=== PATIENT | female | born 1965 | race Caucasian/White ===

== ENCOUNTER 2020-06-05 16:11 | Emergency (ER) | payer OTHER, SELFPAY ==
--- NOTE | ~2020-06-05 | CT_ITS ---
EXAMINATION: CT abdomen pelvis w con DATE: 06/05/2020 18:51 INDICATION: Upper abdominal pain TECHNIQUE: Computed tomography (CT) of the abdomen and pelvis was performed with 100 cc Omnipaque 350 intravenous contrast. The dose-length product was 831.44 mGy-cm. Automated exposure control and iter ative reconstruction technique were employed. COMPARISON: CT dated 11/01/2019 FINDINGS: Lung bases are unremarkable. Heart size normal. No significant pleural or pericardial effus ion. Fatty infiltration of the liver. The spleen, pancreas, adrenal glands and kidneys are unremarkable. S tatus post cholecystectomy. No significant vascular abnormality. No lymphadenopathy. Nonobstructive b owel gas pattern. No abnormal pelvic masses or fluid collections. There is a chronic L2 burst fractur e. Mild lower lumbar spondylosis. There is right hip arthroplasty. IMPRESSION: 1. No acute abdominal abnormality. Reviewed, dictated and finalized at location A.
[2020-06-05 16:18] VITALS: BP 140/84; PULSE 109; RESP 18; TEMP 36.6; O2SAT 99
--- NOTE | 2020-06-05 17:54 | ED.ABDPAIN ---
HPI - Abdominal Pain General Chief Complaint: Abdominal Pain Stated Complaint: abd pain Time Seen by Provider: 06/05/20 17:41 Source: patient History of Present Illness HPI narrative: 55-year-old female presents to emergency department for upper abdominal pain for the past 2 weeks. Patient states the pain is intermittent. She also reports having some diarrhea soon after eating. She does report currently she feels nauseated. She has not vomited today. She has not taken anything for the pain so far. No chest pain or shortness of breath. No fever or chills. Related Data Home Medications Medication Instructions Recorded Confirmed albuterol sulfate [Ventolin HFA] INHALATION 06/05/20 atorvastatin 06/05/20 blood sugar diagnostic [facility] 06/05/20 Verio test strips] blood-glucose meter [[facility] 06/05/20 Verio Flex meter] cyclobenzaprine mg 06/05/20 hydrochlorothiazide 06/05/20 hydrocodone-acetaminophen 06/05/20 irbesartan mg 06/05/20 irbesartan mg 06/05/20 lancets [[facility] Delica Plus 06/05/20 06/05/20 Lancet] liraglutide [Victoza 2-Gabriele] mg SUBCUT 06/05/20 liraglutide [Victoza 2-Gabriele] mg SUBCUT 06/05/20 liraglutide [Victoza 3-Gabriele] mg SUBCUT 06/05/20 metformin mg 06/05/20 pen needle, diabetic [UltiCare Pen 06/05/20 06/05/20 Needle] sumatriptan succinate mg PO 06/05/20 Allergies Allergy/AdvReac Type Severity Reaction Status Date / Time Penicillins Allergy Severe Anaphylaxis Verified 06/05/20 17:47 levofloxacin [From Levaquin] Allergy Mild Rash Verified 06/05/20 17:47 Sulfa (Sulfonamide Allergy Mild Rash Verified 06/05/20 17:47 Antibiotics) Review of Systems Review of Systems: Narrative: CONSTITUTIONAL: Denies fever, chills, or sweats. EYES: Denies visual changes, redness, or discharge. ENT: Denies rhinorrhea, congestion, sore throat, or otalgia. CARDIOVASCULAR: Denies chest pain, palpitations, or edema. RESPIRATORY: Denies cough or dyspnea. GASTROINTESTINAL: Reports abdominal pain, nausea, and diarrhea. GENITOURINARY: Denies dysuria or hematuria. SKIN: Denies rash or itching. MUSCULOSKELETAL: Denies back pain, joint pain, or myalgia. NEUROLOGIC: Denies headache, numbness, dizziness, or weakness. PSYCHIATRIC: Denies anxiety or depression. [facility] Past Medical History Medical History Anemia Anxiety Arthritis Asthma Back pain Colitis Congenital dysplasia of hip COPD (chronic obstructive pulmonary disease) case management patient Diabetes borderline Diverticulitis Fractures rt arm, rt foot, pelvis, coccyx GERD (gastroesophageal reflux disease) IBS (irritable bowel syndrome) Pneumonia Sinus problem UTI (urinary tract infection) Surgical History Surgical History H/O mastectomy H/O prior ablation treatment uterine H/O rhinoplasty History of dilatation and curettage History of hip replacement Hx of section Hx of cholecystectomy Hx of spinal surgery Family History Family History Father Family history of diabetes mellitus in first degree relative Mother Family history of malignant neoplasm of uterus Grandparent Family history of lymphoma Unknown Colon cancer Other Asthma Family history of coronary artery disease Hypertension Social History Social History Smoking status: Former smoker Alcohol intake: current Gender identity (if verbalized by the patient): Female Exam Narrative: Exam Narrative: GENERAL: Well-appearing, well-nourished, and in no acute distress. HEAD: Normocephalic, atraumatic. EYES: PERRLA and EOMI. ENT: Nares clear, no rhinorrhea or epistaxis. Mucous membranes moist. NECK: Supple. CHEST: Clear to auscultation. No respiratory distress. HEART: Regular rate and rhythm. No murmur heard. N
[2020-06-05 18:22] LABS: Fractional Inspired Oxygen 21 %; PCO2 VBG 40.7 mmHg (42.0-48.0); PO2 VBG 53.1 mmHg (35.0-45.0)
[2020-06-05 18:22] LABS: Add Urine Microscopic? YES; Appearance Urine Clear (Clear); Bilirubin Urine Negative (Negative); Blood Urine 1+ (Negative); Color Urine Straw (Yellow); Glucose Urine UA 3+ mg/dL (Negative); Ketones Urine Negative (Negative); Leukocyte Esterase Ur Negative LEU/UL (Negative); Mucus Urine Rare /lpf; Nitrate Urine Negative (Negative); Protein Urine Negative (Negative); RBC Urine 0-2 /hpf (0-2); Specific Grav Ur 1.027 (1.001-1.035); Squamous Epithelial Cell Urine Occasional /hpf (Few); Urobilinogen Urine Negative mg/dL (<2.0); WBC Urine 0-3 /hpf
[2020-06-05 18:23] LABS: Device ROOM AIR; pH VBG 7.406 (7.300-7.400)
[2020-06-05 18:28] LABS: Basophils Absolute Auto 0.1 K/mm3 (0.0-0.1); Basophils Percent Auto 0.5 % (0.2-1.2); Eosinophils Absolute Auto 0.2 K/mm3 (0-0.3); Eosinophils Percent Auto 1.6 % (0-4.4); Hematocrit 44.5 % (37.0-47.0); Hemoglobin 14.7 g/dL (12.0-15.0); Immature Granulocyte Absolute 0.01 K/mm3 (0.00-0.031); Immature Granulocyte Percent A 0.1 % (0-0.5); Lymphocytes Absolute Auto 3.23 K/mm3 (0.9-3.2); Lymphocytes Percent Auto 32.6 % (18.3-44.2); Mean Corpuscular Volume 87.8 fl (80-100); Mean Platelet Volume 10.5 fl (7.4-10.4); Monocytes Absolute Auto 0.6 K/mm3 (0.1-0.6); Monocytes Percent Auto 5.7 % (2.6-8.5); Neutrophils Absolute Auto 5.9 K/mm3 (1.3-6.7); Neutrophils Percent Auto 59.5 % (45.5-73.1); Platelet Count Result 324 k/mm3 (150-375); Red Blood Count 5.07 M/mm3 (4.2-5.4); Red Cell Distribution Width 13.2 % (11.5-14.5); White Blood Count 9.9 K/mm3 (4.5-10.0)
[2020-06-05] MEDS: KETOROLAC 30 MG/ML VIAL (*BKC) IV PUSH (18:31)
[2020-06-05] MEDS: SODIUM CHLORIDE 0.9% IV 1,000 ML 999 ML IV CONT (18:31)
[2020-06-05] MEDS: ONDANSETRON INJ 4 MG/2 ML VIAL IV PUSH (18:32)
[2020-06-05 18:41] LABS: Alanine Aminotransferase 96 U/L (4-35); Albumin Level 4.3 g/dL (3.5-5.1); Alkaline Phosphatase 109 U/L (38-126); Anion Gap 9 mmol/L (8-16); Aspartate Amino Transferase 65 U/L (14-36); Bilirubin,Total 0.3 mg/dL (0.2-1.3); Blood Urea Nitrogen 12 mg/dL (7-17); Calcium 9.4 mg/dL (8.4-10.2); Carbon Dioxide 29 mmol/L (22-30); Chloride 95 mmol/L (98-107); Estimated CRCL calculation 96 ml/min; Estimated Glomerular Filt Rate > 60; Glucose 316 mg/dL (65-105); Lipase 327 U/L (23-300); Potassium 4.2 mmol/L (3.4-5.0); Sodium 133 mmol/L (137-145)
[2020-06-05 18:43] LABS: Estimated CRCL calculation 96 ml/min; Estimated Glomerular Filt Rate > 60
[2020-06-05 18:46] LABS: Beta-Hydroxybutyrate/Acetoacetate 0.09 mmol/L (0.02-0.27)
[2020-06-05 20:13] VITALS: BP 135/79; PULSE 80; RESP 19; TEMP 36.8; O2SAT 100
== END 2020-06-05 20:14 | disposition home or self-care (01) ==
PROVIDERS: Emergency Provider Emergency Medicine; PCP Physician Assistant
DX: K58.9 Irritable bowel syndrome, unspecified (principal); D64.9 Anemia, unspecified; F41.9 Anxiety disorder, unspecified; M19.90 Unspecified osteoarthritis, unspecified site; J45.909 Unspecified asthma, uncomplicated; J44.9 Chronic obstructive pulmonary disease, unspecified; K21.9 Gastro-esophageal reflux disease without esophagitis
CPT/HCPCS: 36415; 74177; 80053; 81001; 82010; 82803; 83690; 85025; 96361; 96374; 96375; 99284; J1885; J2405; J7030; Q9967

== ENCOUNTER 2020-08-17 13:41 | Emergency (ER) | payer OTHER, SELFPAY ==
[2020-08-17 13:51] VITALS: BP 141/90; PULSE 85; RESP 18; TEMP 36.7; O2SAT 99
--- NOTE | 2020-08-17 14:06 | ED.URI ---
HPI - URI/Sore Throat General Chief Complaint: Upper Respiratory Infection Stated Complaint: Dizziness Time Seen by Provider: 08/17/20 14:06 Source: patient Mode of arrival: ambulatory Limitations: no limitations History of Present Illness HPI Narrative: Marilyn Jacobson is a 55 yo female with c/o sinus headache, dizziness, increased UR symptoms. In a [place] environment; seen by pcp in last month Related Data Home Medications Medication Instructions Recorded Confirmed blood sugar diagnostic [OneTouch 06/05/20 06/05/20 Verio test strips] blood-glucose meter [OneTouch 06/05/20 06/05/20 Verio Flex meter] lancets [OneTouch Delica Plus 06/05/20 06/05/20 Lancet] pen needle, diabetic [UltiCare Pen 06/05/20 06/05/20 Needle] albuterol sulfate [ProAir HFA] 1 inh INHALATION QID 08/17/20 08/17/20 cyclobenzaprine [Flexeril] 20 mg PO DAILY 08/17/20 08/17/20 hydrochlorothiazide 12.5 mg PO DAILY 08/17/20 08/17/20 hydrocodone-acetaminophen [[place]] 1 tablet PO BID 08/17/20 08/17/20 liraglutide [Victoza 2-Gabriele] 0.6 mg SUBCUT DAILY 08/17/20 08/17/20 nateglinide 120 mg PO TID 08/17/20 08/17/20 Allergies Allergy/AdvReac Type Severity Reaction Status Date / Time Penicillins Allergy Severe Anaphylaxis Verified 08/17/20 13:59 levofloxacin [From Levaquin] Allergy Mild Rash Verified 08/17/20 13:59 Sulfa (Sulfonamide Allergy Mild Rash Verified 08/17/20 13:59 Antibiotics) Review of Systems Review of Systems: Narrative: CONSTITUTIONAL: Denies fever, chills, sweats. EYES: Denies visual changes, redness, discharge. ENT: Denies rhinorrhea, c sinus ongestion, sore throat, no otalgia. CARDIOVASCULAR: Denies chest pain, palpitations, edema. RESPIRATORY: Denies dyspnea, wheezing, cough GASTROINTESTINAL: Denies abdominal pain, nausea, vomiting, diarrhea. GENITOURINARY: Denies dysuria, hematuria, abnormal discharge SKIN: Denies rash or itching. NEUROLOGIC: Denies numbness, or focal weakness. PSYCHIATRIC: Denies anxiety or depression. [facility] Past Medical History Medical History (Updated 08/17/20 @ 14:15 by Jenelle Vasquez CNP) Anemia Anxiety Arthritis Asthma Back pain Colitis Congenital dysplasia of hip COPD (chronic obstructive pulmonary disease) case management patient Diabetes borderline Diverticulitis Fractures rt arm, rt foot, pelvis, coccyx GERD (gastroesophageal reflux disease) IBS (irritable bowel syndrome) Pneumonia Sinus problem UTI (urinary tract infection) Surgical History Surgical History H/O mastectomy H/O prior ablation treatment uterine H/O rhinoplasty History of dilatation and curettage History of hip replacement Hx of section Hx of cholecystectomy Hx of spinal surgery Family History Family History Father Family history of diabetes mellitus in first degree relative Mother Family history of malignant neoplasm of uterus Grandparent Family history of lymphoma Unknown Colon cancer Other Asthma Family history of coronary artery disease Hypertension Social History Social History Smoking status: Former smoker Alcohol intake: current Gender identity (if verbalized by the patient): Female Comments At time of signature, I agree with nursing past medical, surgical, social and family history. There is no relevant family history pertinent to the presenting complaint. Exam Narrative: Exam Narrative: GENERAL: This is a well-nourished, well-developed patient, in mild distress. HEAD: normocephalic, atraumatic. EYES: Sclera clear/white. Vision is grossly intact. EARS: External ears normal, auditory canals clear and without drainage, TMs normal without perforation. Hearing grossly intact. NOSE: External nose normal without nasal discharge, nares without redness, no rhinorrhea. THROAT: Mucous membranes m
== END 2020-08-17 14:20 | disposition home or self-care (01) ==
PROVIDERS: Emergency Provider Nurse Practitioner; PCP Physician Assistant
DX: J01.01 Acute recurrent maxillary sinusitis (principal); Z87.891 Personal history of nicotine dependence; M19.90 Unspecified osteoarthritis, unspecified site; J44.9 Chronic obstructive pulmonary disease, unspecified; K21.9 Gastro-esophageal reflux disease without esophagitis; Q65.89 Other specified congenital deformities of hip; Z90.10 Acquired absence of unspecified breast and nipple; Z96.649 Presence of unspecified artificial hip joint; R73.03 Prediabetes
CPT/HCPCS: 99213; G0463

== ENCOUNTER 2020-09-18 13:58 | Outpatient (CLI) | payer OTHER, SELFPAY ==
--- NOTE | ~2020-09-18 | XR_ITS ---
EXAMINATION: XR hand LT min 3V DATE: 09/18/2020 14:16 INDICATION: Left hand pain. TECHNIQUE: 3 views of left hand were obtained. COMPARISON: None. FINDINGS: Bone alignment is normal. No fracture. There is a 4 mm nonaggressive lytic lesion in lunate , likely an enchondroma. There is mild osteoarthritis of second, third, and fourth distal interphalan geal joints. IMPRESSION: 1. Mild polyarticular osteoarthritis. Reviewed, dictated and finalized at location B. 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
--- NOTE | ~2020-09-18 | XR_ITS ---
EXAMINATION: XR hand RT min 3V DATE: 09/18/2020 14:16 INDICATION: Right hand pain. TECHNIQUE: 3 views of right hand were obtained. COMPARISON: Right hand radiographs 08/23/2009 FINDINGS: Bone alignment is normal. No fracture. There is mild osteoarthritis of second metacarpophal angeal joint and third distal interphalangeal joint. IMPRESSION: 1. Mild polyarticular osteoarthritis. Reviewed, dictated and finalized at location B. 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
== END 2020-09-18 13:59 ==
PROVIDERS: PCP Physician Assistant; Visit Provider Pain Medicine Pain Medicine
DX: M19.041 Primary osteoarthritis, right hand (principal); M19.042 Primary osteoarthritis, left hand
CPT/HCPCS: 73130

== ENCOUNTER 2021-03-11 12:01 | Emergency (ER) | payer OTHER, SELFPAY ==
[2021-03-11] VITALS (7 sets, daily range): BP systolic 125–147; BP diastolic 78–101; PULSE 68–94; RESP 16–22; TEMP 36.2; O2SAT 97–100
--- NOTE | ~2021-03-11 | CT_ITS ---
EXAMINATION: CT abdomen pelvis w con DATE: 03/11/2021 13:40 INDICATION: Abdominal pain. Diverticulitis. Nausea. TECHNIQUE: Computed tomography (CT) of the abdomen and pelvis was performed with 100 mL Omnipaque 350 intravenous contrast. Automated exposure control and iterative reconstruction technique were employe d. The dose-length product was 576.75 mGy-cm. COMPARISON: CT abdomen and pelvis 06/05/2020 FINDINGS: The visualized portions of the lung bases demonstrate mild atelectasis. There is mild emphy sema. There is a 5 mm nodule at the minor fissure, likely benign. No pleural effusion. The heart size is normal. There are coronary artery calcifications. No pericardial effusion. There is diffuse hepat ic steatosis. There are changes of cholecystectomy. The spleen, pancreas, adrenal glands, and kidneys are normal. There are no dilated loops of bowel. The appendix is normal. There are no pathologically enlarged lymph nodes. There is no free intraperitoneal fluid. 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 There is a total right hip arthroplasty. There is a chronic compr ession fracture of L2. There is severe lower lumbar spondylosis. IMPRESSION: 1. Diffuse hepatic steatosis. Reviewed, dictated and finalized at location A.
[2021-03-11 13:01] LABS: Add Urine Microscopic? YES; Appearance Urine Clear (Clear); Bilirubin Urine Negative (Negative); Blood Urine 1+ (Negative); Color Urine Yellow (Yellow); Glucose Urine UA Negative (Negative); Ketones Urine Negative (Negative); Leukocyte Esterase Ur Negative LEU/UL (Negative); Mucus Urine Rare /lpf; Nitrate Urine Negative (Negative); Protein Urine 1+ mg/dL (Negative); RBC Urine 0-2 /hpf (0-2); Specific Grav Ur 1.023 (1.001-1.035); Squamous Epithelial Cell Urine Few /hpf (Few); Urobilinogen Urine Negative mg/dL (<2.0); WBC Urine 0-3 /hpf
[2021-03-11] MEDS: PANTOPRAZOLE SODIUM IV 40 MG VIAL IV PUSH (13:05)
[2021-03-11] MEDS: SODIUM CHLORIDE 0.9% IV 1,000 ML 999 ML IV CONT (13:05)
[2021-03-11 13:10] LABS: Basophils Absolute Auto 0.1 K/mm3 (0.0-0.1); Basophils Percent Auto 0.4 % (0.2-1.2); Eosinophils Absolute Auto 0.2 K/mm3 (0-0.3); Eosinophils Percent Auto 1.3 % (0-4.4); Hemoglobin 14.3 g/dL (12.0-15.0); Immature Granulocyte Absolute 0.05 K/mm3 (0.00-0.031); Immature Granulocyte Percent A 0.4 % (0-0.5); Lymphocytes Absolute Auto 3.57 K/mm3 (0.9-3.2); Lymphocytes Percent Auto 31.5 % (18.3-44.2); Mean Corpuscular HGB Conc 33.3 g/dl (32-36); Mean Corpuscular Hemoglobin 28.5 pg (26-34); Mean Corpuscular Volume 85.8 fl (80-100); Mean Platelet Volume 10.3 fl (7.4-10.4); Monocytes Absolute Auto 0.6 K/mm3 (0.1-0.6); Monocytes Percent Auto 5.1 % (2.6-8.5); Neutrophils Percent Auto 61.3 % (45.5-73.1); Platelet Count Result 356 k/mm3 (150-375); Red Blood Count 5.01 M/mm3 (4.2-5.4); Red Cell Distribution Width 12.9 % (11.5-14.5); White Blood Count 11.4 K/mm3 (4.5-10.0)
[2021-03-11 13:19] LABS: Alanine Aminotransferase 41 U/L (4-35); Albumin Level 4.6 g/dL (3.5-5.1); Alkaline Phosphatase 110 U/L (38-126); Anion Gap 11 mmol/L (8-16); Aspartate Amino Transferase 40 U/L (14-36); Bilirubin,Total 0.7 mg/dL (0.2-1.3); Blood Urea Nitrogen 25 mg/dL (7-17); Calcium 9.9 mg/dL (8.4-10.2); Carbon Dioxide 29 mmol/L (22-30); Chloride 97 mmol/L (98-107); Estimated CRCL calculation 81 ml/min; Estimated Glomerular Filt Rate > 60; Glucose 128 mg/dL (65-105); Lipase 120 U/L (23-300); Potassium 3.7 mmol/L (3.4-5.0); Sodium 137 mmol/L (137-145)
[2021-03-11] MEDS: HYOSCYAMINE SULFATE 0.125 MG TABLET PO (13:56)
--- NOTE | 2021-03-11 14:19 | ED.ABDPAIN ---
HPI - Abdominal Pain General Chief Complaint: Abdominal Pain Stated Complaint: abd pain Time Seen by Provider: 03/11/21 12:14 Source: patient and RN notes reviewed Mode of arrival: ambulatory Limitations: no limitations History of Present Illness HPI narrative: Patient is a 56-year-old female who presents to emergency department for evaluation of abdominal pain that is been present now for several weeks noting aching pain in the epigastrium patient has specialist and sees primary care for this historically has denied any vomiting or hematemesis or any rectal bleeding does note some loose stools denies URI symptoms and on arrival is otherwise in no distress Related Data Home Medications Medication Instructions Recorded Confirmed blood sugar diagnostic [OneTouch 06/05/20 06/05/20 Verio test strips] blood-glucose meter [OneTouch 06/05/20 06/05/20 Verio Flex meter] lancets [OneTouch Delica Plus 06/05/20 06/05/20 Lancet] pen needle, diabetic [UltiCare Pen 06/05/20 06/05/20 Needle] albuterol sulfate [ProAir HFA] 1 inh INHALATION QID 08/17/20 08/17/20 hydrochlorothiazide 12.5 mg PO DAILY 08/17/20 08/17/20 hydrocodone-acetaminophen [[place]] 1 tablet PO BID 08/17/20 08/17/20 liraglutide [Victoza 2-Gabriele] 0.6 mg SUBCUT DAILY 08/17/20 08/17/20 nateglinide 120 mg PO TID 08/17/20 08/17/20 Allergies Allergy/AdvReac Type Severity Reaction Status Date / Time Penicillins Allergy Severe Anaphylaxis Verified 08/17/20 13:59 levofloxacin [From Levaquin] Allergy Mild Rash Verified 08/17/20 13:59 Sulfa (Sulfonamide Allergy Mild Rash Verified 08/17/20 13:59 Antibiotics) Review of Systems Review of Systems: All systems reviewed & are unremarkable except as noted in HPI and below PMFSH Past Medical History Medical History (Updated 03/11/21 @ 14:23 by Morris Barker PA-C) Anemia Anxiety Arthritis Asthma Back pain Colitis Congenital dysplasia of hip COPD (chronic obstructive pulmonary disease) case management patient Diabetes borderline Diverticulitis Fractures rt arm, rt foot, pelvis, coccyx GERD (gastroesophageal reflux disease) IBS (irritable bowel syndrome) Pneumonia Sinus problem UTI (urinary tract infection) Surgical History Surgical History H/O mastectomy H/O prior ablation treatment uterine H/O rhinoplasty History of dilatation and curettage History of hip replacement Hx of section Hx of cholecystectomy Hx of spinal surgery Family History Family History Father Family history of diabetes mellitus in first degree relative Mother Family history of malignant neoplasm of uterus Grandparent Family history of lymphoma Unknown Colon cancer Other Asthma Family history of coronary artery disease Hypertension Social History Social History Smoking status: Former smoker Alcohol intake: current Gender identity (if verbalized by the patient): Female Exam Narrative: Exam Narrative: GENERAL: Well-appearing, well-nourished, and in no acute distress. HEAD: Normocephalic, atraumatic. EYES: PERRLA and EOMI. ENT: Nares clear, no rhinorrhea or epistaxis. Mucous membranes moist. CHEST: Clear to auscultation. No respiratory distress. No wheezes rales or rhonchi HEART: Regular rate and rhythm. No murmur heard. Normal peripheral pulses. ABDOMEN: Soft, epigastric tenderness to palpation, nondistended EXTREMITIES: Normal range of motion. No edema. SKIN: Warm, dry, no rash. NEURO: No focal deficits. Alert and oriented x3. Cranial nerves II through XII grossly intact PSYCH: Normal mood and affect. Course Course Emergency Course: Patient in the room no distress aware of case findings treatment plan and diagnosis agreeing to follow-up as instructed or to return if symptoms worsen or concerns Vital Signs Vital signs:
== END 2021-03-11 14:45 | disposition home or self-care (01) ==
PROVIDERS: Emergency Medicine Emergency Medical Services; Emergency Provider Family Medicine; PCP Physician Assistant
DX: R10.9 Unspecified abdominal pain (principal); K76.0 Fatty (change of) liver, not elsewhere classified; D64.9 Anemia, unspecified; F41.9 Anxiety disorder, unspecified; M19.90 Unspecified osteoarthritis, unspecified site; J45.909 Unspecified asthma, uncomplicated; K21.9 Gastro-esophageal reflux disease without esophagitis
CPT/HCPCS: 36415; 74177; 80053; 81001; 81025; 83690; 85025; 96361; 96374; 99284; A9270; C9113; J7030; Q9967

== ENCOUNTER 2021-04-23 13:55 | Outpatient (CLI) | payer OTHER, SELFPAY ==
--- NOTE | ~2021-04-23 | XR_ITS ---
EXAMINATION: XR hip LT min 2V DATE: 04/23/2021 14:45 INDICATION: Left hip pain. TECHNIQUE: 2 views of left hip were obtained. COMPARISON: Left hip radiographs 03/09/2019 FINDINGS: Bone alignment is normal. No fracture. There is moderate left hip osteoarthritis. IMPRESSION: 1. Stable moderate left hip osteoarthritis. Reviewed, dictated and finalized at location A.
== END 2021-04-23 13:56 ==
PROVIDERS: PCP Pain Medicine Pain Medicine; Visit Provider Registered Nurse Pain Management
DX: M16.12 Unilateral primary osteoarthritis, left hip (principal)
CPT/HCPCS: 73502

== ENCOUNTER 2021-06-18 12:59 | Outpatient (CLI) | payer OTHER, MEDICAID, SELFPAY ==
--- NOTE | 2021-06-18 | ECG_ITS ---
Measurements Intervals [place] Rate: 92 P: 49 MA: 137 QRS: 74 QRSD: 87 T: 68 QT: 348 QTc: 430 Interpretive Statements SINUS RHYTHM NORMAL ECG Electronically Signed On 06-18-2021 14:09:25 CDT by John Paul Lgaos D.O.
--- NOTE | ~2021-06-18 | XR_ITS ---
EXAMINATION: XR chest 2V DATE: 06/18/2021 13:36 INDICATION: History of COPD TECHNIQUE: PA and lateral views of the chest are obtained. COMPARISON: 02/18/2018 FINDINGS: The lungs are free of acute opacities. There is scarring in the right lung apex. There is n o pleural effusion or pneumothorax. The cardiomediastinal silhouette is normal. There is mild thoraci c spondylosis. IMPRESSION: 1. No acute cardiopulmonary abnormality. Reviewed, dictated and finalized at location B.
[2021-06-18 14:20] LABS: INR 0.9; Prothrombin Time 11.9 Seconds (11.1-14.7)
[2021-06-18 14:21] LABS: Alanine Aminotransferase 41 U/L (4-35); Albumin Level 4.4 g/dL (3.5-5.1); Alkaline Phosphatase 116 U/L (38-126); Anion Gap 11 mmol/L (8-16); Aspartate Amino Transferase 34 U/L (14-36); Bilirubin,Total 0.2 mg/dL (0.2-1.3); Blood Urea Nitrogen 18 mg/dL (7-17); Carbon Dioxide 26 mmol/L (22-30); Chloride 98 mmol/L (98-107); Estimated Glomerular Filt Rate > 60; Glucose 247 mg/dL (65-110); Sodium 135 mmol/L (137-145)
[2021-06-18 14:26] LABS: Partial Thromboplastin Time 23.1 SECONDS (22.3-36.8)
== END 2021-06-18 13:00 | disposition home or self-care (01) ==
PROVIDERS: PCP Pain Medicine Pain Medicine; Visit Provider Physician Assistant
DX: Z01.818 Encounter for other preprocedural examination (principal); Z51.81 Encounter for therapeutic drug level monitoring; Z79.899 Other long term (current) drug therapy
CPT/HCPCS: 36415; 71046; 80053; 85610; 85730; 93005

== ENCOUNTER 2022-01-02 11:46 | Emergency (ER) | payer OTHER, MEDICAID, SELFPAY ==
--- NOTE | ~2022-01-02 | XR_ITS ---
EXAMINATION: XR chest 2V DATE: 01/02/2022 12:18 INDICATION: Central chest pain radiating to the left breast TECHNIQUE: PA and lateral views of the chest were obtained. COMPARISON: Chest radiograph dated 06/18/2021 CT dated 03/11/2021 FINDINGS: Unchanged right apical pleural-parenchymal scarring. Additional unchanged mild lingular atelectasis/s carring along side a small left paracardial fat pad. No new airspace opacities, pulmonary edema, pleu ral effusion or pneumothorax. The cardiomediastinal silhouette is normal. Visualized bones and soft t issues are unremarkable. IMPRESSION: 1. No acute cardiopulmonary disease. Reviewed, dictated and finalized at location A.
--- NOTE | 2022-01-02 11:46 | ECG_ITS ---
Measurements Intervals [place] Rate: 95 P: 55 CA: 130 QRS: 72 QRSD: 85 T: 69 QT: 335 QTc: 423 Interpretive Statements SINUS RHYTHM NORMAL ECG COMPARED TO ECG 06/18/2021 14:06:20 NO SIGNIFICANT CHANGES Electronically Signed On 01-02-2022 16:27:28 CDT by Hang Pino M.D.
[2022-01-02 11:50] VITALS: BP 150/89; PULSE 97; RESP 18; TEMP 36.1; O2SAT 100
[2022-01-02 12:09] LABS: Basophils Absolute Auto 0.1 K/mm3 (0.0-0.1); Basophils Percent Auto 0.6 % (0.2-1.2); Eosinophils Absolute Auto 0.2 K/mm3 (0-0.3); Eosinophils Percent Auto 1.4 % (0-4.4); Hematocrit 48.8 % (37.0-47.0); Hemoglobin 15.5 g/dL (12.0-15.0); Immature Granulocyte Absolute 0.03 K/mm3 (0.00-0.031); Immature Granulocyte Percent A 0.3 % (0-0.5); Lymphocytes Absolute Auto 3.37 K/mm3 (0.9-3.2); Lymphocytes Percent Auto 30.9 % (18.3-44.2); Mean Corpuscular HGB Conc 31.8 g/dl (32-36); Mean Corpuscular Hemoglobin 27.5 pg (26-34); Mean Corpuscular Volume 86.5 fl (80-100); Mean Platelet Volume 10.1 fl (7.4-10.4); Monocytes Absolute Auto 0.6 K/mm3 (0.1-0.6); Monocytes Percent Auto 5.1 % (2.6-8.5); Neutrophils Absolute Auto 6.7 K/mm3 (1.3-6.7); Neutrophils Percent Auto 61.7 % (45.5-73.1); Platelet Count Result 323 k/mm3 (150-375); Red Blood Count 5.64 M/mm3 (4.2-5.4); Red Cell Distribution Width 15.7 % (11.5-14.5); White Blood Count 10.9 K/mm3 (4.5-10.0)
[2022-01-02 12:18] LABS: INR 0.9; Prothrombin Time 11.5 Seconds (11.1-14.7)
[2022-01-02 12:19] LABS: Partial Thromboplastin Time 23.1 SECONDS (22.3-36.8)
[2022-01-02 12:22] LABS: Alanine Aminotransferase 27 U/L (4-35); Albumin Level 4.3 g/dL (3.5-5.1); Alkaline Phosphatase 139 U/L (38-126); Anion Gap 6 mmol/L (8-16); Aspartate Amino Transferase 25 U/L (14-36); Bilirubin,Total 0.5 mg/dL (0.2-1.3); Blood Urea Nitrogen 11 mg/dL (7-17); Calcium 8.8 mg/dL (8.4-10.2); Carbon Dioxide 28 mmol/L (22-30); Chloride 102 mmol/L (98-107); Estimated CRCL calculation 97 ml/min; Estimated Glomerular Filt Rate > 60; Glucose 203 mg/dL (65-110); Lipase 186 U/L (23-300); Potassium 4.3 mmol/L (3.4-5.0); Sodium 136 mmol/L (137-145)
[2022-01-02 12:33] LABS: Troponin I < 0.012 ng/mL (0.000-0.034)
[2022-01-02 15:01] VITALS: O2SAT 99
[2022-01-02 15:02] VITALS: O2SAT 99
[2022-01-02 15:25] LABS: Troponin I < 0.012 ng/mL (0.000-0.034)
[2022-01-02] MEDS: BELLADONNA ALK/PHENOB ELIX 10 ML, MAG HYDROX/ALUMINUM HYD/SIMETH 30 ML, LIDOCAINE HCL 2... PO (15:45)
[2022-01-02 16:11] VITALS: BP 159/92; PULSE 94; RESP 13; O2SAT 97
--- NOTE | 2022-01-02 16:40 | ED.CHESTPAIN ---
HPI - Chest Pain General Chief Complaint: Chest Pain Stated Complaint: chest pain Time Seen by Provider: 01/02/22 14:56 History of Present Illness HPI narrative: Patient is a 56-year-old female who presents ER with chest pain. Reports its been ongoing over the last couple weeks. Occurs daily. Been lasting all day today. She missed a appointment with her PCP and so she came here for evaluation. Starts under her ribs then moves up into the center of her chest. It is burning in nature in the center of her chest. No nausea or vomiting. She reports she noticed the pain occurs when she is full and also occasionally when she is exerting herself. No history of heart disease. No alleviating factors but she is identified. Related Data Home Medications Medication Instructions Recorded Confirmed blood sugar diagnostic [MobisanteTouch 06/05/20 04/24/21 Verio test strips] blood-glucose meter [[employer]obisanteTouch 06/05/20 04/24/21 Verio Flex meter] lancets [[facility] Delica Plus 06/05/20 04/24/21 Lancet] pen needle, diabetic [UltiCare Pen 06/05/20 04/24/21 Needle] albuterol sulfate [ProAir HFA] 1 inh INHALATION QID 08/17/20 04/24/21 hydrochlorothiazide 12.5 mg PO DAILY 08/17/20 04/24/21 hydrocodone-acetaminophen [[place]] 1 tablet PO BID 08/17/20 04/24/21 liraglutide [Victoza 2-Gabriele] 0.6 mg SUBCUT DAILY 08/17/20 04/24/21 nateglinide 120 mg PO TID 08/17/20 04/24/21 irbesartan 75 mg tablet 75 mg PO DAILY 04/24/21 04/24/21 loperamide 2 mg tablet 2 mg PO Q6H PRN 04/24/21 04/24/21 Allergies Allergy/AdvReac Type Severity Reaction Status Date / Time Penicillins Allergy Severe Anaphylaxis Verified 01/02/22 15:03 levofloxacin [From Levaquin] Allergy Mild Rash Verified 01/02/22 15:03 Sulfa (Sulfonamide Allergy Mild Rash Verified 01/02/22 15:03 Antibiotics) Review of Systems Review of Systems: All systems reviewed & are unremarkable except as noted in HPI and below Constitutional: Constitutional: Denies chills, Denies fever(s) and Denies weakness ENT: Denies nasal congestion and Denies sore throat Cardiovascular: Cardiovascular: Reports chest pain, Denies rapid heart rate and Denies radiating jaw, neck or arm pain Respiratory: Respiratory: Denies cough, Denies dyspnea and Denies wheezing Gastrointestinal: Gastrointestinal: Reports abdominal pain, Denies diarrhea, Denies nausea and Denies vomiting Neurologic: Denies focal weakness and Denies numbness PMFSH Past Medical History Medical History (Updated 01/02/22 @ 16:45 by Humble Arango MD) Anemia Anxiety Arthritis Asthma Back pain Colitis Congenital dysplasia of hip COPD (chronic obstructive pulmonary disease) case management patient Diabetes borderline Diverticulitis Fractures rt arm, rt foot, pelvis, coccyx GERD (gastroesophageal reflux disease) IBS (irritable bowel syndrome) Pneumonia Sinus problem UTI (urinary tract infection) Surgical History Surgical History H/O mastectomy H/O prior ablation treatment uterine H/O rhinoplasty History of dilatation and curettage History of hip replacement Hx of section Hx of cholecystectomy Hx of spinal surgery Family History Family History Father Family history of diabetes mellitus in first degree relative Mother Family history of malignant neoplasm of uterus Grandparent Family history of lymphoma Unknown Colon cancer Other Asthma Family history of coronary artery disease Hypertension Social History Social History Smoking status: Former smoker Alcohol intake: current Gender identity (if verbalized by the patient): Female Exam Narrative: GENERAL: Well-appearing, well-nourished, and in no acute distress. HEAD: Normocephalic, atraumatic. EYES: PERRL and EOMI. CHEST: Clear to auscultation. No respiratory d
[2022-01-02 17:01] VITALS: BP 152/90; PULSE 87; RESP 16; O2SAT 98
== END 2022-01-02 17:03 | disposition home or self-care (01) ==
PROVIDERS: Emergency Provider Emergency Medicine; PCP Physician Assistant
DX: R07.9 Chest pain, unspecified (principal); K21.9 Gastro-esophageal reflux disease without esophagitis; J44.9 Chronic obstructive pulmonary disease, unspecified; R73.03 Prediabetes; K58.9 Irritable bowel syndrome, unspecified; M19.90 Unspecified osteoarthritis, unspecified site; Z87.891 Personal history of nicotine dependence; Z87.440 Personal history of urinary (tract) infections; Z87.01 Personal history of pneumonia (recurrent); Z86.2 Personal history of diseases of the blood and blood-forming organs and certain disorders involving the immune mechanism; Z79.899 Other long term (current) drug therapy
CPT/HCPCS: 36415; 71046; 80053; 83690; 84484; 85025; 85610; 85730; 93005; 99284; A9270

== ENCOUNTER 2022-01-15 10:45 | Outpatient (CLI) | payer OTHER, MEDICAID, SELFPAY ==
[2022-01-15 11:25] LABS: Alanine Aminotransferase 26 U/L (4-35); Albumin Level 4.3 g/dL (3.5-5.1); Alkaline Phosphatase 141 U/L (38-126); Anion Gap 5 mmol/L (8-16); Aspartate Amino Transferase 28 U/L (14-36); Bilirubin,Total 0.5 mg/dL (0.2-1.3); Blood Urea Nitrogen 15 mg/dL (7-17); Calcium 9.3 mg/dL (8.4-10.2); Carbon Dioxide 30 mmol/L (22-30); Chloride 101 mmol/L (98-107); Cholesterol 241 mg/dL (0-200); Estimated Glomerular Filt Rate > 60; Glucose 190 mg/dL (65-110); HDL Direct 54 mg/dL; Potassium 4.3 mmol/L (3.4-5.0); Sodium 136 mmol/L (137-145); Triglycerides 163 mg/dL (<150)
[2022-01-15 11:36] LABS: LDL Cholesterol Direct 138 mg/dL
[2022-01-15 12:09] LABS: Microalbumin Urine Random 53.5 mg/L (0-16.7)
[2022-01-15 12:12] LABS: Creatinine Urine 99.9 mg/dL; MALB Creatinine Ratio 53.6 mg/g (0-30)
== END 2022-01-15 10:46 | disposition home or self-care (01) ==
LOC: ANHLAB 10:50
PROVIDERS: PCP Physician Assistant; Visit Provider Physician Assistant
DX: E11.9 Type 2 diabetes mellitus without complications (principal)
CPT/HCPCS: 36415; 80053; 80061; 82043; 83036

== ENCOUNTER 2022-01-27 14:54 | Outpatient (CLI) | payer OTHER, MEDICAID, SELFPAY ==
--- NOTE | ~2022-01-27 | CT_ITS ---
EXAMINATION:CT lung screening DATE: 01/27/2022 15:19 INDICATION: Screening for malignant neoplasms of respiratory organs. Smoker who quit 1 month ago with 38 pack year history. TECHNIQUE: Computed tomography (CT) of the chest was performed without intravenous contrast. Automate d exposure control and iterative reconstruction technique were employed. The dose-length product (DLP ) was 75.10 mGy-cm. COMPARISON: Chest CT 04/27/2016 FINDINGS: There is stable scarring at the lung apices. There is a stable 4 mm nodule at minor fissure . There are chronic mild tree-in-bud opacities in right middle lobe and lingula, likely bronchiolecta sis. There is mild emphysema. There is mild atelectasis in right middle lobe and lingula. No pleural effusion. The heart size is normal. There are coronary artery calcifications. No pericardial effusion . There is diffuse hepatic steatosis. There are changes of cholecystectomy. There is mild thoracic sp ondylosis. IMPRESSION: 1. Lung-RADS category 2: Benign appearance or behavior. Continue annual screening with noncontrast lo w-dose chest CT in 12 months. Reviewed, dictated and finalized at location B. IMPRESSION: 1. Lung-RADS category 2: Benign appearance or behavior. Continue annual screeni ng with noncontrast low-dose chest CT in 12 months.
== END 2022-01-27 14:55 | disposition home or self-care (01) ==
LOC: ANHIMG 15:00
PROVIDERS: PCP Physician Assistant; Visit Provider Physician Assistant
DX: Z12.2 Encounter for screening for malignant neoplasm of respiratory organs (principal); Z87.891 Personal history of nicotine dependence
CPT/HCPCS: 71271

== ENCOUNTER 2022-01-29 10:32 | Outpatient (CLI) | payer OTHER, MEDICAID, SELFPAY ==
--- NOTE | ~2022-01-29 | MM_ITS ---
EXAMINATION: MM screening [facility] BI w maldonado HISTORY: Screening mammogram TECHNIQUE: Craniocaudal and mediolateral oblique 3-D tomosynthesis images were obtained and synthetic 2-D images were generated. CAD analysis was submitted and interpreted. COMPARISON: 03/08/2019, 01/29/2016 bilateral screening mammogram examinations BREAST PARENCHYMAL COMPOSITION: There are scattered areas of fibroglandular density. FINDINGS: Stable circumscribed posterior upper outer quadrant intramammary lymph node on the left. Biopsy marker in the upper outer quadrant of left breast; history of prior benign right breast biopsy . There is no evidence of suspicious mass, calcification, or architectural distortion to suggest norbert gnancy in either breast. There has been no suspicious interval change. IMPRESSION: 1. No mammographic evidence of malignancy. 2. Recommend routine screening mammography in one year. BI-RADS Category 2: Benign finding(s). Reviewed, dictated and finalized at location A.
== END 2022-01-29 10:33 | disposition home or self-care (01) ==
PROVIDERS: PCP Physician Assistant; Visit Provider Physician Assistant
DX: Z12.31 Encounter for screening mammogram for malignant neoplasm of breast (principal)
CPT/HCPCS: 77063; 77067

== ENCOUNTER 2022-02-17 00:05 | Day surgery (SDC) | payer OTHER, MEDICAID, SELFPAY ==
[2022-02-03 14:14] VITALS: BMI 26.3
[2022-02-17 10:07] VITALS: BP 137/78; PULSE 94; RESP 22; O2SAT 96
[2022-02-17] MEDS: LACTATED RINGERS 1,000 ML 150 ML IV CONT (10:13)
[2022-02-17] MEDS: ONDANSETRON INJ 4 MG/2 ML VIAL IV PUSH (10:14)
[2022-02-17 10:20] LABS: Glucose Point of Care 227 mg/dl (65-105)
--- NOTE | 2022-02-17 10:26 | WPDANESEPPF ---
Anes - Initial Pre Proc Eval Procedure: Operation Date: 02/17/22 11:15 Proposed Procedures p Esophagogastroduodenoscopy & Screening Colonoscopy - Edinson Man MD Date/Time: 02/17/22 10:26 Surgeon: Edinson Man MD Pre Op Diagnosis: epigastric pain, neoplasm screening Patient Data Age: 57 Gender: F Height: 1.68 m Weight: 73 kg Last Vital Signs Pulse 94 02/17/22 10:07 Resp 22 H 02/17/22 10:07 BP 137/78 02/17/22 10:07 Pulse Ox 96 02/17/22 10:07 Allergies Allergy/AdvReac Type Severity Reaction Status Date / Time Penicillins Allergy Severe Anaphylaxis Verified 02/17/22 09:54 levofloxacin [From Levaquin] Allergy Mild Rash Verified 02/17/22 09:54 Sulfa (Sulfonamide Allergy Mild Rash Verified 02/17/22 09:54 Antibiotics) Home Medications Medication Instructions Recorded Confirmed Type blood sugar diagnostic [OneTouch 06/05/20 02/17/22 History Verio test strips] blood-glucose meter [OneTouch 06/05/20 02/17/22 History Verio Flex meter] lancets [OneTouch Delica Plus 06/05/20 02/17/22 History Lancet] pen needle, diabetic [UltiCare Pen 06/05/20 02/17/22 History Needle] albuterol sulfate [ProAir HFA] 1 inh INHALATION QID PRN 08/17/20 02/17/22 History cetirizine [Zyrtec] 10 mg PO DAILY #30 cap 08/17/20 02/17/22 Rx hydrocodone-acetaminophen [Floyd] 1 tablet PO BID 08/17/20 02/17/22 History liraglutide [Victoza 2-Gabriele] 0.6 mg SUBCUT DAILY 08/17/20 02/17/22 History famotidine 20 mg tablet 20 mg PO DAILY #30 tablet 04/24/21 02/17/22 Rx dapagliflozin 10 mg tablet 10 mg PO DAILY 01/19/22 02/17/22 History duloxetine 30 mg capsule,delayed 30 mg PO DAILY 01/19/22 02/17/22 History release Laboratory Tests 02/17/22 10:18 POC Capillary Glucose 227 mg/dl H mg/dl (65-105) Patient hx anesthesia problems: none Family hx anesthesia problems: none Results Review: All pre-operative results and documents have been reviewed as part of the pre-operative evaluation. [facility] Past Medical History Medical History Anemia Anxiety Arthritis Asthma Back pain Colitis Congenital dysplasia of hip COPD (chronic obstructive pulmonary disease) case management patient Diabetes borderline Diverticulitis Fractures rt arm, rt foot, pelvis, coccyx GERD (gastroesophageal reflux disease) IBS (irritable bowel syndrome) Pneumonia Sinus problem UTI (urinary tract infection) Surgical History Surgical History H/O mastectomy H/O prior ablation treatment uterine H/O rhinoplasty History of dilatation and curettage History of hip replacement Hx of section Hx of cholecystectomy Hx of spinal surgery Family History Family History Father Family history of diabetes mellitus in first degree relative Mother Family history of malignant neoplasm of uterus Grandparent Family history of lymphoma Unknown Colon cancer Other Asthma Family history of coronary artery disease Hypertension Social History Social History Smoking status: Former smoker Tobacco type: cigarettes Alcohol intake: current Alcohol use details: rarely Living arrangements: with family Gender identity (if verbalized by the patient): Female Spiritual care concerns: No Anes - Eval Final PreProcedure Day of Procedure 02/17/22 10:26 Patient weight: normal Heart: regular rate and rhythm Lungs: clear to auscultation Airway: Mallampati scale class II Neurological: alert and oriented Last oral intake: >/= 8 hours ASA classification: II Emergent: no Anesthetic plan: proceed Anesthesia type and monitoring: general GIVS and standard monitoring Results Review: All pre-operative results and documents have been reviewed as part of the pre-operative evaluation. I
--- NOTE | 2022-02-17 10:26 | WPDHPUPDATE1 ---
History and Physical Update Update Date/Time: 02/17/22 10:26 History and Physical has been reviewed, including an updated exam of the patient. There are NO changes in the patient's condition. Risks, benefits, and alternatives have been discussed and questions answered. Patient agrees to proceed with procedure.
--- NOTE | 2022-02-17 11:25 | SUR.OPER ---
EGD: [id number] COLON: [id number]
[2022-02-17 11:41] VITALS: BP 121/72; PULSE 102; RESP 19; O2SAT 98
[2022-02-17 11:51] VITALS: BP 124/80; PULSE 98; RESP 20; O2SAT 97
[2022-02-17 12:01] VITALS: BP 126/83; PULSE 86; RESP 20; O2SAT 98
== END 2022-02-17 12:10 | disposition home or self-care (01) ==
PROVIDERS: PCP Physician Assistant; Visit Provider Internal Medicine Gastroenterology
PROC: 0DJ08ZZ Inspection of Upper Intestinal Tract, Via Natural or Artificial Opening Endoscopic (ICD-10-PCS; CPT 43235; principal; 2022-02-17 11:15)
DX: Z12.11 Encounter for screening for malignant neoplasm of colon (principal); Z80.0 Family history of malignant neoplasm of digestive organs; K64.8 Other hemorrhoids; R13.19 Other dysphagia; R10.13 Epigastric pain; K57.90 Diverticulosis of intestine, part unspecified, without perforation or abscess without bleeding; Z79.51 Long term (current) use of inhaled steroids; J45.909 Unspecified asthma, uncomplicated; F41.9 Anxiety disorder, unspecified; J44.9 Chronic obstructive pulmonary disease, unspecified; K21.9 Gastro-esophageal reflux disease without esophagitis; K58.9 Irritable bowel syndrome, unspecified; Z87.891 Personal history of nicotine dependence
CPT/HCPCS: 45378; 43239; 43450; 82948; 87081; J2001; J2405; J2704; J3370; J7120

== ENCOUNTER 2022-04-23 13:30 | Outpatient (RCR) | payer OTHER, MEDICAID, SELFPAY ==
--- NOTE | 2022-02-11 11:53 | PTOPEVAL ---
PHYSICAL THERAPY INITIAL EVALUATION. Thank you for referring Marilyn Jacobson to [facility].? The patient is scheduled to be seen for therapy? 2x/week for 4 weeks. Please review, sign, date and return this plan of care LEXY. I agree with and certify that the following plan of care is medically necessary. Referring Physician Date Attending Provider: Martin Singh *PT Outpatient Evaluation Start: 02/10/22 Evaluation Information Diagnosis B lower extremity weakness Onset chronic Subjective Information Pt states she has a lot of Query Text:As Reported By Patient/ back pain, she had back Family surgery about 10 years ago. She states she had her R hip replaced about 6 years ago, she also had her L hip replaced in Jul. She states if she has to get down on the ground she has to roll to her back and use her arms to help pull herself up. Pt states she waddles side to side and this increases when she is tired. Prior Level of Function Pain Assessment Pain Score Pain Score 0: Self Report Cervical and Lumbar ROM Lumbar ROM Lumbar Flexion Active Knee Lumbar Extension (0-40) 15 Lateral Flexion reached lateral knee joint Query Text:Active Hands to: line bilaterally Lateral Rotation Right (0-45) 40 Lateral Rotation Left (0-45) 40 Lumbar Comments Reports of sharp pain with forward flexion Lower Extremity Range of Motion General Lower Extremity Range of Motion WFL/Left,WFL/Right Lower Extremity Muscle Strength Testing Gross Lower Extremity Strength B knee strength 4-/5 B ankle strength 4/5 Hip Strength Right Hip Flexion Strength 4 Good Hip Extension Strength 4 Good Hip Abduction Strength 3+ Fair + Left Hip Flexion Strength 4- Good - Hip Extension Strength 4 Good Hip Abduction Strength 3- Fair - Muscle Length Testing Muscle Length Testing Piriformis w/Hip Flexion >90 Degrees (R) WFL,(L) WFL Piriformis w/Hip Flexion <90 Degrees (R) WFL,(L) WFL Left Hamstring Length -42 Right Hamstring Length -45 Palpation Assessment Palpation R LE longer in supine to long sitting test Balance Assessment 5 Time Sit to Stand Time in Seconds 16 5 Time Sit to Stand Comments without the use of UEs, Query Text:Normative Data: If Greater increased reports of abdominal Than 1
--- NOTE | 2022-03-24 13:57 | PTOPEVAL ---
PHYSICAL THERAPY PROGRESS REPORT. Thank you for referring Marilyn Jacobson to [facility].? The patient is scheduled to be seen for therapy? 1x/week for 4 weeks. Please review, sign, date and return this plan of care LEXY. I agree with and certify that the following plan of care is medically necessary. Referring Physician Date Attending Provider: Martin Singh Evaluation Information Diagnosis B lower extremity weakness Onset chronic Subjective Information Pt states her hips and feeling Query Text:As Reported By Patient/ good and it feels like her Family legs are getting stronger. Rosy states she still gets a catch in her back and it sends pain down into her legs daily. 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 Pain Assessment Pain Score 0: Self Report Lumbar ROM Lumbar Flexion Active Mid Cannon Lumbar Extension (0-40) 40 Lateral Flexion reached lateral knee joint Query Text:Active Hands to: line bilaterally Lateral Rotation Right (0-45) 45 Lateral Rotation Left (0-45) 45 Lumbar Comments declines pain with active motion Lower Extremity Range of Motion General Lower Extremity Range of Motion WFL/Left,WFL/Right Lower Extremity Muscle Strength Testing Gross Lower Extremity Strength R knee strength 5/5 L knee strength 4+/5 B ankle strength 4+/5 Hip Strength Right Hip Flexion Strength 4+ Good + Hip Extension Strength 4 Good Hip Abduction Strength 4 Good Left Hip Flexion Strength 4 Good Hip Extension Strength 4 Good Hip Abduction Strength 4- Good - Muscle Length Testing Left Hamstring Length -32 Right Hamstring Length -25 Palpation Assessment Palpation R LE longer in supine to long sitting test Gait Assessment Other Gait Observations Increased pelvic rotation B, decreased eccentric hip control on the R during ambulation. Stair Climbing Assessment Stair Climbing Comments Railings required for balance, decreased eccentric control during forward descent. General Exercise General Exercises Resistance, and Position - worked on body mechanics during functional squat
--- NOTE | 2022-04-07 12:43 | PCPTNOTE ---
Patient called & cancelled scheduled appointment this date due to being sick.
--- NOTE | 2022-04-23 14:11 | PTOPEVAL ---
PHYSICAL THERAPY PROGRESS REPORT AND DISCHARGE SUMMARY. Thank you for referring Marilyn Jacobson to [facility].? The patient is to be discharged from skilled therapy at this time. Please review, sign, date and return this plan of care LEXY. I agree with and certify that the following plan of care is medically necessary. Referring Physician Date Attending Provider: Martin Singh Evaluation Information Diagnosis B lower extremity weakness Onset chronic Subjective Information Pt states her back and hips Query Text:As Reported By Patient/ are doing really good. She Family states therapy has helped tremendously for her strength. She is becoming more aware of how she is using her body and the proper way to lift things. Pain Assessment Self Report Pain Assessment Lower Back Reported Pain Level 0 Greatest Pain Intensity 6 Lumbar ROM Lumbar Flexion Active Mid Cannon,Ankle Lumbar Extension (0-40) 40 Lateral Flexion reached lateral knee joint Query Text:Active Hands to: line bilaterally Lateral Rotation Right (0-45) 45 Lateral Rotation Left (0-45) 45 Lumbar Comments declines pain with active motion Lower Extremity Range of Motion General Lower Extremity Range of Motion WFL/Left,WFL/Right Lower Extremity Muscle Strength Testing Gross Lower Extremity Strength R knee strength 5/5 L knee strength 5/5 B ankle strength 4+/5 Hip Strength Right Hip Flexion Strength 5 Normal Hip Extension Strength 4+ Good + Hip Abduction Strength 4 Good Left Hip Flexion Strength 5 Normal Hip Extension Strength 4+ Good + Hip Abduction Strength 4- Good - Muscle Length Testing Muscle Length Testing Piriformis w/Hip Flexion >90 Degrees (R) WFL,(L) WFL Piriformis w/Hip Flexion <90 Degrees (R) WFL,(L) WFL Left Hamstring Length -20 Right Hamstring Length -10 Palpation Assessment Palpation R LE longer in supine to long sitting test Gait Assessment Gait Pattern Observed Trunk Lateral Lean - Left Other Gait Observations Increased pelvic rotation B, mild lateral trunk lean to the L. Stair Climbing Assessment Stair Climbing Comments no notable deviations General Exercise Exercise Description - education to continue HEP Query Text:Record Sets, Reps, upon discharge Resistance, and Position - reviewed and consolidated HEP PT Clinical Summary Marilyn presents to therapy
== END 2022-04-23 15:16 | disposition home or self-care (01) ==
LOC: ANHPT 13:30
PROVIDERS: PCP Physician Assistant
DX: M16.12 Unilateral primary osteoarthritis, left hip (principal); R29.898 Other symptoms and signs involving the musculoskeletal system; Z96.642 Presence of left artificial hip joint
CPT/HCPCS: 97014; 97110; 97112; 97140; 97161; 97530; G0283

== ENCOUNTER → 2022-04-23 14:16 | Outpatient (CLI) | payer OTHER, MEDICAID, SELFPAY ==
--- NOTE | ~2022-04-23 | XR_ITS ---
XR_[id number]_CR DATE: 04/23/2022 15:36 INDICATION: Neck pain TECHNIQUE: AP, open-mouth, lateral and swimmer views COMPARISON: None FINDINGS: C1 and C2 are normally aligned and the odontoid process is intact. C2-3 interspace is well preserved. Moderately severe degenerative disc disease and mild retrolisthesis at C3-4. There is minimal retrolisthesis at C4-5 but preservation of the disc space. Moderately severe degenerative disc disease and mild retrolisthesis at C5-6. C6-7 interspace is well preserved. Prominent uncovertebral joint spurring at C3-4 and C5-6. There is degenerative change at the apophyse al joints throughout the cervical spine. No fracture or dislocation or locked facet or prevertebral soft tissue swelling is detected. IMPRESSION: Cervical spondylosis including severe degenerative disc disease, mild retrolisthesis and prominent uncovertebral joint spurring at C3-4 and C5-6 Reviewed, dictated and finalized at [facility]. Reviewed, dictated and finalized at location [facility]. IMPRESSION: Cervical spondylosis including severe degenerative disc disease, mi ld retrolisthesis and prominent uncovertebral joint spurring at C3-4 and C5-6
== END ==
DX: M47.892 Other spondylosis, cervical region (principal); M50.321 Other cervical disc degeneration at C4-C5 level
CPT/HCPCS: 72040

== ENCOUNTER 2022-08-03 16:57 | Emergency (ER) | payer MEDICAID, SELFPAY ==
--- NOTE | ~2022-08-03 | XR_ITS ---
XR foot LT min 3V 08/03/2022 17:18 Indication: Left foot pain Procedure: 4 views left foot Comparison: 06/16/2028 Findings: No fracture, subluxation or dislocation. Lisfranc joint intact. No significant soft tissue abnormality. No foreign bodies small degenerative calcaneal enthesophytes. There is osteoarthritis of the first MTP joint. Impression: 1: No acute bone or joint abnormality. Reviewed, dictated and finalized at location [facility]. Impression: 1: No acute bone or joint abnormality.
[2022-08-03 17:00] VITALS: BP 143/91; PULSE 90; RESP 14; TEMP 36.6; O2SAT 99
[2022-08-03 18:39] VITALS: BP 150/84; PULSE 88; RESP 18; O2SAT 99
--- NOTE | 2022-08-03 19:04 | ED.LOWEXIN ---
HPI - Extremity Injury (Lower) General Chief Complaint: Extremity Injury, Lower <Daisha Macdonald PA-C - Last Filed: 08/03/22 19:11> Stated Complaint: left foot injury <Daisha Macdonald PA-C - Last Filed: 08/03/22 19:11> Time Seen by Provider: 08/03/22 18:32 <Daisha Macdonald PA-C - Last Filed: 08/03/22 19:11> Source: patient <SERGIO Rivera Last Filed: 08/03/22 19:11> Mode of arrival: ambulatory <SERGIO Rievra Last Filed: 08/03/22 19:11> Limitations: no limitations <SERGIO Rivera Last Filed: 08/03/22 19:11> History of Present Illness HPI Narrative: This is a 57-year-old female that presents to the emergency department for left foot pain after an injury today. Reports she accidentally kicked a wall. Reports bruising and pain around the second and third metatarsals. Denies decreased range of motion or numbness. <Daisha Macdonald PA-C - Last Filed: 08/03/22 19:11> Related Data Home Medications: Home Medications Medication Instructions Recorded Confirmed blood sugar diagnostic ([facility] 02/17/22 Verio test strips) blood-glucose meter ([facility] 02/17/22 Verio Flex Meter) lancets 33 gauge (OneTouch Delica 06/05/20 02/17/22 Plus Lancet) pen needle, diabetic 31 gauge x 06/05/20 02/17/22 1/4 (UltiCare Pen Needle) albuterol sulfate 90 mcg/actuation 1 inh inhalation QID PRN Shortness 08/17/20 02/17/22 aerosol inhaler (ProAir HFA) Of Breath hydrocodone 5 mg-acetaminophen 325 1 tablet PO BID 08/17/20 02/17/22 mg tablet ([place]) liraglutide 0.6 mg/0.1 mL (18 mg/3 0.6 mg subcut DAILY 08/17/20 02/17/22 mL) subcutaneous pen injector (Victoza 2-Gabriele) dapagliflozin 10 mg tablet 10 mg PO DAILY 01/19/22 02/17/22 (Farxiga) duloxetine 30 mg capsule,delayed 30 mg PO DAILY 01/19/22 02/17/22 release <Daisha Macdonald PA-C - Last Filed: 08/03/22 19:11> Allergies/Adverse Reactions: Allergies Allergy/AdvReac Type Severity Reaction Status Date / Time Penicillins Allergy Severe Anaphylaxis Verified 08/03/22 18:48 levofloxacin [From Levaquin] Allergy Mild Rash Verified 08/03/22 18:48 Sulfa (Sulfonamide Allergy Mild Rash Verified 08/03/22 18:48 Antibiotics) <Daisha Macdonald PA-C - Last Filed: 08/03/22 19:11> Review of Systems Review of Systems: CONSTITUTIONAL: Denies fever MUSCULOSKELETAL: Reports joint pain, and myalgia. NEUROLOGIC: Denies numbness, or weakness. <Daisha Macdonald PA-C - Last Filed: 08/03/22 19:11> All systems reviewed & are unremarkable except as noted in HPI and below <Daisha Macdonald PA-C - Last Filed: 08/03/22 19:11> [facility] Past Medical History Medical History: Medical History Anemia Anxiety Arthritis Asthma Back pain Colitis Congenital dysplasia of hip COPD (chronic obstructive pulmonary disease) case management patient Diabetes borderline Diverticulitis Fractures rt arm, rt foot, pelvis, coccyx GERD (gastroesophageal reflux disease) IBS (irritable bowel syndrome) Pneumonia Sinus problem UTI (urinary tract infection) <Daisha Macdonald PA-C - Last Filed: 08/03/22 19:11> Surgical History Surgical History: Surgical History H/O mastectomy H/O prior ablation treatment uterine H/O rhinoplasty History of dilatation and curettage History of hip replacement Hx of section Hx of cholecystectomy Hx of spinal surgery <SERGIO Rivera Last Filed: 08/03/22 19:11> Family History Family History: Family History Father Family history of diabetes mellitus in first degree relative Mother Family history of malignant neoplasm of uterus Grandparent Family history of lymphoma Unknown Colon cancer Other Asthma Family history of coronary artery disease Hypertension
== END 2022-08-03 19:25 | disposition home or self-care (01) ==
LOC: ANHED 19:33
PROVIDERS: Emergency Provider Emergency Medicine
DX: S90.32XA Contusion of left foot, initial encounter (principal); J44.9 Chronic obstructive pulmonary disease, unspecified; R73.03 Prediabetes; K21.9 Gastro-esophageal reflux disease without esophagitis; K58.9 Irritable bowel syndrome, unspecified; M19.90 Unspecified osteoarthritis, unspecified site; Z90.10 Acquired absence of unspecified breast and nipple; Z96.649 Presence of unspecified artificial hip joint; Z87.01 Personal history of pneumonia (recurrent); Z87.440 Personal history of urinary (tract) infections; Z86.2 Personal history of diseases of the blood and blood-forming organs and certain disorders involving the immune mechanism; Z87.891 Personal history of nicotine dependence; Z79.84 Long term (current) use of oral hypoglycemic drugs; Z79.85 Long-term (current) use of injectable non-insulin antidiabetic drugs; W22.01XA Walked into wall, initial encounter
CPT/HCPCS: 73630; 99283

== ENCOUNTER 2022-09-15 13:25 | Outpatient (CLI) | payer OTHER, SELFPAY ==
--- NOTE | ~2022-09-15 | DEXA_ITS ---
Bone Density Report Name: KHURRAM RIOS Age: 57 Sex: Female Ethnicity: White Date of : 1965 Indication: postmenopausal; screening for osteoporosis; height loss; prior fracture; asthma or emphysema; rheumatoid arthritis; Referring Provider: RUTH, BONNIE Study: Bone densitometry was performed. Exam Date: September 15, 2022 Accession number: [id number] Bone Density: Region BMD T-score Z-score Classification AP Spine(L1-L4) 0.963 -0.8 0.5 Normal World Health Organization criteria for BMD impression classify patients as: Normal (T-score at or above -1.0), Osteopenia (T-score between -1.0 and -2.5), or Osteoporosis (T-score at or below -2.5). Clinical Information Provided by Patient: Have had a previous hip or vertebral fracture Has had a low trauma fracture Has rheumatoid arthritis Has the following medical conditions: Asthma or Emphysema Patient maximum height was 67 Menopause Age: 45 No regular weight bearing exercise Does not regularly consume dairy products Drinks caffeinated beverages Onset of menses at age 12 Number of children 4 Impression: The patient has normal bone mass. The patient has risk factors, including: previous fracture. Discussion: INCREASED RISK OF FRACTURE DUE TO HISTORY OF FRACTURE. The patient's previous fracture puts the patient at high risk of a future fracture. In untreated patients, the risk of osteoporotic fracture increases approximately two-fold for each 1.0 SD decrease in T-score. Low bone density is not the only risk factor for fracture; also consider factors such as patient's age, frailty or poor health, risk of falling, risk of injury, previous osteoporotic fracture, family history of osteoporosis, cigarette smoking, low body weight, etc. Not everyone with a low trauma fracture has osteoporosis; osteomalacia and other metabolic bone disorders should also be considered. Patients who have osteoporosis should be evaluated for specific diseases and conditions (secondary causes) that may cause or contribute to bone loss and fracture risk. National Osteoporosis Foundation (NOF) recommends pharmacologic intervention for patients with a prior hip or vertebral fracture regardless of BMD T-score. The patient should follow a healthful lifestyle (good nutrition with adequate calcium and vitamin D, and appropriate weight-bearing exercise). Follow-Up: Consider a repeat BMD and Vertebral Fracture Assessment (VFA) exam in 2 years or sooner if medically necessary, to reassess this patient's status. Reported by: [facility] on 09/15/2022 1:57:00 PM. Reviewed, dictated and finalized at location [facility]
== END 2022-09-15 13:26 | disposition home or self-care (01) ==
PROVIDERS: Visit Provider Physician Assistant
DX: M81.0 Age-related osteoporosis without current pathological fracture (principal)
CPT/HCPCS: 77080

== ENCOUNTER 2022-12-04 13:57 | Emergency (ER) | payer OTHER, SELFPAY ==
[2022-12-04 14:23] VITALS: BP 147/71; PULSE 104; RESP 12; TEMP 36.4; O2SAT 98
--- NOTE | 2022-12-04 15:48 | ED.URI ---
HPI - URI/Sore Throat General Chief Complaint: Upper Respiratory Infection Stated Complaint: Headache/Cough/Back Pain Time Seen by Provider: 12/04/22 15:48 Source: patient Mode of arrival: ambulatory Limitations: no limitations History of Present Illness HPI Narrative: patient is a 49-year-old female that had 3 days of vomiting 2 weeks ago. Patient is now having headache , sinus pain,cough, sore throat, ear pain, fatigue, and eye pain. patient has used [place] day and night, Tylenol Severe, and albuterol inhalers with little relief. Related Data Home Medications Medication Instructions Recorded Confirmed blood sugar diagnostic (OneTouch 06/05/20 12/04/22 Verio test strips) blood-glucose meter (OneTouch 06/05/20 12/04/22 Verio Flex Meter) lancets 33 gauge (OneTouch Delica 06/05/20 12/04/22 Plus Lancet) pen needle, diabetic 31 gauge x 06/05/20 12/04/22 1/ (UltiCare Pen Needle) albuterol sulfate 90 mcg/actuation 1 inh inhalation QID PRN Shortness 08/17/20 12/04/22 aerosol inhaler (ProAir HFA) Of Breath hydrocodone 5 mg-acetaminophen 325 1 tablet PO BID 08/17/20 12/04/22 mg tablet ([place]) liraglutide 0.6 mg/0.1 mL (18 mg/3 0.6 mg subcut DAILY 08/17/20 12/04/22 mL) subcutaneous pen injector (Victoza 2-Gabriele) dapagliflozin 10 mg tablet 10 mg PO DAILY 01/19/22 12/04/22 ([facility]) duloxetine 30 mg capsule,delayed 30 mg PO DAILY 01/19/22 12/04/22 release atorvastatin 20 mg tablet 20 mg PO DAILY 12/04/22 12/04/22 nateglinide 120 mg tablet 120 mg PO TID 12/04/22 12/04/22 Allergies Allergy/AdvReac Type Severity Reaction Status Date / Time Penicillins Allergy Severe Anaphylaxis Verified 12/04/22 14:40 levofloxacin [From Levaquin] Allergy Mild Rash Verified 12/04/22 14:40 Sulfa (Sulfonamide Allergy Mild Rash Verified 12/04/22 14:40 Antibiotics) Review of Systems Review of Systems: CONSTITUTIONAL: Denies malaise, chills, sweats, or fever.? EYES: Denies visual changes, redness, or discharge.? ENT: Reports rhinorrhea, congestion, sinus pain, otalgia and sore throat.? CARDIOVASCULAR: Denies chest pain, palpitations, or edema.? RESPIRATORY: Reports cough.? Denies dyspnea.? GASTROINTESTINAL: Denies abdominal pain, nausea, vomiting, diarrhea? SKIN: Denies rash or itching.? MUSCULOSKELETAL: Denies myalgia.? NEUROLOGIC: Denies headache All systems reviewed & are unremarkable except as noted in HPI and below PMFSH Past Medical History Medical History Anemia Anxiety Arthritis Asthma Back pain Colitis Congenital dysplasia of hip COPD (chronic obstructive pulmonary disease) case management patient Diabetes borderline Diverticulitis Fractures rt arm, rt foot, pelvis, coccyx GERD (gastroesophageal reflux disease) IBS (irritable bowel syndrome) Pneumonia Sinus problem UTI (urinary tract infection) Surgical History Surgical History H/O mastectomy H/O prior ablation treatment uterine H/O rhinoplasty History of dilatation and curettage History of hip replacement Hx of section Hx of cholecystectomy Hx of spinal surgery Family History Family History Father Family history of diabetes mellitus in first degree relative Mother Family history of malignant neoplasm of uterus Grandparent Family history of lymphoma Unknown Colon cancer Other Asthma Family history of coronary artery disease Hypertension Social History Social History Smoking status: Former smoker Tobacco type: cigarettes Alcohol intake: current Alcohol use details: rarely Living arrangements: with family Gender identity (if verbalized by the patient): Female Spiritual care concerns: No Comments At time of signature, agree with nursing past medical, surgical,
[2022-12-04 16:20] VITALS: PULSE 82
== END 2022-12-04 16:20 | disposition home or self-care (01) ==
PROVIDERS: Emergency Provider Nurse Practitioner Family; PCP Physician Assistant
DX: J01.80 Other acute sinusitis (principal); B96.89 Other specified bacterial agents as the cause of diseases classified elsewhere; J06.9 Acute upper respiratory infection, unspecified; K21.9 Gastro-esophageal reflux disease without esophagitis; J45.909 Unspecified asthma, uncomplicated; R73.03 Prediabetes; Z87.891 Personal history of nicotine dependence
CPT/HCPCS: 99213; G0463

== ENCOUNTER 2023-01-01 15:49 | Outpatient (CLI) | payer OTHER, SELFPAY ==
--- NOTE | ~2023-01-01 | XR_ITS ---
XR shoulder RT min 2V DATE: 01/01/2023 16:42 INDICATION: Right shoulder pain for one month. No known injury. TECHNIQUE: 4 views COMPARISON: None FINDINGS: No fracture or dislocation, periosteal reaction or bone destruction. No abnormal right shou lder soft tissue calcification. IMPRESSION: Negative Reviewed, dictated and finalized at location [facility]. IMPRESSION: Negative
== END 2023-01-01 15:50 | disposition home or self-care (01) ==
PROVIDERS: PCP Physician Assistant; Visit Provider Pain Medicine Pain Medicine
DX: M25.511 Pain in right shoulder (principal)
CPT/HCPCS: 73030

== ENCOUNTER 2023-01-25 13:17 | Outpatient (CLI) | payer OTHER, SELFPAY ==
--- NOTE | 2023-01-27 11:55 | P.PCNPFT_ITS ---
PFT Procedure Performed PFT Procedure Performed Spirometry with Pre/Post Bronchodilator Plethysmography (Lung Vol) Diffusing Cap (DLCO) Flow Vol Loop PFT Interpretation DOS: 01/25/2023 REQUESTING: Violetta Leyva PA-C REASON FOR TESTING: COPD PULMONARY FUNCTION TESTS Results are reliable and reproducible. Spirometry: Pre-bronchodilator FEV1 was 1.78 L, 65%, reduced. Pre-bronchodilator FVC is 3.21 L, 92%, normal. FEV1/ FVC ratio 55%, reduced and this is consistent with airflow obstruction. After bronchodilator administration there is a 1% drop in FEV1 and a 9% increase in the FVC, the FVC post bronchodilator is 3.50, 100%. This is [address] but it is 9% switched does not meet ats criteria for significant bronchodilator response. Lung volumes: Total lung capacity 6.03 L, 112%, normal. Residual volume 2.82 L, 137%, mild air trapping. RV/TLC 47%, normal. Airway resistance 2.43 cm H20 /L/sec, 184%, increased. Diffusion: DLCO is 19.6, 86%, normal. DLCO / VA 4.47, 102%, normal. Flow volume loop: There is coving of the expiratory limb. IMPRESSION: This study shows moderate obstructive ventilatory impairment with a response to bronchodilator which is less than ATS criteria for significance, mild air trapping, normal diffusion. No prior study for comparison. Lack of response to bronchodilator should not preclude use if clinically indicated. Rula Wesley MD
== END 2023-01-25 13:18 | disposition home or self-care (01) ==
LOC: ANHPFT 13:18
PROVIDERS: PCP Physician Assistant; Visit Provider Physician Assistant
DX: J44.9 Chronic obstructive pulmonary disease, unspecified (principal); R94.2 Abnormal results of pulmonary function studies
CPT/HCPCS: 94060; 94726; 94729

== ENCOUNTER 2023-01-25 15:57 | Emergency (ER) | payer OTHER, SELFPAY ==
--- NOTE | ~2023-01-25 | XR_ITS ---
XR chest 2V 01/25/2023 16:59 Indication: Shortness of breath with cough for 3 months. COPD. Procedure: 2 view chest Comparison: Comparison to multiple prior studies sequentially, with oldest reviewed study dated 05/2021. Findings: There is chronic unchanged pleural thickening/apical scarring. Heart size normal. No focal air space disease, pulmonary edema, pleural effusion or suspected pneumothorax. No acute osseous abno rmality. Impression: 1: No acute cardiopulmonary disease. Reviewed, dictated and finalized at location A. Impression: 1: No acute cardiopulmonary disease.
--- NOTE | 2023-01-25 15:58 | ECG_ITS ---
Measurements Intervals [place] Rate: 101 P: 56 OK: 144 QRS: 81 QRSD: 90 T: 75 QT: 333 QTc: 432 Interpretive Statements SINUS TACHYCARDIA ABNORMAL RHYTHM ECG NO PREVIOUS ECG AVAILABLE FOR COMPARISON Electronically Signed On 01-26-2023 7:00:26 CDT by Sergio Carrero M.D.
[2023-01-25 16:01] VITALS: BP 166/97; PULSE 104; RESP 20; TEMP 36.6; O2SAT 98
[2023-01-25 16:15] LABS: Basophils Absolute Auto 0.1 K/mm3 (0.0-0.1); Basophils Percent Auto 0.5 % (0.2-1.2); Eosinophils Absolute Auto 0.4 K/mm3 (0-0.3); Eosinophils Percent Auto 3.3 % (0-4.4); Hematocrit 46.3 % (37.0-47.0); Hemoglobin 14.6 g/dL (12.0-15.0); Immature Granulocyte Absolute 0.05 K/mm3 (0.00-0.031); Immature Granulocyte Percent A 0.4 % (0-0.5); Lymphocytes Absolute Auto 3.37 K/mm3 (0.9-3.2); Lymphocytes Percent Auto 27.9 % (18.3-44.2); Mean Corpuscular HGB Conc 31.5 g/dl (32-36); Mean Corpuscular Hemoglobin 27.9 pg (26-34); Mean Corpuscular Volume 88.5 fl (80-100); Mean Platelet Volume 9.4 fl (7.4-10.4); Monocytes Absolute Auto 0.7 K/mm3 (0.1-0.6); Monocytes Percent Auto 6.1 % (2.6-8.5); Neutrophils Absolute Auto 7.5 K/mm3 (1.3-6.7); Neutrophils Percent Auto 61.8 % (45.5-73.1); Platelet Count Result 448 k/mm3 (150-375); Red Blood Count 5.23 M/mm3 (4.2-5.4); Red Cell Distribution Width 13.8 % (11.5-14.5); White Blood Count 12.1 K/mm3 (4.5-10.0)
[2023-01-25 16:20] VITALS: O2SAT 96
[2023-01-25 16:25] LABS: Alanine Aminotransferase 20 U/L (6-35); Albumin Level 4.5 g/dL (3.5-5.1); Alkaline Phosphatase 136 U/L (38-126); Anion Gap 8 mmol/L (8-16); Aspartate Amino Transferase 26 U/L (14-36); Bilirubin,Total 0.5 mg/dL (0.2-1.3); Blood Urea Nitrogen 13 mg/dL (7-17); Calcium 8.9 mg/dL (8.4-10.2); Carbon Dioxide 28 mmol/L (22-30); Chloride 102 mmol/L (98-107); Estimated CRCL calculation 96 ml/min; Estimated Glomerular Filt Rate > 60; Glucose 111 mg/dL (65-110); Potassium 3.6 mmol/L (3.4-5.0); Sodium 138 mmol/L (137-145)
[2023-01-25 17:03] LABS: Troponin I < 0.012 ng/mL (0.000-0.034)
[2023-01-25] MEDS: LEVALBUTEROL NEB 1.25 MG/3 ML INHALATION (17:53)
[2023-01-25] MEDS: IPRATROPIUM BR 0.02% INH SOLN 0.5 MG/2.5 ML VIAL INHALATION (17:53)
[2023-01-25 17:55] VITALS: PULSE 92; RESP 20
[2023-01-25 18:29] VITALS: PULSE 87; RESP 20
--- NOTE | 2023-01-25 18:30 | ED.SOB ---
HPI - SOB/Dyspnea General Chief Complaint: Shortness of Breath/Dyspnea Stated Complaint: dyspnea Time Seen by Provider: 01/25/23 17:27 History of Present Illness HPI Narrative: Patient is a 57-year-old female who presents ER with cough. Ongoing for 5 to 6 weeks. No fevers or chills or sweats. Feels like she needs to get something up but she cannot. She has used her albuterol and Advair at home. She had pulmonary function test today and just has remained short of breath so she opted to come to the ER for further evaluation. Last time she was on prednisone and doxycycline was just at the beginning of her symptoms and it did not help her. Patient does not have a nebulizer at home. Related Data Home Medications Medication Instructions Recorded Confirmed blood sugar diagnostic ([facility] 06/05/20 12/04/22 Verio test strips) blood-glucose meter ([facility] 06/05/20 12/04/22 Verio Flex Meter) lancets 33 gauge (OneTouch Delica 06/05/20 12/04/22 Plus Lancet) pen needle, diabetic 31 gauge x 06/05/20 12/04/22 1/ (UltiCare Pen Needle) albuterol sulfate 90 mcg/actuation 1 inh inhalation QID PRN Shortness 08/17/20 12/04/22 aerosol inhaler (ProAir HFA) Of Breath hydrocodone 5 mg-acetaminophen 325 1 tablet PO BID 08/17/20 12/04/22 mg tablet (Corea) liraglutide 0.6 mg/0.1 mL (18 mg/3 0.6 mg subcut DAILY 08/17/20 12/04/22 mL) subcutaneous pen injector (Victoza 2-Gabriele) dapagliflozin 10 mg tablet 10 mg PO DAILY 01/19/22 12/04/22 (Farxiga) duloxetine 30 mg capsule,delayed 30 mg PO DAILY 01/19/22 12/04/22 release atorvastatin 20 mg tablet 20 mg PO DAILY 12/04/22 12/04/22 nateglinide 120 mg tablet 120 mg PO TID 12/04/22 12/04/22 Allergies Allergy/AdvReac Type Severity Reaction Status Date / Time Penicillins Allergy Severe Anaphylaxis Verified 12/04/22 14:40 levofloxacin [From Levaquin] Allergy Mild Rash Verified 12/04/22 14:40 Sulfa (Sulfonamide Allergy Mild Rash Verified 12/04/22 14:40 Antibiotics) Review of Systems Review of Systems: All systems reviewed & are unremarkable except as noted in HPI and below Constitutional: Constitutional: Denies chills, Denies fatigue and Denies fever(s) ENT: Denies nasal congestion and Denies sore throat Cardiovascular: Cardiovascular: Denies chest pain and Denies rapid heart rate Respiratory: Respiratory: Reports chest congestion, Reports cough, Reports dyspnea and Reports wheezing Gastrointestinal: Gastrointestinal: Denies abdominal pain, Denies nausea and Denies vomiting [facility] Past Medical History Medical History Anemia Anxiety Arthritis Asthma Back pain Colitis Congenital dysplasia of hip COPD (chronic obstructive pulmonary disease) case management patient Diabetes borderline Diverticulitis Fractures rt arm, rt foot, pelvis, coccyx GERD (gastroesophageal reflux disease) IBS (irritable bowel syndrome) Pneumonia Sinus problem UTI (urinary tract infection) Surgical History Surgical History H/O mastectomy H/O prior ablation treatment uterine H/O rhinoplasty History of dilatation and curettage History of hip replacement Hx of section Hx of cholecystectomy Hx of spinal surgery Family History Family History Father Family history of diabetes mellitus in first degree relative Mother Family history of malignant neoplasm of uterus Grandparent Family history of lymphoma Unknown Colon cancer Other Asthma Family history of coronary artery disease Hypertension Social History Social History Smoking status: Former smoker Tobacco type: cigarettes Alcohol intake: current Alcohol use details: rarely Living arrangements: with family Gender identity (if verbalized by the patient): Female Nicole
[2023-01-25 19:10] VITALS: BP 118/75; PULSE 88; RESP 18; O2SAT 97
== END 2023-01-25 19:12 | disposition home or self-care (01) ==
PROVIDERS: Emergency Provider Emergency Medicine; PCP Physician Assistant
DX: J44.9 Chronic obstructive pulmonary disease, unspecified (principal); R73.03 Prediabetes; M19.90 Unspecified osteoarthritis, unspecified site; K21.9 Gastro-esophageal reflux disease without esophagitis; K58.9 Irritable bowel syndrome, unspecified; Z87.01 Personal history of pneumonia (recurrent); Z86.2 Personal history of diseases of the blood and blood-forming organs and certain disorders involving the immune mechanism; Z87.440 Personal history of urinary (tract) infections; Z90.10 Acquired absence of unspecified breast and nipple; Z96.649 Presence of unspecified artificial hip joint; Z87.891 Personal history of nicotine dependence; Z79.84 Long term (current) use of oral hypoglycemic drugs; Z79.85 Long-term (current) use of injectable non-insulin antidiabetic drugs; R00.0 Tachycardia, unspecified
CPT/HCPCS: 36415; 71046; 80053; 84484; 85025; 93005; 94060; 94640; 94726; 94729; 99284

== ENCOUNTER 2023-03-17 15:00 | Outpatient (RCR) | payer OTHER, SELFPAY ==
--- NOTE | 2023-01-19 14:32 | PTOPEVAL1 ---
Assessment and note entered by Teresa Garrett, PT Evaluation Information Assessment Status Evaluation Diagnosis neck pain Onset September 2022 Subjective Information gradual increase in pain in neck and R shoulder; taking pain pills and muscle relaxers--ease pain a little; worse pain in R shoulder when reaching behind in car to place drink in cup huang; currently-- caring for who is disabled, amputee and in w/c, mother who is elderly; under care of pain management for neck pain; had x ray and they want to do a CT, but have to do therapy first before can have CT; due to her back pain, told her to NOT lift over 10#; Xray report states: moderate to severe DDD C 3-4 and C 5-6 with spurring at both; shoulder xray negative Reported Pain Level Pain Score Self Report Additional Pain Score Comments pain range of 3-7/10 in neck pain; R and L lower cervical, R > L shoulder; increase pain with activity 15 min of moving around, drive or ride in car about 1 hour; sleeping awaken from neck pain 2x/night; looking down and sit too long, over 1 hour; decrease pain sit with head supported on chair; pain meds; use ice and heat for pain; use a cervical collar when in the car; have home stim unit; verbal review of use and pad placement over neck and upper traps generally sleep on sides or back--due to chronic pain in back and R and L THR ALSO have back pain and hip pain; Assessment PT Clinical Summary Marilyn has the diagnosis of neck pain. 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 Gradual increase in neck pain without recent trauma. Pain into both R and L shoulders, with decreased sitting, sleeping and activity tolerance of about 15 min. With the evaluation, she has poor posture of her neck and shoulders; pain is increased with cervical rotation to R and L and R shoulder IR. The active ROM of her neck and both shoulders are WNL. With palpation there are muscle spasms over R and L cervical and
--- NOTE | 2023-02-25 14:49 | PCPTNOTE ---
pt did not show for today's scheduled reeval, called and left her a voice mail message.
--- NOTE | 2023-03-17 15:43 | PTOPPROG ---
Assessment and note entered by Teresa Garrett, PT Evaluation Information Assessment Status Progress Diagnosis neck pain Onset September 2022 Subjective Information Marilyn reports: therapy has not helped, shoulder hurts more; saw ortho dr for hip appointment and told dr about her shoulder and gave her an injection few days ago--did not help her shoulder; neck is doing OK with pain and R shoulder really hurting; PAIN: range of neck pain in the past week--stays at a 3/10- carry all of her stress in her neck R shoulder pain in the past week -07/20-- posterior GH joint and shoots down to just past elbow, R hand feels like half asleep all time-- not really numb but not right; dull and ache in shoulder; awaken from sleep 3-4/night due to pain in R shoulder; activity tolerance 15 minute then have to sit and rest due to back pain; sitting tolerance 2 hours; have been using heat and ice over shoulder; take pain meds usually at bed time, none during day-- have home stim unit--not used on shoulder yet- educated on pad placement; kinesiotape --educated pt- monitor skin and how to apply; and applied 2 strips over R shoulder: lateral humerus and around GH joint. Assessment PT Clinical Summary Marilyn has received 6 PT sessions for the diagnosis of cervical pain. Compared to the initial evaluation: neck pain has decreased from 3-10 to 3/10 all time; cervical rotation R and L range is the same, with rotation to L no longer painful and to the R pain in her shoulder increases; her posture has not changed-- continues to have rounded shoulders and forward head; She has been educated on HEP and correct posture of neck and shoulders. Marilyn presents for the reevaluation today with increased shoulder pain, with decreased ROM and strength. At the evaluation- her ROM was normal and IR increased her shoulder pain. Today, all ranges are limited and abduction and IR increase her pain. She reports decreased sleeping and activity level due to the shoulder pain.
--- NOTE | 2023-04-14 10:41 | PTOPDC ---
Assessment and note entered by Teresa Garrett, PT Evaluation Information Assessment Status Discharge - Pt Not Present Diagnosis neck pain Onset September 2022 Assessment PT Clinical Summary Marilyn did not return for any further treatment after the reevaluation on 03-17-23. Refer to that report for her status at the last session. Discharge PT services. Plan of Care PT Services Indicated No
== END 2023-04-14 13:52 | disposition home or self-care (01) ==
LOC: ANHPT 15:00
PROVIDERS: PCP Physician Assistant; Visit Provider Pain Medicine Pain Medicine
DX: M47.812 Spondylosis without myelopathy or radiculopathy, cervical region (principal)
CPT/HCPCS: 97110; 97140; 97161; 97530; 99199

== ENCOUNTER 2023-07-21 10:55 | Outpatient (CLI) | payer OTHER, SELFPAY ==
--- NOTE | ~2023-07-21 | CT_ITS ---
CT Scan of the Chest without Contrast: Clinical Indication: Lung cancer screening, smoking history Technique: Contiguous sections were acquired throughout the chest without intravenous contrast. Dose reduction technique was used on this scan by utilizing automated exposure control and iterative recon struction technique. The dose-length product (DLP) was 189.91 mGy-cm. COMPARISON: 01/27/2022 Findings: There is no evidence of any significant mediastinal, hilar or axillary lymphadenopathy. There are ath erosclerotic calcifications of the aorta and coronary arteries. There is no evidence of pleural or pericardial effusion. Stable biapical scarring noted. Stable minimal scarring in the right middle lobe. No new/suspicious pulmonary nodule evident. Images through the upper abdomen reveal no abnormalities. Impression: Lung RADS 2: Benign appearance. 12 month follow-up screening CT advised. Reviewed, dictated and finalized at [facility]. Impression: Lung RADS 2: Benign appearance. 12 month follow-up screening CT advised.
== END 2023-07-21 10:56 | disposition home or self-care (01) ==
PROVIDERS: PCP Physician Assistant; Visit Provider Physician Assistant
DX: Z12.2 Encounter for screening for malignant neoplasm of respiratory organs (principal); Z87.891 Personal history of nicotine dependence
CPT/HCPCS: 71271

== ENCOUNTER 2023-08-13 10:00 | Outpatient (RCR) | payer OTHER, SELFPAY ==
--- NOTE | 2023-06-23 10:59 | OPREHPOC ---
Outpatient Therapy Plan of Care This is a Multidisciplinary Plan of Care that may contain components documented by all disciplines (PT, OT, and ST.) PT Problem 1 PT Problem #1 Knowledge Deficit PT Goal 1 Goal 1. Patient will perform independent HEP Target Visit 18 PT Problem 2 PT Problem #2 Pain PT Goal 1 Goal 1. Patient will report pain with ADL's no higher than 2/10 Target Visit 18 PT Problem 3 PT Problem #3 Impaired Range of Motion PT Goal 1 Goal 1. Improve passive flexion to 150, abduction to 150, and external rotation to 75 2. Improve active flexion to 140 for reaching into cabinets Target Visit 18 PT Problem 4 PT Problem #4 Impaired Functional ADLs PT Goal 1 Goal 1. Patient able to dress and bathe independently without limitation Target Visit 18
--- NOTE | 2023-06-23 10:59 | PTOPEVAL1 ---
Assessment and note entered by Emma Tejeda DPT Evaluation Information Assessment Status Evaluation Subjective Information Pt reports she had a R capsular release on 06/21/23 . MD orders specify immediate full ROM. States she had a pulled muscle in her neck/shoulder and previous therapy and MRI. States she had very limited range of motion which prevented her from being able to comb her hair, dress independently, cooking, wipe after going to the bathroom, unable to lift anything heavy. Pt is R hand dominant. Pt is not employed. Is not driving at the moment. Highest pain 10/10 and lowest 0/10. Patient goal: Improve motion at home, be able to do normal activities. Has a nerve block IV still in, states it will be removed tomorrow. Reported Pain Level Pain Score 8: Self Report Assessment PT Clinical Summary The patient is presenting to skilled therapy s/p R capsular release on 06/21/23. She presents with greatly decreased passive range of motion in all planes (flexion 110, abduction 91, external rotation 38) and reports significant pain. These impairments and contributing to her difficulty with most activities including dressing, cooking, and doing her hair. She will highly benefit from therapy to improve motion, improve strength, and decrease pain to fully return to prior level of function. Plan of Care Interventions Electrical Stimulation,Hot Pack/Cold Pack,Manual Therapy,Neuro Re-education,Patient/Caregiver Education,Therapeutic Activities,Therapeutic Exercise PT Services Indicated Yes Treatment Frequency and 3 times a week for 18 visits Duration These treatments will address the objective and functional deficits as defined above. The patient will be advanced safely and appropriately in order for the patient to progress towards his/her prior level of function. Additional exercises will be introduced and as well as a comprehensive home exercise program upon discharge, if needed, ?to ensure carryover of functional gains achieved in the clinic. This treatment plan has been reviewed and agreement upon by the patient.
--- NOTE | 2023-06-24 13:37 | PCPTNOTE ---
Called Dr. Burton's office and left a message regarding Marilyn's schedule. Her therapy order specifies 3 times week but patient only scheduled 1 more visit after her evaluation and has not yet called back to schedule any more.
--- NOTE | 2023-07-27 09:49 | OPREHPOC ---
Outpatient Therapy Plan of Care This is a Multidisciplinary Plan of Care that may contain components documented by all disciplines (PT, OT, and ST.) PT Problem 1 PT Problem #1 Knowledge Deficit PT Goal 1 Goal 1. Patient will perform independent HEP Target Visit 18 Progress Partially Met PT Problem 2 PT Problem #2 Pain PT Goal 1 Goal 1. Patient will report pain with ADL's no higher than 2/10 Target Visit 18 Progress Partially Met PT Problem 3 PT Problem #3 Impaired Range of Motion PT Goal 1 Goal 1. Improve passive flexion to 150, abduction to 150, and external rotation to 75 2. Improve active flexion to 140 for reaching into cabinets Target Visit 18 Progress Partially Met Comment passive flexion to 140 and active to 135, passive abduction to 135, passive rotation to 60 PT Problem 4 PT Problem #4 Impaired Functional ADLs PT Goal 1 Goal 1. Patient able to dress and bathe independently without limitation Target Visit 18 Progress Partially Met
--- NOTE | 2023-07-27 09:49 | PTOPPROG ---
Assessment and note entered by Emma Tejeda DPT Evaluation Information Assessment Status Progress Subjective Information Highest pain in last week 10/10 and lowest 0/10. Feels therapy is going well and thinks she has gained a lot of movement. Still has trouble reaching behind her back. Has recently been able to put on deodorant, comb her hair and do other activities which she previous had not been able to . Pt is driving, causes some shoulder pain. Returns to MD next week. Assessment PT Clinical Summary The patient has made good progress in therapy and demonstrates improved active and passive ROM in all planes (active flexion 135, abduction 130, external rotation C7). She continues to report high pain at times but has been more able to do ADL's including grooming and driving. She demonstrates shoulder weakness in all planes compared to her opposite UE. Due to her progress but continued lack of full strength and motion she will benefit from further therapy to safely return to full function. Plan of Care Interventions Electrical Stimulation,Hot Pack/Cold Pack,Manual Therapy,Neuro Re-education,Patient/Caregiver Education,Therapeutic Activities,Therapeutic Exercise PT Services Indicated Yes Treatment Frequency and 2-3 times a week for 3-4 weeks (as able by Duration insurance) These treatments will address the objective and functional deficits as defined above. The patient will be advanced safely and appropriately in order for the patient to progress towards his/her prior level of function. Additional exercises will be introduced and as well as a comprehensive home exercise program upon discharge, if needed, ?to ensure carryover of functional gains achieved in the clinic. This treatment plan has been reviewed and agreement upon by the patient.
--- NOTE | 2023-08-13 10:32 | PTOPPROGNS ---
Assessment and note entered by Emma Tejeda DPT Evaluation Information Assessment Status Progress Subjective Information Highest shoulder pain 10/10 and lowest /10. Feels she still cannot lift heavy things like groceries or take a coat off, difficulty laying down flat. Improvements with her ability to reach up into a cabinet. Still feels very frustrated with the level of pain she is at and unsure if her neck is related. Assessment PT Clinical Summary The patient continues to report a high level of pain and difficulty with activities like lifting groceries or putting on a jacket. She does report improvements with reaching into cabinets. She continues to display range of motion and strength impairments in all planes. Due to her limited progress and reports of high pain, plan to hold therapy until follow up visit with surgeon next week. Will resume therapy as needed pending insurance auth. Plan of Care Interventions Electrical Stimulation,Hot Pack/Cold Pack,Manual Therapy,Neuro Re-education,Patient/Caregiver Education,Therapeutic Activities,Therapeutic Exercise PT Services Indicated Yes Treatment Frequency and hold pending follow up Duration These treatments will address the objective and functional deficits as defined above. The patient will be advanced safely and appropriately in order for the patient to progress towards his/her prior level of function. Additional exercises will be introduced and as well as a comprehensive home exercise program upon discharge, if needed, ?to ensure carryover of functional gains achieved in the clinic. This treatment plan has been reviewed and agreement upon by the patient.
--- NOTE | 2023-09-07 09:52 | PTOPDC ---
Assessment and note entered by Emma Tejeda DPT Evaluation Information Assessment Status Discharge - Pt Not Present Subjective Information - Assessment PT Clinical Summary Patient has not resumed therapy after following up with her MD. She will be discharged this date. Plan of Care PT Services Indicated No
== END 2023-09-07 10:46 | disposition home or self-care (01) ==
LOC: ANHPT 10:00
PROVIDERS: PCP Physician Assistant
DX: Z48.89 Encounter for other specified surgical aftercare (principal)
CPT/HCPCS: 97014; 97110; 97140; 97161; 97530; G0283

== ENCOUNTER 2023-09-27 09:39 | Outpatient (CLI) | payer OTHER, SELFPAY ==
--- NOTE | ~2023-09-27 | MM_ITS ---
EXAMINATION: MM screening jasen BI w maldonado HISTORY: Screening mammogram TECHNIQUE: Craniocaudal and mediolateral oblique 3-D tomosynthesis images were obtained and synthetic 2-D images were generated. CAD analysis was submitted and interpreted. COMPARISON: January 29, 2022, March 08, 2019 bilateral screening mammogram examinations BREAST PARENCHYMAL COMPOSITION: There are scattered areas of fibroglandular density. FINDINGS: There is a biopsy marker on the left; history of prior benign left breast biopsy. Stable be nign circumscribed intramammary lymph node in the posterior upper outer quadrant of the left breast. There is no evidence of suspicious mass, calcification, or architectural distortion to suggest malign aidan in either breast. There has been no suspicious interval change. IMPRESSION: 1. No mammographic evidence of malignancy. 2. Recommend routine screening mammography in one year. BI-RADS Category 2: Benign finding(s). Reviewed, dictated and finalized at location A. ICAL DATA ABSTRACTOR
== END 2023-09-27 09:40 | disposition home or self-care (01) ==
LOC: ANHIMG 09:42
PROVIDERS: PCP Physician Assistant; Visit Provider Physician Assistant
DX: Z12.31 Encounter for screening mammogram for malignant neoplasm of breast (principal)
CPT/HCPCS: 77063; 77067

== ENCOUNTER 2023-10-13 13:55 | Outpatient (CLI) | payer OTHER, SELFPAY ==
--- NOTE | ~2023-10-13 | US_ITS ---
EXAMINATION: US carotid duplex BI DATE: 10/13/2023 18:20 INDICATION: Coronary atherosclerosis. TECHNIQUE: Grayscale, color Doppler, and pulsed Doppler images of the cervical carotid arteries were obtained. The degree of vessel stenosis is placed in one of the following categories: normal, <50%, 5 0-69%, >=70% but less than near-occlusion, near-occlusion, or total occlusion. Note that percent sten osis relative to normal distal artery lumen diameter is indirectly measured from velocity measurement s as described by Fitz, et al. Radiology 2003; 229:340-346. COMPARISON: Ultrasound 07/23/2016 FINDINGS: RIGHT: The right common carotid artery (CCA) peak systolic velocity (PSV) is 81 cm/s. The right internal car otid artery (ICA) PSV is 80 cm/s. The right ICA end-diastolic velocity (EDV) is 20 cm/s. The right IC A/CCA PSV ratio is 1.0. Grayscale and color Doppler images yield an estimate of <50% diameter reducti on from plaque in the ICA. There is antegrade flow in the right vertebral artery. LEFT: The left CCA PSV is 94 cm/s. The left ICA PSV is 74 cm/s. The left ICA EDV is 22 cm/s. The left ICA/C CA PSV ratio is 0.8. Grayscale and color Doppler images yield an estimate of <50% diameter reduction from plaque in the ICA. There is antegrade flow in the left vertebral artery. IMPRESSION: 1. <50% stenosis in the right internal carotid artery. 2. <50% stenosis in the left internal carotid artery. Reviewed, dictated and finalized at location E. WORKER
== END 2023-10-13 13:56 | disposition home or self-care (01) ==
LOC: ANHIMG 13:56
PROVIDERS: PCP Physician Assistant; Visit Provider Physician Assistant
DX: I65.23 Occlusion and stenosis of bilateral carotid arteries (principal)
CPT/HCPCS: 93880

== ENCOUNTER 2025-01-03 11:47 | Emergency (ER) | payer MEDICARE, MEDICAID, SELFPAY ==
[2025-01-03 11:57] VITALS: BP 158/89; PULSE 90; RESP 16; TEMP 36.4; O2SAT 99
--- NOTE | 2025-01-03 12:17 | ED.ANIMALBIT ---
HPI - Animal Bite General Chief Complaint: Animal Bite Stated Complaint: Dog bite to right forearm-pts own dog Time Seen by Provider: 01/03/25 11:59 Source: patient Mode of arrival: ambulatory Limitations: no limitations History of Present Illness HPI narrative: 59-year-old with a history of diabetes presents to the ER with a complaint of dog bite to the right forearm sustained prior coming to the ER. She states a it was her own dog she accidentally stepped on a puppy and the mother bit her hand. Dogs are immunized . Related Data Home Medications ?Medication ?Instructions ?Recorded ?Confirmed ?Last Taken ?Type blood sugar diagnostic (OneTouch 06/05/20 12/04/22 02/16/22 History Verio test strips) blood-glucose meter (OneTouch 06/05/20 12/04/22 02/16/22 History Verio Flex Meter) lancets 33 gauge (OneTouch Delica 06/05/20 12/04/22 02/16/22 History Plus Lancet) pen needle, diabetic 31 gauge x 06/05/20 12/04/22 02/16/22 History 1/4 (UltiCare Pen Needle) albuterol sulfate 90 mcg/actuation 1 inh inhalation QID PRN Shortness 08/17/20 12/04/22 02/16/22 History aerosol inhaler (ProAir HFA) Of Breath hydrocodone 5 mg-acetaminophen 325 1 tablet PO BID 08/17/20 12/04/22 02/16/22 History mg tablet (Lafayette) liraglutide 0.6 mg/0.1 mL (18 mg/3 0.6 mg subcut DAILY 08/17/20 12/04/22 02/16/22 History mL) subcutaneous pen injector (Wazoo Sportsza 2-Gabriele) dapagliflozin propanediol 10 mg 10 mg PO DAILY 01/19/22 12/04/22 02/16/22 History tablet (Farxiga) duloxetine 30 mg capsule,delayed 30 mg PO DAILY 01/19/22 12/04/22 02/16/22 History release atorvastatin 20 mg tablet 20 mg PO DAILY 12/04/22 12/04/22 Unknown History nateglinide 120 mg tablet 120 mg PO TID 12/04/22 12/04/22 Unknown History Allergies Allergy/AdvReac Type Severity Reaction Status Date / Time Penicillins Allergy Severe Anaphylaxis Verified 01/03/25 11:48 levofloxacin (From Levaquin) Allergy Mild Rash Verified 01/03/25 11:48 Sulfa (Sulfonamide Allergy Mild Rash Verified 01/03/25 11:48 Antibiotics) Review of Systems Review of Systems: All systems reviewed & are unremarkable except as noted in HPI and below Constitutional: Constitutional: Reports no additional constitutional complaints Eyes: Eyes: Reports no additional eye complaints ENT: Reports system reviewed and no additional complaints, except as documented Cardiovascular: Cardiovascular: Reports no additional cardiovascular complaints Respiratory: Respiratory: Reports no additional respiratory complaints Gastrointestinal: Gastrointestinal: Reports no additional gastrointestinal complaints Musculoskeletal: Musculoskeletal: Reports no additional musculoskeletal complaints Integumentary/Breasts: Skin/Breast: Reports system reviewed and no additional complaints, except as docu and Reports as per HPI Neurologic: Reports system reviewed and no additional complaints, except as documented PMFSH Past Medical History Medical History IBS (irritable bowel syndrome) Diverticulitis Anemia Anxiety Diabetes borderline Back pain Fractures rt arm, rt foot, pelvis, coccyx Arthritis Congenital dysplasia of hip UTI (urinary tract infection) GERD (gastroesophageal reflux disease) Colitis Pneumonia Asthma Sinus problem COPD (chronic obstructive pulmonary disease) case management patient Surgical History Surgical History History of dilatation and curettage H/O rhinoplasty Hx of spinal surgery History of hip replacement Hx of section H/O mastectomy H/O prior ablation treatment uterine Hx of cholecystectomy Family History Family History Father Family history of diabetes mellitus in first degree relative Mother Family history of malignant neoplasm of uterus Grandparent Family history of lymphoma Unknown Colon cancer Other Asthma Family history of coronary artery disease Hypertension Social History Social History Smoking status: Former smoker Tobacco type: cigarettes Alcohol intake: current Alcohol use details: rarely Living arrangements: with family Gender identity (if verbalized by the patient): Female Spiritual care concerns: No Exam Narrative: GENERAL: Well-appearing, well-nourished, and in no acute distress. HEAD: Normocephalic, atraumatic. EYES: PERRLA and EOMI. ENT: Nares clear, no rhinorrhea or epistaxis. Mucous membranes moist. NECK: Supple. CHEST: Clear to auscultation. No respiratory distress. HEART: Regular rate and rhythm. No murmur heard. Normal peripheral pulses. EXTREMITIES: Normal range of motion. No edema. a small skin avulsion on the right forearm with mild bleeding SKIN: Warm, dry, no rash. NEURO: No focal deficits. Alert and oriented x3. PSYCH: Normal mood and affect. Course Vital Signs Vital signs: Vital Signs Temperature 36.4 C L 01/03/25 11:57 Pulse Rate 90 01/03/25 11:57 Respiratory Rate 16 01/03/25 11:57 Blood Pressure 158/89 H 01/03/25 11:57 Pulse Oximetry 99 01/03/25 11:57 Temperature 36.4 C L 01/03/25 11:57 Pulse Rate 90 01/03/25 11:57 Respiratory Rate 16 01/03/25 11:57 Blood Pressure 158/89 H 01/03/25 11:57 Pulse Oximetry 99 01/03/25 11:57 Discharge Plan Discharge Clinical Impression: Dog bite Patient Disposition: Home, Self-Care Condition: Stable Instructions: Antibiotic Form, Animal Bite (ED) Patient Language: Citizen Of [place] Prescriptions: New doxycycline hyclate 100 mg capsule 100 mg PO BID Qty: 14 0RF metronidazole 500 mg tablet 500 mg PO Q8H 7 Days Qty: 21 0RF No Action nateglinide 120 mg tablet 120 mg PO TID atorvastatin 20 mg tablet 20 mg PO DAILY doxycycline hyclate 100 mg capsule 100 mg PO BID 7 Days Qty: 14 0RF benzonatate 100 mg capsule 100 mg PO BID PRN (Reason: cough) Qty: 14 0RF Victoza 2-Gabriele 0.6 mg/0.1 mL (18 mg/3 mL) Pen Injector 0.6 mg SUBCUT DAILY hydrocodone-acetaminophen [Lafayette] 5-325 mg Tablet 1 tablet PO BID albuterol sulfate [ProAir HFA] 90 mcg/actuation Hfa Aerosol Inhaler 1 inh INHALATION QID PRN (Reason: Shortness Of Breath) Zyrtec 10 mg capsule 10 mg PO DAILY Qty: 30 0RF duloxetine 30 mg capsule,delayed release(DR/EC) 30 mg PO DAILY Farxiga 10 mg tablet 10 mg PO DAILY famotidine [Pepcid] 20 mg tablet 20 mg PO DAILY Qty: 30 12RF (DME) blood-glucose meter [OneTouch Verio Flex meter] Misc MISCELLANEOUS (DME) OneTouch Verio test strips Strip MISCELLANEOUS (DME) pen needle, diabetic [UltiCare Pen Needle] 31 gauge x 1/4 needle MISCELLANEOUS (DME) lancets [OneTouch Delica Plus Lancet] 33 gauge misc MISCELLANEOUS azithromycin 250 mg tablet See Rx Instructions .ROUTE .COMPLEX Qty: 6 0RF Rx Instructions: take 500 mg today (day 1), then 250 mg for 4 days (days 2-5) prednisone 50 mg tablet 50 mg PO DAILY Qty: 7 0RF Follow-up/Referrals: Gordon,LANRE Zavala [Primary Care Provider] - Time of Disposition: 12:23
[2025-01-03] MEDS: TETANUS,DIPHTHERIA,AC PERTUSSIS ADULT (0.5 ML) BOOSTRIX IM (12:23)
--- OUTSIDE RECORDS SUMMARY | 2025-01-03 13:12 | XMS_ITS | Clinical Summary ---
Author Organization [facility] Address [address] [place] [id number] Care Team Providers Care Assembly Leader Name Role Phone Breanna Henriquez Primary Care Provider [phone] Leon Sagastume MD Unavailable [phone] Allergies Active Allergy Reactions Criticality Noted Date Comments Influenza Virus Vaccine Unknown 03/21/2018 Penicillins Unknown 03/21/2018 Sulfa Antibiotics Unknown 03/21/2018 Medications lisinopril 10 MG tablet Take 1 tablet (10 mg total) by mouth daily. 03/22/2018 Active Cholecalciferol (VITAMIN D) 1000 UNIT tablet Take 1 tablet (1,000 Units total) by mouth daily. 03/22/2018 Active Active Problems Problem Noted Date Diagnosed Date Atypical chest pain Essential hypertension Family History Medical History Relation Comments Heart Attack Maternal Grandfather Open Heart Maternal Grandfather Stent Cardiac Maternal Grandfather Heart Attack Maternal Grandmother Cancer Other Diabetes Other Heart Disease Other Hypertension Other Lung Disease Other Heart Attack Paternal Grandmother Stroke Sister Relation Status Comments Brother (Age 48) Father (Age 56) Maternal Grandfather (Age 69) Maternal Grandmother (Age 73) Mother Alive Other Paternal Grandfather (Age 72) Paternal Grandmother (Age 70) Sister Alive Social History Tobacco Use Types Packs/Day Years Used Date Smoking Tobacco: Former Cigarettes Q uit: 2009 Smokeless Tobacco: Never Alcohol Use Standard Drinks/Week Comments Yes 0 (1 standard drink = 0.6 oz pur e alcohol) Comments Unknown Sex and Gender Information Value Date Recorded Sex Assigned at Not on file Legal Sex Female 7:11 PM CDT Gender Identity Not on file Sexual Orientation Not on file 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 Not on file Not on file Last Filed Vital Signs Vital Sign Reading Time Taken Comments Blood Pressure 160/80 03/22/2018 3:10 PM CDT Pulse 81 03/22/2018 3:10 PM CDT Temperature - - Respiratory Rate - - Oxygen Saturation 96% 03/22/2018 3:10 PM CDT Inhaled Oxygen Concentration - - Weight 85.7 kg (189 lb) 03/22/2018 3:10 PM CDT Height 167.6 cm (5' 6 ) 03/22/2018 3:10 PM CDT Body Mass Index 30.51 03/22/2018 3:10 PM CDT Plan of Treatment Health Maintenance Due Date Last Done Comments Cervical Cancer Screening Pa p Smear (Age 30 to 64) Every 3 Years 1964 Colorectal Cancer Screening Colonoscopy (10 Years) 1964 Annual Physical 02/03/1967 Hepatitis C 02/03/1982 DTaP, Tdap and Td Vaccines ( 1 - Tdap) 02/03/1983 Cervical Cancer Screening Pa p with HPV Testing (Age 30 to 64) Every 5 Years 02/03/1994 Cervical Cancer Screening with HPV 02/03/1994 Mammogram Screening 2004 Zoster Vaccines (1 of 2) 02/03/2014 COVID-19 Vaccine (2023-2 5 season) 2024 Influenza Adult (#1) 2024 RSV Immunization or 60+ Years (1 - 1-dose 75+ series) 02/03/2039 Meningococcal B Vaccine Aged Out No l onger eligible based on patient's age to complete this topic Meningococcal Vaccine Aged Out No tila lakshmi eligible based on patient's age to complete this topic Pneumococcal Vaccine: Pediat rics (0 to 5 Years) and At-Risk Patients (6 to 64 Years) Aged Out No longer eligible b ased on patient's age to complete this topic RSV Immunizations Under 20 Months Aged Out No longer eligible based on patient's age to complete this topic Insurance GENERIC - COMMERCIAL GENERIC - COMMERCIAL Care Teams Assembly Leader Relationship Specialty Start Date End Date Breanna Henriquez APNP Family & Internal Medicine [address] [address] PCP - General [facility] PLASTIC PANEL INSTALLER 02/08/18 Leon Sagastume MD [facility]. [facility] [address] [place] [id number] [employer] Architect CARDIOVASCULAR DISEASE 03/09/18
--- OUTSIDE RECORDS SUMMARY | 2025-01-03 13:12 | XMS_ITS | Encounter Summary ---
[facility] Organization [facility] Address [address] [place] [address] Care Team Providers Care Cardiac Cath Lab Technologist Name Role Phone Jerson Alfonso MD Primary Care Provider [phone] Encounter Details Date Type Department Care Team (Latest Contact Info) Description 11/02/2008 Outpatient Historical [facility], [address] Park Crowder MD [address] [place] [address] Lump or Mass in Breast Social History Tobacco Use Types Packs/Day Years Used Date Smoking Tobacco: Never Assessed Comments Unknown Sex and Gender Information Value Date Recorded Sex Assigned at Not on file Legal Sex Female 5:41 AM TECHNICIAN SEMICONDUCTOR DEVELOPMENT Gender Identity Not on file Sexual Orientation Not on file documented as of this encounter Plan of Treatment Not on file documented as of this encounter Procedures Procedure Name Priority Date/Time Associated Diagnosis Comments PATHOLOGY Routine 11/02/2008 1:20 PM TECHNICIAN SEMICONDUCTOR DEVELOPMENT documented in this encounter Results * PATHOLOGY (11/02/2008 1:20 PM TECHNICIAN SEMICONDUCTOR DEVELOPMENT) FINAL REPORT [facility] [address] [place], [place] [address] Patient: MARILYN SANCHEZ : 12/02/1960 Procedure Date: 11/02/2008 Accession Date: 11/02/2008 Case No: [id number] Ordering Dr: PARK CROWDER Case types AW, BW, FW, NW and SH are performed by [facility], [place], [place] SURGICAL PATHOLOGY & NON-GYNECOLOGIC CYTOPATHOLOGY REPORT DIAGNOSIS BREAST, LEFT, BIOPSY: - FIBROSIS. Specimen Description: Left breast biopsy. Operative Procedure: Not stated. Patient Information/Histo ry/Diagnosis: ICD code 611.7. Gross: Received in a single container labeled Marilyn Sanchez, left breast biopsy, 611.72 is a 1.2-cm cylindrical core of yellow-yousif fibrofatty tissue that is 0.2 cm in diameter. The specimen is submitted entirely in cassette A1. KLA/SKW 11.02.2008 04:58 pm Microscopic: The slides are labeled [id number], Laura. Sections display focal fibrosis. [facility] 11.03.2008 09:46 am Staging Form: No ELECTRONIC SIGNATURE FOR ANA PARRISH M.D.- 11/03/08 01:31 pm INTERFACE SYSTEM 11/02/2008 1:20 PM TECHNICIAN SEMICONDUCTOR DEVELOPMENT Park Crowder MD PATHOLOGY/CYTOLOGY ORDERABLES Fi nal Result INTERFACE SYSTEM Refer to clinic/hospital department documented in this encounter Visit Diagnoses Diagnosis Lump or mass in breast documented in this encounter Care Teams Cardiac Cath Lab Technologist Relationship Specialty Start Date End Date Jerson Alfonso MD [address] [place] [id number] PCP - General Family Practice 03/11/11 documented as of this encounter
--- OUTSIDE RECORDS SUMMARY | 2025-01-03 13:12 | XMS_ITS | Encounter Summary ---
Author Organization [facility] Address [address] [place] [address] Care Team Providers Care Oxygen System Tester Name Role Phone Breanna Henriquez Primary Care Provider [phone] Leon Sagastume MD Unavailable [phone] Encounter Details Date Type Department Care Team (Late st Contact Info) Description 05/25/2018 [facility], [address] [address] Saritha Ramirez MA Social History Tobacco Use Types Packs/Day Years Used Date Smoking Tobacco: Former Cigarettes Q uit: 2010 Smokeless Tobacco: Never Alcohol Use Standard Drinks/Week Comments Yes 0 (1 standard drink = 0.6 oz pur e alcohol) Comments Unknown Sex and Gender Information Value Date Recorded Sex Assigned at Not on file Legal Sex Female 7:11 PM CDT Gender Identity Not on file Sexual Orientation Not on file 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 Not on file Not on file documented as of this encounter Plan of Treatment Not on file documented as of this encounter Procedures Procedure Name Priority Date/Time Associated Diagnosis Comments CBC (OUTSIDE LAB) Routine 02/17/2018 COMPREHENSIVE METABOLIC PANEL Routine 02/17/2018 LIPID PANEL Routine 02/17/2018 THYROID STIM HORMONE TSH Routine 02/17/2018 VITAMIN D, 25 OH Routine 02/17/2018 CK (CPK) Routine 02/17/2018 URIC ACID BLOOD Routine 02/17/2018 documented in this encounter Results * (ABNORMAL) COMPREHENSIVE METABOLIC PANEL (02/17/2018) SODIUM S/P/B 141 POTASSIUM S/P/B 4.2 CO2 22 CHLORIDE S/P/B 101 GLUCOSE 128 mg/dL CALCIUM S/P/B 9.6 BUN 13 CREATININE S/P/B 0.69 0.5 - 1.0 EGFR AFR. AMER. 114(A) <=90 EGFR NON-AFR. AMER. 99(A) <=90 ALKALINE PHOSPHATASE S/P/B 128 ALT 27 AST 22 BILIRUBIN TOTAL S/P/B 0.3 ALBUMIN S/P/B 4.6 3.5 - 5.0 TOTAL PROTEIN S/P/B 7.1 GLOBULIN 2.5 02/17/2018 us [facility] Final Result * CBC (OUTSIDE LAB) (02/17/2018) Pathologist [facility] WBC 8.0 HGB 14.3 HCT 43.5 PLT 364 02/17/2018 us Doc [facility]TSIDE/ABSTRACTED Final Result * THYROID STIM HORMONE, TSH (02/17/2018) TSH 0.909 02/17/2018 us Doc [facility] Final Result * URIC ACID BLOOD (02/17/2018) Pathologist [facility] URIC ACID 3.6 02/17/2018 us Doc [facility] Final Result * CK (CPK) (02/17/2018) CPK 74 02/17/2018 us Doc [facility] Final Result * VITAMIN D, 25 OH (02/17/2018) VITAMIN D 25 HYDROXY S/P/B 12.9 02/17/2018 us Doc [facility] Final Result * LIPID PANEL (02/17/2018) CHOLESTEROL 205 HDL 49 TRIGLYCERIDES 122 LDL (CALCULATED) 132 02/17/2018 us Doc [facility] Final Result documented in this encounter Visit Diagnoses Not on filedocumented in this encounter Care Teams Oxygen System Tester Relationship Specialty Start Date End Date Breanna Henriquez APNP Family & Internal Medicine [address] [address] PCP - General [facility] [employer] TOY ASSEMBLER WOOD 02/08/18 Leon Sagastume MD [address] [address] [employer] CARDIOVASCULAR DISEASE 03/09/18 documented as of this encounter
--- OUTSIDE RECORDS SUMMARY | 2025-01-03 13:12 | XMS_ITS | Clinical Summary ---
Author Organization [facility] Address [address] [place] [address] Care Team Providers Care X Ray Operator Name Role Phone Violetta Leyva Primary Care Provider + Shelly Osborn MD Unavailable [phone] Allergies Active Allergy Reactions Criticality Noted Date Comments Levofloxacin Rash Medium 10/15/2018 Penicillins Anaphylaxis High 03/21/2018 Sulfa (Sulfonamide Antibiotics) Itching Low Medications cetirizine (ZyrTEC) 10 mg tablet Take 1 tablet (10 mg total) by mouth daily 0 Active nateglinide (STARLIX) 120 mg tablet Patient takes once daily 0 Active fluticasone propionate (FLONASE) 50 mcg/actuation nasal spray USE 1 SPRAY(S) IN EACH NOSTRIL EVERY 12 HOURS 0 Active dapagliflozin (FARXIGA) 10 mg tablet Take 1 tablet (10 mg total) by mouth daily Active famotidine (PEPCID) 20 mg tablet Take 1 tablet (20 mg total) by mouth daily Active Lactobac. rhamnosus GG-inulin 10 billion cell -200 mg tablet,chewable Take 1 capsule by mouth daily Active omeprazole (PriLOSEC) 20 mg capsule Take 1 capsule (20 mg total) by mouth daily as needed Active albuterol HFA (PROVENTIL HFA,VENTOLIN HFA,PROAIR HFA) 90 mcg/actuation inhaler Inhale 2 puffs every 4 (four) hours as needed for wheezing Active DULoxetine DR LINARES) 30 mg capsule Take by mouth daily 2 Active lisinopriL (PRINIVIL,ZESTR IL) 5 mg tablet Take 1 tablet (5 mg total) by mouth daily 3 Active albuterol 2.5 mg /3 mL (0.083 %) nebulizer solution 3 Active LANTUS 100 unit/mL (3 mL) pen for injection 3 Active atorvastatin (LIPITOR) 20 mg tablet Take 1 tablet (20 mg total) by mouth daily Active oxyCODONE (ROXICODONE) 10 mg tabletIndicatio ns:Pain Take 1-2 tablets (10-20 mg total) by mouth every 4 (four) hours 60 tablet 3 Active Additional Information Patient not taking.Reported on 11/06/2024 HYDROcodone-julia taminophen (VICODIN) 10-300 mg per tablet Take 1 tablet by mouth every 6 (six) hours as needed 3 Active senna-docusate (PERICOLACE) 8.6-50 mg TAKE 1 TABLET BY MOUTH EVERY DAY 30 tablet 3 Active Additional Information Patient not taking.Reported on 11/06/2024 Ozempic 2 mg/dose (8 mg/3 mL) pen injector injection 4 Active Active Problems Problem Noted Date Diagnosed Date Essential hypertension 06/10/2023 Adhesive capsulitis of right shoulder 06/09/2023 Closed fracture of third toe of left foot 2021 s/p left total hip arthroplasty at 07/22/2021 Primary osteoarthritis of left hip 05/29/2021 Overview (05/29/2021): Added automatically from request for surgery [id number] 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 05/26/2021 Low back pain 05/26/2021 Sensation of chest tightness 11/17/2011 Encounters Date Type Department Care Team Description 11/06/2024 2:00 PM WASTEWATER TECHNICIAN Office Visit [facility] [address] [place] [phone] Martin Singh MD Chronic right shoulder pain (Primary Dx); Spinal stenosis in cervical region; Chronic midline low back pain with bilateral sciatica; 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 from Last 3 Months Surgical History Surgery Date Site/Laterality Comments SECTION x 4 CHOLECYSTECTOMY 2009' RHINOPLASTY x 2 JOINT REPLACEMENT 10/11/2013 - 10/10/2014 R THR SPINE SURGERY 1998 L3-4-5 ESOPHAGOGASTRODUODENOSCOPY 2019 COLONOSCOPY 2019 JOINT REPLACEMENT 10/11/2018 - 10/10/2019 L THR Medical History Medical History Date Comments Allergic rhinitis Motion sickness PONV (postoperative nausea and vomiting) Covid-19 09/2020 NOT HOSP ITALIZED Asthma COPD (chronic obstructive pu lmonary disease) ([facility]) COPD History of pneumonia SEVERAL CHRISTOPHER ES LAST IN THE Migraine Cataract only one eye, no t sure which one Vertigo Diverticulitis of colon Irritable bowel syndrome History of colitis Wears glasses reading glasses GERD (gastroesophageal reflux disease) Osteoarthritis History of fracture spine DDD (degenerative disc disease), lumbar History of anxiety Type 2 diabetes mellitus ([facility]) s/p left total hip arthropla sty at 07/22/2021 09/03/2021 Hypertension Hyperlipidemia Retrolisthesis of cervical vertebrae Arthropathy of cervical facet joint Degeneration of intervertebr al disc of cervical region with osteophyte of cervical vertebra Cervical spinal stenosis Neural foraminal stenosis of cervical spine Social History Tobacco Use Types Packs/Day Years Used Date Smoking Tobacco: Former Cigarettes 1 35 1 976 - 2010 Smokeless Tobacco: Never Tobacco Cessation:Counseling Given: Not Answered AUDIT-C Answer Date Recorded Q1: How often do you have a drink containing alc ohol? Monthly or less 06/10/2023 Q2: How many drinks containi ng alcohol do you have on a typical day when you are drinking? 1 or 2 06/10/2023 Q3: How often do you have si x or more drinks on one occasion? Never 06/10/2023 Personal Safety Answer Date Recorded Have you ever been in or are you currently in a harmful physical or emotional relationship or is someone making you feel afraid or unsafe? Denies 06/21/2023 Comments No Sex and Gender Information Value Date Recorded Sex Assigned at Not on file Legal Sex Female 3:23 AM WASTEWATER TECHNICIAN Gender Identity Not on file Sexual Orientation Not on file Obstetrics History Last Filed Vital Signs Vital Sign Reading Time Taken Comments Blood Pressure 144/79 06/21/2023 4:55 PM CDT Pulse 70 06/21/2023 4:55 PM CDT Temperature 36.9 C (98.5 F) 06/21/2023 3:55 PM CDT Respiratory Rate 16 06/21/2023 4:55 PM CDT Oxygen Saturation 97% 06/21/2023 4:55 PM CDT Inhaled Oxygen Concentration - - Weight 60.3 kg (133 lb) 11/06/2024 2:07 PM WASTEWATER TECHNICIAN Height 167.6 cm (5' 6 ) 11/06/2024 2:07 PM WASTEWATER TECHNICIAN Body Mass Index 21.47 11/06/2024 2:07 PM WASTEWATER TECHNICIAN Plan of Treatment Health Maintenance Due Date Last Done Comments Cervical Cancer Screening 1965 Depression Screening 1965 Hepatitis C Screening 1965 DTaP/Tdap/Td Vaccine (1 - Tdap) 02/03/1975 Hepatitis B Screening 02/03/1982 Regular Well Visit/Exam 18-64 02/03/1982 Pneumococcal vaccine <65 (1 of 2 - PCV) 02/03/1983 Lung Cancer Screening 02/03/2014 Zoster Vaccine (1 of 2) 02/03/2014 Influenza Vaccine (#1) 2024 Colon Cancer Screening-Colonoscopy 06/18/20242013 Breast Cancer Screening-Mammogram 09/27/2024 09/27/2023, 01/29/2022, 05/31/2014 Medical Devices Implanted Type Area Stone Banker Device Identifier Shelf Expiration Date Model / Serial / Lot Total Hip Left: Hip Implanted-2015 Implanted:11/2015 (Quantity not on file) Right: Hip [employer] [id number] 54mm Limit Hole Color Coded Hip F Offset Hemisphere Shell - [id number] Implanted:Qty: 1 on 07/22/2021 by Martin Singh MD at [facility] Left: Hip [employer] [id number] 04/03/2031 [id number] / / [id number] [employer] [id number] G7 32mm Lumen Hip F Liner Acetabular Longevity Sterile Latex Free - [id number] Implanted:Qty: 1 on 07/22/2021 by Martin Singh MD at [facility] Left: Hip [employer] [id number] 02/17/[id number] / / [id number] [employer] [id number] Echo Bi-Metric 13mm 145mm Noncollar Reduce Proximal Profile Press - [id number] Implanted:Qty: 1 on 07/22/2021 by Martin Singh MD at [facility] Left: Hip [employer] [id number] 03/13/[id number] / / [id number] [employer] [id number] 32mm Modular Hip +3mm Head Femoral Biolox Delta - [id number] Implanted:Qty: 1 on 07/22/2021 by Martin Singh MD at [facility] Left: Hip [employer] [id number] 01/17/2029116 / / [id number] Procedures Procedure Name Priority Date/Time Associated Diagnosis Comments AL INJECTION SINGLE/MANAGER OF INTERNAL TRIGGER POINT 1/2 MUSCLES Routine 11/06/2024 2:00 PM WASTEWATER TECHNICIAN Chronic right shoulder pain COLONOSCOPY REPORT 06/18/2014 from Last 3 Months or Most Recently Relevant to Health Maintenance Results * AL INJECTION SINGLE/MANAGER OF INTERNAL TRIGGER POINT 1/2 MUSCLES (11/06/2024 2:00 PM WASTEWATER TECHNICIAN) Narrative Martin Singh MD - 11/06/2024 2:00 PM WASTEWATER TECHNICIAN Martin Singh MD 11/07/2024 12:15 PM Trigger Point Injection Performed by: Martin Singh MD Authorized by: Martin Singh MD Consent Given by: Patient Site marked: the procedure site was marked Timeout: prior to procedure the correct patient, procedure, and site was verified Consent obtained:: Verbal Site/side marked: Yes Indications: Pain Location: R upper trapezius Local anesthetic: Ethyl chloride spray Ultrasound guidance: No Needle size: 22 G Number of muscles: 1 or 2 Medications: 1 mL lidocaine 10 mg/mL (1 %); 40 mg triamcinolone 40 mg/mL Patient tolerance: Patient tolerated the procedure well with no immediate complications us Martin Singh MD IN CLINIC/BEDSIDE [facility] Final Result * COLONOSCOPY REPORT (06/18/2014) Anatomical Region Laterality Modality Other Narrative 06/18/2014 Ordered by an unspecified provider. us Historical Provider GI PROCEDURE ORDERABLES F inal Result from Last 3 Months or Most Recently Relevant to Health Maintenance Insurance [facility] OTHER Address: ATTN: CLAIMS DEPT [address] [facility] [place] [address] [facility] MEDICARE [facility] OPEN ACCESS [facility] Advance Directives For more information, please contact: [phone] * Full Code (Latest Code Status on File) Date Activated Date Inactivated Comments 07/22/2021 6:21 PM 07/24/2021 6:41 PM Care Teams X Ray Operator Relationship Specialty Start Date End Date Violetta Leyva PA PCP - General 10/28/20 Shelly Osborn MD [address] [address] Referring Physician Internal Medicine 07/08/21
--- OUTSIDE RECORDS SUMMARY | 2025-01-03 13:12 | XMS_ITS | Referral Summary ---
Author Organization [facility] Address [facility] [place] [address] Care Team Providers Care Special Delivery Carrier Name Role Phone Violetta Leyva Primary Care Provider + Shelly Osborn MD Unavailable [phone] Encounters Date Type Department Care Team Description 11/06/2024 2:00 PM CRYSTAL SLICER Office Visit [facility] [address] [place] [address] [address] [place] [address] Martin Singh MD Chronic right shoulder pain (Primary Dx); Spinal stenosis in cervical region; Chronic midline low back pain with bilateral sciatica; 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 from Last 3 Months Allergies Active Allergy Reactions Criticality Noted Date [...] as needed for wheezing Active DULoxetine DR (CYMBALTA) 30 mg capsule Take by mouth daily [...] (05/29/2021): Added automatically from request for surgery [id number] 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 05/26/2021 Low back pain 05/26/2021 Sensation of chest tightness 11/17/2011 Social History Tobacco Use Types Packs/Day Years Used Date Smoking Tobacco: Former Cigarettes 1 35 1 976 - 2011 Smokeless Tobacco: Never Tobacco Cessation:Counseling Given: Not [...] on file Legal Sex Female 3:23 AM CRYSTAL SLICER Gender Identity Not on file Sexual Orientation Not on file Last Filed Vital Signs Vital Sign Reading Time Taken Comments Blood Pressure 144/79 06/21/2023 4:55 PM CDT Pulse 70 06/21/2023 4:55 PM CDT Temperature 36.9 C (98.5 F) 06/21/2023 3:55 PM CDT Respiratory Rate 16 06/21/2023 4:55 PM CDT Oxygen Saturation 97% 06/21/2023 4:55 PM CDT Inhaled Oxygen Concentration - - Weight 60.3 kg (133 lb) 11/06/2024 2:07 PM CRYSTAL SLICER Height 167.6 cm (5' 6 ) 11/06/2024 2:07 PM CRYSTAL SLICER Body Mass Index 21.47 11/06/2024 2:07 PM CRYSTAL SLICER Plan of Treatment Not on file Medical Devices Implanted Type Area Link Cutter Device Identifier Shelf Expiration Date Model / Serial / Lot Total Hip Left: Hip Implanted-2015 Implanted:11/2015 (Quantity not on file) Right: Hip [employer] [id number] 54mm Limit Hole Color Coded Hip F Offset Hemisphere Shell - [id number] Implanted:Qty: 1 on 07/22/2021 by Martin Singh MD at [facility] Left: Hip [employer] [id number] 04/03/2031 [id number] / / [id number] [employer] [id number] G7 32mm Lumen Hip F Liner Acetabular Longevity Sterile Latex Free - [id number] Implanted:Qty: 1 on 07/22/2021 by Martin Singh MD at [facility] Left: Hip [employer] [id number] 02/17/[id number] / / [id number] [employer] [id number] Echo Bi-Metric 13mm 145mm Noncollar Reduce Proximal Profile Press - [id number] Implanted:Qty: 1 on 07/22/2021 by Martni Singh MD at [facility] Left: Hip [employer] [id number] 03/13/2031 [id number] / / [id number] [employer] [id number] 32mm Modular Hip +3mm Head Femoral Biolox Delta - [id number] Implanted:Qty: 1 on 07/22/2021 by Martin Singh MD at [facility] Left: Hip [employer] [id number] 01/17/2029 [id number] / / [id number] Procedures Procedure Name Priority Date/Time Associated Diagnosis Comments UT INJECTION SINGLE/CABLE SYSTEMS INSTALLER TRIGGER POINT 1/2 MUSCLES Routine 11/06/2024 2:00 PM CRYSTAL SLICER Chronic right shoulder pain COLONOSCOPY REPORT 06/18/2014 from Last 3 Months or Most Recently Relevant to Health Maintenance Results * UT INJECTION SINGLE/CABLE SYSTEMS INSTALLER TRIGGER POINT 1/2 MUSCLES (11/06/2024 2:00 PM CRYSTAL SLICER) Narrative Martin Singh MD - 11/06/2024 2:00 PM CRYSTAL SLICER Maritn Singh MD 11/07/2024 12:15 PM Trigger Point [...] the procedure well with no immediate complications Martin Singh MD IN CLINIC/BEDSIDE [facility] Final Result * COLONOSCOPY REPORT (06/18/2014) Anatomical Region Laterality Modality Other Narrative 06/18/2014 Ordered by an unspecified provider. Historical Provider GI PROCEDURE ORDERABLES F inal Result from Last 3 Months or Most Recently Relevant to Health Maintenance Insurance [facility] MEDICARE [facility] OPEN ACCESS [facility] [place] [place] Advance Directives For more information, please contact: [phone] * Full Code (Latest Code Status on File) Date Activated Date Inactivated Comments 07/22/2021 6:21 PM 07/24/2021 6:41 PM Care Teams Special Delivery Carrier Relationship Specialty Start Date End Date Violetta Leyva PA PCP - General 10/28/20 Shelly Osborn MD [address] [address] Referring Physician Internal Medicine 07/08/21
--- OUTSIDE RECORDS SUMMARY | 2025-01-03 13:12 | XMS_ITS | Clinical Summary ---
Author Organization [facility] Address [address] [place] [address] Care Team Providers Care Department Manager Name Role Phone Violetta Leyva PA-C Primary Care Provider Source Comments [facility],non-owned Affiliates and Associated Physician Practices is amultiple site organization consisting of ambulatory clinics and hospital sitesin [place], [place], [place] and [place]. This disclosure is being madepursuant to the Care Everywhere program and may not contain all information available regarding this patient. Last updated 18.[facility] Allergies Active Allergy Reactions Criticality Noted Date Comments Levofloxacin Rash Medium 10/15/2018 Penicillins Anaphylaxis,Unknown High 03/21/2018 Sulfa Antibiotics Unknown 03/21/2018 Medications * Be aware that medications may not be up to date on this document. Alwaysverify current medications with the patient. Medication Sig Dispensed Refills Start Date End Date Status albuterol HFA (PROAIR HFA) 108 (90 BASE) MCG/ACT inhalerIndications:E ncounter for medication refill Inhale 2 puffs by mouth every 4 hours as needed for Shortness of Breath, Wheezing or Cough 1 Inhaler 10/15/2018 Active atorvastatin (Lipitor) 20 MG tablet Take 1 (one) tablet by mouth once daily 11/04/2022 Active cetirizine (ZyrTEC) 10 MG tablet 11/25/2022 Active Farxiga 10 MG tablet Take 1 (one) tablet by mouth once daily 11/05/2022 Active DULoxetine (Cymbalta) 30 MG capsule Take 1 (one) capsule by mouth once daily 11/03/2022 Active lisinopril (Prinivil; Zestril) 5 MG tablet Take 1 (one) tablet by mouth once daily 09/16/2022 Active hydrocortisone (Hytone) 2.5 % creamIndications:Int ertrigo Apply to under abdomen area twice daily as needed for flares (mix with clotrimazole as instructed by your provider). 30 days supply. 30 g 2 11/30/2022 Active HYDROcodone-acetamin ophen ([place]) 7.5-325 MG tablet Take 1 (one) tablet by mouth every 8 hours as needed 12/03/2022 Active omeprazole (PriLOSEC) 20 MG capsule Take 1 (one) capsule by mouth once daily 12/01/2022 Active insulin glargine (Lantus SoloStar) pen 6 (six) Units 03/18/2023 Active Ozempic, 1 MG/DOSE, 4 MG/3ML pen 2 (two) mg every 7 days 05/11/2023 Active famotidine (Pepcid) 20 MG tablet 06/22/2023 Active senna (Senokot) 8.6 MG tablet Take 1 (one) tablet by mouth once daily Active Magnesium Hydroxide (DULCOLAX PO) Take 1 tablet by mouth once daily Active oxyCODONE, immediate release, (Roxicodone) 5 MG tabletIndications:S/ P panniculectomy Take 1 (one) tablet by mouth every 6 hours as needed for Pain 25 tablet 08/31/2023 Active Additional Information Patient not taking.Reported on 09/08/2023 docusate sodium (Colace) 100 MG capsule Take 1 (one) capsule by mouth once daily 14 capsule 08/31/2023 Active Additional Information Patient not taking.Reported on 10/27/2023 Active Problems Problem Noted Date Diagnosed Date S/P panniculectomy 08/30/2023 Social History Tobacco Use Types Packs/Day Years Used Date Smoking Tobacco: Former Smokeless Tobacco: Never Tobacco Cessation:Counseling Given: Not Answered Alcohol Use Standard Drinks/Week Comments Yes 0 (1 standard drink = 0.6 oz pur e alcohol) occassionally Sex and Gender Information Value Date Recorded Sex Assigned at Not on file Gender Identity Not on file Sexual Orientation Not on file Last Filed Vital Signs Vital Sign Reading Time Taken Comments Blood Pressure 126/78 03/22/2024 11:51 AM CDT Pulse 90 03/22/2024 11:51 AM CDT Temperature 36.7 C (98.1 F) 03/22/2024 11:51 AM CDT Respiratory Rate 16 10/27/2023 10:08 AM MARKETING TECHNOLOGIST Oxygen Saturation 98% 03/22/2024 11:51 AM CDT Inhaled Oxygen Concentration - - Weight 55.8 kg (123 lb) 03/22/2024 11:51 AM CDT Height 167.6 cm (5' 6 ) 03/22/2024 11:51 AM CDT Body Mass Index 19.85 03/22/2024 11:51 AM CDT Plan of Treatment Health Maintenance Due Date Last Done Comments COLOGUARD (AGES 45-75) - COL ON CA SCREENING 1964 COLON MONITORING 1964 COLONOSCOPY - COLON CA SCREENING 1964 CT COLONOGRAPHY - COLON CA SCREENING 1964 Colorectal Cancer Screening 1964 FIT - COLON CA SCREENING 1964 FLEX SIG - COLON CA SCREENING 1964 PAP SMEAR 1964 HIV SCREENING 02/03/1979 HEPATITIS C SCREENING 01/30/1982 DTAP/TDAP/TD VACCINES (1 - Tdap) 02/03/1983 PNEUMOCOCCAL VACCINE 50+ (1 of 1 - PCV) 02/03/2014 ZOSTER VACCINE (1 of 2) 02/03/2014 MAMMOGRAM 05/31/2016 05/31/2014 Respiratory Syncytial Virus (RSV) Vaccine Pt: or over 60 yrs (1 - Risk 60-74 years 1-dose series) 2024 COVID-19 VACCINE ( - 2023-2 5 season) 2024 INFLUENZA VACCINE (#1) 2024 DEPRESSION SCREENING 10/11/2024 HEPATITIS B VACCINE Aged Out No longe r eligible based on patient's age to complete this topic HIB VACCINE Aged Out No longer eligi ble based on patient's age to complete this topic HPV VACCINE Aged Out No longer eligi ble based on patient's age to complete this topic MENINGOCOCCAL (Group B) VACC INE SHARED DECISION-MAKING Aged Out No longer eligibl e based on patient's age to complete this topic MENINGOCOCCAL GROUPS A/C/Y/W VACCINE Aged Out No longer eligible b ased on patient's age to complete this topic PNEUMOCOCCAL VACCINE Aged Out No long er eligible based on patient's age to complete this topic Advance Directives * Full Code (Latest Code Status on File) Date Activated Date Inactivated Comments 08/30/2023 1:10 PM 08/31/2023 3:39 PM Care Teams Department Manager Relationship Specialty Start Date End Date Violetta Leyva PA-C [address] [place] [phone] PCP - General Physician Ecologist Technician 06/30/23
--- OUTSIDE RECORDS SUMMARY | 2025-01-03 13:12 | XMS_ITS | Clinical Summary ---
Author Organization [facility] Address [address] [place] [address] Phone Care Team Providers Care Software Installation Engineer Name Role Phone Jerson Alfonso MD Primary Care Provider [phone] Social History Tobacco Use Types Packs/Day Years Used Date Smoking Tobacco: Never Assessed Comments Unknown Sex and Gender Information Value Date Recorded Sex Assigned at Not on file Legal Sex Female 5:41 AM ENVIRONMENTAL MANAGER Gender Identity Not on file Sexual Orientation Not on file Occupation Industry Job Start Date Job End Date Not on file Not on file Not on file Not on file Plan of Treatment Health Maintenance Due Date Last Done Comments DTAP/TDAP/TD VACCINES (1 - Tdap) 02/03/1983 PAP SMEAR 02/03/1985 CERVICAL CANCER SCREENING 02/03/1994 HPV/Cotest 02/03/1994 PAP SMEAR 02/03/1994 COLORECTAL SCREENING 02/03/2009 Colorectal Cancer Screening 02/03/2009 FIT-DNA Q 3 years 02/03/2009 FIT/FOBT Q 1 year 02/03/2009 Flex Sig/CT Colonography Q 5 years 02/03/2009 ZOSTER VACCINE (1 of 2) 02/03/2014 BREAST CANCER SCREENING 05/31/2015 05/31/20 14, 03/11/2011 INFLUENZA VACCINE (#1) 2024 RSV VACCINE (60+ or ) (1 - 1-dose 75+ series) 02/03/2039 HEPATITIS B VACCINES Aged Out No long er eligible based on patient's age to complete this topic Procedures Procedure Name Priority Date/Time Associated Diagnosis Comments MAMMO SCREEN BILAT W OR WO CAD Routine 05/31/2014 1:47 PM CDT Other screening mammogram from Last 3 Months or Most Recently Relevant to Health Maintenance Results * MAMMO DIGITAL SCREEN BILAT (05/31/2014 1:47 PM CDT) Anatomical Region Laterality Modality Breast Bilateral Mammography Narrative 06/01/2014 9:25 AM CDT Bilateral digital screening mammogram with computer assisted diagnosis History: Annual screening exam. Findings: A bilateral screening mammogram was performed. Comparison is made to : 03/11/2011 The breast parenchyma is heterogeneously dense which can obscure small masses. No new masses, suspicious calcifications, or areas of asymmetry or distortion are identified. CAD was utilized. Impression: Negative screening mammogram. Recommendation: Routine annual follow-up Overall Assessment: Birads Category 1: Negative Procedure Note Shahana Llamas MD - 06/01/2014 Bilateral digital screening mammogram with computer assisted diagnosis History: Annual screening exam. Findings: A bilateral screening mammogram was performed. Comparison ismade to : 03/11/2011 The breast parenchyma is heterogeneously dense whichcan obscure small masses. No new masses, suspicious calcifications, orareas of asymmetry or distortion are identified. CAD was utilized. Impression: Negative screening mammogram. Recommendation: Routine annual follow-up Overall Assessment: Birads Category 1: Negative Quoc Jones MD MAMMO ORDERABLES Debbie l Result from Last 3 Months or Most Recently Relevant to Health Maintenance Insurance [facility] [id number] Care Teams Software Installation Engineer Relationship Specialty Start Date End Date Jerson Alfonso MD [address] [place] [address] PCP - General Family Practice 03/11/11
--- OUTSIDE RECORDS SUMMARY | 2025-01-03 13:13 | XMS_ITS | Encounter Summary ---
Author Organization [facility] Address [address] [place] [address] Care Team Providers Care Metal Slitter Name Role Phone Violetta Leyva Primary Care Provider + Shelly Osborn MD Unavailable [phone] Encounter Details Date Type Department Care Team (Late st Contact Info) Description 11/30/2023 Telephone [facility] [address] [place] [address], [address] [place] [address] Phyllis Suh RN Social History Tobacco Use Types Packs/Day Years Used Date Smoking Tobacco: Former Cigarettes 1 35 1 976 - 2010 Smokeless Tobacco: Never AUDIT-C Answer Date Recorded Q1: How often [...] on file Legal Sex Female 3:23 AM PRODUCTION LAPPING MACHINE OPERATOR Gender Identity Not on file Sexual Orientation Not on file documented as of this encounter Plan of Treatment Not on file documented as of this encounter Visit Diagnoses Not on filedocumented in this encounter Care Teams Metal Slitter Relationship Specialty Start Date End Date Violetta Leyva PA PCP - General 10/28/20 Shelly Osborn MD [address] [address] Referring Physician Internal Medicine 07/08/21 documented as of this encounter
--- OUTSIDE RECORDS SUMMARY | 2025-01-03 13:13 | XMS_ITS | Continuity of Care Document ---
Author Organization [facility] Address [address] [place] [address] Phone Care Team Providers Care Senior Asic Engineer Name Role Phone Getachew Traylor MD Unavailable Unavailable Allergies, Adverse Reactions, Alerts Substance Reaction Status Criticality Penicillins Anaphylaxis Active No Information Medications Medication Instructions Dosage Effective Dates (start - stop) Status Comments metformin 850 mg tablet take 1 tablet by oral route 2 times every day with morning and evening meals 850 MG - Active Zocor 20 mg tablet take 1 tablet by oral route every day in the evening 20 MG - Active irbesartan 150 mg tablet take 1 tablet by oral route every day 150 MG - Active ropinirole 1 mg tablet take 1 tablet by oral route every bedtime 1 MG - Active Zantac 150 mg tablet take 1 tablet by oral route 2 times every day - Active Trade 5 mg-325 mg tablet take 1 tablet by oral route every 6 hours as needed for pain as needed - Active PRN for pain, avoid driving or operate machines Contour Test Strips test once per day - Active e11.9 Procedures Procedure Date OFFICE/OUTPATIENT VISIT, EST OFFICE/OUTPATIENT VISIT, EST OFFICE/OUTPATIENT VISIT, EST OFFICE/OUTPATIENT VISIT, EST OFFICE/OUTPATIENT VISIT, EST OFFICE/OUTPATIENT VISIT, EST OFFICE/OUTPATIENT VISIT, EST PREV VISIT, NEW, AGE 40-64 OFFICE/OUTPATIENT VISIT, NEW Advance Directives Directive Yes / No Effective Date File Name No Information Encounters Encounter Description Practice Location Reason(s) For Visit Diagnoses Date Provider Providers Copied on Encounter OFFICE/OUTPA TIENT VISIT, [facility], [place], [address] [place] [place], [id number], tel:[phone] [facility] HLP (chief complaint) HTN (chief complaint) DM (chief complaint) osteopenia 1 (chief complaint) chronic pain1 (chief complaint) abd pain1 (chief complaint) Type 2 diabetes mellitus with diabetic nephropathyEssentia l (primary) hypertensionHyperli pidemiaAbdominal painFatty liver [address], [place], [place], [address] , [place]. tel:[phone] Referring Provider: Percy Queen [address], [place], [place], [address]. tel:[phone] OFFICE/OUTPA TIENT VISIT, [facility], [place], [address] [place], [address], [place] tel:[phone] [facility] back pain1 (chief complaint) osteopenia 1 (chief complaint) HTN (chief complaint) Other specified disorder of bone densityEssential (primary) hypertension 9 Lay[address], [address], [place], [place], [address] , [place]. tel:[phone] Referring Provider: Percy Queen [address], [place], [place], [address]. tel:[phone] OFFICE/OUTPA TIENT VISIT, [facility], [place], [address], [place], [place], [address], [place] tel:[phone] [facility] HTN (chief complaint) DM (chief complaint) abd pain1 (chief complaint) back pain1 (chief complaint) Essential (primary) hypertensionType 2 diabetes mellitus with diabetic nephropathyLiver diseaseChronic pain syndromeRestless legs syndrome 9 Lay[address], [address], [place], [place], [address] , [place]. tel:[phone] Referring Provider: Percy Queen [address], [place], [place], [address]. tel:[phone] [facility], [address] [place], [place], [address], [place] tel:[phone] [facility] No Information [address], [address], [place], [place], [address] , [place]. tel:[phone] OFFICE/OUTPA TIENT VISIT, [facility], [place], [address], [place], [place], [address], [place] tel:[phone] [facility] Medicine HTN (chief complaint) abdominal 1 (chief complaint) HLP (chief complaint) chronic pain1 (chief complaint) DM (chief complaint) Essential (primary) hypertensionType 2 diabetes mellitus with diabetic nephropathyHyperlip idemiaChronic pain syndromeTobacco useLiver disease 9 Lay[address], [address], [place], [place], [address] , [place]. tel:[phone] Referring Provider: Percy Queen [address], [place], [place], [address]. tel:[phone] OFFICE/OUTPA TIENT VISIT, [facility], [place], [address], [place], [place], [address], [place] tel:[phone] [facility] chronic pain (chief complaint) HTN (chief complaint) Essential (primary) hypertensionType 2 diabetes mellitus with diabetic nephropathy 9 [address], [place], [place], [address] , [place]. tel:[phone] Referring Provider: Percy Queen [address], [place], [place], [address]. tel:[phone] OFFICE/OUTPA TIENT VISIT, [facility], [place], [address], [place], [place], [address], [place] tel:[phone] [facility] Medicine HTN (chief complaint) DM (chief complaint) HLP (chief complaint) chronic pain1 (chief complaint) GI (chief complaint) sinus1 (chief complaint) HyperlipidemiaEssen tial (primary) hypertensionType 2 diabetes mellitus with diabetic nephropathyChronic pain syndromeAbdominal painAcute sinusitisOther specified disorder of bone density 9 Lay[address], [address], [place], [place], [address] , . [phone] Referring Provider: Percy Queen [place], [place], [address]. tel:[phone] OFFICE/OUTPA TIENT VISIT, [facility], [place], [address] [place], [address], [place] tel:[phone] [facility] DM (chief complaint) LFT (chief complaint) HLP (chief complaint) folate (chief complaint) d (chief complaint) Essential (primary) hypertensionRestles s legs syndromeType 2 diabetes mellitus with diabetic nephropathyLiver diseaseHyperlipidem iaFolate deficiencyChronic pain syndrome 9 Lay[address], [facility], [place], [place], [address] , [place]. [phone] Referring Provider: Percy Queen [place], [place], [address]. tel:[phone] PREV VISIT, NEW, AGE 40-64 [facility], [address] [place] [address] [address] [place], [address], [place] tel:[phone] [facility] PHysical (chief complaint) Encounter for general adult medical exam w abnormal findingsEssential (primary) hypertensionRestles s legs syndromeChronic pain syndromeGERD w/o esophagitis 9 [address] [facility] [place], [place], [address] , [place]. [phone] Referring Provider: Percy Queen [place], [place], [address]. tel:[phone] Family History Family Member Type Diagnosis Age At Onset Mother Problem (finding) colon CA 73 Sister Problem (finding) Stroke 36 Father Problem (finding) murdered Payers Payer name Insurance type Covered libertarian ID James tavera(s) No Information Social History Type Description Quantity Date Captured Comments Alcohol Use Details Caffeine Use Details Unknown Tobacco Use Status Ex-cigarette smoker 019 Smoking Status Former smoker Sex Female Vital Signs Date / Time: Height Weight BMI Pulse Rate Blood Pressure Temperature Respiratory Rate Body Surface Area Head Circumference BMI percentile Pulse Ox Inhaled Ox 6:34 PM 66.00 in 190.00 lbs 30.6 7 kg/m eter (2) 78 /min 130/70 mm[Hg] 98.5 F 17 /min Chief Complaint And Reason For Visit From encounter dated '04/04/2019 17:00'. HLP (chief complaint). Description: Pt takes zocor. Pt denies any myalgia HTN (chief complaint). Description: Pt has HTN Pt takes irbesartan and BP stable DM (chief complaint). Description: Pt has borderline DM Pt takes metformin and her BG is around 90-100 osteopenia1 (chief complaint). Description: Pt takes calcium and D and is working on weight bearingexercise chronic pain1 (chief complaint). Description: Pt has back and hip pain Pt is seeing pain managementnow. abd pain1 (chief complaint). Description: Pt has abd pain Pt just had abdominal and pelvic CT done by GI Pt had benign endoscopy Plan Of Treatment Date Type Action Status Goal Special diet education compl eted Goal Special diet education compl eted Goal Special diet education compl eted Goal Tobacco cessation counseling completed Goal Special diet education compl eted Goal Tobacco cessation counseling completed Goal Special diet education compl eted Goal Special diet education compl eted Goal Tobacco cessation counseling completed Goal Tobacco cessation counseling completed Goal Special diet education compl eted Goal Tobacco cessation counseling completed Goal Special diet education compl eted Referral Ordered: HIP XRAY AP/LAT Left ordered Referral Ordered: Pain Medicine (related to Chronic pain syndrome) ordered Referral Ordered: Gastroenterology (related to Abdominal pain) ordered Referral Ordered: Referrals: Gastroenterology. Evaluate and treat ordered Referral Ordered: Referrals: Pain Medicine. Evaluate and treat ordered Referral Ordered: MAMMOGRAM, SCREENING ordered History Of Present Illness Encounter Date Complaint History Of Prese nt Illness abd pain1 Pt has abd pain Pt just had abdominal and pelvic CT done by GI Pt had benign endoscopy chronic pain1 Pt has back and hip pain Pt is seeing pain management now. osteopenia1 Pt takes calcium and D and is working on weight bearing exercise DM Pt has borderlin e DM Pt takes metformin and her BG is around 90-100 HTN Pt has HTN Pt ta kes irbesartan and BP stable HLP Pt takes zocor. Pt denies any myalgia back pain1 Pt has chronic l ow back and hip pain Pt fell 4 days ago by accident and she fell on her left knee. Pt twisted her low back in the process. pt c/o worsening low back pain and left hip pain Pt has history of right hip replacement with chronic bilateral hip and low back pain pt denies any loss of bladder control. her lumbar CT is denied by insurance. Pt is seeing pain management HTN her bp is normal today with irbesartan osteopenia1 Pt has osteopeni a. pt takes calcium and D and is working on weight bearing exercise. Pt denies any fx HTN Pt has HTN. Pt t akes irbesartan and her BP is around 140/80 at home. Her BP is borderline now Pt denies any chest pain or headache DM Pt only takes me tformin once per day and her BG is around 140s Pt denies any hypoglycemia abd pain1 Pt has severe no nbloody diarrhea with abd cramp for long time. Pt had EGD and colonoscopy. Pt is on zantac and bentyl now. Pt will do CT of abdomen and pelvis soon by GI pt denies any acute pain back pain1 Pt has chronic b ack and hip pain Pt ise seeing pain management and she will have CT of lumbar spine Pt is getting zanaflex now. Pt is off norco now. Pt denies any loss of bladder control abdominal 1 Pt has abdominal pain pt does not have acute abdomen. pt is seeing GI and will do abdominal CT soon. Pt had negative egd and colonoscopy HTN Pt has HTn. Pt t akes losartan and her BP is still high. Pt states that her BP was 180 during EGD recently. Pt denies any chest pain or headache DM Pt states that m etformin is giving her diarrhea now Pt denies any abd pain chronic pain1 Pt has chronic h ip and back pain Pt needs pain management. Pt takes norco PRN for pain, Pt failed NSAID and ultram. Pt has left sciatica pt denies any loss of bladder control. Pt has mild left leg numbness and tingling HLP Pt has HLP Pt to lerating zocor ok Pt denies any myalgia HTN Pt has htN. pt t akes losartan. Her BP is borderline chronic pain Pt has chronic l ow back and bilateral hip pain. Pt has history of lumbar discectomy and also right hip total replacement. Pt states that she has not been able to work since the 12/17/18. Pt thinks that she bumped her left hip at work two weeks ago at work and she c/o worsening pain. Pt went to see her ortho and x ray did not show any fracture. Pt did receive hip injection. Pt has not heard from pain management yet. Pt currently is applying for short term medical leave due to her chronic pain. HTN Pt takes losarta n 100 mg , her BP is borderline. Pt denies any chest pain or headache. DM Pt has DM. Pt st arted metformin last month Pt states that her BG is around 150-200. Pt denies any neuropathy. Pt denies any denies any polyuria, polydipsia. Pt denies any GI issue with metformin HLP pt has HLP. Pt h as not started zocor, Pt states that she will try to start this month Pt has been working on diet sinus1 Pt c/o sinus iris n, purulent sinus drainage, sore throat, mild productive coughing for one week pt denies any fever or sick contact Pt denies any recent travel. GI Pt c/o abdominal cramp with nonbloody diarrhea chronically Pt states that symptoms tends to be worse after food Pt denies any nausea, vomiting. Pt had her gallbladder removed. Pt has intermittent GERD. Pt had EGd 3 years ago which showed esophageal stricture. Pt takes OTC zantac daily. Pt also colonoscopy 3 years ago which was normal also. Pt states that her GI symptoms are getting worse chronic pain1 Pt has chronic b ack and left hip pain. Pt has been getting injection to left hip by ortho. Pt lee left sciatica and with left leg numbness. Pt sees neurosurgery and ortho also. Pt was recommend pain management. Pt denies any loss of bladder control. d Pt has low vitam in D folate Pt has low folat e HLP Pt has HLP. Pt s tates that she tries to eat salad daily. LFT Pt has mildly hi gh LFT. pt denies any abdominal pain. DM Pt has DM. pt is trying diet controlled only pt is not on any medication now. Pt also has proteinuria in her urine. Pt denies any UTI symptoms PHysical Pt needs annual physical. pt has chronic hip and back pain. pt has history of right hip surgery due to dysplasia. Pt has left hip pain as well Pt has history of lumbar discectomy and she is having back pain as well. Pt is seeing ortho spine now and is being worked up for her hip and lumbar spine. Pt has sciatica and leg numbness. Pt denies any loss of bladder control. Pt has 7/10 pain. Pt also has chronic GERD and she had EGD done 4 years ago with esophageal dilation. Pt has been having more GERD despite taking zantac. Pt denies any dysphagia Pt denies any abdominal pain. Pt also has HTn. pt denies any chest pain or headache Pt is not on any BP meds. Pt also has restless leg symptoms chronically. Pt denies any paresthesia. Pt has urge to move her leg at night Instructions Date Instruction Additional Infor faith Special diet education Related t o Body mass index (BMI) 30.0-30.9, adult Weight management Related to Typ e 2 diabetes mellitus with diabetic nephropathy Increase activity. Related to Es sential (primary) hypertension Increase physical activity Relat ed to Type 2 diabetes mellitus with diabetic nephropathy Follow a low sodium diet. Relate d to Essential (primary) hypertension Weight management Related to Oth er specified disorder of bone density Increase physical activity Relat ed to Other specified disorder of bone density Special diet education Related t o Body mass index (BMI) 30.0-30.9, adult Follow a low sodium diet. Relate d to Essential (primary) hypertension Increase activity. Related to Es sential (primary) hypertension Special diet education Related t o Body mass index (BMI) 30.0-30.9, adult Follow a low sodium diet. Relate d to Essential (primary) hypertension Increase activity. Related to Es sential (primary) hypertension Special diet education Related t o Body mass index (BMI) 30.0-30.9, adult Special diet education Related t o Body mass index (BMI) 30.0-30.9, adult Increase activity. Related to Es sential (primary) hypertension Follow a low sodium diet. Relate d to Essential (primary) hypertension Special diet education Related t o Body mass index (BMI) 31.0-31.9, adult Increase activity. Related to Es sential (primary) hypertension Follow a low sodium diet. Relate d to Essential (primary) hypertension Follow a low sodium diet. Relate d to Essential (primary) hypertension Increase activity. Related to Es sential (primary) hypertension Special diet education Related t o Body mass index (BMI) 30.0-30.9, adult Special diet education Related t o Body mass index (BMI) 31.0-31.9, adult Increase physical activity Relat ed to Encounter for general adult medical exam w abnormal findings Weight management Related to Enc ounter for general adult medical exam w abnormal findings Assessments Type Assessment Date assessment Type 2 diabetes mellitus with di abetic nephropathy assessment Essential (primary) hypertension assessment Hyperlipidemia assessment Abdominal pain assessment Fatty liver Mental Status Date Cognitive Assessment Orientation - Keyes ed to time, place, person, situation.
--- OUTSIDE RECORDS SUMMARY | 2025-01-03 13:13 | XMS_ITS | Continuity of Care Document ---
Author Organization [facility] Address [address] [place] [address] Phone Care Team Providers Care Cooker Operator Name Role Phone Yeyo Burciaga MD Unavailable Unavailable Advance Directives Directive Yes / No Effective Date File Name No Information Encounters Encounter Description Practice Location Reason(s) For Visit Diagnoses Date Provider Providers [facility]ied [facility] [address], [place], [place], [address], tel:[phone] [facility] No Information Gualberto Orona. [address], [place], [address], [place]. tel:[phone] Referring Provider: Axel Boston, [address], [address]. tel:[phone] Family History Family Member Type Diagnosis Age At Onset No Information Payers Payer name Insurance type Covered libertarian ID Authoriza tion(s) [facility] CI [id number] Social History Type Description Quantity Date Captured Comments Sex Female Smoking Status No Information Chief Complaint And Reason For Visit No Information Reason For Referral Reason For Referral No Information History Of Present Illness Encounter Date Complaint History Of Prese nt Illness No Information Functional Status Date Functional Assessmen t No Information Instructions Date Instruction Additional Infor mation No Information Assessments Type Assessment Date No Information Patient Care Teams Name Effective Dates (start - stop) Status Members No Information
--- OUTSIDE RECORDS SUMMARY | 2025-01-03 13:34 | XMS_ITS | Continuity of Care Document ---
Author Organization [facility] Address [address] [place] [address] Phone Care Team Providers Care Plasterer Foreman Name Role Phone Yeyo Burciaga MD Unavailable Unavailable Advance Directives Directive Yes / No Effective Date File Name No Information Encounters Encounter Description Practice Location Reason(s) For Visit Diagnoses Date Provider Providers [facility] [address], [place], [place], [address], tel:[phone] [facility] No Information Gualberto Orona. [address] [place], [place], [address], [place]. tel:[phone] Referring Provider: Axel Boston, [address], [address]. tel:[phone] Family History Family Member Type Diagnosis Age At Onset No Information Payers Payer name Insurance type Covered republican ID Authoriza tion(s) [facility] CI [id number] Social History Type Description Quantity Date Captured [...]
--- OUTSIDE RECORDS SUMMARY | 2025-01-03 13:34 | XMS_ITS | Clinical Summary ---
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 05/26/2021 Low back pain 05/26/2021 Sensation of chest tightness 11/17/2011 Encounters Date Type Department Care Team Description 11/06/2024 2:00 PM REGISTERED PUBLIC SURVEYOR Office Visit [facility] Orthopedics and Sports Medicine [address] [place] [phone] Martin Singh MD Chronic right shoulder [...] Asthma COPD (chronic obstructive pu lmonary disease) ([facility]) COPD History of pneumonia SEVERAL CHRISTOPHER ES LAST IN THE Migraine Cataract only one eye, no t sure which one Vertigo Diverticulitis of colon Irritable bowel syndrome History of colitis Wears glasses reading glasses GERD (gastroesophageal reflux disease) Osteoarthritis History of fracture spine DDD (degenerative disc disease), lumbar History of anxiety Type 2 diabetes mellitus ([facility]) s/p left total hip arthropla sty at [...] on file Legal Sex Female 3:23 AM REGISTERED PUBLIC SURVEYOR Gender Identity Not on file Sexual Orientation [...] 60.3 kg (133 lb) 11/06/2024 2:07 PM REGISTERED PUBLIC SURVEYOR Height 167.6 cm (5' 6 ) 11/06/2024 2:07 PM REGISTERED PUBLIC SURVEYOR Body Mass Index 21.47 11/06/2024 2:07 PM REGISTERED PUBLIC SURVEYOR Plan of Treatment Health Maintenance Due Date [...] 01/29/2022, 05/31/2014 Medical Devices Implanted Type Area Economic Specialist Device Identifier Shelf Expiration Date Model / Serial / Lot Total Hip Left: Hip Implanted-2015 Implanted:11/2015 (Quantity not on file) Right: Hip [employer] [id number] [id number] 54mm Limit Hole Color Coded Hip F Offset Hemisphere Shell - [id number] Implanted:Qty: 1 on 07/22/2021 by Martin Singh MD at [facility] Left: Hip [employer] [id number] 04/03/2031 [id number] / / [id number] [employer] [id number] G7 32mm Lumen Hip F Liner Acetabular Longevity Sterile Latex Free - [id number] Implanted:Qty: 1 on 07/22/2021 by Martin Singh MD at [facility] Left: Hip [employer] [id number] 02/17/[id number] / / [id number] [employer] [id number] Echo Bi-Metric 13mm 145mm Noncollar Reduce Proximal Profile Press - [id number] Implanted:Qty: 1 on 07/22/2021 by Martin Singh MD at [facility] Left: Hip [employer] [id number] 03/13/2031953991 / / [id number] [employer] [id number] 32mm Modular Hip +3mm Head Femoral Biolox Delta - [id number] Implanted:Qty: 1 on 07/22/2021 by Martin Singh MD at [facility] Left: Hip [employer] [id number] 01/17/2029116 / / [id number] Procedures Procedure Name Priority Date/Time Associated Diagnosis Comments [place] INJECTION SINGLE/ASSEMBLER CAMPER TRIGGER POINT 1/2 MUSCLES Routine 11/06/2024 2:00 PM REGISTERED PUBLIC SURVEYOR Chronic right shoulder pain COLONOSCOPY REPORT 06/18/2014 from Last 3 Months or Most Recently Relevant to Health Maintenance Results * [place] INJECTION SINGLE/ASSEMBLER CAMPER TRIGGER POINT 1/2 MUSCLES (11/06/2024 2:00 PM REGISTERED PUBLIC SURVEYOR) Narrative Martin Singh MD - 11/06/2024 2:00 PM REGISTERED PUBLIC SURVEYOR Martin Singh MD 11/07/2024 12:15 PM Trigger [...] Most Recently Relevant to Health Maintenance Insurance [facility] MEDICARE COUNTS INCLUDE 234 BEDS AT THE [facility] OPEN ACCESS [facility] Advance Directives For more information, please contact: [phone] * Full Code (Latest Code Status on File) Date Activated Date Inactivated Comments 07/22/2021 6:21 PM 07/24/2021 6:41 PM Care Teams Refractory Furnace Designer Relationship Specialty Start Date End Date Violetta Leyva PA PCP - General 10/28/20 Shelly Osborn MD [address] [address] Referring Physician Internal Medicine 07/08/21
--- OUTSIDE RECORDS SUMMARY | 2025-01-03 13:34 | XMS_ITS | Clinical Summary ---
Author Organization [facility] Address [address] [place] [address] Care Team Providers Care Drill Presser Name Role Phone Breanna Henriquez Primary Care Provider [phone] Leon Sagastume MD Unavailable [phone] Allergies Active Allergy Reactions Criticality Noted [...] Industry Job Start Date Job End Date [employer] Not on file Not on file Not [...] - COMMERCIAL GENERIC - COMMERCIAL Care Teams Drill Presser Relationship Specialty Start Date End Date Breanna Henriquez APNP Family & Internal Medicine [address] [address] PCP - General ADVANCED PRACTICE LANGUAGE INSTRUCTOR 02/08/18 Leon Sagastume MD [facility]. [facility]IL[place] [address] [place] [address] Tayler Cow Tender CARDIOVASCULAR DISEASE 03/09/18
--- OUTSIDE RECORDS SUMMARY | 2025-01-03 13:34 | XMS_ITS | Encounter Summary ---
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
--- OUTSIDE RECORDS SUMMARY | 2025-01-03 13:34 | XMS_ITS | Clinical Summary ---
Author Organization [facility] Address [address] [place] [address] Care Team Providers Care Florist Manager Name Role Phone Violetta Leyva PA-C Primary Care Provider Source Comments [facility],non-owned Affiliates and Associated Physician Practices is amultiple site organization consisting of ambulatory clinics and hospital sitesin [place], [place], [place] and [place]. This disclosure is being madepursuant to the Care Everywhere program and may not contain all information available regarding this patient. 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
--- OUTSIDE RECORDS SUMMARY | 2025-01-03 13:34 | XMS_ITS | Referral Summary ---
Author Organization [facility] Address [facility] [place] [address] Care Team Providers Care Cup Setter Lockstitch Name Role Phone Violetta Leyva Primary Care Provider + Shelly Osborn MD Unavailable [phone] Encounters Date Type Department Care Team Description 11/06/2024 2:00 PM DIETARY AIDE Office Visit [facility] Orthopedics and Sports Medicine [address] [place] [address] [address] [place] [address] Martin Singh MD Chronic right [...] (05/29/2021): Added automatically from request for surgery [id number] 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 [...] on file 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 Gender Identity Not on file Sexual Orientation [...] 60.3 kg (133 lb) 11/06/2024 2:07 PM DIETARY AIDE Height 167.6 cm (5' 6 ) 11/06/2024 2:07 PM DIETARY AIDE Body Mass Index 21.47 11/06/2024 2:07 PM DIETARY AIDE Plan of Treatment Not on file Medical Devices Implanted Type Area Acute Care Surgeon Device Identifier Shelf Expiration Date Model / Serial / Lot Total Hip Left: Hip Implanted-2015 Implanted:11/2015 (Quantity not on file) Right: Hip [employer] [id number] G7 54mm Limit Hole Color Coded Hip F Offset Hemisphere Shell - [id number] Implanted:Qty: 1 on 07/22/2021 by Martin Singh MD at [facility] Left: Hip [employer] [id number] 04/03/2031 [id number] / / [id number] [employer] [id number] G7 32mm Lumen Hip F Liner Acetabular Longevity Sterile Latex Free - [id number] Implanted:Qty: 1 on 07/22/2021 by Martin Singh MD at [facility] Left: Hip [employer] [id number] 02/17/[id number] / / [id number] [employer] [id number] Echo Bi-Metric 13mm 145mm Noncollar Reduce Proximal Profile Press - [id number] Implanted:Qty: 1 on 07/22/2021 by Martin Singh MD at [facility] Left: Hip [employer] [id number] 03/13/2031 [id number] / / [id number] [employer] [id number] 32mm Modular Hip +3mm Head Femoral Biolox Delta - [id number] Implanted:Qty: 1 on 07/22/2021 by Martin Singh MD at [facility] Left: Hip [employer] [id number] 01/17/2029 [id number] / / [id number] Procedures Procedure Name Priority Date/Time Associated Diagnosis Comments [place] INJECTION SINGLE/HEAD OF MUSIC TRIGGER POINT 1/2 MUSCLES Routine 11/06/2024 2:00 PM DIETARY AIDE Chronic right shoulder pain COLONOSCOPY REPORT 06/18/2014 from Last 3 Months or Most Recently Relevant to Health Maintenance Results * [place] INJECTION SINGLE/HEAD OF MUSIC TRIGGER POINT 1/2 MUSCLES (11/06/2024 2:00 PM DIETARY AIDE) Narrative Martin Singh MD - 11/06/2024 2:00 PM DIETARY AIDE Martin Singh MD 11/07/2024 12:15 PM Trigger [...] Most Recently Relevant to Health Maintenance Insurance [facility] OTHER Address: ATTN: CLAIMS DEPT [address] [place] [address] [facility] MEDICARE COUNTS INCLUDE 234 BEDS AT THE [facility] OPEN ACCESS [facility] Advance Directives For more information, please contact: [phone] * Full Code (Latest Code Status on File) Date Activated Date Inactivated Comments 07/22/2021 6:21 PM 07/24/2021 6:41 PM Care Teams Cup Setter Lockstitch Relationship Specialty Start Date End Date Vioeltta Leyva PA PCP - General 10/28/20 Shelly Osborn MD [address] [address] Referring Physician Internal Medicine 07/08/21
--- OUTSIDE RECORDS SUMMARY | 2025-01-03 13:34 | XMS_ITS | Data Portability ---
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 Not available 02/14/2024 12:13:40 Plan of Treatment Reminders Order Date Submit Date Provider Last Modified By Organization Details Last Modified Time Details Appointments ANY 15 2024 10:30A M LANRE GREEN Not available Not available Not available Lab HbA1c (hemoglob in A1c), blood 2024 025 In-Office Order, Internal Use Only DO Not Attach Compendium DO Not Attach Compendium, Do Not Delete/merge, [id number] 12/19/2024 11:23:21 microalbu min/creat inine, mass ratio, urine 2024 025 ATHENAFAX [facility], [address], [address], [place], [address], 12/19/2024 11:30:47 CMP, serum or plasma 2024 025 JENNIFER [facility], [address], [place], [address], 12/20/2024 16:14:11 lipid panel, serum 2024 025 JENNIFER [facility], [address], [place], [address], 12/20/2024 16:14:10 CMP, serum or plasma 2023 024 JENNIFER [facility], [address] [facility], [address], [place], [address], 05/22/2024 22:07:39 CBC w/ auto diff 2023 024 JENNIFER [facility], [address] [place] [address], [address], [place], [address], 05/22/2024 22:07:39 lipid panel, serum 2023 024 JENNIFER [facility], [address] [place] [address], [address], [place], [address], 05/22/2024 22:07:38 HbA1c (hemoglob in A1c), blood 2023 024 JENNIFER In-Office Order, Internal Use Only DO Not Attach Compendium DO Not Attach Compendium, Do Not Delete/merge, [id number] 05/22/2024 15:39:53 urinalysi s, dipstick 2023 024 JENNIFER In-Office Order, Internal Use Only DO Not Attach Compendium DO Not Attach Compendium, Do Not Delete/merge, [id number] 05/22/2024 14:31:29 microalbu min/creat inine, mass ratio, urine 2023 024 JENNIFER [facility], [address], [place], [address], 11/29/2023 16:20:32 CMP, serum or plasma 2023 024 JENNIFER [facility], [address], [place], [address], 11/24/2023 20:09:39 lipid panel, serum 2023 024 JENNIFER [facility], [address], [place], [address], 11/24/2023 20:09:39 HbA1c (hemoglob in A1c), blood 2023 024 JENNIFER In-Office Order, Internal Use Only DO Not Attach Compendium DO Not Attach Compendium, Do Not Delete/merge, [id number] 11/24/2023 16:23:18 microalbu min/creat inine, mass ratio, urine 2022 023 [facility], [address], [place], [address], 02/14/2024 11:48:00 HbA1c (hemoglob in A1c), blood 2022 023 JENNIFER In-Office Order, Internal Use Only DO Not Attach Compendium DO Not Attach Compendium, Do Not Delete/merge, [id number] 09/09/2023 16:50:39 CMP, serum or plasma 2022 023 JENNIFER [facility], [address], [place], [address], 11/25/2023 06:20:05 lipid panel, serum 2022 023 JENNIFER [facility], [address], [place], [address], 11/25/2023 06:20:05 Referral cardiolog ist referral 2024 025 ATHTEODORO Lagos DO, [address], [address], [place], [address], 12/26/2024 10:50:45 gastroent erologist referral - need reports from last visits 2024 025 ATHTEODORO Merritt MD, [address], [address], [place], [address], 12/26/2024 10:40:35 Procedures None recorded. Surgeries None recorded. Imaging MAMMO, screening , bilateral 2024 025 [facility], [address], [place], [address], 12/19/2024 11:35:24 Medication Orders Ozempic 0.25 mg or 0.5 mg (2 mg/1.5 mL) subcutane ous pen injector [address] [facility], [address], [place], [place], [id number], 12/19/2024 11:23:19 Farxiga 10 mg tablet [address] [facility]17914, [address], [place], [place], [id number], 12/19/2024 11:23:19 cetirizin e 10 mg tablet 2024 025 [facility], [address], [place], [place], [id number], 12/19/2024 11:26:14 Zithromax Z-Gabriele 250 mg tablet 2023 025 [facility]74452, [address], [place], [place], [id number], 12/19/2024 11:07:08 Linzess 290 mcg capsule [address] [facility] #59653, [address], [place], [place], [id number], 05/22/2024 14:07:03 loratadin e 10 mg tablet 2023 024 [facility], [address], [place], [place], [phone], 05/22/2024 14:08:18 Patient TargetsNo targets recorded. 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 Referring Physician: Hanane Miranda Day Care Director, Encounter Date: 12/19/2024 Results Created Date Observation Date Name Description Value Unit Range Abnormal Flag Note LastModifiedBy Organization Detail LastModifiedTime 09/09/2009/09/2023 LIPID PANEL cholesterol, total 145 mg/dL 100-19 9 Not Available [facility] [address] [place], [address], 12/28/2023 17:09:35 09/09/20 23 09/09/2023 LIPID PANEL triglyceride s 118 mg/dL 0-149 Not Available [facility] Department [address] [place] [address], [address], 12/28/2023 17:09:35 09/09/20 23 09/09/2023 LIPID PANEL HDL cholesterol 52 mg/dL 40-999 Not Available [facility] Department [address] [place], [address], 12/28/2023 17:09:35 09/09/20 23 09/09/2023 LIPID PANEL VLDL cholesterol olegario 24 mg/dL 5-40 Not Available [facility] [address] [place], [address], 12/28/2023 17:09:35 09/09/20 23 09/09/2023 LIPID PANEL LDL chol calc ([facility] [place]) 85 mg/dL 0-99 Not Available [facility] Department [address] [place] [address], [address], 12/28/2023 17:09:35 09/09/20 23 09/09/2023 COMP. METAB OLIC PANEL (14) glucose 115 mg/dL 70-99 above high normal Not Available [facility] [address] [place] [address], [address], 12/28/2023 17:09:35 09/09/20 23 09/09/2023 COMP. METAB OLIC PANEL (14) BUN 11 mg/dL 6-24 Not Available [facility] [address] [place] [address], [address], 12/28/2023 17:09:35 09/09/20 23 09/09/2023 COMP. METAB OLIC PANEL (14) creatinine 0.55 mg/dL 0.76-1 .27 below low normal Not Available [facility] [address] [place] [address], [address], 12/28/2023 17:09:35 09/09/20 23 09/09/2023 COMP. METAB OLIC PANEL (14) eGFR 106 >=60 Units for eGFR value s are mL/mi n/1.7 3 The eGFR Calcu latio n has not been valid ated for patie nts under the age of 18. If test resul ts are displ ayed for a patie nt under the age of 18, disre gilberto that value . Not Available [facility] [address] [place] [address], [address], 12/28/2023 17:09:35 09/09/20 23 09/09/2023 COMP. METAB OLIC PANEL (14) BUN/creatini ne ratio 20 9-23 Not Available [facility] Department [address] [place] [address], [address], 12/28/2023 17:09:35 09/09/20 23 09/09/2023 COMP. METAB OLIC PANEL (14) sodium 136 mmol/ L 134-14 4 Not Available [facility] [address] [place], [address], 12/28/2023 17:09:35 09/09/20 23 09/09/2023 COMP. METAB OLIC PANEL (14) potassium 3.8 mmol/ L 3.5-5. 2 Not Available [facility] [address] [place], [address], 12/28/2023 17:09:35 09/09/20 23 09/09/2023 COMP. METAB OLIC PANEL (14) chloride 101 mmol/ L 96-106 Not Available [facility] [address] [place] [address], [address], 12/28/2023 17:09:35 09/09/20 23 09/09/2023 COMP. METAB OLIC PANEL (14) carbon dioxide, total 22 mmol/ L 20-29 Not Available [facility] [address] [place] [address], [address], 12/28/2023 17:09:35 09/09/20 23 09/09/2023 COMP. METAB OLIC PANEL (14) calcium 9.4 mg/dL 8.7-10 .2 Not Available [facility] [address] [place], [address], 12/28/2023 17:09:35 09/09/20 23 09/09/2023 COMP. METAB OLIC PANEL (14) protein, total 6.6 g/dL 6.0-8. 5 Not Available [facility] [address] [place], [address], 12/28/2023 17:09:35 09/09/20 23 09/09/2023 COMP. METAB OLIC PANEL (14) albumin 4.2 g/dL 3.8-4. 9 Not Available [facility] [address] [place], [address], 12/28/2023 17:09:35 09/09/20 23 09/09/2023 COMP. METAB OLIC PANEL (14) globulin, total 2.4 g/dL 1.5-4. 5 Not Available [facility] [address] [place] [address], [address], 12/28/2023 17:09:35 09/09/20 23 09/09/2023 COMP. METAB OLIC PANEL (14) A/G ratio 2.0 1.2-2. 2 Not Available [facility] [address] [place] [address], [address], 12/28/2023 17:09:35 09/09/20 23 09/09/2023 COMP. METAB OLIC PANEL (14) bilirubin, total 0.5 mg/dL 0.0-1. 2 Not Available [facility] [address] [place] [address], [address], 12/28/2023 17:09:35 09/09/20 23 09/09/2023 COMP. METAB OLIC PANEL (14) alkaline phosphatase 109 IU/L 44-121 Not Available [facility] Department [address] [place] [address], [address], 12/28/2023 17:09:35 09/09/20 23 09/09/2023 COMP. METAB OLIC PANEL (14) AST (SGOT) 15 IU/L 0-40 Not Available [facility] Department [address] [place] [address], [address], 12/28/2023 17:09:35 09/09/20 23 09/09/2023 COMP. METAB OLIC PANEL (14) ALT (SGPT) 12 IU/L 0-32 Not Available [facility] Department [address] [place] [address], [address], 12/28/2023 17:09:35 09/09/20 23 09/09/2023 HbA1c (hemo globi n A1c), blood HbA1c 5.9 Not Available In-Office Order Internal Use Only DO Not Attach Compendium DO Not Attach Compendium, Do Not Delete/merge, [id number] 09/09/2023 15:45:06 11/24/19 24 11/24/2023 LIPID PANEL cholesterol, total 160 mg/dL 100-19 9 Not Available [facility] [address] [place] [address], [address], 11/24/2023 20:09:39 11/24/19 24 11/24/2023 LIPID PANEL triglyceride s 98 mg/dL 0-149 Not Available [facility] [address] [place], [address], 11/24/2023 20:09:39 11/24/19 24 11/24/2023 LIPID PANEL HDL cholesterol 65 mg/dL 40-999 Not Available [facility] Department [address] [place] [address], [address], 11/24/2023 20:09:39 11/24/19 24 11/24/2023 LIPID PANEL VLDL cholesterol olegario 20 mg/dL 5-40 Not Available [facility] [address] [place], [address], 11/24/2023 20:09:39 11/24/19 24 11/24/2023 LIPID PANEL LDL chol calc (nih) 89 mg/dL 0-99 Not Available [facility] Department [address] [place], [address], 11/24/2023 20:09:39 11/24/19 24 11/24/2023 COMP. METAB OLIC PANEL (14) glucose 121 mg/dL 70-99 above high normal Not Available [facility] [address] [place], [address], 11/24/2023 20:09:39 11/24/19 24 11/24/2023 COMP. METAB OLIC PANEL (14) BUN 12 mg/dL 6-24 Not Available [facility] [address] [place], [address], 11/24/2023 20:09:39 11/24/19 24 11/24/2023 COMP. METAB OLIC PANEL (14) creatinine 0.64 mg/dL 0.76-1 .27 below low normal Not Available [facility] [address] [place] [address], [address], 11/24/2023 20:09:39 11/24/19 24 11/24/2023 COMP. METAB OLIC PANEL (14) eGFR 102 >=60 Units for eGFR value s are mL/mi n/1.7 3 The eGFR Calcu latio n has not been valid ated for patie nts under the age of 18. If test resul ts are displ ayed for a patie nt under the age of 18, disre gilberto that value . Not Available [facility] [address] [place] [address], [address], 11/24/2023 20:09:39 11/24/19 24 11/24/2023 COMP. METAB OLIC PANEL (14) BUN/creatini ne ratio 19 9-23 Not Available [facility] [address] [place], [address], 11/24/2023 20:09:39 11/24/19 24 11/24/2023 COMP. METAB OLIC PANEL (14) sodium 141 mmol/ L 134-14 4 Not Available [facility] [address] [place] [address], [address], 11/24/2023 20:09:39 11/24/19 24 11/24/2023 COMP. METAB OLIC PANEL (14) potassium 4.7 mmol/ L 3.5-5. 2 Not Available [facility] [address] [place], [address], 11/24/2023 20:09:39 11/24/19 24 11/24/2023 COMP. METAB OLIC PANEL (14) chloride 105 mmol/ L 96-106 Not Available [facility] [address] [place] [address], [address], 11/24/2023 20:09:39 11/24/19 24 11/24/2023 COMP. METAB OLIC PANEL (14) carbon dioxide, total 19 mmol/ L 20-29 below low normal Not Available [facility] [address] [place], [address], 11/24/2023 20:09:39 11/24/19 24 11/24/2023 COMP. METAB OLIC PANEL (14) calcium 9.7 mg/dL 8.7-10 .2 Not Available [facility] [address] [place], [address], 11/24/2023 20:09:39 11/24/19 24 11/24/2023 COMP. METAB OLIC PANEL (14) protein, total 6.9 g/dL 6.0-8. 5 Not Available [facility] [address] [place], [address], 11/24/2023 20:09:39 11/24/19 24 11/24/2023 COMP. METAB OLIC PANEL (14) albumin 4.5 g/dL 3.8-4. 9 Not Available [facility] [address] [place], [address], 11/24/2023 20:09:39 11/24/19 24 11/24/2023 COMP. METAB OLIC PANEL (14) globulin, total 2.4 g/dL 1.5-4. 5 Not Available [facility] [address] [place], [address], 11/24/2023 20:09:39 11/24/19 24 11/24/2023 COMP. METAB OLIC PANEL (14) A/G ratio 1.8 1.2-2. 2 Not Available [facility] [address] [place], [address], 11/24/2023 20:09:39 11/24/19 24 11/24/2023 COMP. METAB OLIC PANEL (14) bilirubin, total 0.4 mg/dL 0.0-1. 2 Not Available [facility] [address] [place], [address], 11/24/2023 20:09:39 11/24/19 24 11/24/2023 COMP. METAB OLIC PANEL (14) alkaline phosphatase 102 IU/L 44-121 Not Available [facility] Department [address] [place], [address], 11/24/2023 20:09:39 11/24/19 24 11/24/2023 COMP. METAB OLIC PANEL (14) AST (SGOT) 17 IU/L 0-40 Not Available [facility] Department [address] [place], [address], 11/24/2023 20:09:39 11/24/19 24 11/24/2023 COMP. METAB OLIC PANEL (14) ALT (SGPT) 11 IU/L 0-32 Not Available [facility] [address] [place], [address], 11/24/2023 20:09:39 11/24/19 24 11/24/2023 HbA1c (hemo globi n A1c), blood HbA1c 5.9 Not Available In-Office Order Internal Use Only DO Not Attach Compendium DO Not Attach Compendium, Do Not Delete/merge, [id number] 11/24/2023 14:57:19 05/22/20 24 05/22/2024 LIPID PANEL cholesterol, total 149 mg/dL 100-19 9 Not Available [facility] [address] [place], [address], 05/22/2024 22:07:38 05/22/20 24 05/22/2024 LIPID PANEL triglyceride s 94 mg/dL 0-149 Not Available [facility] Department [address] [place], [address], 05/22/2024 22:07:38 05/22/20 24 05/22/2024 LIPID PANEL HDL cholesterol 66 mg/dL 40-999 Not Available [facility] Department [address] [place] [address], [address], 05/22/2024 22:07:38 05/22/20 24 05/22/2024 LIPID PANEL VLDL cholesterol olegario 19 mg/dL 5-40 Not Available [facility] [address] [place] [address], [address], 05/22/2024 22:07:38 05/22/20 24 05/22/2024 LIPID PANEL LDL chol calc (nih) 78 mg/dL 0-99 Not Available [facility] Department [address] [place] [address], [address], 05/22/2024 22:07:38 05/22/20 24 05/22/2024 COMP. METAB OLIC PANEL (14) glucose 113 mg/dL 70-99 above high normal Not Available [facility] [address] [place] [address], [address], 05/22/2024 22:07:39 05/22/20 24 05/22/2024 COMP. METAB OLIC PANEL (14) BUN 14 mg/dL 8-27 Not Available [facility] [address] [place] [address], [address], 05/22/2024 22:07:39 05/22/20 24 05/22/2024 COMP. METAB OLIC PANEL (14) creatinine 0.50 mg/dL 0.76-1 .27 below low normal Not Available [facility] [address] [place] [address], [address], 05/22/2024 22:07:39 05/22/20 24 05/22/2024 COMP. METAB OLIC PANEL (14) eGFR 107 >=60 Units for eGFR value s are mL/mi n/1.7 3 The eGFR Calcu latio n has not been valid ated for patie nts under the age of 18. If test resul ts are displ ayed for a patie nt under the age of 18, disre gilberto that value . Not Available [facility] [address] [place], [address], 05/22/2024 22:07:39 05/22/20 24 05/22/2024 COMP. METAB OLIC PANEL (14) BUN/creatini ne ratio 29 10-28 above high normal Not Available [facility] [address] [place] [address], [address], 05/22/2024 22:07:39 05/22/20 24 05/22/2024 COMP. METAB OLIC PANEL (14) sodium 138 mmol/ L 134-14 4 Not Available [facility] [address] [place] [address], [address], 05/22/2024 22:07:39 05/22/20 24 05/22/2024 COMP. METAB OLIC PANEL (14) potassium 3.7 mmol/ L 3.5-5. 2 Not Available [facility] [address] [place] [address], [address], 05/22/2024 22:07:39 05/22/20 24 05/22/2024 COMP. METAB OLIC PANEL (14) chloride 100 mmol/ L 96-106 Not Available [facility] [address] [place] [address], [address], 05/22/2024 22:07:39 05/22/20 24 05/22/2024 COMP. METAB OLIC PANEL (14) carbon dioxide, total 27 mmol/ L 20-29 Not Available [facility] [address] [place] [address], [address], 05/22/2024 22:07:39 05/22/20 24 05/22/2024 COMP. METAB OLIC PANEL (14) calcium 9.6 mg/dL 8.7-10 .3 Not Available [facility] [address] [place] [address], [address], 05/22/2024 22:07:39 05/22/20 24 05/22/2024 COMP. METAB OLIC PANEL (14) protein, total 6.9 g/dL 6.0-8. 5 Not Available [facility] [address] [place] [address], [address], 05/22/2024 22:07:39 05/22/20 24 05/22/2024 COMP. METAB OLIC PANEL (14) albumin 4.5 g/dL 3.8-4. 9 Not Available [facility] [address] [place] [address], [address], 05/22/2024 22:07:39 05/22/20 24 05/22/2024 COMP. METAB OLIC PANEL (14) globulin, total 2.4 g/dL 1.5-4. 5 Not Available [facility] [address] [place] [address], [address], 05/22/2024 22:07:39 05/22/20 24 05/22/2024 COMP. METAB OLIC PANEL (14) A/G ratio 2.0 1.2-2. 2 Not Available [facility] [address] [place] [address], [address], 05/22/2024 22:07:39 05/22/20 24 05/22/2024 COMP. METAB OLIC PANEL (14) bilirubin, total 0.6 mg/dL 0.0-1. 2 Not Available [facility] [address] [place] [address], [address], 05/22/2024 22:07:39 05/22/20 24 05/22/2024 COMP. METAB OLIC PANEL (14) alkaline phosphatase 96 IU/L 44-121 Not Available [facility] Department [address] [place] [address], [address], 05/22/2024 22:07:39 05/22/20 24 05/22/2024 COMP. METAB OLIC PANEL (14) AST (SGOT) 14 IU/L 0-40 Not Available [facility] Department [address] [place], [address], 05/22/2024 22:07:39 05/22/20 24 05/22/2024 COMP. METAB OLIC PANEL (14) ALT (SGPT) 8 IU/L 0-32 Not Available [facility] [address] [place], [address], 05/22/2024 22:07:39 05/22/20 24 05/22/2024 CBC WITH DIFFE RENTI AL/PL ATELE T WBC 7.9 x10e3 /uL 3.4-10 .8 Not Available [facility] [address] [place], [address], 05/22/2024 22:07:39 05/22/20 24 05/22/2024 CBC WITH DIFFE RENTI AL/PL ATELE T RBC 5.53 x10e6 /uL 3.77-5 .28 above high normal Not Available [facility] [address] [place], [address], 05/22/2024 22:07:39 05/22/20 24 05/22/2024 CBC WITH DIFFE RENTI AL/PL ATELE T hemoglobin 15.8 g/dL 11.1-1 5.9 Not Available [facility] [address] [place], [address], 05/22/2024 22:07:39 05/22/20 24 05/22/2024 CBC WITH DIFFE RENTI AL/PL ATELE T hematocrit 48.9 % 34.0-4 6.6 above high normal Not Available [facility] [address] [place], [address], 05/22/2024 22:07:39 05/22/20 24 05/22/2024 CBC WITH DIFFE RENTI AL/PL ATELE T MCV 88 fL 79-97 Not Available [facility] [address] [place], [address], 05/22/2024 22:07:39 05/22/20 24 05/22/2024 CBC WITH DIFFE RENTI AL/PL ATELE T MCH 28.6 pg 26.6-3 3.0 Not Available [facility] [address] [place], [address], 05/22/2024 22:07:39 05/22/20 24 05/22/2024 CBC WITH DIFFE RENTI AL/PL ATELE T MCHC 32.3 g/dL 31.5-3 5.7 Not Available [facility] [address] [place], [address], 05/22/2024 22:07:39 05/22/20 24 05/22/2024 CBC WITH DIFFE RENTI AL/PL ATELE T RDW 13.6 % 11.5-1 4.5 Not Available [facility] [address] [place], [address], 05/22/2024 22:07:39 05/22/20 24 05/22/2024 CBC WITH DIFFE RENTI AL/PL ATELE T platelets 367 x10e3 /uL 150-45 0 Not Available [facility] [address] [place], [address], 05/22/2024 22:07:39 05/22/20 24 05/22/2024 CBC WITH DIFFE RENTI AL/PL ATELE T neutrophils 68 % notest b. Not Available [facility] [address] [place], [address], 05/22/2024 22:07:39 05/22/20 24 05/22/2024 CBC WITH DIFFE RENTI AL/PL ATELE T lymphs 24 % notest b. Not Available [facility] [address] [place], [address], 05/22/2024 22:07:39 05/22/20 24 05/22/2024 CBC WITH DIFFE RENTI AL/PL ATELE T monocytes 6 % notest b. Not Available [facility] [address] [place], [address], 05/22/2024 22:07:39 05/22/20 24 05/22/2024 CBC WITH DIFFE RENTI AL/PL ATELE T eos 1 % notest b. Not Available [facility] [address] [place], [address], 05/22/2024 22:07:39 05/22/20 24 05/22/2024 CBC WITH DIFFE RENTI AL/PL ATELE T basos 1 % notest b. Not Available [facility] [address] [place], [address], 05/22/2024 22:07:39 05/22/20 24 05/22/2024 CBC WITH DIFFE RENTI AL/PL ATELE T neutrophils (absolute) 5.3 x10e3 /uL 1.4-7. 0 Not Available [facility] [address] [place] [address], [address], 05/22/2024 22:07:39 05/22/20 24 05/22/2024 CBC WITH DIFFE RENTI AL/PL ATELE T lymphs (absolute) 1.9 x10e3 /uL 0.7-3. 1 Not Available [facility] [address] [place] [address], [address], 05/22/2024 22:07:39 05/22/20 24 05/22/2024 CBC WITH DIFFE RENTI AL/PL ATELE T monocytes(ab solute) 0.5 x10e3 /uL 0.1-0. 9 Not Available [facility] [address] [place], [address], 05/22/2024 22:07:39 05/22/20 24 05/22/2024 CBC WITH DIFFE RENTI AL/PL ATELE T eos (absolute) 0.1 x10e3 /uL 0.0-0. 4 Not Available [facility] [address] [place], [address], 05/22/2024 22:07:39 05/22/20 24 05/22/2024 CBC WITH DIFFE RENTI AL/PL ATELE T baso (absolute) 0.1 x10e3 /uL 0.0-0. 2 Not Available [facility] [address] [place], [address], 05/22/2024 22:07:39 05/22/20 24 05/22/2024 CBC WITH DIFFE RENTI AL/PL ATELE T immature granulocytes 0.1 % notest b. Not Available [facility] [address] [place], [address], 05/22/2024 22:07:39 05/22/20 24 05/22/2024 CBC WITH DIFFE RENTI AL/PL ATELE T immature grans (abs) 0.0 x10e3 /uL 0.0-0. 1 Not Available [facility] [address] [place], [address], 05/22/2024 22:07:39 05/22/20 24 05/22/2024 CBC WITH DIFFE RENTI AL/PL ATELE T NRBC 0 % 0-0 Not Available [facility] [address] [place], [address], 05/22/2024 22:07:39 05/22/20 24 05/22/2024 urina lysis , dipst ick Leukocytes Negati ve Not Available In-Office Order Internal Use Only DO Not Attach Compendium DO Not Attach Compendium, Do Not Delete/merge, [id number] 05/22/2024 14:17:49 05/22/20 24 05/22/2024 urina lysis , dipst ick Nitrite negati ve Not Available In-Office Order Internal Use Only DO Not Attach Compendium DO Not Attach Compendium, Do Not Delete/merge, [id number] 05/22/2024 14:17:49 05/22/20 24 05/22/2024 urina lysis , dipst ick Urobilinogen .2 Not Available In-Of fice Order Internal Use Only DO Not Attach Compendium DO Not Attach Compendium, Do Not Delete/merge, 05/22/2024 14:17:49 05/22/20 24 05/22/2024 urina lysis , dipst ick Protein 30 Not Available In-Office Order Internal Use Only DO Not Attach Compendium DO Not Attach Compendium, Do Not Delete/merge, 05/22/2024 14:17:49 05/22/20 24 05/22/2024 urina lysis , dipst ick pH 6.0 Not Available In-Office Order Internal Use Only DO Not Attach Compendium DO Not Attach Compendium, Do Not Delete/merge, 05/22/2024 14:17:49 05/22/20 24 05/22/2024 urina lysis , dipst ick Blood Non-He molyze d: Trace Not Available In-Office Order Internal Use Only DO Not Attach Compendium DO Not Attach Compendium, Do Not Delete/merge, 05/22/2024 14:17:49 05/22/20 24 05/22/2024 urina lysis , dipst ick Specific [place] 1.015 Not Available In-Off ice Order Internal Use Only DO Not Attach Compendium DO Not Attach Compendium, Do Not Delete/merge, 05/22/2024 14:17:49 05/22/20 24 05/22/2024 urina lysis , dipst ick Ketone Modera te Not Available In-Office Order Internal Use Only DO Not Attach Compendium DO Not Attach Compendium, Do Not Delete/merge, 05/22/2024 14:17:49 05/22/20 24 05/22/2024 urina lysis , dipst ick Bilirubin Negati ve Not Available In-Office Order Internal Use Only DO Not Attach Compendium DO Not Attach Compendium, Do Not Delete/merge, 05/22/2024 14:17:49 05/22/20 24 05/22/2024 urina lysis , dipst ick Glucose 2000+ Not Available In-Office Order Internal Use Only DO Not Attach Compendium DO Not Attach Compendium, Do Not Delete/merge, [id number] 05/22/2024 14:17:49 05/22/20 24 05/22/2024 urina lysis , dipst ick Appearance Clear Not Available In-Offi ce Order Internal Use Only DO Not Attach Compendium DO Not Attach Compendium, Do Not Delete/merge, [id number] 05/22/2024 14:17:49 05/22/20 24 05/22/2024 urina lysis , dipst ick Color Dark Yellow Not Available In-Office Order Internal Use Only DO Not Attach Compendium DO Not Attach Compendium, Do Not Delete/merge, [id number] 05/22/2024 14:17:49 05/22/20 24 05/22/2024 HbA1c (hemo globi n A1c), blood HbA1c 5.7 Not Available In-Office Order Internal Use Only DO Not Attach Compendium DO Not Attach Compendium, Do Not Delete/merge, [id number] 05/22/2024 14:17:06 12/20/19 25 12/20/2024 LIPID PANEL cholesterol, total 174 mg/dL 100-19 9 Not Available [facility] ([facility]) [address] [facility], [place], [address], 12/20/2024 16:14:10 12/20/19 25 12/20/2024 LIPID PANEL triglyceride s 168 mg/dL 0-149 above high normal Not Available [facility] ([facility]) [address] [facility], [place], [address], 12/20/2024 16:14:10 12/20/19 25 12/20/2024 LIPID PANEL HDL cholesterol 72 mg/dL >39 Not Available [facility] ([facility]) [address] [facility], [place], [address], 12/20/2024 16:14:10 12/20/19 25 12/20/2024 LIPID PANEL VLDL cholesterol olegario 28 mg/dL 5-40 Not Available [facility] ([facility]) [address] [facility], [place], [address], 12/20/2024 16:14:10 12/20/19 25 12/20/2024 LIPID PANEL LDL chol calc ([facility] [place]) 74 mg/dL 0-99 Not Available [facility] ([facility]) [address] [place], [address], 12/20/2024 16:14:10 12/20/19 25 12/20/2024 COMP. METAB OLIC PANEL (14) glucose 334 mg/dL 70-99 above high normal Not Available [facility] ([facility]) [address] [place], [address], 12/20/2024 16:14:11 12/20/19 25 12/20/2024 COMP. METAB OLIC PANEL (14) BUN 14 mg/dL 8-27 Not Available [facility] ([facility]) [address] [place], [address], 12/20/2024 16:14:11 12/20/19 25 12/20/2024 COMP. METAB OLIC PANEL (14) creatinine 0.59 mg/dL 0.57-1 .00 Not Available [facility] ([facility]) [address] [place], [address], 12/20/2024 16:14:11 12/20/19 25 12/20/2024 COMP. METAB OLIC PANEL (14) eGFR 103 mL/mi n/1.7 3 >59 Not Available [facility] ([facility]) [address] [place], [address], 12/20/2024 16:14:11 12/20/19 25 12/20/2024 COMP. METAB OLIC PANEL (14) BUN/creatini ne ratio 24 12- Not Available [facility] ([facility]) [address] [place], [address], 12/20/2024 16:14:11 12/20/19 25 12/20/2024 COMP. METAB OLIC PANEL (14) sodium 141 mmol/ L 134-14 4 Not Available [facility] ([facility]) [address] [facility] [place], [address], 12/20/2024 16:14:11 12/20/19 25 12/20/2024 COMP. METAB OLIC PANEL (14) potassium 5.4 mmol/ L 3.5-5. 2 above high normal Not Available [facility] ([facility]) [address] [facility] [place], [address], 12/20/2024 16:14:11 12/20/19 25 12/20/2024 COMP. METAB OLIC PANEL (14) chloride 102 mmol/ L 96-106 Not Available [facility] ([facility]) [address] [facility] [place], [address], 12/20/2024 16:14:11 12/20/19 25 12/20/2024 COMP. METAB OLIC PANEL (14) carbon dioxide, total 24 mmol/ L 20-29 Not Available [facility] ([facility]) [address] [facility] [place], [address], 12/20/2024 16:14:11 12/20/19 25 12/20/2024 COMP. METAB OLIC PANEL (14) calcium 9.1 mg/dL 8.7-10 .3 Not Available [facility] ([facility]) [address] [facility] [place], [address], 12/20/2024 16:14:11 12/20/19 25 12/20/2024 COMP. METAB OLIC PANEL (14) protein, total 6.3 g/dL 6.0-8. 5 Not Available [facility] ([facility]) [address] [facility] [place], [address], 12/20/2024 16:14:11 12/20/19 25 12/20/2024 COMP. METAB OLIC PANEL (14) albumin 4.0 g/dL 3.8-4. 9 Not Available [facility] ([facility]) [address] [facility], [place], [address], 12/20/2024 16:14:11 12/20/19 25 12/20/2024 COMP. METAB OLIC PANEL (14) globulin, total 2.3 g/dL 1.5-4. 5 Not Available [facility] ([facility]) [address] [facility], [place], [address], 12/20/2024 16:14:11 12/20/19 25 12/20/2024 COMP. METAB OLIC PANEL (14) bilirubin, total <0.2 mg/dL 0.0-1. 2 Not Available [facility] ([facility]) [address] [facility], [place], [address], 12/20/2024 16:14:11 12/20/19 25 12/20/2024 COMP. METAB OLIC PANEL (14) alkaline phosphatase 121 IU/L 44-121 Not Available [facility]) [address] [facility], [place], [address], 12/20/2024 16:14:11 12/20/19 25 12/20/2024 COMP. METAB OLIC PANEL (14) AST (SGOT) 15 IU/L 0-40 Not Available [facility] ([facility]) [address] [facility], [place], [address], 12/20/2024 16:14:11 12/20/19 25 12/20/2024 COMP. METAB OLIC PANEL (14) ALT (SGPT) 14 IU/L 0-32 Not Available [facility] ([facility]) [address] [facility], [place], [address], 12/20/2024 16:14:11 12/20/19 25 12/19/2024 HbA1c (hemo globi n A1c), blood HbA1c 7.9 Not Available In-Office Order Internal Use Only DO Not Attach Compendium DO Not Attach Compendium, Do Not Delete/merge, [id number] 12/19/2024 10:52:23 09/27/20 23 09/27/2023 MAMMO , scree bella, bilat eral No observ ation record ed. [address], [place], [address], 09/28/2023 13:21:31 09/27/20 23 09/27/2023 MAMMO , scree bella, bilat eral No observ ation record ed. [address], [place], [address], 09/28/2023 13:21:32 10/13/19 24 10/13/2023 US, debi x, carot id arter y No observ ation record ed. [address], [place], [address], 10/19/2023 14:36:29 10/14/19 24 10/13/2023 US, debi ramos, salot id arter y No observ ation record ed. [address], [place], [address], 10/19/2023 14:36:30 02/03/20 24 MRI, cervi olegario spine , w/o contr ast No observ ation record ed. Not Available 2023 11:30:30 Result Notes None recorded. Problems Name Problem SNOMED Code Status Onset Date Resolution Date Notes Provider Name and Address Organization Details Recorded Time Chronic obstructive pulmonary disease 05830554 Active 2019 Ang Hanks [place] null, [place] - [facility] 0 15:33:10 Diabetes mellitus 94537677 Active 2019 HERIBERTO Junior[place] [facility] 0 15:33:28 Hypertensiv e disorder 22745698 Active 2019 Ang H[place] [facility] 0 15:33:39 Colitis 86334175 Active 2019 Ang Hanks [place] [facility] 0 15:33:48 Irritable bowel syndrome 44432747 Active 2019 Ang H[place] [facility] 0 15:33:53 Diverticuli tis 722526756 Active 2019 Ang H[place] [facility] 0 15:33:57 Osteoporosi s 18995072 Active 2019 Ang H[place] [facility] 0 15:34:22 Leg length inequality 07759961 Active 2021 LANRE GREEN Attn: Accountin g,[address] [facility], [place], [address], [place] [facility] 2 09:27:58 Hiatal hernia 87250675 Active 2021 LANRE GREEN Attn: Accountin g,[address] [facility], [place], [address], [place] [facility] 2 09:28:22 Osteoarthri tis of left hip joint 8722095674464 08 Active 2021 LANRE GREEN Attn: Accountin g,[address] [facility], [place], [address], [place] [facility] 2 09:34:02 Pain of right shoulder joint 5782402099070 9100 Active 2022 LANRE GREEN Attn: Accountin g,[address] [facility], [place], [address], [place] [facility] 3 15:34:04 Overweight 388550870 Active 2022 LANRE GREEN Attn: Accountin g,[address] [facility], [place], [address], [place] [facility] 3 09:00:12 History of surgery 146321213 Active 2022 LANRE GREEN Attn: Accountin g,[address] [facility], [place], [address], [place] [facility] 3 09:19:14 Constipatio n 63655789 Active 2023 LANRE GREEN Attn: Roberto Carlos crenshaw,[address] [facility], [place], [address], [facility] - [facility] 17:11:49 Problem Notes None recorded. Procedures Surgical History Date Name Laterality Status Provider Name and Address Organization Details Recorded Time 08/18/20 23 panniculectomy completed LANRE GREEN Attn: Accounting,[address] [facility], [place], [address], [facility] - [facility] 09/13/2023 09:19:36 10/11/19 20 Date of Last Mammogram completed Consuelo Real [place] - [facility] 01/13/2022 16:26:08 10/11/19 20 Date of Last Pap Smear completed Consuelo Real [place] [facility] 01/13/2022 16:26:11 delivery completed Ang mendoza [place] - [facility] 12/05/2019 15:39:41 delivery completed Ang mendoza [place] - [facility] 12/05/2019 15:39:42 delivery completed Ang mendoza [facility] - [facility] 12/05/2019 15:39:42 delivery completed Ang mendoza [place] [facility] 12/05/2019 15:39:43 operation on hip joint completed LANRE GREEN Attn: Accounting,[address] [facility], [place], [address], [place] - [facility] 01/14/2022 09:34:33 Imaging Results Imaging Date Name Status [facility] Details LastModified Time 09/27/2023 MAMMO, screening, bilateral completed [address], [place], [address], 09/28/2023 13:21:31 09/27/2023 MAMMO, screening, bilateral completed [address] [place] [address], [address], 09/28/2023 13:21:32 10/13/2023 US, duplex, carotid artery completed [address], [place], [address], 10/19/2023 14:36:29 10/13/2023 US, duplex, carotid artery completed [facility] [address], [place], [address], 10/19/2023 14:36:30 02/03/2024 MRI, cervical spine, w/o contrast completed Information not available 02/03/2024 11:30:30 Procedure Notes None recorded. Medical Equipment None Reported. Allergies Allergen ID Allergen Name Allergen Category Reaction Reaction Severity Criticality Documentation Date Start Date Code Code System Note Provider Name and Address Organization Details Recorded Time 614674 Product containin g penicilli n (product) medicatio n Not available Not available Not available 12/05/2019 66669 800 SNOMED Not Available Not Available Not Available Medications Name Sig Start Date Stop Date Status Note LastModified by Organization Details LastModified Time senna s 8.6-50mg tablets TAKE 1 TABLET BY MOUTH EVERY DAY 02/13 completed Not Available Not Available Not Available cyclobenza glory 10 mg tablet TAKE 1 TABLET BY MOUTH ONCE DAILY AT BEDTIME NEEDED active Not Available Not Available No t Available nateglinid e 120 mg tablet TAKE 1 TABLET BY MOUTH THREE TIMES DAILY BEFORE MEALS 09/09 completed Not Available Not Available Not Available doxycyclin e hyclate 100 mg capsule TAKE 1 CAPSULE BY MOUTH TWICE DAILY FOR 7 DAYS 01/05 completed Not Available Not Available Not Available atorvastat in 20 mg tablet TAKE 1 TABLET BY MOUTH EVERY DAY AT BEDTIME active Not Available Not Available No t Available albuterol sulfate 2.5 mg/3 mL (0.083 %) solution for nebulizati on Inhale 3 mL every 6-8 hours by nebuliza tion route as needed. 02/13 completed Not Available Not Available Not Available loperamide 2 mg capsule 03/26 completed Not Available Not Available Not Available cetirizine 10 mg tablet TAKE 1 TABLET BY MOUTH ONCE DAILY active Not Available Not Available No t Available atorvastat in 10 mg tablet TAKE 1 TABLET BY MOUTH EVERY DAY 01/14 completed Not Available Not Available Not Available azithromyc in 250 mg tablet TAKE 2 TABLETS (500 MG) BY ORAL ROUTE ONCE DAILY FOR 1 DAY THEN 1 TABLET (250 MG) BY ORAL ROUTE ONCE DAILY FOR 4 DAYS 12/19 completed Not Available Not Available Not Available tizanidine 4 mg tablet 03/26 completed Not Available Not Available Not Available hydrocodon e 5 mg-acetami nophen 325 mg tablet TAKE 1 TO 2 TABLETS BY MOUTH EVERY 6 HOURS NEEDED FOR PAIN 01/13 completed Not Available Not Available Not Available senna 8.6 mg tablet TAKE 1 TABLET BY MOUTH TWICE DAILY NEEDED 05/22 completed Not Available Not Available Not Available sumatripta n 25 mg tablet 03/26 completed Not Available Not Available Not Available metronidaz ole 0.75 % (37.5 mg/5 gram) vaginal gel INSERT 1 APPLICAT ORFUL VAGINALL Y AT BEDTIME FOR 5 NIGHTS 02/13 completed Not Available Not Available Not Available ondansetro n HCl 4 mg tablet TAKE 1 TABLET BY MOUTH TWICE DAILY NEEDED 02/13 completed Not Available Not Available Not Available loperamide 2 mg tablet 2 mg PO after each loose stool 03/26 completed Not Available Not Available Not Available metformin 850 mg tablet Take 1 tablet twice a day by oral route for 30 days. 06/06 completed Not Available Not Available Not Available clindamyci n HCl 150 mg capsule TAKE 4 CAPSULES BY MOUTH 1 HOUR BEFORE APPOINTM ENT 12/19 completed Not Available Not Available Not Available Advair Diskus 100 mcg-50 mcg/dose powder for inhalation INHALE 1 PUFF BY MOUTH TWICE DAILY 12/19 completed Not Available Not Available Not Available hydrocodon e 10 mg-acetami nophen 325 mg tablet TAKE 1 TABLET BY MOUTH EVERY 6 HOURS NEEDED active Not Available Not Available No t Available pantoprazo le 20 mg tablet,del ayed release TAKE 1 TABLET BY MOUTH AT BEDTIME 01/13 completed Not Available Not Available Not Available meloxicam 7.5 mg tablet TAKE 1 TABLET BY MOUTH EVERY DAY WITH FOOD NEEDED 09/09 completed Not Available Not Available Not Available famotidine 20 mg tablet TAKE 1 TABLET BY MOUTH TWICE DAILY 12/19 completed Not Available Not Available Not Available benzonatat e 100 mg capsule TAKE 1 CAPSULE BY MOUTH TWICE DAILY NEEDED FOR COUGH 01/05 completed Not Available Not Available Not Available hydrocodon e 7.5 mg-acetami nophen 325 mg tablet TAKE 1 TABLET BY MOUTH EVERY 8 HOURS NEEDED 09/09 completed Not Available Not Available Not Available cephalexin 500 mg capsule TAKE 1 CAPSULE BY MOUTH FOUR TIMES DAILY 12/19 completed Not Available Not Available Not Available hyoscyamin e sulfate 0.125 mg tablet TAKE 1 TABLET BY MOUTH 4 TIMES DAILY 03/26 completed Not Available Not Available Not Available nystatin 100,000 unit/gram topical cream APPLY TOPICALL Y TO THE AFFECTED AREA TWICE DAILY 01/13 completed Not Available Not Available Not Available prednisone 50 mg tablet TAKE 1 TABLET BY MOUTH DAILY 02/05 completed Not Available Not Available Not Available docusate sodium 100 mg capsule 09/09 completed Not Available Not Available Not Available omeprazole 20 mg capsule,de layed release TAKE 1 CAPSULE BY MOUTH EVERY DAY 02/13 completed Not Available Not Available Not Available irbesartan 75 mg tablet TAKE 1 TABLET BY MOUTH EVERY DAY 01/14 completed Not Available Not Available Not Available hydrocorti sone 2.5 % topical cream APPLY TO UNDER ABDOMEN AREA TWICE DAILY NEEDED FOR FLARES. MIX WITH CLOTRIMA ZOLE DIRECTED . 02/13 completed Not Available Not Available Not Available hydroxyzin e HCl 25 mg tablet TAKE 1 TABLET BY MOUTH EVERY DAY NEEDED 09/09 completed Not Available Not Available Not Available lisinopril 5 mg tablet TAKE 1 TABLET BY MOUTH EVERY DAY active Not Available Not Available No t Available gabapentin 100 mg capsule TAKE 1 CAPSULE BY MOUTH AT BEDTIME 01/13 completed as needed Not Available Not Available Not Available irbesartan 150 mg tablet Take 1 tablet every day by oral route for 30 days. 12/24 completed Not Available Not Available Not Available methylpred nisolone 4 mg tablets in a dose pack FOLLOW PACKAGE DIRECTIO NS 01/13 completed Not Available Not Available Not Available albuterol sulfate HFA 90 mcg/actuat ion aerosol inhaler INHALE 2 PUFFS BY MOUTH EVERY 4 HOURS active Not Available Not Available No t Available celecoxib 100 mg capsule TAKE 1 CAPSULE BY MOUTH TWICE DAILY WITH FOOD 05/22 completed Not Available Not Available Not Available ketoconazo le 2 % topical cream APPLY TOPICALL Y TO THE AFFECTED AREA EVERY DAY FOR 2 WEEKS 01/14 completed Not Available Not Available Not Available fluticason e propionate 50 mcg/actuat ion nasal spray,susp ension USE 1 SPRAY(S) IN EACH NOSTRIL EVERY 12 HOURS 02/13 completed Not Available Not Available Not Available clotrimazo le 1 % topical cream APPLY TO THE AFFECTED AND SURROUND ING AREAS OF SKIN BY TOPICAL ROUTE 2 TIMES PER DAY IN THE MORNING AND EVENING 02/13 completed Not Available Not Available Not Available doxycyclin e hyclate 100 mg tablet 09/09 completed Not Available Not Available Not Available loratadine 10 mg tablet Take 1 tablet every day by oral route for 90 days. 05/22 completed Not Available Not Available Not Available oxycodone 5 mg tablet 09/09 completed Not Available Not Available Not Available enoxaparin 40 mg/0.4 mL subcutaneo us syringe 09/09 completed Not Available Not Available Not Available hydrocodon e 10 mg-acetami nophen 300 mg tablet TAKE 1 TABLET BY MOUTH EVERY 6 HOURS NEEDED 12/19 completed Not Available Not Available Not Available duloxetine 30 mg capsule,de layed release TAKE 1 CAPSULE BY MOUTH AT BEDTIME active Not Available Not Available No t Available duloxetine 60 mg capsule,de layed release TAKE 1 CAPSULE BY MOUTH DAILY 12/19 completed Not Available Not Available Not Available Januvia 100 mg tablet Take 1 tablet every day by oral route for 30 days. 03/26 completed Not Available Not Available Not Available calcium 600 mg (as carbonate) -vitamin D3 10 mcg (400 unit) tablet TAKE 1 TABLET BY MOUTH ONCE DAILY active Not Available Not Available No t Available hydrochlor othiazide 12.5 mg tablet TAKE 1 TABLET BY MOUTH EVERY DAY 01/14 completed Not Available Not Available Not Available Lantus Solostar U-100 Insulin 100 unit/mL (3 mL) subcutaneo us pen ADMINIST ER 12 UNITS UNDER THE SKIN EVERY DAY AT BEDTIME 02/13 completed Not Available Not Available Not Available oxycodone 10 mg tablet 09/09 completed Not Available Not Available Not Available OneTouch Verio test strips TEST TWICE DAILY active Not Available Not Available No t Available Linzess 145 mcg capsule TAKE 1 CAPSULE BY MOUTH ONCE DAILY IN THE MORNING active Not Available Not Available No t Available Linzess 290 mcg capsule 05/22 completed Not Available Not Available Not Available Eliquis 2.5 mg tablet 01/13 completed Not Available Not Available Not Available Stimulant Laxative Plus 8.6 mg-50 mg tablet TAKE 1 TABLET BY MOUTH DAILY 02/13 completed Not Available Not Available Not Available Victoza 3-Gabriele 0.6 mg/0.1 mL (18 mg/3 mL) subcutaneo us pen injector INJECT 1.8 MG EVERY DAY BY SUBCUTAN EOUS ROUTE. 02/24 completed Not Available Not Available Not Available dapagliflo zin propanedio l 10 mg tablet TAKE 1 TABLET BY MOUTH ONCE DAILY active Not Available Not Available No t Available Trulicity 1.5 mg/0.5 mL subcutaneo us pen injector ADMINIST ER 1.5 MG UNDER THE SKIN EVERY WEEK 04/06 completed Not Available Not Available Not Available Trulicity 0.75 mg/0.5 mL subcutaneo us pen injector ADMINIST ER 0.75 MG UNDER THE SKIN EVERY WEEK 04/06 completed Not Available Not Available Not Available Movantik 25 mg tablet TAKE 1 TABLET BY MOUTH EVERY MORNING 02/13 completed Not Available Not Available Not Available naloxone 4 mg/actuati on nasal spray INSERT 1 SPRAY NEEDED FOR OVERDOSE . MAY USE 2ND DOSE IF NEEDED. CALL 911 AFTER ADMINIST RATION active Not Available Not Available No t Available Fish Oil 1,000 mg (120 mg-180 mg) capsule Take 2 capsules every day by oral route for 90 days. 2021 active Not Available Not Available Not Avai lable TRUEplus Pen Needle 32 gauge x active Not Available Not Available Not Available Ozempic 1 mg/dose (2 mg/1.5 mL) subcutaneo us pen injector 07/12 completed Not Available Not Available Not Available Ozempic 0.25 mg or 0.5 mg (2 mg/1.5 mL) subcutaneo us pen injector Inject 0.25 mg every week by subcutan eous route. 2024 active Not Available Not Available Not Avai lable Dexcom G6 Transmitte r device 2022 active Not Available Not Available Not Avai lable OneTouch Delica Plus Lancet 33 gauge USE DIRECTED TWICE DAILY. active Not Available Not Available No t Available OneTouch Verio Reflect Meter USE DIRECTED active Not Available Not Available No t Available Trulicity 3 mg/0.5 mL subcutaneo us pen injector Inject 3 mg every week by subcutan eous route. 04/06 completed Not Available Not Available Not Available Trulicity 4.5 mg/0.5 mL subcutaneo us pen injector Inject 4.5 mg every week by subcutan eous route. 05/07 completed Not Available Not Available Not Available Ozempic 1 mg/dose (4 mg/3 mL) subcutaneo us pen injector INJECT 1MG SUBCUTAN EOUSLY ONCE WEEKLY active Not Available Not Available No t Available Ozempic 2 mg/dose (8 mg/3 mL) subcutaneo us pen injector INJECT 2MG SUBCUTAN EOUSLY ONCE WEEKLY active Not Available Not Available No t Available Ozempic 0.25 mg or 0.5 mg (2 mg/3 mL) subcutaneo us pen injector INJECT 0.25MG SUBCUTAN EOUSLY ONCE A WEEK active Not Available Not Available No t Available Vitals Date Recorded Body height Body mass index (BMI) Body weight Heart rate Oxygen saturation Oxygen saturation in Arterial blood by Pulse oximetry Systolic blood pressure Diastolic blood pressure Provider Name and Address Organization Details Last Updated DateTime 3 167.64 cm 23.7 kg/m2 04606.0 8 g 100 /min 98 % 98 % 110 mm[Hg] 70 mm[Hg] Consuelo Real [place] [facility] 3 15:31:12 Date Recorded Body height Body mass index (BMI) Body weight Heart rate Oxygen saturation Oxygen saturation in Arterial blood by Pulse oximetry Systolic blood pressure Diastolic blood pressure Provider Name and Address Organization Details Last Updated DateTime 4 167.64 cm 22.3 kg/m2 19492.7 5 g 98 /min 100 % 100 % 123 mm[Hg] 87 mm[Hg] Consuelo Real [place] [facility] 4 14:44:11 Date Recorded Body height Body mass index (BMI) Body weight Respiratory rate Oxygen saturation Oxygen saturation in Arterial blood by Pulse oximetry Heart rate Systolic blood pressure Diastolic blood pressure Provider Name and Address Organization Details Last Updated DateTime 4 167.64 cm 21.1 kg/m2 36228.6 g 16 /min 99 % 99 % 82 /min 116 mm[Hg] 70 mm[Hg] Milly Barron MA [facility] 4 11:52:01 Date Recorded Body height Heart rate Oxygen saturation Oxygen saturation in Arterial blood by Pulse oximetry Body mass index (BMI) Body weight Systolic blood pressure Diastolic blood pressure Provider Name and Address Organization Details Last Updated DateTime 4 167.64 cm 93 /min 97 % 97 % 18.9 kg/m2 84183.3 1 g 106 mm[Hg] 71 mm[Hg] Consuelo Real MA [facility] 4 14:01:00 Date Recorded Body height Body mass index (BMI) Body weight Heart rate Oxygen saturation Oxygen saturation in Arterial blood by Pulse oximetry Provider Name and Address Organization Details Last Updated DateTime 5 167.64 cm 24.5 kg/m2 75794.2 5 g 86 /min 98 % 98 % Consuelo Real MA [facility] 5 10:36:46 Date Recorded Systolic blood pressure Diastolic blood pressure Provider Name and Address Organization Details Last Updated DateTime 12/19/2024 128 mm[Hg] 88 mm[Hg] LANRE GREEN Attn: Accounting,[address] [place], [address], [facility] 12/19/2024 11:27:52 Social History Question Answer Notes LastModified by Organizat ion Details LastModified Time Tobacco Smoking Status Former Smoker Ang Hanks MA null, [facility] 12/05/2019 15:38:20 What Is Your Level Of Alcohol Consumption? Occasional Information not available 01/21/2022 What Is Your Level Of Caffeine Consumption? Moderate Information not available 12/05/2019 How Much Tobacco Do You Chew? None Information not available 12/05/2019 In The 14 Days Before Symptom Onset, Have You Had Close Contact With A Laboratory-confir med COVID-19 While That Case Was Ill? No Information not available 12/05/2019 In The 14 Days Before Symptom Onset, Have You Had Close Contact With A Person Who Is Under Investigation For COVID-19 While That Person Was Ill? No Information not available 12/05/2019 Have You Been To An Area Known To Be High Risk For COVID-19? No Information not available 12/05/2019 What Type Of Diet Are You Following? REGULAR Information not available 12/05/2019 Do You Or Have You Ever Used E-cigarettes Or Vape? Never Used Electronic Cigarettes Information not available 12/05/2019 Hard Of Hearing Or Deaf In One Or Both Ears? No Information not available 12/05/2019 Legally Blind In One Or Both Eyes? No Information no t available 12/05/2019 Marital Status Informatio n not available 12/05/2019 What Was The Date Of Your Most Recent Tobacco Screening? 12/19/2024 Information not available 12/19/2024 What Is Your Current Pack Years? [email or web address] ars Information not available 09/09/2023 Do You Have Smoke And Carbon Monoxide Detectors In Your Home? Yes Information not available 01/21/2022 At What Age Did You Start Smoking Tobacco? 11 Information not available 09/09/2023 Are You Passively Exposed To Smoke? Yes Information no t available 01/21/2022 Do You Or Have You Ever Used Smokeless Tobacco? Never Used Smokeless Tobacco Information not available 12/05/2019 How Much Tobacco Do You Smoke? 1 PPW Quit 2009 Information not available 09/09/2023 General Stress Level Medium Information not available 08/22/2020 On What Date Was Tobacco Cessation Counseling Provided? 12/19/2024 Information not available 12/19/2024 How Many Years Have You Smoked Tobacco? 38 [email or web address] Information not available 01/24/2020 Sex: Female Functional Status Question Answer Note LastModified by Organization D etails LastModified Time What is your exercise level? Moderate Information not available 12/05/2019 Mental Status None recorded. Family History Relationship Description Onset Age of this Age Resolved Age Notes LastModified by Organization Details LastModified Time Mother Malignant tumor of colon Not available 2023 14:09:00 Mother Dementia Not availabl e 05/22/2024 14:08:41 Sister Cerebrovascu lar accident 46 Not available 09/2024 14:09:47 Notes:burgers disease in sis ter Medical History Condition Response Coronary Artery Disease N Other N High Blood Pressure N Atrial Fibrillation N Thyroid Problems N Kidney or Bladder Problems N GI Problems Y Depression N COPD N Blood Clots N Skin Problems N Anemia N Heart Attack ([place]) N Diabetes Y Anxiety Disorder N Muscle, Joint, or Bone Problems N Seizures/Epilepsy N Acid Reflux (GERD) N Cancer N Stroke N Asthma N Allergies N High Cholesterol N Hepatitis N Liver Disease N Headaches N Osteoporosis N Heart Failure N Gynecological History Statement/Question Response Date of Last Pap Smear 10/11/2019 Date of Last Mammogram 10/11/2019 LMP Unknown Obstetrics History GPAL:G 4 P 4 0 0 4 Type Value Multiple Births 0 Full Term 4 Induced 0 Spontaneous 0 Premature 0 Living 4 Ectopics 0 Total 4 Immunizations Vaccine Type Date Status Note Provider Nam e and Address Organization Details Recorded Time Hep A, adult 06/05/2013 completed HERIBERTO Brock [facility] 02/14/2024 11:52:46 Hep A, adult 08/18/2017 completed HERIBERTO Brock [place] [facility] 02/14/2024 11:52:46 Past Encounters Encounter ID Performer Location Encounter Start Date Encounter Closed Date Diagnosis/Indication Diagnosis SNOMED-CT Code Diagnosis ICD10 Code Diagnosis Note [id number] LANRE GREEN [facility] [address] [place] [address] 12/05/2019 15:20:14 12/08/2019 09:07:31 Essential hypertension 13076071 I10 BP 160/80, not WNL. She has been out of medication for a few weeks. drug regiment: irbesartan 150 mgchecking labs at next visit as patient is not fastingcon tinue medication and f/u in 2 weeks for BP checkAdvis ed to check BP regularly with a goal of <140/90, if BP consistent ly >140/90, advised to contact clinic Discussed DASH diet Advised 30 minutes of exercise minimum daily Advised tobacco, alcohol, caffeine all increase BP Advised goal for BP is <140/90 Diabetes mellitus 181491 E11.9 patient last A1C 6.2, well controlled . Adherent to diet.* lab check at next visit - check sugars daily; goal fasting <130 and 1-2 hours after meal <180. call office if sugars falling under 70. Patient aware of hypoglycem ia symptoms. - discussed diet: avoid sugars, pasta, tortillas, bread, rice, potatoes - Excercise 30 min 5x week - diabetic eye exam - foot exam at next visit- alb//cr at nect visit Spasm of back muscles 20 7417525 M62.830 patient has spasm of back and low back pain. sees pain management for vicodin. She takes half a pill at night to be able to sleep as she is in pain. Adult heal th examination [id number] Z00.01 Patient presents to establish. She sees pain management for back pain/hip pain. She has had right hip replacemen t and recently got hurt at work, [employer]. She sees pain management . Taking half vicodin at night time as pain keeps her up. UTD on colonoscop y and cleared for 10 years. She has pap appointmen t this wednesday. send records. - discussed diet and excercise- cutting out soda- f/u for lab work- she no longer smokes, 9 years. Screening mammography 24 618534 Z12.31 [id number] LANRE GREEN [facility] [address] [place] [address] 12/13/2019 16:31:16 12/14/2019 12:15:39 Essential hypertension 57020913 I10 BP 132/78, WNL. drug regiment: irbesartan 150 mgchecking labs at next visit as patient is not fasting Advised to check BP regularly with a goal of <140/90, if BP consistent ly >140/90, advised to contact clinic Discussed DASH diet Advised 30 minutes of exercise minimum daily Advised tobacco, alcohol, caffeine all increase BP Advised goal for BP is <140/90 Diabetes mellitus 670239 E11.9 patient last A1C 6.2, well controlled . Adherent to diet.* lab check at next visit - check sugars daily; goal fasting <130 and 1-2 hours after meal <180. call office if sugars falling under 70. Patient aware of hypoglycem ia symptoms. - starting victoza and stoping metformin - discussed diet: avoid sugars, pasta, tortillas, bread, rice, potatoes - Excercise 30 min 5x week - diabetic eye exam - foot exam at next visit- alb//cr at nect visit Pain in pelvis 91020030 R10.2 Patient hvaing suprapubic pain mostly on left side. Her last doctor told her to do US but she lost insurance. - trasvagina l US given Fatigue 73296230 R53.83 patient has low energy, feels tired despite sleeping Chronic back pain 219156 002 G89.29 Patient has had hip surgery and has history of chronic back pain. Was seeing Dr Osborn but lost insurance and needs new referral. [id number] LANRE GREEN [facility] [address] [place] [address] 01/24/2020 14:59:44 01/31/2020 14:33:56 Essential hypertension 36429824 I10 BP 132/78, WNL. drug regiment: irbesartan 75mg and HCZ 12.5- will continue this to avoid hyperkalem ia again.[facility] labs at next visit as patient is not fasting Advised to check BP regularly with a goal of <140/90, if BP consistent ly >140/90, advised to contact clinic Discussed DASH diet Advised 30 minutes of exercise minimum daily Advised tobacco, alcohol, caffeine all increase BP Advised goal for BP is <140/90 Diabetes mellitus 029907 09 E11.9 patient last A1C 6.2, well controlled . Patient has had elevated sugars on victoza .6. SHe is to increase dose to 1.2 from .6 but until she does she may take one metformin at night. She will calll back with sugar log on wednesday.* lab check at next visit - check sugars daily; goal fasting <130 and 1-2 hours after meal <180. call office if sugars falling under 70. Patient aware of hypoglycem ia symptoms. - starting victoza and staking one metformin - discussed diet: avoid sugars, pasta, tortillas, bread, rice, potatoes - Excercise 30 min 5x week - diabetic eye exam - foot exam at next visit- alb//cr at nect visit [id number] LANRE GREEN [facility] [address] [place] [address] 03/27/2020 09:41:06 03/28/2020 13:21:39 Wheezing 73490149 R06.2 Essential hypertension 82802968 I10 BP 132/78, WNL. drug regiment: irbesartan 75mg and HCZ 12.5- will continue this to avoid hyperkalem ia again.[facility] labs at next visit as patient is not fasting Advised to check BP regularly with a goal of <140/90, if BP consistent ly >140/90, advised to contact clinic Discussed DASH diet Advised 30 minutes of exercise minimum daily Advised tobacco, alcohol, caffeine all increase BP Advised goal for BP is <140/90 Diabetes mellitus 321231 09 E11.9 patient last A1C 9.6, NWNL. Patient has had elevated sugars on victoza .6. SHe is to increase dose to 1.2 from .6 but until she does she may take one metformin at night. She will call back with sugar log on wednesday. She has been drinking soda daily. advised to stop.* lab check at next visit - check sugars daily; goal fasting <130 and 1-2 hours after meal <180. call office if sugars falling under 70. Patient aware of hypoglycem ia symptoms. - increase victoza and taking one metformin - discussed diet: avoid sugars, pasta, tortillas, bread, rice, potatoes - Excercise 30 min 5x week - diabetic eye exam - foot exam at next visit- alb//cr at nect visit Hyperkalemia 49088239 E8 7.5 recheck in 1 weeks. Advised on low potassium diet. may change BP medication if still hyperkalem ic. Go to ER if develops CP, SOB, PALPITATIO NS. Osteoarthritis of hip 23 5510626 M16.9 patient has hip degenerati on. She has had MRI nad CT within last year. I need copy of results. e had ortho, Dr Flores but she cannot go back to see him as she lost insurance. SHe was told she needs hip replaced. She is in pain management . [id number] LANRE GREEN [facility] [address] [place] [address] 06/05/2020 16:36:52 06/07/2020 05:47:05 Diarrhea 64481408 R19.7 patient with pmhx of diverticul osis adn IBS presents with 2 weeks of diarrhea and abdominal pain she went to ER yesterday and CT scan was normal. Sent home after given IV fluids. she denies blood in stool, mucus, fever. - loperamide prn- hydrate- bland dietTry yogurt that has live cultures of Lactobacil scotty. (Check the label.) Avoid spicy foods, fruits, alcohol, and caffeine until 48 hours after all symptoms are gone. Avoid chewing gum that contains sorbitol. [id number] LANRE GREEN [facility] [address] [place] [address] 08/22/2020 16:55:57 08/27/2020 15:07:51 Diabetes mellitus 43224235 E11.9 patient A1C improved to 8.6 from 9.6,. Increase victoza 1.2 fto 1.8. She will call back with sugar log on wednesday. She has been drinking soda daily. advised to stop. - check sugars daily; goal fasting <130 and 1-2 hours after meal <180. call office if sugars falling under 70. Patient aware of hypoglycem ia symptoms. - increase victoza - discussed diet: avoid sugars, pasta, tortillas, bread, rice, potatoes - Excercise 30 min 5x week - diabetic eye exam - foot exam at next visit- alb//cr at next visit Acute sinusitis 11331533 J01.90 Patient with allergy to penicillin was given zpak for sinusitis at [facility] . Patient is feeling somewhat better. Z-gabriele will last 10 days in her system and if not better by end of 10days then we may add another antibiotic . On exam she had tender maxillary sinus L>R. ear clear, afebrile. [id number] Consuelo Real MA [facility] [address] [place] [address] 08/23/2020 14:19:27 08/26/2020 10:31:23 [id number] LANRE GREEN [facility] [address] [place] [address] 09/20/2020 08:37:54 09/24/2020 15:15:18 Diabetes mellitus 22874098 E11.9 patient A1C improved to 8.6 from 9.6,. Increase victoza 1.2 fto 1.8. She will call back with sugar log on wednesday. She has been drinking soda daily. advised to stop. - check sugars daily; goal fasting <130 and 1-2 hours after meal <180. call office if sugars falling under 70. Patient aware of hypoglycem ia symptoms. - increase victoza - discussed diet: avoid sugars, pasta, tortillas, bread, rice, potatoes - Excercise 30 min 5x week - diabetic eye exam - foot exam at next visit- alb//cr at next visit Seasonal a llergic rhinitis 264711069 J30.2 refill [id number] Madelyn Dangelo MD [facility] [address] [place] [address] 02/18/2021 09:06:49 02/18/2021 16:21:10 Choking due to food in larynx 50075853 T17.320A 2 weeks of feeling like food is not digesting and comes up unchewed. She chokes on it. sometimes chokes on fluids. This has happened before and requiring her to have esophagus stretched twice. Last EGD done 2 years ago in [place]. Will sign record release. She wants a new GI. associated symptoms are nausea, feeling full. Omeprazole used to help but no longer helping. DDX: ZANKERS DIVERTICUL I, ESOPAGEAL RINGS/WEBS , ESOPHAGEAL SPASMS/ other dysmotilit y disorder, slowed gastric emptying secondary to diabetes, malignancy - GI - patient advised to chew food completely and have more smaller meals through the day - avoid chewey foods -such as meats - f/u prn [id number] LANRE GREEN [facility] [address] [place] [address] 03/26/2021 10:28:50 03/27/2021 11:49:38 Diabetes mellitus 19631189 E11.9 sugars elevated at home. not taking starlix nor januvia. Just taking victoza. Will monitor today as she did not take victoza dose for last 2-3 days. - check sugars daily; goal fasting <130 and 1-2 hours after meal <180. call office if sugars falling under 70. Patient aware of hypoclycem ic symptoms. - increase victoza- discussed diet: avoid sugars, pasta, tortillas, bread, rice, potatoes- exercise 30 min 5x week- diabetic eye exam- foot exam at next visit- alb//cr at next visit Nausea [id number] R11.0 Patient with hx of gerd and IBS presents with nausea and vomiting x 1 day. sugars found to be elevated today. Will monitor through day. She has GI apt coming up.She is staying hydrated [id number] LANRE GREEN [facility] [address] [place] [address] 03/27/2021 12:39:18 03/28/2021 14:38:27 [id number] LANRE GREEN [facility] [address] [place] [address] 07/02/2021 16:57:49 07/05/2021 22:27:26 Diabetes mellitus 97886877 E11.9 sugars elevated at home. not taking starlix nor januvia. Just taking victoza. She cannot have surgery with elevated sugars. Will be stopping natelginde . patient cannot tolerate metformin. will add farxiga. patient will stop hcz for now and monitor bp. She is to stay hydrated, agrees. Understand s to keep genital are clean and dry to avoid infection. f/u 2 weeks. - check sugars daily; goal fasting <130 and 1-2 hours after meal <180. call office if sugars falling under 70. Patient aware of hypoclycem ic symptoms. - continue victoza 1.8 , adding farxiga- discussed diet: avoid sugars, pasta, tortillas, bread, rice, potatoes- exercise 30 min 5x week- diabetic eye exam- foot exam at next visit- alb//cr at next visit Pre-surger y evaluation 188419475 Z01.818 Patient undergoing surgery July 22. needs sugars controlled . her cmp done at [facility] shows slightly decreased sodium. we are stopping hxz as faxiga acts as diuretic and will monitor her BP. stressed importance of sugar control. Low back pain 930262505 M54.5 Patient with chronic back pain for many years and seeing pin managent. She can no longer tolerate pain and excess abdominal skin from previous weight loss is causing her to more back pain as weight pulls her forward some. Excess ski n of abdominal wall 911701622 R23.8 Patient has an extra 15-20lb of skin hanging over pelvic area and causing worsening lower back pain. The extra weight may have contribute d to her hip pain and is now undergoing surgery for this. She has multiple yeast infections that cause much irritation , pain and discomfort to patient. Removing this excess skin will help. Candidiasis of skin 4988 3006 B37.2 recurrent yeast infections due to excess skin in abdominal area [id number] Elicia Rodriguez RN [facility] [address] [place] [address] 07/11/2021 10:00:49 07/23/2021 06:58:24 [id number] Consuelo Real MA [facility] [address] [place] [address] 08/11/2021 16:05:32 08/13/2021 13:10:20 Diabetes mellitus 32577556 E11.9 BP 132/78, WNL. drug regiment: irbesartan 75mg and HCZ 12.5- will continue this to avoid hyperkalem ia again.[facility] labs at next visit as patient is not fasting Advised to check BP regularly with a goal of <140/90, if BP consistent ly >140/90, advised to contact clinic Discussed DASH diet Advised 30 minutes of exercise minimum daily Advised tobacco, alcohol, caffeine all increase BP Advised goal for BP is <140/90 [id number] LANRE GREEN [facility] [address] [place] [address] 01/13/2022 16:04:56 01/15/2022 07:05:49 Hiatal hernia 45853065 K44.9 Patient has been following Dr Merritt. Needs referral to undergo EGD. She takes omeprazole and famotidine . - avoid eating late (she snack at midnight)- weight loss- may eat small meals through the day Diabetes mellitus 665864 09 E11.9 medication s: victoza 1.8 mg qd, farxiga 10mg foot exam: next visitppsv2 3: she was told she is allergicst atin: atorvastat in 20mg, non-compla int Leg length inequality 45 867231 M21.70 Screening for malignant neoplasm of respiratory tract 987806631 Z12.2 patient smoked 1ppd for 38 years. No longer smoking. Overweight 138053647 E66 .3 Osteoarthr itis of left hip joint [id number] [address] Martin Singh from [facility] performed left hip replacemen t on 07/2021. Her insurance canceled her PT and needs new referral. she has weakness to b/l legs at the hip. she has leg length discrepanc y. pain management give her hydrocodoe s and started cymbalta. she has not started cymbalta. [id number] LANRE GREEN [facility] [address] [place] [address] 01/21/2022 15:43:21 01/22/2022 11:57:18 Diabetes mellitus 71013054 E11.9 A1C 8.0 01/2022, 8.5 07/2021. not all goal. patient states she will control diet. f/u 3 months. medication s: victoza 1.8 mg qd, farxiga 10mg foot exam: done 01/21/22, normal overall but slightly diminised left posterior tibial pulse.ppsv 23: she was told she is allergicst atin: atorvastat in 20mg, non-compla int, adbsied taking as prescribed (LDL 138 ON 01/2022)alb /cr: 01/2022eye exam: given order, will schedule Osteoporosis 01232687 M8 1.0 hx of spine fractures. last dexa 23 years ago. hx of b/l hip replacemen t. Screening mammography 24 807746 Z12.31 last mammogram four years ago. she had biopsy on right lateral breast, normal tissue. Hiatal hernia 94616971 K 44.9 Dr merritt scheduled her for colonoscop y and EGD. - avoid eating late (she snack at midnight)- weight loss- may eat small meals through the day Overweight 237442586 E66 .3 Osteoarthr itis of left hip joint 5080701620 [address] Martin Singh from [facility] performed left hip replacemen t on 07/2021. Her insurance canceled her PT and needs new referral. she has weakness to b/l legs at the hip. she has leg length discrepanc y. PT called today and she will schedule. pain management give her hydrocodoe s and started cymbalta. she has started cymbalta. [id number] LANRE GREEN [facility] [address] [place] [address] 03/17/2022 16:07:13 03/18/2022 11:09:37 Gastroesophageal reflux disease 995184725 K21.9 EGD and colonoscop y performed February [address] Merritt. normal. Diabetes mellitus 830934 09 E11.9 A1C 8.0 01/2022, 8.5 07/2021. not all goal. patient states she will control diet. f/u 3 months. medication s: victoza 1.8 mg qd, farxiga 10mg foot exam: done 01/21/22, normal overall but slightly diminished left posterior tibial pulse.ppsv 23: she was told she is allergicst atin: atorvastat in 20mg,state s she is taking now, advised taking as prescribed (LDL 138 ON 01/2022)alb /cr: 01/2022eye exam: given order, will schedule Essential hypertension 29621554 I10 BP 138/84, goal is to be <135/85. states it runs low when not in office. drug regiment:s he is not taking medication s at this time Advised to check BP regularly with a goal of <135/85, if BP consistent ly >140/90, advised to contact clinic Discussed DASH diet Advised 30 minutes of exercise minimum daily Advised tobacco, alcohol, caffeine all increase BP [id number] LANRE GREEN [facility] [address] [place] [address] 03/27/2022 16:40:34 03/31/2022 09:56:55 Pharyngitis 123127059 J02.9 sore throat, body aches, fatigue x 2 days. negative covid and strep throat today test today- hydrate- rest- f/u if not improving [id number] LANRE GREEN [facility] [address] [place] [address] 06/17/2022 14:50:54 06/18/2022 09:04:29 Insomnia 322260014 G47.00 take as needed Actinic keratosis 363330 007 L57.0 ak present on exam- derm for body check Hypertriglyceridemia 302 510455 E78.1 refill Postmenopausal state 764 62727 Z78.0 refill Overweight 608307789 E66 .3 [id number] LANRE GREEN [facility] [address] [place] [address] 07/01/2022 15:43:05 07/02/2022 12:39:37 Insomnia 167655757 G47.00 Discussed sleep hygiene - no tv, electronic s in room - go to bed at same time every night - Avoid eating 1-2 hours before bed - Do no have any caffeine after 3 pm - if unable to sleep she is to leave room and read for 15 minutes. May repeat this multiple times. Goal is not to associate room with anxiety or work [id number] LANRE GREEN [facility] [address] [place] [address] 08/19/2022 15:50:35 08/20/2022 15:39:18 Osteoporosis 06096004 M81.0 hx of spine fractures, toe fx. last dexa 23 years ago. hx of b/l hip replacemen t. Closed fra cture of phalanx of foot 96029280 S92.912A left foot second toe fx, ortho is followingP EX: toe is suzanne taped. skin w/o bruising or swelling - continue following ortho- no current restrictio ns- f/u prn [id number] LANRE GREEN [facility] [address] [place] [place] [address] 09/30/2022 15:51:13 10/06/2022 13:16:14 Diabetes mellitus 91101589 E11.9 A1C 8.5% 8.0 01/2022, 8.5 07/2021. not all goal. patient states she will control diet. medication s: victoza 1.8 mg qd, farxiga 10mg foot exam: done 01/21/22, normal overall but slightly diminished left posterior tibial pulse.ppsv 23: she was told she is allergicst atin: atorvastat in 20mg,state s she is taking now, advised taking as prescribed (LDL 138 ON 01/2022)alb /cr: 01/2022eye exam: given order, will schedule Panniculitis 07896712 M7 9.3 nystain does not help every time Excess canseco niculus of abdomen 0516115451 101 E65 patient with frequent infection and OA. at least 15 lbs of excess skin and would benefit from removal due to wrosening back and hip pain. [id number] LANRE GREEN [facility] [address] [place] [address] 11/06/2022 14:08:35 11/12/2022 14:40:48 Diabetes mellitus 40562068 E11.9 A1C 8.5% 8.0 01/2022, 8.5 07/2021. not all goal. patient states she will control diet. advised cutting out sodas and sweet tea. medication s: victoza 1.8 mg qd, farxiga 10mg foot exam: done 01/21/22, normal overall but slightly diminished left posterior tibial pulse.ppsv 23: she was told she is allergicst atin: atorvastat in 20mg,state s she is taking now, advised taking as prescribed (LDL 138 ON 01/2022)alb /cr: 01/2022eye exam: given order, will schedule Excess canseco niculus of abdomen [id number] 101 E65 patient with frequent infection and OA. at least 15 lbs of excess skin and would benefit from removal due to wrosening back and hip pain. Overweight 190656100 E66 .3 [id number] LANRE GREEN [facility] [address] [place] [address] 01/05/2023 14:53:03 01/05/2023 15:20:43 Diabetes mellitus 92357264 E11.9 A1C 7.7% ( 12/2022) 8.5% 8.0 01/2022, 8.5 07/2021. not all goal. patient states she will control diet. advised cutting out sodas and sweet tea. medication s: victoza 1.8 mg qd, farxiga 10mg, nateglinid e foot exam: done 01/21/22, normal overall but slightly diminished left posterior tibial pulse.ppsv 23: she was told she is allergicst atin: atorvastat in 20mg,state s she is taking now, advised taking as prescribed (LDL 138 ON 01/2022)alb /cr: 01/2022eye exam: given order, will schedule Overweight 214984700 E66 .3 Chronic ob structive pulmonary disease 09181601 J44.9 [id number] LANRE GREEN [facility] [address] [place] [address] 02/05/2023 13:59:24 02/05/2023 15:32:35 Chronic obstructive pulmonary disease 82387570 J44.9 moderate COPD on recent pft. she states she had acute exacerbati on and exam should be repeated. went to ER and told her she had bronchitis . prednisone 50 x 7 days nad z gabriele has been completed. She feels much better today. Diabetes mellitus 119051 09 E11.9 A1C 7.7% ( 12/2022) 8.5% 8.0 01/2022, 8.5 07/2021. not all goal. patient states she will control diet. advised cutting out sodas and sweet tea. would like once weekly GLP-1 to help with adherence. medication s: stop victoza 1.8 mg qd and start trulicity, farxiga 10mg, nateglinid e foot exam: done 02/05/2023, normal overall but slightly diminished left posterior tibial pulse.ppsv 23: she was told she is allergicst atin: atorvastat in 20mg,state s she is taking now, advised taking as prescribed (LDL 138 ON 01/2022)alb /cr: 01/2022eye exam: given order, will schedule [id number] LANRE GREEN [facility] [address] [place] [address] 03/05/2023 15:09:59 03/05/2023 15:47:17 Diabetes mellitus 67235608 E11.9 A1C 8.8% 02/2023 7.7% ( 12/2022) 8.5% 8.0 01/2022, 8.5 07/2021. not all goal. patient states she will control diet. advised cutting out sodas and sweet tea and candy. increase trulicity to 3mg. If not controlled with start insulin foot exam: done 02/05/2023, normal overall but slightly diminished left posterior tibial pulse.ppsv 23: she was told she is allergicst atin: atorvastat in 20mg,state s she is taking now, advised taking as prescribed (LDL 138 ON 01/2022)alb /cr: 01/2022eye exam: given order, will schedule Overweight 821232809 E66 .3 [id number] LANRE GREEN [facility] [address] [place] [address] 04/06/2023 15:19:25 04/06/2023 16:36:07 Diabetes mellitus 63165176 E11.9 A1C 8.3% (03/2023) 8.8% (02/2023) 7.7% ( 12/2022) 8.5% 8.0 01/2022, 8.5 07/2021. not all goal. patient states she will control diet. advised cutting out sodas and sweet tea and candy. increase trulicity to 4.5mg. medication s: lantus 12 units, atorvastat in 20mg, trulicity 4.5mg, fariga 10mg, nateglinid e foot exam: done 02/05/2023, normal overall but slightly diminished left posterior tibial pulse.ppsv 23: she was told she is allergicst atin: atorvastat in 20mg,alb/c r: 12/2022 abnormalAC Ei: lisinopril 5mgeye exam: given order, will schedule Overweight 739292343 E66 .3 [id number] LANRE GREEN [facility] [address] [place] [address] 05/07/2023 15:42:42 05/07/2023 16:21:48 Diabetes mellitus 01440509 E11.9 A1C 7.6% (04/2023) 8.3% (03/2023) 8.8% (02/2023) 7.7% ( 12/2022) 8.5% 8.0 01/2022, 8.5 07/2021. not all goal. patient states she will control diet. advised cutting out sodas and sweet tea and candy. increase trulicity to 4.5mg. medication s: lantus 12 units, atorvastat in 20mg, trulicity 4.5mg, fariga 10mg, nateglinid e foot exam: done 02/05/2023, normal overall but slightly diminished left posterior tibial pulse.ppsv 23: she was told she is allergicst atin: atorvastat in 20mg,alb/c r: 12/2022 abnormalAC Ei: lisinopril 5mgeye exam: given order, will schedule Overweight 045127027 E66 .3 bmi 26.5 Deviated nasal septum 12 6476095 J34.2 left deviated septum Pain of ri ght shoulder joint [id number] 6681707 M25.511 Torn rotator cuffhas f/u with ortho [id number] LANRE GREEN [facility] [address] [place] [address] 07/08/2023 14:51:18 07/08/2023 15:38:21 Diabetes mellitus 94470672 E11.9 A1C 7.6% (04/2023) 8.3% (03/2023) 8.8% (02/2023) 7.7% ( 12/2022) 8.5% 8.0 01/2022, 8.5 07/2021.in creae ozempic to 2 mg and cut insulin by 50% to 6 units. f/u with glucose numbers on portal medication s: lantus 6 units, atorvastat in 20mg, ozempic 2mg, farxiga 10mg, nateglinid e foot exam: done 02/05/2023, normal overall but slightly diminished left posterior tibial pulse.ppsv 23: she was told she is allergicst atin: atorvastat in 20mg,alb/c r: 12/2022 abnormalAC Ei: lisinopril 5mgeye exam: given order, will schedule Overweight 746190440 E66 .3 bmi 25.6 Screening mammography 24 122845 Z12.31 last mammogram four years ago. she had biopsy on right lateral breast, normal tissue. Ex-smoker 2950147 Z87.89 1 [id number] LANRE GREEN [facility] [address] [place] [address] 09/09/2023 15:21:23 09/09/2023 16:08:50 Albuminuria 570720672 R80.9 repeat Diabetes mellitus 050687 09 E11.9 A1C 5.9% (08/2023) 7.6% (04/2023) 8.3% (03/2023) 8.8% (02/2023) 7.7% ( 12/2022) 8.5% 8.0 01/2022, 8.5 07/2021.in crease ozempic to 2 mg and stop insulin.me dications: atorvastat in 20mg, ozempic 2mg, farxiga 10mg foot exam: done 02/05/2023, normal overall but slightly diminished left posterior tibial pulse.ppsv 23: she was told she is allergicst atin: atorvastat in 20mg,alb/c r: 12/2022 abnormalAC Ei: lisinopril 5mgeye exam: 03/2023, normal History of surgery 85133 5003 Z98.890 [facility] two drains in place without infectionh as f/u wit surgeon weekly [id number] LANRE GREEN [facility] [address] [place] [address] 11/24/2023 14:37:58 11/24/2023 17:01:04 Diabetes mellitus 96326510 E11.9 A1C 5.9% (11/2023) 5.9% (08/2023) 7.6% (04/2023) 8.3% (03/2023) 8.8% (02/2023) 7.7% ( 12/2022) 8.5% 8.0 01/2022, 8.5 07/2021. medication s:atorvast atin 20mg, ozempic 2mg, farxiga 10mg foot exam: done 02/05/2023, normal overall but slightly diminished left posterior tibial pulse.ppsv 23: she was told she is allergicst atin: atorvastat in 20mg,alb/c r: 12/2022 abnormalAC Ei: lisinopril 5mgeye exam: 03/2023, normal Albuminuria 964301159 R8 0.9 repeat Allergic rhinitis 128010 04 J30.9 Sleep yvette chari disturbance 78841951 G47.9 patient wasthcing TV and eating at nightbeing kept up with R shoulder pain - sleep hygiene discussed- see neurosurge on for shoulder pain assessment - continue managing pain - sees pain management - refuses increasing duloxetine [id number] LANRE GREEN [facility] [address] [place] [address] 02/14/2024 11:44:23 02/16/2024 08:34:04 Constipation 10003571 K59.00 stop movantik as still constipate d and may be causing opioids withdrawal s?takes 2 weeks to have BMWill try linzess Essential hypertension 41199715 I10 BP 116/70. states it runs low at home. will stop lisnorpil 5mg. as causing dizziness. will message on portal with updates. drug regiment:s he is not taking medication s at this time Advised to check BP regularly with a goal of <135/85, if BP consistent ly >140/90, advised to contact clinic Discussed DASH diet Advised 30 minutes of exercise minimum daily Advised tobacco, alcohol, caffeine all increase BP [id number] LANRE GREEN [facility] [address] [place] [address] 05/22/2024 13:52:29 05/22/2024 14:31:03 Adult health examination 319856042 Z00.01 Patient presents fo wellness visit. - discussed diet and exercise- cut back on ozempic to gain weight, A1C controlled - lab work- continue pain management for controlled medication Weight loss 19813904 R63 .4 will decrease ozempic to 1mggoal is to gain weight again towards 125-130lbs Sinusitis 44336232 J32.9 > 10 days of facial pain under eyes and between eyebrows and goopy eyes for 3 days. afebrile today but had headache from facial pain. Depression screening 171 123371 Z13.31 negativeon duloxetine 60mg [id number] LANRE GREEN [facility] [address] [place] [address] 12/19/2024 10:28:19 12/19/2024 11:34:17 Screening mammography 09699459 Z12.31 due for mammogramb iopsy done 2019, benign Diabetes mellitus 067164 09 E11.9 A1C 7.9% (12/2024) 5.9% (11/2023) 5.9% (08/2023) 7.6% (04/2023) 8.3% (03/2023) 8.8% (02/2023) 7.7% ( 12/2022) 8.5% 8.0 01/2022, 8.5 07/2021. medication s: atorvastat in 20mg, restart ozempic .5mg, take farxiga 10mg daily (taking every other day) foot exam: done 05/2024, normal overall but slightly diminished left posterior tibial pulse.ppsv 23: she was told she is allergicst atin: atorvastat in 20mgalb/cr : 11/2023 abnormalAC Ei: lisinopril 5mgeye exam: 03/2023, normal Screening for malignant neoplasm of colon 067193089 Z12.11 family history of colon cacner mother Atypical chest pain 1025 71685 R07.89 Right to middle twice weekly-ach ing /stabbing pain lasting a couple of hours. Happens randomly usually when walkingtak es 2 aspirins every morningobt ain EKGcardiol ogy for work up due to co-morbidi ties Seasonal a llergic rhinitis 824962379 J30.2 refill Chronic ob structive pulmonary disease 86198866 J44.9 only using rescue and stopped her maintenanc euses rescue 1x per week Health Concerns Section Related Observation LastModified by Organization Detai ls LastModified Time None Recorded Concern Status LastModified by Organization Details LastModified Time None Recorded Advance Directives Directive None Recorded Payers Encounter Date Sequence Insurance Name Policy Number Policy Llanes Covered Member ID [place]anes Member ID Guarantor Name 09/09/2023 1 [facility] ON OR AFTER 04/10/21 (MEDICAID REPLACEMENT - HMO) Marilyn Sanchez [id number] Marliyn Laura 11/24/2023 1 [facility] ON OR AFTER 04/10/21 (MEDICAID REPLACEMENT - HMO) Marilyn Silvaaster [id number] Marilyn Laura 02/14/2024 1 [facility] ON OR AFTER 04/10/21 (MEDICAID REPLACEMENT - HMO) Marilyn Silvaaster [id number] Marilyn Laura 05/22/2024 1 [facility] ON OR AFTER 04/10/21 (MEDICAID REPLACEMENT - HMO) Marilyn Silvaaster [id number] Marilyn Laura 12/19/2024 1 [place] Marilyn Sanchez [id number] Marilyn Laura 12/19/2024 2 [place] [employer] Marilyn Sanchez [id number] Marilyn Sanchez Notes Date Note Type Note Provider Name and Address Organization Details Recorded Time 09/09/2023 text/html Marilyn is a 58 YO F here for DM labs and f/u on panniculectomy She had elective [facility] EXC SKIN & SUBQ TISSUE ABD PANNICULECTOMY 08/2023 at [facility] plastic surgery. she has two drains in place. was seen Wednesday and surgery told her she is doing well. she says she was not supposed to be showering but has been. SHe is healing well and happy with results. She has another f/u next week. DM is controlled. She has weaned down from her insulin. am: 130-140pm: 84-116 LANRE GREEN Attn: [address] [place], [address], [facility] 09/13/2023 09:21:20 11/24/2023 text/html Marilyn presents f or lab work and my says I sleep all day long Patient says she does not sleep due to R shoulder pain. She states her says she sleeps to much during day. She then says she does not sleep during the day. She watches TV and eats all night. Her ortho does not want operate for one year. I can't lift anything with this arm and im eating my hydrocondones. She has appointment with neurosurgeon this month to assess her neck pain. They think pain is being referred to shoulder from her neck. I have a slipped [place] back there in C3. refuses increasing duloxetine DM : 122-142 fasting. drinking coke zero and does drink tea with splenda. Pt reports runny nose with cetirizine and dc'd this medication. She is willing to trial Loratadine LANRE GREEN Attn: [address] [place], [address], [facility] 12/04/2023 18:48:53 02/14/2024 text/html Marilyn presents f or dizziness She feels BP is getting low and sometimes gets dizziness and shakiness. She is open to stopping lisinopril. She eats one meal per day. She does still drink sodas and intake snack foods. anxiety is worse since starting movanitk, still pooping once per week. She is open to trying something else. LANRE GREEN Attn: [address] [place], [address], [facility] 02/14/2024 17:16:28 05/22/2024 text/html here for wellnes s visit c/o of congestion and facial pain for >10 days causing daily headaches. She denies fever or chills. started with goopy eyes a few days ago. denies cp, sob, palpitations LANRE GREEN Attn: [address] [place], [address], [facility] 05/22/2024 14:30:57 12/19/2024 text/html Marilyn IS A 59 YO F here for refills and labs She complains of R sided to mid chest pain 2x per week when at work. It does not happen if I lay down. She attributes this to anxiety or her COPD. She feels pain is stabbing. Of note, she does have R shoulder pain that has radiated to her R upper chest. She denies sob or palpitations. DM: all I eat is sweets all day. She stopped her ozempic and takes farxiga every other day. allergies: needs refills. mammogram: Due COPD: not smoking. Does not take maintenance inhaler. only take rescue prn. I take it once a month or sometimes once per week. LANRE GREEN Attn: [address] [facility], [place], [address], [facility] 12/19/2024 11:28:17 OBGyn Episode Ob Episode Information Episode Created Date Number of Fetuses Patient Bloodtype Patient rh Status Prepregnancy Weight lbs Domestic Partner Domestic Partner Phone Father Name Poly Packer And Heat Sealer Status 12/05/19 20 1 CLOSED Fetus Data First Name Last Name Admitted to NICU Weight (g) Sex Living Outcome Pediatric Complications Fetus ID Race Codes Race Delivery Type M [id number] Only Alek Calculation Initial Alek Date Initial Exam Date Initial Exam Provider Initial Ultrasound Date Last Menstrual Period Date Ultra Sound Weeks Gestation 0 Eighteen To Twenty Week Alek Update Ultra Sound Date Fundal Height At Umbil Quickening Date Ultra Sound Latest Weeks Gestation Final Alek Confirmed By Final Alek Confirmed Date Final Alek Date Ultra Sound Latest Days Gestation 0 0 Menstrual History Last Menstrual Date Menses Monthly On Bcp Conception Prior Menses Frequency Hcg Plus Date Menarche Onset Age Delivery Information Delivery Date Delivery Type Labor Anesthesia Weeks Gestation Incision Type Labor Labor Length Hrs Delivered By Post Complications Tubal Sterilization Discharge Date Comments 1 Discharge Information Feeding Method Contraceptive Method Maternal HG B and HCT Levels Ob Episode Information Episode Created Date Number of Fetuses Patient Bloodtype Patient rh Status Prepregnancy Weight lbs Domestic Partner Domestic Partner Phone Father Name Poly Packer And Heat Sealer Status 12/05/19 20 1 CLOSED Fetus Data First Name Last Name Admitted to NICU Weight (g) Sex Living Outcome Pediatric Complications Fetus ID Race Codes Race Delivery Type F [id number] Only Alek Calculation Initial Alek Date Initial Exam Date Initial Exam Provider Initial Ultrasound Date Last Menstrual Period Date Ultra Sound Weeks Gestation 0 Eighteen To Twenty Week Alek Update Ultra Sound Date Fundal Height At Umbil Quickening Date Ultra Sound Latest Weeks Gestation Final Alek Confirmed By Final Alek Confirmed Date Final Alek Date Ultra Sound Latest Days Gestation 0 0 Menstrual History Last Menstrual Date Menses Monthly On Bcp Conception Prior Menses Frequency Hcg Plus Date Menarche Onset Age Delivery Information Delivery Date Delivery Type Labor Anesthesia Weeks Gestation Incision Type Labor Labor Length Hrs Delivered By Post Complications Tubal Sterilization Discharge Date Comments 3 Discharge Information Feeding Method Contraceptive Method Maternal HG B and HCT Levels Ob Episode Information Episode Created Date Number of Fetuses Patient Bloodtype Patient rh Status Prepregnancy Weight lbs Domestic Partner Domestic Partner Phone Father Name Poly Packer And Heat Sealer Status 12/05/19 20 1 CLOSED Fetus Data First Name Last Name Admitted to NICU Weight (g) Sex Living Outcome Pediatric Complications Fetus ID Race Codes Race Delivery Type M Full Term [id number] Only Alek Calculation Initial [place] Date Initial Exam Date Initial Exam Provider Initial Ultrasound Date Last Menstrual Period Date Ultra Sound Weeks Gestation 0 Eighteen To Twenty Week Alek Update Ultra Sound Date Fundal Height At Umbil Quickening Date Ultra Sound Latest Weeks Gestation Final Alek Confirmed By Final Alek Confirmed Date Final Alek Date Ultra Sound Latest Days Gestation 0 0 Menstrual History Last Menstrual Date Menses Monthly On Bcp Conception Prior Menses Frequency Hcg Plus Date Menarche Onset Age Delivery Information Delivery Date Delivery Type Labor Anesthesia Weeks Gestation Incision Type Labor Labor Length Hrs Delivered By Post Complications Tubal Sterilization Discharge Date Comments 9 Discharge Information Feeding Method Contraceptive Method Maternal HG B and HCT Levels Ob Episode Information Episode Created Date Number of Fetuses Patient Bloodtype Patient rh Status Prepregnancy Weight lbs Domestic Partner Domestic Partner Phone Father Name Poly Packer And Heat Sealer Status 12/05/19 20 1 CLOSED Fetus Data First Name Last Name Admitted to NICU Weight (g) Sex Living Outcome Pediatric Complications Fetus ID Race Codes Race Delivery Type M [id number] Only Alek Calculation Initial Alek Date Initial Exam Date Initial Exam Provider Initial Ultrasound Date Last Menstrual Period Date Ultra Sound Weeks Gestation 0 Eighteen To Twenty Week Alek Update Ultra Sound Date Fundal Height At Umbil Quickening Date Ultra Sound Latest Weeks Gestation Final Alek Confirmed By Final Alek Confirmed Date Final Alek Date Ultra Sound Latest Days Gestation 0 0 Menstrual History Last Menstrual Date Menses Monthly On Bcp Conception Prior Menses Frequency Hcg Plus Date Menarche Onset Age Delivery Information Delivery Date Delivery Type Labor Anesthesia Weeks Gestation Incision Type Labor Labor Length Hrs Delivered By Post Complications Tubal Sterilization Discharge Date Comments 0 Discharge Information Feeding Method Contraceptive Method Maternal HG B and HCT Levels
--- OUTSIDE RECORDS SUMMARY | 2025-01-03 13:34 | XMS_ITS | Continuity of Care Document ---
Author Organization [facility] Address [address] [place] [address] Phone Care Team Providers Care Motor Operator Name Role Phone Getachew Traylor MD Unavailable Unavailable Allergies, Adverse Reactions, Alerts Substance Reaction Status Criticality Penicillins Anaphylaxis Active No Information Medications Medication Instructions Dosage Effective Dates (start - stop) Status Comments irbesartan 150 mg tablet take 1 tablet by oral route every day 150 MG - Active Zocor 20 mg tablet take 1 tablet by oral route every day in the evening 20 MG - Active metformin 850 mg tablet take 1 tablet by oral route 2 times every day with morning and evening meals 850 MG - Active ropinirole 1 mg tablet take 1 tablet by oral route every bedtime 1 MG - Active Zantac 150 mg tablet take 1 tablet by oral route 2 times every day - Active Hatley 5 mg-325 mg tablet take 1 tablet [...] Providers Copied on Encounter OFFICE/OUTPA TIENT VISIT, [facility], [address] [place], [place], [id number], tel:[phone] [facility] HLP (chief complaint) HTN (chief complaint) DM (chief complaint) osteopenia 1 (chief complaint) chronic pain1 (chief complaint) abd pain1 (chief complaint) Type 2 diabetes mellitus with diabetic nephropathyEssentia l (primary) hypertensionHyperli pidemiaAbdominal painFatty liver 9 [address]. [address], [place], [place], [address] , [place]. tel:[phone] Referring Provider: Percy Queen [address], [place], [place], [id number]. tel:[phone] OFFICE/OUTPA TIENT VISIT, [facility], [address] [place], [place], [address], [place] tel:[phone] [facility] back pain1 (chief complaint) osteopenia 1 (chief complaint) HTN (chief complaint) Other specified disorder of bone densityEssential (primary) hypertension 9 Layton Chilel. [address], [place], [place], [address] , [place]. tel:[phone] Referring Provider: Percy Queen [address], [place], [place], [address]. tel:[phone] OFFICE/OUTPA TIENT VISIT, [facility], [address], [place], [place], [address], [place] tel:[phone] [facility] HTN (chief complaint) DM (chief complaint) abd pain1 (chief complaint) back pain1 (chief complaint) Essential (primary) hypertensionType 2 diabetes mellitus with diabetic nephropathyLiver diseaseChronic pain syndromeRestless legs syndrome 9 Layton Chilel. [address], [place], [place], [address] , [place]. tel:[phone] Referring Provider: Percy Queen [address], [place], [place], [address]. tel:[phone] [facility], [address], [place], [place], [address], [place] tel:[phone] [facility] No Information 9 Layton [address]l. [address], [place], [place], [address] , [place]. tel:[phone] OFFICE/OUTPA TIENT VISIT, [facility], [address], [place], [place], [address], [place] tel:[phone] [facility] HTN (chief complaint) abdominal 1 (chief complaint) HLP (chief complaint) chronic pain1 (chief complaint) DM (chief complaint) Essential (primary) hypertensionType 2 diabetes mellitus with diabetic nephropathyHyperlip idemiaChronic pain syndromeTobacco useLiver disease 9 Layton Chilel. [address], [place], [place], [address] , [place]. tel:[phone] Referring Provider: Percy Queen [address], [place], [place], [address]. tel:[phone] OFFICE/OUTPA TIENT VISIT, [facility], [address], [place], [place], [address], [place] tel:[phone] [facility] chronic pain (chief complaint) HTN (chief complaint) Essential (primary) hypertensionType 2 diabetes mellitus with diabetic nephropathy 9 Layton [address]. [address], [place], [place], [address] , [place]. tel:[phone] Referring Provider: Percy Queen [address], [place], [place], [address]. tel:[phone] OFFICE/OUTPA TIENT VISIT, [facility], [address], [place], [place], [address], [place] tel:[phone] [facility] HTN (chief complaint) DM (chief complaint) HLP (chief complaint) chronic pain1 (chief complaint) GI (chief complaint) sinus1 (chief complaint) HyperlipidemiaEssen tial (primary) hypertensionType 2 diabetes mellitus with diabetic nephropathyChronic pain syndromeAbdominal painAcute sinusitisOther specified disorder of bone density 9 Layton Chilel. [address], [place], [place], [address] , . [phone] Referring Provider: Percy Queen [place], [place], [address]. tel:[phone] OFFICE/OUTPA TIENT VISIT, [facility], [address] [place], [address], [place] tel:[phone] [facility] DM (chief complaint) LFT (chief complaint) HLP (chief complaint) folate (chief complaint) d (chief complaint) Essential (primary) hypertensionRestles s legs syndromeType 2 diabetes mellitus with diabetic nephropathyLiver diseaseHyperlipidem iaFolate deficiencyChronic pain syndrome 9 Lay[address], [facility] A, [place], [place], [address] , [place]. [phone] Referring Provider: Percy Queen [place], [place], [id number]. tel:[phone] PREV VISIT, NEW, AGE 40-64 [facility], [address] [place] [address] [place], [address], [place] tel:[phone] [facility] PHysical (chief complaint) Encounter for general adult medical exam w abnormal findingsEssential (primary) hypertensionRestles s legs syndromeChronic pain syndromeGERD w/o esophagitis 9 [address] [facility] [place], [place], [address] , [place]. [phone] Referring Provider: Percy Queen [place], [place], [address]. tel:[phone] Family History Family Member Type Diagnosis Age At Onset Mother Problem (finding) colon CA 73 Sister Problem (finding) Stroke 36 Father Problem (finding) murdered Payers Payer name Insurance type Covered republican ID James tavera(s) No Information Social History [...] Date Complaint History Of Prese nt Illness osteopenia1 Pt takes calcium and D and is working on weight bearing exercise chronic pain1 Pt has back and hip pain Pt is seeing pain management now. abd pain1 Pt has abd pain Pt just had abdominal and pelvic CT done by GI Pt had benign endoscopy HLP Pt takes zocor. Pt denies any myalgia HTN Pt has HTN Pt ta kes irbesartan and BP stable DM Pt has borderlin e DM Pt takes metformin and her BG is around 90-100 back pain1 Pt has chronic l ow [...] by insurance. Pt is seeing pain management osteopenia1 Pt has osteopeni a. pt takes calcium and D and is working on weight bearing exercise. Pt denies any fx HTN her bp is normal today with irbesartan HTN Pt has HTN. Pt t akes [...] Pt denies any loss of bladder control HLP Pt has HLP Pt to lerating zocor ok Pt denies any myalgia chronic pain1 Pt has chronic h ip and back pain Pt needs pain management. Pt takes norco PRN for pain, Pt failed NSAID and ultram. Pt has left sciatica pt denies any loss of bladder control. Pt has mild left leg numbness and tingling DM Pt states that m etformin is giving her diarrhea now Pt denies any abd pain HTN Pt has HTn. Pt t akes losartan and her BP is still high. Pt states that her BP was 180 during EGD recently. Pt denies any chest pain or headache abdominal 1 Pt has abdominal pain pt does not have acute abdomen. pt is seeing GI and will do abdominal CT soon. Pt had negative egd and colonoscopy chronic pain Pt has chronic l ow [...] due to her chronic pain. HTN Pt has htN. pt t akes losartan. Her BP is borderline HTN Pt takes losarta n 100 mg [...] month Pt has been working on diet chronic pain1 Pt has chronic b ack and left hip pain. Pt has been getting injection to left hip by ortho. Pt lee left sciatica and with left leg numbness. Pt sees neurosurgery and ortho also. Pt was recommend pain management. Pt denies any loss of bladder control. GI Pt c/o abdominal cramp with nonbloody [...] that her GI symptoms are getting worse sinus1 Pt c/o sinus iris n, purulent sinus drainage, sore throat, mild productive coughing for one week pt denies any fever or sick contact Pt denies any recent travel. DM Pt has DM. pt is trying diet controlled only pt is not on any medication now. Pt also has proteinuria in her urine. Pt denies any UTI symptoms LFT Pt has mildly hi gh LFT. pt denies any abdominal pain. HLP Pt has HLP. Pt s tates that she tries to eat salad daily. folate Pt has low folat e d Pt has low vitam in D PHysical Pt needs annual physical. pt has [...] Body mass index (BMI) 30.0-30.9, adult Increase physical activity Relat ed to Type 2 diabetes mellitus with diabetic nephropathy Weight management Related to Typ e 2 diabetes mellitus with diabetic nephropathy Increase activity. Related to Es sential (primary) hypertension Follow a low sodium diet. Relate d to Essential (primary) hypertension Increase physical activity Relat ed to Other specified disorder of bone density Weight management Related to Oth er specified disorder of bone density Special diet [...] Mental Status Date Cognitive Assessment Orientation - Fleming ed to time, place, person, situation.
--- OUTSIDE RECORDS SUMMARY | 2025-01-03 13:34 | XMS_ITS | Encounter Summary ---
Author Organization [facility] Address 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 [place], [place] [address] Patient: MARILYN SANCHEZ : 12/02/1960 Procedure Date: 11/02/2008 Accession Date: 11/02/2008 Case No: [id number] Ordering Dr: PARK CROWDER Case types AW, BW, FW, NW and SH are performed by [facility] [place], [place], [place] SURGICAL PATHOLOGY & NON-GYNECOLOGIC CYTOPATHOLOGY REPORT [...] 04:58 pm Microscopic: The slides are labeled [id number], Laura. Sections display focal fibrosis. [facility] 11.03.2008 09:46 am Staging Form: No ELECTRONIC SIGNATURE FOR ANA PARRISH M.D.- 11/03/08 01:31 pm INTERFACE SYSTEM 11/02/2008 1:20 PM HOUSE CALLS NURSE Park Crowder MD PATHOLOGY/CYTOLOGY ORDERABLES Fi nal Result INTERFACE SYSTEM Refer to clinic/hospital department documented in this encounter Visit Diagnoses Diagnosis Lump or mass in breast documented in this encounter Care Teams Regulatory Submissions Specialist Relationship Specialty Start Date End Date Jerson Alfonso MD [address] [place] [id number] PCP - General Family Practice 03/11/11 documented as of this encounter
--- OUTSIDE RECORDS SUMMARY | 2025-01-03 13:34 | XMS_ITS | Encounter Summary ---
Author Organization 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 Not on file Not [...] Result * CBC (OUTSIDE LAB) (02/17/2018) Pathologist [facility] WBC 8.0 HGB 14.3 HCT 43.5 PLT 364 02/17/2018 [facility]-OUTSIDE/ABSTRACTED Final Result * THYROID STIM HORMONE, TSH (02/17/2018) TSH 0.909 02/17/2018 us Doc [facility]ORAT[facility] Final Result * URIC ACID BLOOD (02/17/2018) Pathologist [facility] URIC ACID 3.6 02/17/2018 [facility] Doc [facility] [...] on filedocumented in this encounter Care Teams Quarter Folder Relationship Specialty Start Date End Date Breanna Henriquez APNP Family & Internal Medicine [address] [address] PCP - General [employer] DRIVER 02/08/18 Leon Sagastume MD [address] [address] [place] [employer] CARDIOVASCULAR DISEASE 03/09/18 documented as of this encounter
--- OUTSIDE RECORDS SUMMARY | 2025-01-03 13:34 | XMS_ITS | Clinical Summary ---
Author Organization [facility] Address [address] [place] [address] Phone Care Team Providers Care Contracting Executive Name Role Phone Jerson Alfonso MD Primary Care Provider [phone] Social History Tobacco Use Types Packs/Day Years Used Date Smoking Tobacco: Never Assessed Comments Unknown Sex and Gender Information Value Date Recorded Sex Assigned at Not on file Legal Sex Female 5:41 AM [employer] Gender Identity Not on file Sexual Orientation [...] Most Recently Relevant to Health Maintenance Insurance [facility] [id number] Care Teams Contracting Executive Relationship Specialty Start Date End Date Jerson Alfonso MD [address] [place] [address] PCP - General Family Practice 03/11/11
== END 2025-01-03 12:46 | disposition home or self-care (01) ==
PROVIDERS: Emergency Provider Family Medicine; PCP Physician Assistant
DX: S51.851A Open bite of right forearm, initial encounter (principal); Z23 Encounter for immunization; E11.9 Type 2 diabetes mellitus without complications; J44.9 Chronic obstructive pulmonary disease, unspecified; K58.9 Irritable bowel syndrome, unspecified; M19.90 Unspecified osteoarthritis, unspecified site; F41.9 Anxiety disorder, unspecified; K21.9 Gastro-esophageal reflux disease without esophagitis; Z96.649 Presence of unspecified artificial hip joint; Z87.440 Personal history of urinary (tract) infections; Z86.2 Personal history of diseases of the blood and blood-forming organs and certain disorders involving the immune mechanism; Z87.01 Personal history of pneumonia (recurrent); Z87.891 Personal history of nicotine dependence; Z90.49 Acquired absence of other specified parts of digestive tract; Z79.899 Other long term (current) drug therapy; Z79.85 Long-term (current) use of injectable non-insulin antidiabetic drugs; W54.0XXA Bitten by dog, initial encounter
CPT/HCPCS: 90471; 90715; 99282

== ENCOUNTER 2025-03-13 11:21 | Outpatient (CLI) | payer MEDICARE, SELFPAY ==
--- NOTE | ~2025-03-13 | XR_ITS ---
Clinical Indication: Chest pain PA and lateral views of the chest: Comparison: 01/25/2023 Findings: The lungs are clear, without evidence of focal consolidation or pleural effusion. Cardiome diastinal silhouette is within normal limits. Bones and soft tissues are unremarkable. Impression: Normal chest. Reviewed, dictated and finalized at location . Impression: Normal chest.
--- OUTSIDE RECORDS SUMMARY | 2025-03-13 11:41 | XMS_ITS | Referral Summary ---
Author Organization [facility] Address [facility] [place] [address] Care Team Providers Care Rotary Driller Helper Name Role Phone Violetta Leyva Primary Care Provider + Shelly Osborn MD Unavailable [phone] Encounters Date Type Department Care Team Description 02/05/2025 1:23 PM CDT - 02/05/2025 11:59 PM CDT Hospital Encounter [facility] [address] [place], [place] [phone] Chronic right shoulder pain Discharge Disposition: Discharge to home or self care 02/05/2025 1:30 PM CDT Office Visit [facility] [address] [place] [address] [place] [phone] Martin Singh MD Chronic right shoulder pain (Primary Dx) 01/16/2025 1:44 PM CDT - 01/16/2025 11:59 PM CDT Hospital Encounter [facility] [address] [place] [address] [phone] Left lumbar radiculopathy Discharge Disposition: Discharge to home or self care 01/16/2025 1:30 PM CDT - 01/16/2025 11:59 PM CDT Hospital Encounter [facility] [address] [place] [address] [phone] Chronic neck pain Discharge Disposition: Discharge to home or self care from Last 3 Months Allergies Active Allergy Reactions Criticality Noted Date Comments Levofloxacin Rash Medium 10/15/2018 Penicillins Anaphylaxis High 03/21/2018 Sulfa (Sulfonamide Antibiotics) Itching Low Medications cetirizine (ZyrTEC) 10 mg tablet Take 1 tablet (10 mg total) by mouth daily 0 Active dapagliflozin (FARXIGA) 10 mg tablet Take 1 tablet (10 mg total) by mouth daily Active famotidine (PEPCID) 20 mg tablet Take 1 tablet (20 mg total) by mouth daily Active omeprazole (PriLOSEC) 20 mg capsule Take 1 capsule (20 mg total) by mouth daily as needed Active albuterol HFA (PROVENTIL HFA,VENTOLIN HFA,PROAIR HFA) 90 mcg/actuation inhaler Inhale 2 puffs every 4 (four) hours as needed for wheezing Active DULoxetine DR (CYMBALTA) 30 mg capsule Take by mouth daily 2 Active albuterol 2.5 mg /3 mL (0.083 %) nebulizer solution 3 Active atorvastatin (LIPITOR) 20 mg tablet [...] 6 (six) hours as needed 3 Active Ozempic 2 mg/dose (8 mg/3 mL) pen injector injection 4 Active Active Problems Problem Noted Date Diagnosed Date Essential hypertension 06/10/2023 Adhesive capsulitis of right shoulder 06/09/2023 Closed fracture of third toe of left foot 2021 s/p left total hip arthroplasty at 07/22/2021 Primary osteoarthritis of left hip 05/29/2021 Overview (05/29/2021): Added automatically from request for surgery [id number] 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 [...] on file 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 Gender Identity Not on file Sexual [...] - - Weight 60.3 kg (133 lb) 02/05/2025 1:41 PM CDT Height 167.6 cm (5' 6) 02/05/2025 1:41 PM CDT Body Mass Index 21.47 02/05/2025 1:41 PM CDT Plan of Treatment Not on file Medical Devices Implanted Type Area Trial Judge Device Identifier Shelf Expiration Date Model / Serial / Lot Total Hip Left: Hip Implanted-2015 Implanted:11/2015 (Quantity not on file) Right: Hip [employer] [id number] 54mm Limit Hole Color Coded Hip F Offset Hemisphere Shell - [id number] Implanted:Qty: 1 on 07/22/2021 by Martin Singh MD at [facility] Left: Hip [employer] [id number] 04/03/2031 [id number] / / [id number] [employer] [id number] G7 32mm Lumen Hip F Liner Acetabular Longevity Sterile Latex Free - [id number] Implanted:Qty: 1 on 07/22/2021 by Martin Singh MD at [facility] Left: Hip [employer] [id number] 02/17/[id number] / / [id number] [employer] [id number] Echo Bi-Metric 13mm 145mm Noncollar Reduce Proximal Profile Press - [id number] Implanted:Qty: 1 on 07/22/2021 by Martin Singh MD at [facility] Left: Hip [employer] [id number] 03/13/2031 [id number] / / [id number] [employer] [id number] 32mm Modular Hip +3mm Head Femoral Biolox Delta - [id number] Implanted:Qty: 1 on 07/22/2021 by Martin Singh MD at [facility] Left: Hip [employer] [id number] 01/17/2029 [id number] / / [id number] Procedures Procedure Name Priority Date/Time Associated Diagnosis Comments XR SHOULDER RIGHT 2 OR MORE VIEWS Schedule Routine, Read Routine (OP Routine) 02/05/2025 1:31 PM CDT Chronic right shoulder pain [place] ARTHROCENTESIS ASPIR&/INJ MAJOR JT/BURSA W/O US Routine 02/05/2025 1:30 PM CDT Chronic right shoulder pain CT LUMBAR SPINE WO CONTRAST Schedule Routine, Read Routine (OP Routine) 01/16/2025 2:05 PM CDT Left lumbar radiculopathy CT CERVICAL SPINE WO CONTRAST Schedule Routine, Read Routine (OP Routine) 01/16/2025 2:05 PM CDT Chronic neck pain COLONOSCOPY REPORT 06/18/2014 from Last 3 Months or Most Recently Relevant to Health Maintenance Results * XR Shoulder Right 2 or More Views (02/05/2025 1:31 PM CDT) Anatomical Region Laterality Modality Upper Extremities, Shoulder Right Comp uted Radiography 02/06/2025 2:07 AM CDT Narrative 02/06/2025 2:08 AM CDT EXAM DESCRIPTION: XR SHOULDER RIGHT 2 OR MORE VIEWS REASON FOR STUDY: PAIN General shoulder pain with painful rom for 8 months, no injury TECHNIQUE: 3 radiographic view(s) of the right shoulder . COMPARISON: None FINDINGS: BONES/JOINTS: There is no acute fracture, malalignment or osseous abnormality. The joint spaces are normal. SOFT TISSUES: Within normal limits. IMPRESSION: No acute osseous abnormality. THIS IS AN ELECTRONICALLY VERIFIED FINAL REPORT 02/06/2025 2:08 AM - Electronically signed by Samir Gilman M.D. RW T: Report ID: [id number] Reading Location: [id number] Procedure Note Samir Gilman MD - 02/06/2025 EXAM DESCRIPTION: XR SHOULDER RIGHT 2 OR MORE VIEWS REASON FOR STUDY: PAIN General shoulder pain with painful rom for 8 months, no injury TECHNIQUE: 3 radiographic view(s) of the right shoulder . COMPARISON: None FINDINGS: BONES/JOINTS: There is no acute fracture, malalignment orosseous abnormality. The joint spaces are normal. SOFT TISSUES: Within normal limits. IMPRESSION: No acute osseous abnormality. THIS IS AN ELECTRONICALLY VERIFIED FINAL REPORT 02/06/2025 2:08 AM - Electronically signed by Samir Gilman M.D. RW T: Report ID: [id number] Reading Location: [id number] Martin Singh MD IMG XR PROCEDURES Debbie l Result * AZ ARTHROCENTESIS ASPIR&/INJ MAJOR JT/BURSA W/O US (02/05/2025 1:30 PM CDT) Narrative Martin Singh MD - 02/05/2025 1:30 PM CDT Martin Singh MD 02/07/2025 8:01 AM Large Joint (Hip, Knee, Shoulder) Injection: R glenohumeral Performed by: Martin Singh MD Authorized by: Martin Singh MD Large Joint Injection/Aspiration: Consent Given by: Patient Site marked: the procedure site was marked Timeout: prior to procedure the correct patient, procedure, and site was verified Verbal consent obtained: Yes Written consent obtained: No Supporting Documentation: Indications: Pain Procedure Details: Location: Shoulder Site: R glenohumeral Prep: patient was prepped using a clean technique Needle Size: 22 G Ultrasound guided: No Medications: 1 mL lidocaine 10 mg/mL (1 %); 40 mg triamcinolone 40 mg/mL Patient tolerance: Patient tolerated the procedure well with no immediate complications Martin Singh MD IN CLINIC/BEDSIDE [facility]LIE Final Result * CT Lumbar Spine WO Contrast (01/16/2025 2:05 PM CDT) Anatomical Region Laterality Modality Spine N/A Computed Tomogra phy 01/20/2025 8:04 AM CDT Narrative 01/20/2025 8:09 AM CDT EXAM DESCRIPTION: CT LUMBAR SPINE WO CONTRAST REASON FOR STUDY: Low back pain, symptoms persist with > 6 wks treatment, pain Chronic low back pain radiates down both legs, right worse. Hx of back surgery. TECHNIQUE: Axial images acquired through the lumbar spine without intravenous contrast. Reconstructed coronal and sagittal MPR images reviewed. All images stored on PACS. Automated exposure control was used as a dose optimization technique for this examination. COMPARISON: Lumbar spine CT dated 03/02/2022. Lumbar spine radiographs dated 01/20/2022. FINDINGS: SEGMENTATION: For the purpose of the dictation assumption is made for the last well-formed disc space seen on series 3, image 281 to be labeled L5-S1. In this system of nomenclature there are unfused right and left transverse processes of L1. ALIGNMENT: Anterior-posterior alignment is similar. VERTEBRAE: The osseous structures are diffusely demineralized and limits the evaluation for a subtle nondisplaced fracture. The L2 vertebral body chronic superior and inferior endplate deformity as seen on the previous lumbar spine CT dated 03/02/2022. Multilevel endplate degenerative changes and marginal spur formation ranging up to severe at L5-S1. DISC HEIGHT: Multilevel intervertebral disc height loss ranging up to severe at L5-S1 where there is vacuum disc phenomenon. HARDWARE: None in the spine. INDIVIDUAL DISC LEVELS: Suboptimally evaluated by non myelographic CT technique. L1-L2: Minor disc bulge and posterior margin of L2 vertebral body fracture. Thickened/calcified ligamentum flavum and facet arthropathy. No significant osseous spinal canal or neural foraminal narrowing. L2-L3: Minor disc bulge with marginal spur formation. Thickened/calcified ligamentum flavum and facet arthropathy. No significant osseous spinal canal or neural foraminal narrowing. L3-L4: Minor disc bulge with calcification. Thickened/calcified ligamentum flavum and facet arthropathy. Mild osseous spinal canal stenosis. No significant osseous neural foraminal narrowing. L4-L5: Disc bulge with thickened ligamentum flavum and facet arthropathy. Subtle soft tissue focus in the ventral spinal canal could be herniated disc but evaluation is limited by CT technique. Moderate spinal canal stenosis. Lateral recess effacement on both sides. No significant osseous neural foraminal narrowing. L5-S1: Disc bulge with marginal spur formation. Bilateral facet arthropathy. No significant osseous spinal canal stenosis. Lllb-wa-jjvwtoks osseous neural foraminal narrowing portion of the disc/marginal spur abutting the undersurface of the exiting L5 nerve roots. SOFT TISSUES: Surgical clips in the gallbladder fossa. Calcified plaque in the abdominal aorta and major branch vessels. OTHER: Partially imaged bilateral hip arthroplasties. IMPRESSION: 1. Lumbar disc degeneration ranging up to severe with thickened ligamentum flavum and facet arthropathy as described. The osseous spinal canal narrowing is most noticeable at L4-L5. 2. Varying degrees of bilateral osseous neural foraminal stenosis is most noticeable at L5-S1. 3. The L2 vertebral body deformity as seen on the previous lumbar spine CT dated 03/02/2022. 4. Overall similar to mild worsening degenerative changes when compared to the previous lumbar spine CT dated 03/02/2022. THIS IS AN ELECTRONICALLY VERIFIED FINAL REPORT 01/20/2025 8:09 AM - Electronically signed by Damion Sneed D.O. AP: AP Report ID: [id number] Reading Location: [id number] Procedure Note Damion Sneed, DO - 01/20/2025 EXAM DESCRIPTION: CT LUMBAR SPINE WO CONTRAST REASON FOR STUDY: Low back pain, symptoms persist with > 6 wkstreatment, pain Chronic low back pain radiates down both legs, right worse. Hx of back surgery. TECHNIQUE: Axial images acquired through the lumbar spine withoutintravenous contrast. Reconstructed coronal and sagittal MPR images reviewed. Allimages stored on PACS. Automated exposure control was used as a dose optimization technique forthis examination. COMPARISON: Lumbar spine CT dated 03/02/2022. Lumbar spine radiographs dated 01/20/2022. FINDINGS: SEGMENTATION: For the purpose of the dictation assumption ismade for the last well-formed disc space seen on series 3, image 281 to belabeled L5-S1. In this system of nomenclature there are unfused right and left transverse processes of L1. ALIGNMENT: Anterior-posterior alignment is similar. VERTEBRAE: The osseous structures are diffusely demineralized and limitsthe evaluation for a subtle nondisplaced fracture. The L2 vertebral bodychronic superior and inferior endplate deformity as seen on the previous lumbarspine CT dated 03/02/2022. Multilevel endplate degenerative changes andmarginal spur formation ranging up to severe at L5-S1. DISC HEIGHT: Multilevel intervertebral disc height loss ranging up tosevere at L5-S1 where there is vacuum disc phenomenon. HARDWARE: None in the spine. INDIVIDUAL DISC LEVELS: Suboptimally evaluated by non myelographic CT technique. L1-L2: Minor disc bulge and posterior margin of L2 vertebral bodyfracture. Thickened/calcified ligamentum flavum and facet arthropathy. Nosignificant osseous spinal canal or neural foraminal narrowing. L2-L3: Minor disc bulge with marginal spur formation. Thickened/calcified ligamentum flavum and facet arthropathy. No significant osseous spinalcanal or neural foraminal narrowing. L3-L4: Minor disc bulge with calcification. Thickened/calcifiedligamentum flavum and facet arthropathy. Mild osseous spinal canal stenosis. No significant osseous neural foraminal narrowing. L4-L5: Disc bulge with thickened ligamentum flavum and facet arthropathy. Subtle soft tissue focus in the ventral spinal canal could be herniateddisc but evaluation is limited by CT technique. Moderate spinal canalstenosis. Lateral recess effacement on both sides. No significant osseous neural foraminal narrowing. L5-S1: Disc bulge with marginal spur formation. Bilateral facetarthropathy. No significant osseous spinal canal stenosis. Cupm-hb-hyjwqdvx osseousneural foraminal narrowing portion of the disc/marginal spur abutting the undersurface of the exiting L5 nerve roots. SOFT TISSUES: Surgical clips in the gallbladder fossa. Calcified plaquein the abdominal aorta and major branch vessels. OTHER: Partially imaged bilateral hip arthroplasties. IMPRESSION: 1. Lumbar disc degeneration ranging up to severe with thickenedligamentum flavum and facet arthropathy as described. The osseous spinal canalnarrowing is most noticeable at L4-L5. 2. Varying degrees of bilateral osseous neural foraminal stenosis ismost noticeable at L5-S1. 3. The L2 vertebral body deformity as seen on the previous lumbar spineCT dated 03/02/2022. 4. Overall similar to mild worsening degenerative changes when comparedto the previous lumbar spine CT dated 03/02/2022. THIS IS AN ELECTRONICALLY VERIFIED FINAL REPORT 01/20/2025 8:09 AM - Electronically signed by Damion Sneed D.O. AP: AP Report ID: [id number] Reading Location: [place] [address] Martin Singh MD IMG CT PROCEDURES Debbie l Result * CT Cervical Spine WO Contrast (01/16/2025 2:05 PM CDT) Anatomical Region Laterality Modality Spine N/A Computed Tomogra phy 01/20/2025 8:09 AM CDT Narrative 01/20/2025 8:16 AM CDT EXAM DESCRIPTION: CT CERVICAL SPINE WO CONTRAST REASON FOR STUDY: Neck pain, chronic Neck pain that radiates down right shoulder for 18 months. Unable to remove earrings. TECHNIQUE: Axial images through the cervical spine with sagittal and coronal reformatted images. Automated exposure control was used as a dose optimization technique for this examination. COMPARISON: Cervical spine MRI dated 10/12/2023. Cervical spine radiographs dated 09/13/2023 and 09/06/2023. FINDINGS: ALIGNMENT: Reversal of the normal cervical lordosis. There is mild retrolisthesis of C3 on C4 and anterolisthesis of C4 on C5. VERTEBRAE: Multilevel endplate degenerative changes and marginal spur formation ranging up to moderate to severe at C3-C4 and C5-C6. The right occipital condyle sclerotic lesion is nonspecific but present on the previous MRI dated 10/12/2023 and compatible with bone island. DISCS: Multilevel intervertebral disc height loss ranging up to severe at C3-C4 and C5-C6. Vacuum disc phenomenon at C3-C4 and mineralization at C5-C6. HARDWARE: None in the spine. INDIVIDUAL LEVELS: Suboptimally evaluated by non myelographic CT technique. C2-C3: No significant disc bulge, osseous spinal canal or neural foraminal narrowing. Pjwb-signxhq-sjbc-right facet arthropathy. C3-C4: Retrolisthesis of C3 on C4 with unroofing of the disc. Superimposed posterior disc osteophyte complex and thickened ligamentum flavum. Moderate to severe osseous spinal canal stenosis. Uncovertebral spurring and facet arthropathy with moderate to severe osseous neural foraminal narrowing. C4-C5: Posterior disc osteophyte complex and thickened ligamentum flavum. Mild osseous spinal canal stenosis. Uncovertebral spurring and tytvz-xmertdp-uorp-left facet arthropathy without significant osseous neural foraminal stenosis. C5-C6: Posterior disc osteophyte complex and thickened ligamentum flavum. Moderate osseous spinal canal stenosis. Uncovertebral spurring and facet arthropathy with moderate osseous neural foraminal narrowing. C6-C7: Posterior disc osteophyte complex and thickened ligamentum flavum. Mild osseous spinal canal stenosis. No significant osseous neural foraminal narrowing. C7-T1: No significant disc bulge or osseous spinal canal stenosis. Thickened ligamentum flavum, uncovertebral spurring and facet arthropathy with mild osseous neural foraminal narrowing. UPPER THORACIC: Incompletely imaged. Degenerative changes without high-grade osseous spinal canal stenosis LUNG APICES: Partially imaged patchy opacities in the bilateral lung apices. NECK SOFT TISSUES: Calcified plaque in the bilateral carotid vasculature. IMPRESSION: 1. Cervical disc degeneration ranging up to moderate to severe with thickened ligamentum flavum, uncovertebral spurring and facet arthropathy as seen on the cervical spine MRI dated 10/12/2023 as described. 2. Continued osseous spinal canal stenosis most noticeable from C3-C4 through C5-C6 ranging up to moderate to severe. 3. Varying degrees of bilateral osseous neural foraminal stenosis ranging up to moderate to severe and additional findings as described. 4. Partially imaged lung apices with patchy opacities on both sides could be pleuroparenchymal scarring. If previous chest CT is not available to demonstrate stability then recommend further assessment with a chest CT. THIS IS AN ELECTRONICALLY VERIFIED FINAL REPORT 01/20/2025 8:16 AM - Electronically signed by Damion Sneed D.O. AP: AP Report ID: [id number] Reading Location: [place] [address] Procedure Note Damion Sneed, DO - 01/20/2025 EXAM DESCRIPTION: CT CERVICAL SPINE WO CONTRAST REASON FOR STUDY: Neck pain, chronic Neck pain that radiates down right shoulder for 18 months. Unable toremove earrings. TECHNIQUE: Axial images through the cervical spine with sagittal andcoronal reformatted images. Automated exposure control was used as a doseoptimization technique for this examination. COMPARISON: Cervical spine MRI dated 10/12/2023. Cervical spineradiographs dated 09/13/2023 and 09/06/2023. FINDINGS: ALIGNMENT: Reversal of the normal cervical lordosis. There is mild retrolisthesis of C3 on C4 and anterolisthesis of C4 on C5. VERTEBRAE: Multilevel endplate degenerative changes and marginal spur formation ranging up to moderate to severe at C3-C4 and C5-C6. The right occipital condyle sclerotic lesion is nonspecific but present on theprevious MRI dated 10/12/2023 and compatible with bone island. DISCS: Multilevel intervertebral disc height loss ranging up to severeat C3-C4 and C5-C6. Vacuum disc phenomenon at C3-C4 and mineralization atC5-C6. HARDWARE: None in the spine. INDIVIDUAL LEVELS: Suboptimally evaluated by non myelographic CT technique. C2-C3: No significant disc bulge, osseous spinal canal or neural foraminal narrowing. Rmlu-wxzmawb-qfmh-right facet arthropathy. C3-C4: Retrolisthesis of C3 on C4 with unroofing of the disc.Superimposed posterior disc osteophyte complex and thickened ligamentum flavum.Moderate to severe osseous spinal canal stenosis. Uncovertebral spurring and facet arthropathy with moderate to severe osseous neural foraminal narrowing. C4-C5: Posterior disc osteophyte complex and thickened ligamentum flavum. Mild osseous spinal canal stenosis. Uncovertebral spurring and ygryq-mazxfyq-aqri-left facet arthropathy without significant osseousneural foraminal stenosis. C5-C6: Posterior disc osteophyte complex and thickened ligamentum flavum. Moderate osseous spinal canal stenosis. Uncovertebral spurring and facet arthropathy with moderate osseous neural foraminal narrowing. C6-C7: Posterior disc osteophyte complex and thickened ligamentum flavum. Mild osseous spinal canal stenosis. No significant osseous neuralforaminal narrowing. C7-T1: No significant disc bulge or osseous spinal canal stenosis.Thickened ligamentum flavum, uncovertebral spurring and facet arthropathy with mild osseous neural foraminal narrowing. UPPER THORACIC: Incompletely imaged. Degenerative changes without high-grade osseous spinal canal stenosis LUNG APICES: Partially imaged patchy opacities in the bilateral lungapices. NECK SOFT TISSUES: Calcified plaque in the bilateral carotidvasculature. IMPRESSION: 1. Cervical disc degeneration ranging up to moderate to severe with thickened ligamentum flavum, uncovertebral spurring and facet arthropathyas seen on the cervical spine MRI dated 10/12/2023 as described. 2. Continued osseous spinal canal stenosis most noticeable from C3-C4 through C5-C6 ranging up to moderate to severe. 3. Varying degrees of bilateral osseous neural foraminal stenosisranging up to moderate to severe and additional findings as described. 4. Partially imaged lung apices with patchy opacities on both sidescould be pleuroparenchymal scarring. If previous chest CT is not available to demonstrate stability then recommend further assessment with a chest CT. THIS IS AN ELECTRONICALLY VERIFIED FINAL REPORT 01/20/2025 8:16 AM - Electronically signed by Damion Sneed D.O. AP: AP Report ID: [id number] Reading Location: [place] [address] Martin Singh MD IMG CT PROCEDURES Debbie l Result * COLONOSCOPY REPORT (06/18/2014) Anatomical Region Laterality Modality Other Narrative 06/18/2014 Ordered by an unspecified provider. us Historical Provider MD PEÑA PROCEDURE ORDERABLES F inal Result from Last 3 Months or Most Recently Relevant to Health Maintenance Insurance [facility] MEDICARE [facility] OPEN ACCESS [facility] [place] Advance Directives For more information, please contact: [phone] * Full Code (Latest Code Status on File) Date Activated Date Inactivated Comments 07/22/2021 6:21 PM 07/24/2021 6:41 PM Care Teams Rotary Driller Helper Relationship Specialty Start Date End Date Violetta Leyva PA PCP - General 10/28/20 Shelly Osborn MD [address] [address] Referring Physician Internal Medicine 07/08/21
--- OUTSIDE RECORDS SUMMARY | 2025-03-13 11:41 | XMS_ITS | Encounter Summary ---
Author Organization 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
--- OUTSIDE RECORDS SUMMARY | 2025-03-13 11:41 | XMS_ITS | Encounter Summary ---
[facility] Organization [facility] Address [address] [place] [address] Care Team Providers Care Cancer Spec Name Role Phone Jerson Alfonso MD Primary Care Provider Encounter Details Date Type Department Care Team (Latest Contact Info) Description 11/02/2008 Outpatient Historical [facility], [address] Park Crowder MD [address] [place] [address] Lump or Mass in Breast Social History Tobacco Use Types Packs/Day Years Used Date Smoking Tobacco: Never Assessed Comments Unknown Sex and Gender Information Value Date Recorded Sex Assigned at Not on file Legal Sex Female 5:41 AM FINISHER DENTURE Gender Identity Not on file Sexual Orientation Not on file documented as of this encounter Plan of Treatment Not on file documented as of this encounter Procedures Procedure Name Priority Date/Time Associated Diagnosis Comments PATHOLOGY Routine 11/02/2008 1:20 PM FINISHER DENTURE documented in this encounter Results * PATHOLOGY (11/02/2008 1:20 PM FINISHER DENTURE) FINAL REPORT [facility] [address] [place], [place] [address] Patient: MARILYN SANCHEZ : 12/02/1960 Procedure Date: 11/02/2008 Accession Date: 11/02/2008 Case No: [id number] Ordering Dr: PARK CROWDER Case types AW, BW, FW, NW and SH are performed by [facility] [place], [place], [place] SURGICAL PATHOLOGY & NON-GYNECOLOGIC CYTOPATHOLOGY REPORT [...] 04:58 pm Microscopic: The slides are labeled [id number], Laura. Sections display focal fibrosis. [facility] 11.03.2008 09:46 am Staging Form: No ELECTRONIC SIGNATURE FOR ANA PARRISH M.D.- 11/03/08 01:31 pm INTERFACE SYSTEM 11/02/2008 1:20 PM FINISHER DENTURE Park Crowder MD PATHOLOGY/CYTOLOGY ORDERABLES Fi nal Result INTERFACE SYSTEM Refer to clinic/hospital department documented in this encounter Visit Diagnoses Diagnosis Lump or mass in breast documented in this encounter Care Teams Cancer Spec Relationship Specialty Start Date End Date Jerson Alfonso MD [address] [place] [id number] PCP - General Family Practice 03/11/11 documented as of this encounter
--- OUTSIDE RECORDS SUMMARY | 2025-03-13 11:41 | XMS_ITS | Continuity of Care Document ---
Author Organization [facility] Address [address] [place] [address] Phone Care Team Providers Care Corporate Intern Name Role Phone Getachew Traylor MD Unavailable [...] route 2 times every day - Active [place] 5 mg-325 mg tablet take 1 tablet [...] Providers Copied on Encounter OFFICE/OUTPA TIENT VISIT, [facility], [address] [place], [place], [id number], tel:[phone] [facility] HLP (chief complaint) HTN (chief complaint) DM (chief complaint) osteopenia 1 (chief complaint) chronic pain1 (chief complaint) abd pain1 (chief complaint) Type 2 diabetes mellitus with diabetic nephropathyEssentia l (primary) hypertensionHyperli pidemiaAbdominal painFatty liver [address], [place], [place], [address] , [place]. tel:[phone] Referring Provider: Percy Queen [address], [place], [place], [address]. tel:[phone] OFFICE/OUTPA TIENT VISIT, [facility], [address] [place] [place], [address], [place] tel:[phone] [facility] back pain1 (chief complaint) osteopenia 1 (chief complaint) HTN (chief complaint) Other specified disorder of bone densityEssential (primary) hypertension 9 Layton [address], [place], [place], [address] , [place]. tel:[phone] Referring Provider: Percy Queen [address], [place], [place], [address]. tel:[phone] OFFICE/OUTPA TIENT VISIT, [facility], [address], [place], [place], [address], [place] tel:[phone] [facility] HTN (chief complaint) DM (chief complaint) abd pain1 (chief complaint) back pain1 (chief complaint) Essential (primary) hypertensionType 2 diabetes mellitus with diabetic nephropathyLiver diseaseChronic pain syndromeRestless legs syndrome 9 Lay[address], [place], [place], [address] , [place]. tel:[phone] Referring Provider: Percy Queen [address], [place], [place], [address]. tel:[phone] [facility], [address], [place], [place], [address], [place] tel:[phone] [facility] No Information 9 Lay[address], [place], [place], [address] , [place]. tel:[phone] OFFICE/OUTPA TIENT VISIT, [facility], [address], [place], [place], [address], [place] tel:[phone] [facility] HTN (chief complaint) abdominal 1 (chief complaint) HLP (chief complaint) chronic pain1 (chief complaint) DM (chief complaint) Essential (primary) hypertensionType 2 diabetes mellitus with diabetic nephropathyHyperlip idemiaChronic pain syndromeTobacco useLiver disease 9 Layton Chilel[address], [place], [place], [address] , [place]. tel:[phone] Referring Provider: Percy Queen [address], [place], [place], [address]. tel:[phone] OFFICE/OUTPA TIENT VISIT, [facility], [address], [place], [place], [address], [place] tel:[phone] [facility] chronic pain (chief complaint) HTN (chief complaint) Essential (primary) hypertensionType 2 diabetes mellitus with diabetic nephropathy 9 [address], [place], [place], [address] , [place]. tel:[phone] Referring Provider: Percy Queen [address], [place], [place], [address]. tel:[phone] OFFICE/OUTPA TIENT VISIT, [facility], [address], [place], [place], [address], [place] tel:[phone] [facility] HTN (chief complaint) DM (chief complaint) HLP (chief complaint) chronic pain1 (chief complaint) GI (chief complaint) sinus1 (chief complaint) HyperlipidemiaEssen tial (primary) hypertensionType 2 diabetes mellitus with diabetic nephropathyChronic pain syndromeAbdominal painAcute sinusitisOther specified disorder of bone density 9 Layton [address], [place], [place], [address] , . [phone] Referring Provider: Percy Queen [place], [place], [address]. tel:[phone] OFFICE/OUTPA TIENT VISIT, [facility], [address] [place] [place], [address], [place] tel:[phone] [facility] DM (chief complaint) LFT (chief complaint) HLP (chief complaint) folate (chief complaint) d (chief complaint) Essential (primary) hypertensionRestles s legs syndromeType 2 diabetes mellitus with diabetic nephropathyLiver diseaseHyperlipidem iaFolate deficiencyChronic pain syndrome 9 Lay[address], [facility] A, [place], [place], [address] , [place]. [phone] Referring Provider: Percy Queen [place], [place], [address]. tel:[phone] PREV VISIT, NEW, AGE 40-64 [facility], [address] [place] [address] [place], [address], [place] tel:[phone] [facility] PHysical (chief complaint) Encounter for general adult medical exam w abnormal findingsEssential (primary) hypertensionRestles s legs syndromeChronic pain syndromeGERD w/o esophagitis 9 [address] [facility] [place], [place], [address] , [place]. [phone] Referring Provider: Percy Queen [place], [place], [address]. tel:[phone] Family History Family Member Type Diagnosis Age At Onset Mother Problem (finding) colon CA 73 Sister Problem (finding) Stroke 36 Father Problem (finding) murdered Payers Payer name Insurance type Covered democrat ID James tavera(s) No Information Social History [...] done by GI Pt had benign endoscopy DM Pt has borderlin e DM Pt [...] weight bearing exercise. Pt denies any fx back pain1 Pt has chronic b ack and hip pain Pt ise seeing pain management and she will have CT of lumbar spine Pt is getting zanaflex now. Pt is off norco now. Pt denies any loss of bladder control abd pain1 Pt has severe no nbloody diarrhea with abd cramp for long time. Pt had EGD and colonoscopy. Pt is on zantac and bentyl now. Pt will do CT of abdomen and pelvis soon by GI pt denies any acute pain DM Pt only takes me tformin once per day and her BG is around 140s Pt denies any hypoglycemia HTN Pt has HTN. Pt t akes [...] sick contact Pt denies any recent travel. d Pt has low vitam in D [...] e 2 diabetes mellitus with diabetic nephropathy Follow a low sodium diet. Relate d to Essential (primary) hypertension Increase activity. Related to Es sential (primary) hypertension Weight management Related to Oth [...] Mental Status Date Cognitive Assessment Orientation - [place] ed to time, place, person, situation.
--- OUTSIDE RECORDS SUMMARY | 2025-03-13 11:41 | XMS_ITS | Data Portability ---
Author Organization [facility] Address [address] [facility] [place] [address] Care Team Providers Care Traffic Assistant Name Role Phone HANANE MIRANDA Primary Care [...] GREEN Not available Not available Not available ANY 15 2024 04:15P LANRE SALGUERO Not available Not available Not available Lab HbA1c (hemoglob in A1c), blood 2024 025 In-Office Order, Internal Use Only DO Not Attach Compendium DO Not Attach Compendium, Do Not Delete/merge, [id number] 12/19/2024 11:23:21 microalbu min/creat inine, mass ratio, urine 2024 025 ATHENAFAX [facility], [address], [address], [place], [address], 12/19/2024 11:30:47 CMP, serum or plasma 2024 025 JENNIFER [facility], [address], [place], [address], 12/20/2024 16:14:11 lipid panel, serum 2024 025 JENNIFER [facility], [address], [place], [address], 12/20/2024 16:14:10 CMP, serum or plasma 2023 024 JENNIFER [facility], [facility] [facility] [address], [address], [place], [address], 05/22/2024 22:07:39 CBC w/ auto diff 2023 024 JENNIFER [facility], [address] [address], [address], [place], [address], 05/22/2024 22:07:39 lipid panel, serum 2023 024 JENNIFER [facility], [address] [place] [address], [address], [place], [address], 05/22/2024 22:07:38 HbA1c (hemoglob in A1c), blood 2023 024 JENNIFER In-Office Order, Internal Use Only DO Not Attach Compendium DO Not Attach Compendium, Do Not Delete/merge, [id number] 05/22/2024 15:39:53 urinalysi s, dipstick 2023 024 JENNIFER In-Office Order, Internal Use Only DO Not Attach Compendium DO Not Attach Compendium, Do Not Delete/merge, [id number] 05/22/2024 14:31:29 microalbu min/creat inine, mass ratio, urine 2023 024 JENNIFER [facility], [address], [place], [address], 11/29/2023 16:20:32 CMP, serum or plasma 2023 024 JENNIFER [facility], [address], [place], [address], 11/24/2023 20:09:39 lipid panel, serum 2023 024 JENNIFER [facility], [address], [place], [address], 11/24/2023 20:09:39 HbA1c (hemoglob in A1c), blood 2023 024 JENNIFER In-Office Order, Internal Use Only DO Not Attach Compendium DO Not Attach Compendium, Do Not Delete/merge, [id number] 11/24/2023 16:23:18 Referral cardiolog ist referral 2024 025 John Paul Lagos DO, [address] [facility] [address], [place], [address], 01/09/2025 08:00:27 gastroent erologist referral - need reports from last visits 2024 025 Edinson Merritt MD, [address] [facility] [address], [place], [address], 01/09/2025 08:00:26 Procedures None recorded. Surgeries None recorded. Imaging MAMMO, screening , bilateral 2024 025 [email or web address] [facility], [address] [facility] [address], [place], [address], 01/16/2025 08:06:19 Medication Orders Ozempic 0.25 mg or 0.5 mg (2 mg/1.5 mL) subcutane ous pen injector 2024 [email or web address] [id number], [address], [place], [place], [id number], 12/19/2024 11:23:19 Farxiga 10 mg tablet 2024 025 [email or web address] [id number], [address], [place], [place], [id number], 12/19/2024 11:23:19 cetirizin e 10 mg tablet 2024 025 [facility] #[facility]13, [address], [place], [place], [id number], 12/19/2024 11:26:14 Zithromax Z-Gabriele 250 mg tablet 2023 025 [facility] #[id number], [address], [place], [place], [id number], 12/19/2024 11:07:08 Linzess 290 mcg capsule [email or web address] [facility]01743, [address], [place], [place], [id number], 05/22/2024 14:07:03 loratadin e 10 mg tablet 2023 024 [facility] #94529, [address], [place], [place], [id number], 05/22/2024 14:08:18 Patient TargetsNo targets recorded. 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 of toe of right foot Referring Physician: General Amy Green, Encounter Date: 03/13/2025 Results Created Date Observation Date Name Description Value Unit Range Abnormal Flag Note LastModifiedBy Organization Detail LastModifiedTime 11/24/19 24 11/24/2023 LIPID PANEL cholesterol, total 160 mg/dL 100-19 9 Not Available [facility] [address] [place] [address], [address], 11/24/2023 20:09:39 11/24/19 24 11/24/2023 LIPID PANEL triglyceride s 98 mg/dL 0-149 Not Available [facility] [address] [place] [address], [address], 11/24/2023 20:09:39 11/24/19 24 11/24/2023 LIPID PANEL HDL cholesterol 65 mg/dL 40-999 Not Available [facility] [address] [place] [address], [address], 11/24/2023 20:09:39 11/24/19 24 11/24/2023 LIPID PANEL VLDL cholesterol olegario 20 mg/dL 5-40 Not Available [facility] [address] [place] [address], [address], 11/24/2023 20:09:39 11/24/19 24 11/24/2023 LIPID PANEL LDL chol calc (nih) 89 mg/dL 0-99 Not Available [facility] [address] [place] [address], [address], 11/24/2023 20:09:39 11/24/19 24 11/24/2023 COMP. METAB OLIC PANEL (14) glucose 121 mg/dL 70-99 above high normal Not Available [facility] [address] [place] [address], [address], 11/24/2023 20:09:39 11/24/19 24 11/24/2023 COMP. METAB OLIC PANEL (14) BUN 12 mg/dL 6-24 Not Available [facility] [address] [place] [address], [address], 11/24/2023 20:09:39 11/24/19 24 11/24/2023 COMP. METAB OLIC PANEL (14) creatinine 0.64 mg/dL 0.76-1 .27 below low normal Not Available [facility] [address] [place] [address], [address], 11/24/2023 20:09:39 11/24/19 24 11/24/2023 COMP. METAB OLIC PANEL (14) eGFR 102 >=60 Units for eGFR value s are mL/mi n/1.7 3 The eGFR Calcu latio n has not been valid ated for patie nts under the age of 18. If test resul ts are displ ayed for a patie nt under the age of 18, disre gilberto that value . Not Available [facility] [address] [place] [address], [address], 11/24/2023 20:09:39 11/24/19 24 11/24/2023 COMP. METAB OLIC PANEL (14) BUN/creatini ne ratio 19 9-23 Not Available [facility] [address] [place] [address], [address], 11/24/2023 20:09:39 11/24/19 24 11/24/2023 COMP. METAB OLIC PANEL (14) sodium 141 mmol/ L 134-14 4 Not Available [facility] [address] [place] [address], [address], 11/24/2023 20:09:39 11/24/19 24 11/24/2023 COMP. METAB OLIC PANEL (14) potassium 4.7 mmol/ L 3.5-5. 2 Not Available [facility] [address] [place] [address], [address], 11/24/2023 20:09:39 11/24/19 24 11/24/2023 COMP. METAB OLIC PANEL (14) chloride 105 mmol/ L 96-106 Not Available [facility] [address] [place] [address], [address], 11/24/2023 20:09:39 11/24/19 24 11/24/2023 COMP. METAB OLIC PANEL (14) carbon dioxide, total 19 mmol/ L 20-29 below low normal Not Available [facility] [address] [place], [address], 11/24/2023 20:09:39 11/24/19 24 11/24/2023 COMP. METAB OLIC PANEL (14) calcium 9.7 mg/dL 8.7-10 .2 Not Available [facility] [address] [place], [address], 11/24/2023 20:09:39 11/24/19 24 11/24/2023 COMP. METAB OLIC PANEL (14) protein, total 6.9 g/dL 6.0-8. 5 Not Available [facility] [address] [place] [address], [address], 11/24/2023 20:09:39 11/24/19 24 11/24/2023 COMP. METAB OLIC PANEL (14) albumin 4.5 g/dL 3.8-4. 9 Not Available [facility] [address] [place], [address], 11/24/2023 20:09:39 11/24/19 24 11/24/2023 COMP. METAB OLIC PANEL (14) globulin, total 2.4 g/dL 1.5-4. 5 Not Available [facility] [address] [place] [address], [address], 11/24/2023 20:09:39 11/24/19 24 11/24/2023 COMP. METAB OLIC PANEL (14) A/G ratio 1.8 1.2-2. 2 Not Available [facility] [address] [place] [address], [address], 11/24/2023 20:09:39 11/24/19 24 11/24/2023 COMP. METAB OLIC PANEL (14) bilirubin, total 0.4 mg/dL 0.0-1. 2 Not Available [facility] [address] [place], [address], 11/24/2023 20:09:39 11/24/19 24 11/24/2023 COMP. METAB OLIC PANEL (14) alkaline phosphatase 102 IU/L 44-121 Not Available [facility] Department [address] [place], [address], 11/24/2023 20:09:39 11/24/19 24 11/24/2023 COMP. METAB OLIC PANEL (14) AST (SGOT) 17 IU/L 0-40 Not Available [facility] Department [address] [place] [address], [address], 11/24/2023 20:09:39 11/24/19 24 11/24/2023 COMP. METAB OLIC PANEL (14) ALT (SGPT) 11 IU/L 0-32 Not Available [facility] [address] [place] [address], [address], 11/24/2023 20:09:39 11/24/19 24 11/24/2023 HbA1c (hemo globi n A1c), blood HbA1c 5.9 Not Available In-Office Order Internal Use Only DO Not Attach Compendium DO Not Attach Compendium, Do Not Delete/merge, [id number] 11/24/2023 14:57:19 05/22/20 24 05/22/2024 LIPID PANEL cholesterol, total 149 mg/dL 100-19 9 Not Available [facility] [address] [place], [address], 05/22/2024 22:07:38 05/22/20 24 05/22/2024 LIPID PANEL triglyceride s 94 mg/dL 0-149 Not Available [facility] [address] [place], [address], 05/22/2024 22:07:38 05/22/20 24 05/22/2024 LIPID PANEL HDL cholesterol 66 mg/dL 40-999 Not Available [facility] [address] [place] [address], [address], 05/22/2024 22:07:38 05/22/20 24 05/22/2024 LIPID PANEL VLDL cholesterol olegario 19 mg/dL 5-40 Not Available [facility] [address] [place] [address], [address], 05/22/2024 22:07:38 05/22/20 24 05/22/2024 LIPID PANEL LDL chol calc (nih) 78 mg/dL 0-99 Not Available [facility] [address] [place] [address], [address], 05/22/2024 22:07:38 05/22/20 24 05/22/2024 COMP. METAB OLIC PANEL (14) glucose 113 mg/dL 70-99 above high normal Not Available [facility] [address] [place] [address], [address], 05/22/2024 22:07:39 05/22/20 24 05/22/2024 COMP. METAB OLIC PANEL (14) BUN 14 mg/dL 8-27 Not Available [facility] [address] [place] [address], [address], 05/22/2024 22:07:39 05/22/20 24 05/22/2024 COMP. METAB OLIC PANEL (14) creatinine 0.50 mg/dL 0.76-1 .27 below low normal Not Available [facility] [address] [place] [address], [address], 05/22/2024 22:07:39 05/22/20 24 05/22/2024 COMP. METAB OLIC PANEL (14) eGFR 107 >=60 Units for eGFR value s are mL/mi n/1.7 3 The eGFR Calcu latio n has not been valid ated for patie nts under the age of 18. If test resul ts are displ ayed for a patie nt under the age of 18, disre gilberto that value . Not Available [facility] [address] [place] [address], [address], 05/22/2024 22:07:39 05/22/20 24 05/22/2024 COMP. METAB OLIC PANEL (14) BUN/creatini ne ratio 29 10-28 above high normal Not Available [facility] [address] [place] [address], [address], 05/22/2024 22:07:39 05/22/20 24 05/22/2024 COMP. METAB OLIC PANEL (14) sodium 138 mmol/ L 134-14 4 Not Available [facility] [address] [place] [address], 797[address], 05/22/2024 22:07:39 05/22/20 24 05/22/2024 COMP. METAB OLIC PANEL (14) potassium 3.7 mmol/ L 3.5-5. 2 Not Available [facility] [address] [place] [address], 150[address], 05/22/2024 22:07:39 05/22/20 24 05/22/2024 COMP. METAB OLIC PANEL (14) chloride 100 mmol/ L 96-106 Not Available [facility] [address] [place] [address], 287[address], 05/22/2024 22:07:39 05/22/20 24 05/22/2024 COMP. METAB OLIC PANEL (14) carbon dioxide, total 27 mmol/ L 20-29 Not Available [facility] [address] [place] [address], 767[address], 05/22/2024 22:07:39 05/22/20 24 05/22/2024 COMP. METAB OLIC PANEL (14) calcium 9.6 mg/dL 8.7-10 .3 Not Available [facility] [address] [place] [address], 218[address], 05/22/2024 22:07:39 05/22/20 24 05/22/2024 COMP. METAB OLIC PANEL (14) protein, total 6.9 g/dL 6.0-8. 5 Not Available [facility] [address] [place], [address], 05/22/2024 22:07:39 05/22/20 24 05/22/2024 COMP. METAB OLIC PANEL (14) albumin 4.5 g/dL 3.8-4. 9 Not Available [facility] [address] [place], [address], 05/22/2024 22:07:39 05/22/20 24 05/22/2024 COMP. METAB OLIC PANEL (14) globulin, total 2.4 g/dL 1.5-4. 5 Not Available [facility] [address] [place], [address], 05/22/2024 22:07:39 05/22/20 24 05/22/2024 COMP. METAB OLIC PANEL (14) A/G ratio 2.0 1.2-2. 2 Not Available [facility] [address] [place], [address], 05/22/2024 22:07:39 05/22/20 24 05/22/2024 COMP. METAB OLIC PANEL (14) bilirubin, total 0.6 mg/dL 0.0-1. 2 Not Available [facility] [address] [place] [address], 12[address], 05/22/2024 22:07:39 05/22/20 24 05/22/2024 COMP. METAB OLIC PANEL (14) alkaline phosphatase 96 IU/L 44-121 Not Available [facility] [address] [place], [address], 05/22/2024 22:07:39 05/22/20 24 05/22/2024 COMP. METAB OLIC PANEL (14) AST (SGOT) 14 IU/L 0-40 Not Available [facility] [address] [place], [address], 05/22/2024 22:07:39 05/22/20 24 05/22/2024 COMP. METAB OLIC PANEL (14) ALT (SGPT) 8 IU/L 0-32 Not Available [facility] [address] [place], [address], 05/22/2024 22:07:39 05/22/20 24 05/22/2024 CBC WITH DIFFE RENTI AL/PL ATELE T WBC 7.9 x10e3 /uL 3.4-10 .8 Not Available [facility] [address] [place], [address], 05/22/2024 22:07:39 05/22/20 24 05/22/2024 CBC WITH DIFFE RENTI AL/PL ATELE T RBC 5.53 x10e6 /uL 3.77-5 .28 above high normal Not Available [facility] [address] [place], [address], 05/22/2024 22:07:39 05/22/20 24 05/22/2024 CBC WITH DIFFE RENTI AL/PL ATELE T hemoglobin 15.8 g/dL 11.1-1 5.9 Not Available [facility] [address] [place], [address], 05/22/2024 22:07:39 05/22/20 24 05/22/2024 CBC WITH DIFFE RENTI AL/PL ATELE T hematocrit 48.9 % 34.0-4 6.6 above high normal Not Available [facility] [address] [place], [address], 05/22/2024 22:07:39 05/22/20 24 05/22/2024 CBC WITH DIFFE RENTI AL/PL ATELE T MCV 88 fL 79-97 Not Available [facility] [address] [place], [address], 05/22/2024 22:07:39 05/22/20 24 05/22/2024 CBC WITH DIFFE RENTI AL/PL ATELE T MCH 28.6 pg 26.6-3 3.0 Not Available [facility] [address] [place], [address], 05/22/2024 22:07:39 05/22/20 24 05/22/2024 CBC WITH DIFFE RENTI AL/PL ATELE T MCHC 32.3 g/dL 31.5-3 5.7 Not Available [facility] [address] [place], [address], 05/22/2024 22:07:39 05/22/20 24 05/22/2024 CBC WITH DIFFE RENTI AL/PL ATELE T RDW 13.6 % 11.5-1 4.5 Not Available [facility] [address] [place], [address], 05/22/2024 22:07:39 05/22/20 24 05/22/2024 CBC WITH DIFFE RENTI AL/PL ATELE T platelets 367 x10e3 /uL 150-45 0 Not Available [facility] [address] [place], [address], 05/22/2024 22:07:39 05/22/20 24 05/22/2024 CBC WITH DIFFE RENTI AL/PL ATELE T neutrophils 68 % notest b. Not Available [facility] [address] [place], [address], 05/22/2024 22:07:39 05/22/20 24 05/22/2024 CBC WITH DIFFE RENTI AL/PL ATELE T lymphs 24 % notest b. Not Available [facility] [address] [place], [address], 05/22/2024 22:07:39 05/22/20 24 05/22/2024 CBC WITH DIFFE RENTI AL/PL ATELE T monocytes 6 % notest b. Not Available [facility] [address] [place], [address], 05/22/2024 22:07:39 05/22/20 24 05/22/2024 CBC WITH DIFFE RENTI AL/PL ATELE T eos 1 % notest b. Not Available [facility] [address] [place], [address], 05/22/2024 22:07:39 05/22/20 24 05/22/2024 CBC WITH DIFFE RENTI AL/PL ATELE T basos 1 % notest b. Not Available [facility] [address] [place], [address], 05/22/2024 22:07:39 05/22/20 24 05/22/2024 CBC WITH DIFFE RENTI AL/PL ATELE T neutrophils (absolute) 5.3 x10e3 /uL 1.4-7. 0 Not Available [facility] [address] [place], [address], 05/22/2024 22:07:39 05/22/20 24 05/22/2024 CBC WITH DIFFE RENTI AL/PL ATELE T lymphs (absolute) 1.9 x10e3 /uL 0.7-3. 1 Not Available [facility] [address] [place], [address], 05/22/2024 22:07:39 05/22/20 24 05/22/2024 CBC WITH DIFFE RENTI AL/PL ATELE T monocytes(ab solute) 0.5 x10e3 /uL 0.1-0. 9 Not Available [facility] [address] [place], [address], 05/22/2024 22:07:39 05/22/20 24 05/22/2024 CBC WITH DIFFE RENTI AL/PL ATELE T eos (absolute) 0.1 x10e3 /uL 0.0-0. 4 Not Available [facility] [address] [place], [address], 05/22/2024 22:07:39 05/22/20 24 05/22/2024 CBC WITH DIFFE RENTI AL/PL ATELE T baso (absolute) 0.1 x10e3 /uL 0.0-0. 2 Not Available [facility] [address] [place], [address], 05/22/2024 22:07:39 05/22/20 24 05/22/2024 CBC WITH DIFFE RENTI AL/PL ATELE T immature granulocytes 0.1 % notest b. Not Available [facility] [address] [place], [address], 05/22/2024 22:07:39 05/22/20 24 05/22/2024 CBC WITH DIFFE RENTI AL/PL ATELE T immature grans (abs) 0.0 x10e3 /uL 0.0-0. 1 Not Available [facility] [address] [place], [address], 05/22/2024 22:07:39 05/22/20 24 05/22/2024 CBC WITH DIFFE RENTI AL/PL ATELE T NRBC 0 % 0-0 Not Available [facility] [address] [place], [address], 05/22/2024 22:07:39 05/22/20 24 05/22/2024 urina lysis , dipst ick Leukocytes Negati ve Not Available In-Office Order Internal Use Only DO Not Attach Compendium DO Not Attach Compendium, Do Not Delete/merge, [id number] 05/22/2024 14:17:49 05/22/20 24 05/22/2024 urina lysis , dipst ick Nitrite negati ve Not Available In-Office Order Internal Use Only DO Not Attach Compendium DO Not Attach Compendium, Do Not Delete/merge, [id number] 05/22/2024 14:17:49 05/22/20 24 05/22/2024 urina lysis [...] 05/22/2024 urina lysis , dipst ick Specific [place] 1.015 Not Available In-Off ice Order Internal [...] DO Not Attach Compendium, Do Not Delete/merge, [id number] 05/22/2024 14:17:49 05/22/20 24 05/22/2024 urina lysis , dipst ick Color Dark Yellow Not Available In-Office Order Internal Use Only DO Not Attach Compendium DO Not Attach Compendium, Do Not Delete/merge, [id number] 05/22/2024 14:17:49 05/22/20 24 05/22/2024 HbA1c (hemo globi n A1c), blood HbA1c 5.7 Not Available In-Office Order Internal Use Only DO Not Attach Compendium DO Not Attach Compendium, Do Not Delete/merge, [id number] 05/22/2024 14:17:06 12/20/19 25 12/20/2024 LIPID PANEL cholesterol, total 174 mg/dL 100-19 9 Not Available [facility] ([facility]) [address] [place], [address], 12/20/2024 16:14:10 12/20/19 25 12/20/2024 LIPID PANEL triglyceride s 168 mg/dL 0-149 above high normal Not Available [facility] ([facility]) [address] [facility], [place], [address], 12/20/2024 16:14:10 12/20/19 25 12/20/2024 LIPID PANEL HDL cholesterol 72 mg/dL >39 Not Available [facility] ([facility]) [address] [facility], [place], [address], 12/20/2024 16:14:10 12/20/19 25 12/20/2024 LIPID PANEL VLDL cholesterol olegario 28 mg/dL 5-40 Not Available [facility] ([facility]) [address] [facility], [place], [address], 12/20/2024 16:14:10 12/20/19 25 12/20/2024 LIPID PANEL LDL chol calc ([facility]) 74 mg/dL 0-99 Not Available [facility] ([facility]) [address] [place], [address], 12/20/2024 16:14:10 12/20/19 25 12/20/2024 COMP. METAB OLIC PANEL (14) glucose 334 mg/dL 70-99 above high normal Not Available [facility] ([facility]) [address] [place], [address], 12/20/2024 16:14:11 12/20/19 25 12/20/2024 COMP. METAB OLIC PANEL (14) BUN 14 mg/dL 8-27 Not Available [facility] ([facility]) [address] [place], [address], 12/20/2024 16:14:11 12/20/19 25 12/20/2024 COMP. METAB OLIC PANEL (14) creatinine 0.59 mg/dL 0.57-1 .00 Not Available [facility] ([facility]) [address] [place], [address], 12/20/2024 16:14:11 12/20/19 25 12/20/2024 COMP. METAB OLIC PANEL (14) eGFR 103 mL/mi n/1.7 3 >59 Not Available [facility] ([facility]) [address] [place], [address], 12/20/2024 16:14:11 12/20/19 25 12/20/2024 COMP. METAB OLIC PANEL (14) BUN/creatini ne ratio 24 12-28 Not Available [facility] ([facility]) [address] [place], [address], 12/20/2024 16:14:11 12/20/19 25 12/20/2024 COMP. METAB OLIC PANEL (14) sodium 141 mmol/ L 134-14 4 Not Available [facility] ([facility]) [address] [place], [address], 12/20/2024 16:14:11 12/20/19 25 12/20/2024 COMP. METAB OLIC PANEL (14) potassium 5.4 mmol/ L 3.5-5. 2 above high normal Not Available [facility] ([facility]) [address] [place], [address], 12/20/2024 16:14:11 12/20/19 25 12/20/2024 COMP. METAB OLIC PANEL (14) chloride 102 mmol/ L 96-106 Not Available [facility] ([facility]) [address] [facility] [place], [address], 12/20/2024 16:14:11 12/20/19 25 12/20/2024 COMP. METAB OLIC PANEL (14) carbon dioxide, total 24 mmol/ L 20-29 Not Available [facility] ([facility]) [address] [facility] [place], [address], 12/20/2024 16:14:11 12/20/19 25 12/20/2024 COMP. METAB OLIC PANEL (14) calcium 9.1 mg/dL 8.7-10 .3 Not Available [facility] ([facility]) [address] [facility] [place] [place], [address], 12/20/2024 16:14:11 12/20/19 25 12/20/2024 COMP. METAB OLIC PANEL (14) protein, total 6.3 g/dL 6.0-8. 5 Not Available [facility] ([facility]) [address] [facility] [place], [address], 12/20/2024 16:14:11 12/20/19 25 12/20/2024 COMP. METAB OLIC PANEL (14) albumin 4.0 g/dL 3.8-4. 9 Not Available [facility] ([facility]) [address] [facility] [place], [address], 12/20/2024 16:14:11 12/20/19 25 12/20/2024 COMP. METAB OLIC PANEL (14) globulin, total 2.3 g/dL 1.5-4. 5 Not Available [facility] ([facility]) [address] [place], [address], 12/20/2024 16:14:11 12/20/19 25 12/20/2024 COMP. METAB OLIC PANEL (14) bilirubin, total <0.2 mg/dL 0.0-1. 2 Not Available [facility] ([facility]) [address] [place], [address], 12/20/2024 16:14:11 12/20/19 25 12/20/2024 COMP. METAB OLIC PANEL (14) alkaline phosphatase 121 IU/L 44-121 Not Available [facility] ([facility]) [address] [facility], [place], [address], 12/20/2024 16:14:11 12/20/19 25 12/20/2024 COMP. METAB OLIC PANEL (14) AST (SGOT) 15 IU/L 0-40 Not Available [facility] ([facility]) [address] [place], [address], 12/20/2024 16:14:11 12/20/19 25 12/20/2024 COMP. METAB OLIC PANEL (14) ALT (SGPT) 14 IU/L 0-32 Not Available [facility] ([facility]) [address] [place], [address], 12/20/2024 16:14:11 12/20/19 25 12/19/2024 HbA1c (hemo globi n A1c), blood HbA1c 7.9 Not Available In-Office Order Internal Use Only DO Not Attach Compendium DO Not Attach Compendium, Do Not Delete/merge, [id number] 12/19/2024 10:52:23 03/13/20 25 03/13/2025 HbA1c (hemo globi n A1c), blood HbA1C 8.1 % Not Available In-Office Order Internal Use Only DO Not Attach Compendium DO Not Attach Compendium, Do Not Delete/merge, [id number] 03/13/2025 11:30:31 02/03/20 24 MRI, cervi olegario spine , w/o contr ast No observ ation record ed. Not Available 2023 11:30:30 Result Notes None recorded. Problems Name Problem SNOMED Code Status Onset Date Resolution Date Notes Provider Name and Address Organization Details Recorded Time Chronic obstructive pulmonary disease 84189179 Active 2019 Ang Hanks [place], [place] [facility] 0 15:33:10 Diabetes mellitus 78402998 Active 2019 Ang Hanks [place] [facility] 0 15:33:28 Hypertensiv e disorder 18756856 Active 2019 Ang Hanks [place] [facility] 0 15:33:39 Colitis 88872351 Active 2019 Ang Hanks [place] [facility] 0 15:33:48 Irritable bowel syndrome 01125155 Active 2019 Ang Hanks [place] [facility] 0 15:33:53 Diverticuli tis 865141859 Active 2019 Ang Hanks [place] [facility] 0 15:33:57 Osteoporosi s 68031295 Active 2019 Ang Hanks [place] [facility] 0 15:34:22 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 LANRE GREEN Attn: Roberto Carlos g,[address] [facility], [place], [address], [place] [facility] 2 09:27:58 Hiatal hernia 91408840 Active 2021 LANRE GREEN Attn: Roberto Carlos g,[address] [facility], [place], [address], [place] [facility] 2 09:28:22 Osteoarthri tis of left hip joint 2874771816571 08 Active 2021 LANRE GREEN Attn: Roberto Carlos crenshaw,[address] [facility], [place], [address], [place] [facility] 2 09:34:02 Pain of right shoulder joint 4644794412137 9100 Active 2022 LANRE GREEN Attn: Roberto Carlos crenshaw,[address] [facility], [place], [address], [place] [facility] 3 15:34:04 Overweight 211467533 Active 2022 LANRE GREEN Attn: Roberto Carlos crenshaw,[address] [facility], [place], [address], [place] [facility] 3 09:00:12 History of surgery 933417413 Active 2022 LANRE GREEN Attn: Roberto Carlos crenshaw,[address] [place], [address], [place] [facility] 3 09:19:14 Constipatio n 50567056 Active 2023 LANRE GREEN Attn: Roberto Carlos crenshaw,[address] [place], [address], [place] [facility] 4 17:11:49 Problem Notes None recorded. Procedures Surgical History Date Name Laterality Status Provider Name and Address Organization Details Recorded Time 08/18/20 23 panniculectomy completed LANRE GREEN Attn: Accounting,[address] [place], [address], [place] [facility] 09/13/2023 09:19:36 10/11/19 20 Date of Last Mammogram completed Consuelo Real [place] [facility] 01/13/2022 16:26:08 10/11/19 20 Date of Last Pap Smear completed Consuelo Real [place] [facility] 01/13/2022 16:26:11 delivery completed Ang mendoza [place] [facility] 12/05/2019 15:39:41 delivery completed Ang mendoza [place] [facility] 12/05/2019 15:39:42 delivery completed Ang mendoza [place] [facility] 12/05/2019 15:39:42 delivery completed Ang mendoza [place] [facility] 12/05/2019 15:39:43 operation on hip joint completed LANRE GREEN Attn: Accounting,[address] [facility], [place], [address], [facility] - [facility] 01/14/2022 09:34:33 Imaging Results None recorded. Procedure Notes None recorded. Medical Equipment None Reported. Allergies Allergen ID Allergen Name Allergen Category Reaction Reaction Severity Criticality Documentation Date Start Date Code Code System Note Provider Name and Address Organization Details Recorded Time 706815 Product containin g penicilli n (product) medicatio n Not available Not available Not available 12/05/2019 56601 8001 SNOMED Ang Hanks [place] null, [place] [facility] 0 15:36:48 Medications Name Sig Start Date Stop Date Status Note LastModified by Organization Details LastModified Time senna s 8.6-50mg tablets TAKE 1 TABLET BY MOUTH EVERY DAY 02/13 completed Not Available Not Available Not Available cyclobenza glory 10 mg tablet TAKE 1 TABLET BY MOUTH AT BEDTIME NEEDED active Not Available Not Available No t Available nateglinid e 120 mg tablet TAKE 1 TABLET BY MOUTH THREE TIMES DAILY BEFORE MEALS 09/09 completed Not Available Not Available Not Available doxycyclin e hyclate 100 mg capsule TAKE 1 CAPSULE BY MOUTH TWICE DAILY active Not Available Not Available No t Available atorvastat in 20 mg tablet TAKE [...] Available Not Available Not Available metronidaz ole 500 mg tablet TAKE 1 TABLET BY MOUTH EVERY 8 HOURS FOR 7 DAYS active Not Available Not Available No t Available hydrocodon e 10 mg-acetami nophen 325 [...] completed Not Available Not Available Not Available Farxiga 10 mg tablet TAKE 1 TABLET BY MOUTH EVERY DAY 2024 active Not Available Not Available Not Avai lable Trulicity 1.5 mg/0.5 mL subcutaneo us pen [...] 2024 active Not Available Not Available Not Jamar jacobs Dexcom G6 Transmitte r device 2022 active [...] Updated DateTime 4 167.64 cm 22.3 kg/m2 02776.7 5 g 98 /min 100 % 100 % 123 mm[Hg] 87 mm[Hg] Consuelo Real MA [facility] 4 14:44:11 Date Recorded Systolic blood pressure Diastolic blood pressure Provider Name and Address Organization Details Last Updated DateTime 12/19/2024 128 mm[Hg] 88 mm[Hg] LANRE GREEN Attn: Accounting,[address] [place], [address] 12/19/2024 11:27:52 Date Recorded Body height Body mass index (BMI) Body weight Heart rate Oxygen saturation Oxygen saturation in Arterial blood by Pulse oximetry Provider Name and Address Organization Details Last Updated DateTime 5 167.64 cm 24.5 kg/m2 56074.2 5 g 86 /min 98 % 98 % Consuelo Real MA [facility] 5 10:36:46 Date Recorded Body height Body mass index (BMI) Body weight Respiratory rate Oxygen saturation Oxygen saturation in Arterial blood by Pulse oximetry Heart rate Systolic blood pressure Diastolic blood pressure Provider Name and Address Organization Details Last Updated DateTime 4 167.64 cm 21.1 kg/m2 70942.6 g 16 /min 99 % 99 % 82 /min 116 mm[Hg] 70 mm[Hg] Milly Barron MA [facility] 4 11:52:01 Date Recorded Body height Body mass index (BMI) Body weight Heart rate Oxygen saturation Oxygen saturation in Arterial blood by Pulse oximetry Systolic blood pressure Diastolic blood pressure Provider Name and Address Organization Details Last Updated DateTime 5 167.64 cm 25 kg/m2 90138.8 2 g 83 /min 97 % 97 % 130 mm[Hg] 79 mm[Hg] Consuelo Real MA [facility] 5 11:26:31 Date Recorded Body height Heart rate Oxygen saturation Oxygen saturation in Arterial blood by Pulse oximetry Body mass index (BMI) Body weight Systolic blood pressure Diastolic blood pressure Provider Name and Address Organization Details Last Updated DateTime 4 167.64 cm 93 /min 97 % 97 % 18.9 kg/m2 93601.3 1 g 106 mm[Hg] 71 mm[Hg] Consuelo Real MA [facility] 4 14:01:00 Social History Question Answer Notes LastModified by Organizat ion Details LastModified Time Tobacco Smoking Status Former Smoker HERIBERTO Junior, [facility] 12/05/2019 15:38:20 What Is Your Level Of Caffeine Consumption? [...] You Following? REGULAR Information not available 12/05/2019 Hard Of Hearing Or Deaf In One Or Both Ears? No Information not available 12/05/2019 Legally Blind In One Or Both Eyes? No Information no t available 12/05/2019 Marital Status Informatio n not available 12/05/2019 What Was The Date Of Your Most Recent Tobacco Screening? 03/13/2025 Information not available 03/13/2025 What Is Your Current Pack Years? 30ormorepack years Information not available 09/09/2023 Do You Have Smoke And Carbon Monoxide Detectors In Your Home? Yes Information not available 01/21/2022 At What Age Did You Start Smoking Tobacco? 11 Information not available 09/09/2023 Are You Passively Exposed To Smoke? Yes Information no t available 01/21/2022 How Much Tobacco Do You Smoke? 1 PPW Quit 2009 Information not available 09/09/2023 General Stress Level Medium Information not available 08/22/2020 Has Tobacco Cessation Counseling Been Provided? Yes Information not available 03/13/2025 On What Date Was Tobacco Cessation Counseling Provided? 03/13/2025 Information not available 03/13/2025 How Many Years Have You Smoked Tobacco? 38 [email or web address] Information not available 01/24/2020 Sex: Female Functional Status Question Answer Note LastModified by Organizat ion Details LastModified Time What is your level of alcohol consumption? Occasional Information not available 01/21/2022 Do you or have you ever used smokeless tobacco? Never used smokeless tobacco Information not available 12/05/2019 Do you or have you ever used e-cigarettes or vape? Never used electronic cigarettes Information not available 12/05/2019 What is your exercise level? Moderate Information [...] High Blood Pressure N Atrial Fibrillation N Kidney or Bladder Problems N Thyroid Problems N GI Problems Y Depression N COPD N Blood Clots N Skin Problems N Anemia N Heart Attack ([place]) N Anxiety Disorder N Diabetes Y Muscle, Joint, or Bone Problems N Seizures/Epilepsy [...] Hep A, adult 06/05/2013 completed HERIBERTO Brock [place] [facility] 02/14/2024 11:52:46 Hep A, adult 08/18/2017 completed HERIBERTO Brock [place] [facility] 02/14/2024 11:52:46 Tdap 01/03/2025 completed Not Available [facility] 03/13/[facility]25 11:21:31 Past Encounters Encounter ID Performer Location Encounter Start Date Encounter Closed Date Diagnosis/Indication Diagnosis SNOMED-CT Code Diagnosis ICD10 Code Diagnosis Note [id number] LANRE GREEN [facility] [address] [place] [address] 12/05/2019 15:20:14 12/08/2019 09:07:31 Essential hypertension 38829567 I10 BP 160/80, not WNL. She has [...] goal for BP is <140/90 Diabetes mellitus 403089 09 E11.9 patient last A1C 6.2, well [...] nect visit Spasm of back muscles 20 4704636 M62.830 patient has spasm of back and low back pain. sees pain management for vicodin. She takes half a pill at night to be able to sleep as she is in pain. Adult [facility] th examination 538789356 Z00.01 Patient presents to [facility]. She sees pain management for back pain/hip pain. She has had right hip replacemen t and recently got hurt at work, [employer]. She sees pain management . Taking half vicodin at night time as pain keeps her up. UTD on colonoscop y and cleared for 10 years. She has pap appointmen t this wednesday. send records. - discussed diet and excercise- cutting out soda- f/u for lab work- she no longer smokes, 9 years. Screening mammography 24 041154 Z12.31 [id number] LANRE GREEN [facility] [address] [place] [address] 12/13/2019 16:31:16 12/14/2019 12:15:39 Essential hypertension 88659264 I10 BP 132/78, WNL. drug regiment: irbesartan 150 mgchecking labs at next visit as patient is not fasting Advised to check BP regularly with a goal of <140/90, if BP consistent ly >140/90, advised to contact clinic Discussed DASH diet Advised 30 minutes of exercise minimum daily Advised tobacco, alcohol, caffeine all increase BP Advised goal for BP is <140/90 Diabetes mellitus 8481152110 06 E11.9 patient last A1C 6.2, well controlled [...] alb//cr at nect visit Pain in pelvis 98958164 R10.2 Patient hvaing suprapubic pain mostly on left side. Her last doctor told her to do US but she lost insurance. - trasvagina l US given Fatigue 79855485 R53.83 patient has low energy, feels tired despite sleeping Chronic back pain 828954 002 G89.29 Patient has had hip surgery and has history of chronic back pain. Was seeing Dr Osborn but lost insurance and needs new referral. [id number] LANRE GREEN [facility] [address] [place] [address] 01/24/2020 14:59:44 01/31/2020 14:33:56 Essential hypertension 34149596 I10 BP 132/78, WNL. drug regiment: irbesartan 75mg and HCZ 12.5- will continue this to avoid hyperkalem ia again.[facility] labs at next visit as patient is not fasting Advised to check BP regularly with a goal of <140/90, if BP consistent ly >140/90, advised to contact clinic Discussed DASH diet Advised 30 minutes of exercise minimum daily Advised tobacco, alcohol, caffeine all increase BP Advised goal for BP is <140/90 Diabetes mellitus 314412 E11.9 patient last A1C 6.2, well controlled [...] at next visit- alb//cr at nect visit [id number] LANRE GREEN [facility] [address] [place] [address] 03/27/2020 09:41:06 03/28/2020 13:21:39 Wheezing 58283624 R06.2 Essential hypertension 32354930 I10 BP 132/78, WNL. drug regiment: irbesartan 75mg and HCZ 12.5- will continue this to avoid hyperkalem ia again.[facility] labs at next visit as patient is not fasting Advised to check BP regularly with a goal of <140/90, if BP consistent ly >140/90, advised to contact clinic Discussed DASH diet Advised 30 minutes of exercise minimum daily Advised tobacco, alcohol, caffeine all increase BP Advised goal for BP is <140/90 Diabetes mellitus 046061 09 E11.9 patient last A1C 9.6, NWNL. [...] next visit- alb//cr at nect visit Hyperkalemia 87954197 E8 7.5 recheck in 1 weeks. Advised on low potassium diet. may change BP medication if still hyperkalem ic. Go to ER if develops CP, SOB, PALPITATIO NS. Osteoarthritis of hip 23 4091290 M16.9 patient has hip degenerati on. She has had MRI nad CT within last year. I need copy of results.Sh baudilio had ortho, Dr Flores but she cannot go back to see him as she lost insurance. SHe was told she needs hip replaced. She is in pain management . [id number] LANRE GREEN [facility] [address] [place] [address] 06/05/2020 16:36:52 06/07/2020 05:47:05 Diarrhea 26276124 R19.7 patient with pmhx of diverticul osis [...] gone. Avoid chewing gum that contains sorbitol. [id number] LANRE GREEN [facility] [address] [place] [address] 08/22/2020 16:55:57 08/27/2020 15:07:51 Diabetes mellitus 09931073 E11.9 patient A1C improved to 8.6 from [...] visit- alb//cr at next visit Acute sinusitis 56507533 J01.90 Patient with allergy to penicillin was given zpak for sinusitis at [facility] . Patient is feeling somewhat better. Z-gabriele will last 10 days in her system and if not better by end of 10days then we may add another antibiotic . On exam she had tender maxillary sinus L>R. ear clear, afebrile. [id number] LANRE GREEN [facility] [address] [place] [address] 08/23/2020 14:19:27 08/26/2020 10:31:23 [id number] LANRE GREEN [facility] [address] [place] [address] 09/20/2020 08:37:54 09/24/2020 15:15:18 Diabetes mellitus 98994071 E11.9 patient A1C improved to 8.6 from [...] at next visit Seasonal a llergic rhinitis 317101027 J30.2 refill [id number] LANRE GREEN [facility] [address] [place] [address] 02/18/2021 09:06:49 02/18/2021 16:21:10 Choking due to food in larynx 06078751 T17.320A 2 weeks of feeling like food is not digesting and comes up unchewed. She chokes on it. sometimes chokes on fluids. This has happened before and requiring her to have esophagus stretched twice. Last EGD done 2 years ago in [place]. Will sign record release. She wants a [...] foods -such as meats - f/u prn [id number] LANRE GREEN [facility] [address] [place] [address] 03/26/2021 10:28:50 03/27/2021 11:49:38 Diabetes mellitus 36379386 E11.9 sugars elevated at home. not taking [...] next visit- alb//cr at next visit Nausea 345951108 R11.0 Patient with hx of gerd and IBS presents with nausea and vomiting x 1 day. sugars found to be elevated today. Will monitor through day. She has GI apt coming up.She is staying hydrated [id number] LANRE GREEN [facility] [address] [place] [address] 03/27/2021 12:39:18 03/28/2021 14:38:27 [id number] LANRE GREEN [facility] [address] [facility] [place] [address] 07/02/2021 16:57:49 07/05/2021 22:27:26 Diabetes mellitus 67806468 E11.9 sugars elevated at home. not taking [...] alb//cr at next visit Pre-surger y evaluation 842939910 Z01.818 Patient undergoing surgery July 22. needs sugars controlled . her cmp done at [facility] shows slightly decreased sodium. we are stopping hxz as faxiga acts as diuretic and will monitor her BP. stressed importance of sugar control. Low back pain 648775669 M54.5 Patient with chronic back pain for many years and seeing pin managent. She can no longer tolerate pain and excess abdominal skin from previous weight loss is causing her to more back pain as weight pulls her forward some. Excess ski n of abdominal wall 848477873 R23.8 Patient has an extra 15-20lb of [...] due to excess skin in abdominal area [id number] LANRE GREEN [facility] [address] [place] [address] 07/11/2021 10:00:49 07/23/2021 06:58:24 [id number] LANRE GREEN [facility] [address] [facility] [place] [address] 08/11/2021 16:05:32 08/13/2021 13:10:20 Diabetes mellitus 62898860 E11.9 BP 132/78, WNL. drug regiment: irbesartan 75mg and HCZ 12.5- will continue this to avoid hyperkalem ia again.[facility] labs at next visit as patient is not fasting Advised to check BP regularly with a goal of <140/90, if BP consistent ly >140/90, advised to contact clinic Discussed DASH diet Advised 30 minutes of exercise minimum daily Advised tobacco, alcohol, caffeine all increase BP Advised goal for BP is <140/90 [id number] LANRE GREEN [facility] [address] [place] [address] 01/13/2022 16:04:56 01/15/2022 07:05:49 Hiatal hernia 66235877 K44.9 Patient has been following Dr Merritt. Needs referral to undergo EGD. She takes omeprazole and famotidine . - avoid eating late (she snack at midnight)- weight loss- may eat small meals through the day Diabetes mellitus 433241 09 E11.9 medication s: victoza 1.8 mg qd, farxiga 10mg foot exam: next visitppsv2 3: she was told she is allergicst atin: atorvastat in 20mg, non-compla int Leg length inequality 45 751070 M21.70 Screening for malignant neoplasm of respiratory tract 479364771 Z12.2 patient smoked 1ppd for 38 years. No longer smoking. Overweight 804826729 E66 .3 Osteoarthr itis of left hip joint 7013133783 [address] Martin Singh from [facility] performed left hip replacemen t on 07/2021. Her insurance canceled her PT and needs new referral. she has weakness to b/l legs at the hip. she has leg length discrepanc y. pain management give her hydrocodoe s and started cymbalta. she has not started cymbalta. [id number] LANRE GREEN [facility] [address] [place] [address] 01/21/2022 15:43:21 01/22/2022 11:57:18 Diabetes mellitus 54745292 E11.9 A1C 8.0 01/2022, 8.5 07/2021. not [...] 01/2022eye exam: given order, will schedule Osteoporosis 02245420 M8 1.0 hx of spine fractures. last dexa 23 years ago. hx of b/l hip replacemen t. Screening mammography 24 650583 Z12.31 last mammogram four years ago. she had biopsy on right lateral breast, normal tissue. Hiatal hernia 08191111 K 44.9 Dr merritt scheduled her for colonoscop y and EGD. - avoid eating late (she snack at midnight)- weight loss- may eat small meals through the day Overweight 416696888 E66 .3 Osteoarthr itis of left hip joint 0268014587 [address] M16[address] Martin Singh from [facility] performed left hip replacemen t on 07/2021. Her insurance canceled her PT and needs new referral. she has weakness to b/l legs at the hip. she has leg length discrepanc y. PT called today and she will schedule. pain management give her hydrocodoe s and started cymbalta. she has started cymbalta. [id number] LANRE GREEN [facility] [address] [place] [address] 03/17/2022 16:07:13 03/18/2022 11:09:37 Gastroesophageal reflux disease 135196758 K21.9 EGD and colonoscop y performed February [address] Merritt. normal. Diabetes mellitus 932492 09 E11.9 A1C 8.0 01/2022, 8.5 07/2021. [...] exam: given order, will schedule Essential hypertension 45841996 I10 BP 138/84, goal is to be <135/85. states it runs low when not in office. drug regiment:s he is not taking medication s at this time Advised to check BP regularly with a goal of <135/85, if BP consistent ly >140/90, advised to contact clinic Discussed DASH diet Advised 30 minutes of exercise minimum daily Advised tobacco, alcohol, caffeine all increase BP [id number] LANRE GREEN [facility] [address] [place] [address] 03/27/2022 16:40:34 03/31/2022 09:56:55 Pharyngitis 085136889 J02.9 sore throat, body aches, fatigue x 2 days. negative covid and strep throat today test today- hydrate- rest- f/u if not improving [id number] LANRE GREEN [facility] [address] [place] [address] 06/17/2022 14:50:54 06/18/2022 09:04:29 Insomnia 373854153 G47.00 take as needed Actinic keratosis 998171 007 L57.0 ak present on exam- derm for body check Hypertriglyceridemia 302 494232 E78.1 refill Postmenopausal state 764 26361 Z78.0 refill Overweight 524845873 E66 .3 [id number] LANRE GREEN [facility] [address] [place] [address] 07/01/2022 15:43:05 07/02/2022 12:39:37 Insomnia 650251001 G47.00 Discussed sleep hygiene - no tv, [...] to associate room with anxiety or work [id number] LANRE GREEN [facility] [address] [place] [address] 08/19/2022 15:50:35 08/20/2022 15:39:18 Osteoporosis 65144246 M81.0 hx of spine fractures, toe fx. last dexa 23 years ago. hx of b/l hip replacemen t. Closed fra cture of phalanx of foot 06876713 S92.912A left foot second toe fx, ortho is followingP EX: toe is suzanne taped. skin w/o bruising or swelling - continue following ortho- no current restrictio ns- f/u prn [id number] LANRE GREEN [facility] [address] [place] [address] 09/30/2022 15:51:13 10/06/2022 13:16:14 Diabetes mellitus 45844726 E11.9 A1C 8.5% 8.0 01/2022, 8.5 07/2021. [...] 01/2022eye exam: given order, will schedule Panniculitis 51068860 M7 9.3 nystain does not help every time Excess canseco niculus of abdomen 0564266411 101 E65 patient with frequent infection and OA. at least 15 lbs of excess skin and would benefit from removal due to wrosening back and hip pain. [id number] LANRE GREEN [facility] [address] [place] [address] 11/06/2022 14:08:35 11/12/2022 14:40:48 Diabetes mellitus 85136700 E11.9 A1C 8.5% 8.0 01/2022, 8.5 07/2021. [...] will schedule Excess canseco niculus of abdomen 0313922136 101 E65 patient with frequent infection and OA. at least 15 lbs of excess skin and would benefit from removal due to wrosening back and hip pain. Overweight 218745035 E66 .3 [id number] LANRE GREEN [facility] [address] [place] [address] 01/05/2023 14:53:03 01/05/2023 15:20:43 Diabetes mellitus 78570708 E11.9 A1C 7.7% ( 12/2022) 8.5% 8.0 [...] 01/2022eye exam: given order, will schedule Overweight 627930383 E66 .3 Chronic ob structive pulmonary disease 70277014 J44.9 [id number] LARNE GREEN [facility] [address] [place] [address] 02/05/2023 13:59:24 02/05/2023 15:32:35 Chronic obstructive pulmonary disease 25062957 J44.9 moderate COPD on recent pft. she states she had acute exacerbati on and exam should be repeated. went to ER and told her she had bronchitis . prednisone 50 x 7 days nad z gabriele has been completed. She feels much better today. Diabetes mellitus 784886 09 E11.9 A1C 7.7% ( 12/2022) 8.5% [...] /cr: 01/2022eye exam: given order, will schedule [id number] LANRE GREEN [facility] [address] [place] [address] 03/05/2023 15:09:59 03/05/2023 15:47:17 Diabetes mellitus 64962184 E11.9 A1C 8.8% 02/2023 7.7% ( 12/2022) [...] 01/2022eye exam: given order, will schedule Overweight 602335319 E66 .3 [id number] LANRE GREEN [facility] [address] [place] [address] 04/06/2023 15:19:25 04/06/2023 16:36:07 Diabetes mellitus 77848975 E11.9 A1C 8.3% (03/2023) 8.8% (02/2023) 7.7% [...] 5mgeye exam: given order, will schedule Overweight 084408008 E66 .3 [id number] LANRE GREEN [facility] [address] [place] [address] 05/07/2023 15:42:42 05/07/2023 16:21:48 Diabetes mellitus 19026411 E11.9 A1C 7.6% (04/2023) 8.3% (03/2023) 8.8% [...] 5mgeye exam: given order, will schedule Overweight 794660260 E66 .3 bmi 26.5 Deviated nasal septum 12 9260983 J34.2 left deviated septum Pain of ri ght shoulder joint [id number] M25.511 Torn rotator cuffhas f/u with ortho [id number] LANRE GREEN [facility] [address] [place] [address] 07/08/2023 14:51:18 07/08/2023 15:38:21 Diabetes mellitus 32730555 E11.9 A1C 7.6% (04/2023) 8.3% (03/2023) 8.8% [...] 5mgeye exam: given order, will schedule Overweight 723819500 E66 .3 bmi 25.6 Screening mammography 24 423621 Z12.31 last mammogram four years ago. she had biopsy on right lateral breast, normal tissue. Ex-smoker 8432644 Z87.89 1 [id number] LANRE GREEN [facility] [address] [place] [address] 09/09/2023 15:21:23 09/09/2023 16:08:50 Albuminuria 366932528 R80.9 repeat Diabetes mellitus 652875 09 E11.9 A1C 5.9% (08/2023) 7.6% (04/2023) [...] 5mgeye exam: 03/2023, normal History of surgery 03063 5003 Z98.890 [facility], two drains in place without infectionh as f/u wit surgeon weekly [id number] LANRE GREEN [facility] [address] [place] [address] 11/24/2023 14:37:58 11/24/2023 17:01:04 Diabetes mellitus 26247773 E11.9 A1C 5.9% (11/2023) 5.9% (08/2023) 7.6% (04/2023) 8.3% (03/2023) 8.8% (02/2023) 7.7% ( 12/2022) 8.5% 8.0 01/2022, 8.5 07/2021. medication s:atorvast atin 20mg, ozempic 2mg, farxiga 10mg foot exam: done 02/05/2023, normal overall but slightly diminished left posterior tibial pulse.ppsv 23: she was told she is allergicst atin: atorvastat in 20mg,alb/c r: 12/2022 abnormalAC Ei: lisinopril 5mgeye exam: 03/2023, normal Albuminuria 713973389 R8 0.9 repeat Allergic rhinitis 566556 04 J30.9 Sleep yvette chari disturbance 96433749 G47.9 patient wasthcing TV and eating at nightbeing kept up with R shoulder pain - sleep hygiene discussed- see neurosurge on for shoulder pain assessment - continue managing pain - sees pain management - refuses increasing duloxetine [id number] LANRE GREEN [facility] [address] [place] [address] 02/14/2024 11:44:23 02/16/2024 08:34:04 Constipation 08788382 K59.00 stop movantik as still constipate d and may be causing opioids withdrawal s?takes 2 weeks to have Jeanine try linzess Essential hypertension 77872811 I10 BP 116/70. states it runs low [...] Advised tobacco, alcohol, caffeine all increase BP [id number] Edmund Roy MD [facility] [address] [place] [address] 05/22/2024 13:52:29 05/22/2024 14:31:03 Adult health examination 457687018 Z00.01 Patient presents fo wellness visit. - discussed diet and exercise- cut back on ozempic to gain weight, A1C controlled - lab work- continue pain management for controlled medication Weight loss 40891917 R63 .4 will decrease ozempic to 1mggoal is to gain weight again towards 125-130lbs Sinusitis 96502205 J32.9 > 10 days of facial pain under eyes and between eyebrows and goopy eyes for 3 days. afebrile today but had headache from facial pain. Depression screening 171 896742 Z13.31 negativeon duloxetine 60mg [id number] Edmund Roy MD [facility] [address] [place] [address] 12/19/2024 10:28:19 12/19/2024 11:34:17 Screening mammography 64543014 Z12.31 due for mammogramb iopsy done 2019, benign Diabetes mellitus 882516 09 E11.9 A1C 7.9% (12/2024) 5.9% (11/2023) [...] normal Screening for malignant neoplasm of colon 916617286 Z12.11 family history of colon cacner mother Atypical chest pain 1025 25520 R07.89 Right to middle twice weekly-ach ing /stabbing pain lasting a couple of hours. Happens randomly usually when walkingtak es 2 aspirins every morningobt ain EKGcardiol joanna for work up due to co-morbidi ties Seasonal a llergic rhinitis 565202306 J30.2 refill Chronic ob structive pulmonary disease 40634562 J44.9 only using rescue and stopped her maintenanc euses rescue 1x per week [id number] Edmund Roy MD [facility] [address] [place] [address] 03/13/2025 11:20:13 03/13/2025 12:10:44 Diabetes mellitus 74537140 E11.9 A1C 7.9% (12/2024) 5.9% (11/2023) 5.9% [...] abnormalAC Ei: lisinopril 5mgeye exam: 03/2023, normal Atypical chest pain 1025 67065 R07.89 Right to middle twice weekly-ach ing /stabbing pain lasting a couple of hours. Happens randomly usually when walkingtak es 2 aspirins every morningobt antonion Dannaiol joanna for work up due to co-morbidi ties Positive s creening for depression on PHQ-9 (Patient Health Questionnaire 9) 9595108937 06884 Z13.31 on duloxetine 60mg Restless legs 68855126 G 25.81 bothers her the most at nightnot sleeping Ex-smoker 3231240 Z87.89 1 Chest pain 22474363 R07. 9 Right to middle twice weekly-ach ing /stabbing pain lasting a couple of hours. Happens randomly usually when walkingtak es 2 aspirins every morningobt ry marshall for work up due to co-morbidi ties Pain of to e of right foot 4432766478 13727 M79.674 two days ago toe popped up after hitting tow 2 weeks ago. Health Concerns Section Related Observation LastModified by Organization Detai ls LastModified Time None Recorded Concern Status LastModified by Organization Details LastModified Time None Recorded Advance Directives Directive None Recorded Payers Encounter Date Sequence Insurance Name Policy Number Policy [place] Covered Member ID [place]anes Member ID Guarantor Name 11/24/2023 1 [facility] ON OR AFTER 04/10/21 (MEDICAID REPLACEMENT - HMO) Marilyn Sanchez [id number] Marilyn Sanchez 02/14/2024 1 [facility] ON OR AFTER 04/10/21 (MEDICAID REPLACEMENT - HMO) Marilyn Sanchez [id number] Marilyn Sanchez 05/22/2024 1 [facility] ON OR AFTER 04/10/21 (MEDICAID REPLACEMENT - HMO) Marilyn Sanchez [id number] Marilyn Sanchez 12/19/2024 1 [place]ARE[place] Marilyn Sanchez [id number] Marilyn Sanchez 12/19/2024 2 [place] [employer] Marilyn Sanchez [id number] Marilyn Sanchez Notes Date Note Type Note Provider Name and Address Organization Details Recorded Time 11/24/2023 text/html Marilyn presents f or lab [...] have a slipped [place] back there in C3.refuses increasing duloxetine DM : 122-142 fasting. drinking coke zero and does drink tea with splenda. Pt reports runny nose with cetirizine and dc'd this medication. She is willing to trial Loratadine LANRE GREEN Attn: Accounting,[address] [facility], [place], [address], [facility] 12/04/2023 18:48:53 02/14/2024 text/html Marilyn presents f or dizziness She feels BP is getting low and sometimes gets dizziness and shakiness. She is open to stopping lisinopril. She eats one meal per day. She does still drink sodas and intake snack foods. anxiety is worse since starting movanitk, still pooping once per week. She is open to trying something else. LANRE GREEN Attn: Accounting, [address] [facility], [place], [address], [facility] 02/14/2024 17:16:28 05/22/2024 text/html here for wellnes s visit c/o of congestion and facial pain for >10 days causing daily headaches. She denies fever or chills. started with goopy eyes a few days ago. denies cp, sob, palpitations LANRE GREEN Attn: Accounting, [address] [facility], [place], [address], [facility] 05/22/2024 14:30:57 12/19/2024 text/html Marilyn IS A [...] per week. LANRE GREEN Attn: Accounting[address] [facility], [place], [address], [facility] 12/19/2024 11:28:17 OBGyn Episode Ob Episode Information Episode Created Date Number of Fetuses Patient Bloodtype Patient rh Status Prepregnancy Weight lbs Domestic Partner Domestic Partner Phone Father Name Senior Sql Database Developer Status 12/05/19 1 CLOSED Fetus Data First Name Last Name Admitted to NICU Weight (g) Sex Living Outcome Pediatric Complications Fetus ID Race Codes Race Delivery Type M [id number] Only Alek Calculation Initial Alek Date Initial [...] Domestic Partner Domestic Partner Phone Father Name Senior Sql Database Developer Status 12/05/19 1 CLOSED Fetus Data First Name Last Name Admitted to NICU Weight (g) Sex Living Outcome Pediatric Complications Fetus ID Race Codes Race Delivery Type F 10985 Only Alek Calculation Initial Alek Date Initial [...] Domestic Partner Domestic Partner Phone Father Name Senior Sql Database Developer Status 12/05/19 20 1 CLOSED Fetus Data First Name Last Name Admitted to NICU Weight (g) Sex Living Outcome Pediatric Complications Fetus ID Race Codes Race Delivery Type M Full Term 32122 Only Alek Calculation Initial Alek Date Initial [...] Domestic Partner Domestic Partner Phone Father Name Senior Sql Database Developer Status 12/05/19 20 1 CLOSED Fetus Data First Name Last Name Admitted to NICU Weight (g) Sex Living Outcome Pediatric Complications Fetus ID Race Codes Race Delivery Type M 26377 Only Alek Calculation Initial Alek Date Initial [...]
--- OUTSIDE RECORDS SUMMARY | 2025-03-13 11:41 | XMS_ITS | Clinical Summary ---
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 Gender Identity Not on file Sexual Orientation Not on file Occupation Industry Job Start Date Job End Date Not on file Not on file Not on file Not on file Plan of Treatment Health Maintenance Due Date Last Done Comments DTAP/TDAP/TD VACCINES (1 - Tdap) 02/03/1983 HPV/Cotest (21-29) 02/03/1985 CERVICAL CANCER SCREENING 02/03/1994 HPV/Cotest (30-65) 02/03/1994 PAP SMEAR 02/03/1994 COLORECTAL SCREENING 02/03/2009 Colorectal Cancer Screening 02/03/2009 FIT-DNA Q 3 years 02/03/2009 FIT/FOBT Q 1 year 02/03/2009 Flex Sig/CT Colonography Q 5 years 02/03/2009 ZOSTER VACCINE (1 of 2) 02/03/2014 BREAST CANCER SCREENING 05/31/2015 05/31/2014, 03/11 INFLUENZA VACCINE (#1) 2024 RSV VACCINE (60+ or ) (1 - 1-dose 75+ series) 02/03/2039 Procedures Procedure Name Priority Date/Time Associated Diagnosis [...] Most Recently Relevant to Health Maintenance Insurance [facility] [id number] Care Teams Harpooner Relationship Specialty Start Date End Date Jerson Alfonso MD [address] [place] [address] PCP - General Family Practice 03/11/11
--- OUTSIDE RECORDS SUMMARY | 2025-03-13 11:41 | XMS_ITS | Continuity of Care Document ---
Author Organization [facility] Address [address] [place] [address] Phone Care Team Providers Care Building Cleaning Supervisor Name Role Phone Yeyo Burciaga MD Unavailable Unavailable Advance Directives Directive Yes / No Effective Date File Name No Information Encounters Encounter Description Practice Location Reason(s) For Visit Diagnoses Date Provider Providers Copied on Encounter [facility], [address], [place], [place], [id number], tel:[phone] [facility] No Information Gualberto Orona. [address] [place], [place], [id number], [place]. tel:[phone] Referring Provider: Axel Boston, [address], [address]. tel:[phone] Family History Family Member Type Diagnosis Age At Onset No Information Payers Payer name Insurance type Covered libertarian ID Authoriza tion(s) [facility] CI [id number] Social History Type Description Quantity Date Captured [...]
--- OUTSIDE RECORDS SUMMARY | 2025-03-13 11:41 | XMS_ITS | Clinical Summary ---
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 05/26/2021 Low back pain 05/26/2021 Sensation of chest tightness 11/17/2011 Encounters Date Type Department Care Team Description 02/05/2025 1:30 PM CDT Office Visit [facility] and Sports Medicine [address] [place] [address] Martin Singh MD Chronic right shoulder pain (Primary Dx) 02/05/2025 1:23 PM CDT - 02/05/2025 11:59 PM CDT Hospital Encounter [facility] [address] [place] [address] Chronic right shoulder pain Discharge Disposition: Discharge to home or self care 01/16/2025 1:44 PM CDT - 01/16/2025 11:59 PM CDT Hospital Encounter [facility] [address] [place] [address] Left lumbar radiculopathy Discharge Disposition: Discharge to home or self care 01/16/2025 1:30 PM CDT - 01/16/2025 11:59 PM CDT Hospital Encounter [facility] [address] [place] [address] Chronic neck pain Discharge Disposition: Discharge to home or self care from Last 3 Months Surgical History Surgery [...] Asthma COPD (chronic obstructive pu lmonary disease) ([facility]) COPD History of pneumonia SEVERAL CHRISTOPHER ES LAST IN THE Migraine Cataract only one eye, no t sure which one Vertigo Diverticulitis of colon Irritable bowel syndrome History of colitis Wears glasses reading glasses GERD (gastroesophageal reflux disease) Osteoarthritis History of fracture spine DDD (degenerative disc disease), lumbar History of anxiety Type 2 diabetes mellitus ([facility]) s/p left total hip arthropla sty [...] on file 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 Gender Identity Not on file Sexual Orientation [...] 02/05/2025 1:41 PM CDT Plan of Treatment Health Maintenance Due Date Last Done Comments Cervical Cancer Screening 1965 Depression Screening 1965 Hepatitis C Screening 1965 DTaP/Tdap/Td Vaccine (1 - Tdap) 02/03/1975 Hepatitis B Screening 02/03/1982 Regular Well Visit/Exam 18-64 02/03/1982 Pneumococcal vaccine <65 (1 of 2 - PCV) 02/03/1983 Lung Cancer Screening 02/03/2014 Zoster Vaccine (1 of 2) 02/03/2014 Colon Cancer Screening-Colonoscopy 06/18/20242013 Breast Cancer Screening-Mammogram 09/27/2024 09/27/2023, 01/29/2022, 05/31/2014 Influenza Vaccine (Season Ended) 2025 Medical Devices Implanted Type Area Comptometer Operator Device Identifier Shelf Expiration Date Model / Serial / Lot Total Hip Left: Hip Implanted-2015 Implanted:11/2015 (Quantity not on file) Right: Hip [employer] [id number] 54mm Limit Hole Color Coded Hip F Offset Hemisphere Shell - [id number] Implanted:Qty: 1 on 07/22/2021 by Martin Singh MD at [facility] Left: Hip [employer] [id number] 04/03/2031 [id number] / / [id number] [employer] [id number] G7 32mm Lumen Hip F Liner Acetabular Longevity Sterile Latex Free - [id number] Implanted:Qty: 1 on 07/22/2021 by Martin Singh MD at [facility] Left: Hip [employer] [id number] 02/17/[id number] / / [id number] [employer] [id number] Echo Bi-Metric 13mm 145mm Noncollar Reduce Proximal Profile Press - [id number] Implanted:Qty: 1 on 07/22/2021 by Martin Singh MD at [facility] Left: Hip [employer] [id number] 03/13/2031 [id number] / / [id number] [employer] [id number] 32mm Modular Hip +3mm Head Femoral Biolox Delta - [id number] Implanted:Qty: 1 on 07/22/2021 by Martin Singh MD at [facility] Left: Hip [employer] [id number] 01/17/2029116 / / [id number] Procedures Procedure Name Priority Date/Time Associated Diagnosis Comments XR SHOULDER RIGHT 2 OR MORE VIEWS Schedule Routine, Read Routine (OP Routine) 02/05/2025 1:31 PM CDT Chronic right shoulder pain WA ARTHROCENTESIS ASPIR&/INJ MAJOR JT/BURSA W/O US Routine [...] 2:08 AM - Electronically signed by Samir BEYER T: Report ID: [id number] Reading Location: [id number] Procedure Note Samir Gilman MD - 02/06/2025 [...] 2:08 AM - Electronically signed by Samir BEYER T: Report ID: [id number] Reading Location: [id number] us Martin Singh MD IMG XR PROCEDURES Debbie l Result * WA ARTHROCENTESIS ASPIR&/INJ MAJOR JT/BURSA W/O US (02/05/2025 1:30 PM CDT) Narrative Martin Singh MD - 02/05/2025 1:30 PM CDT Martin Singh MD 02/07/2025 8:01 AM Large Joint (Hip, Knee, Shoulder) Injection: R glenohumeral Performed by: Martin Singh MD Authorized by: Mratin Singh MD Large Joint Injection/Aspiration: Consent Given [...] complications us Martin Singh MD IN CLINIC/BEDSIDE REALNikita ASHLIE Final Result * CT Lumbar Spine [...] arthropathy. No significant osseous spinal canal stenosis. Weym-sw-ahhikkod osseous neural foraminal narrowing portion of the [...] Damion Sneed D.O. AP: AP Report ID: [id number] Reading Location: [id number] Procedure Note Damion Sneed, DO - 01/20/2025 [...] facetarthropathy. No significant osseous spinal canal stenosis. Udlg-um-lxlhfpyg osseousneural foraminal narrowing portion of the disc/marginal [...] Damion Sneed D.O. AP: AP Report ID: [id number] Reading Location: [place] [address] Martin Singh MD IMG CT PROCEDURES Debbie [...] osseous spinal canal or neural foraminal narrowing. Mndr-ttqziod-xshh-right facet arthropathy. C3-C4: Retrolisthesis of C3 on C4 with unroofing of the disc. Superimposed posterior disc osteophyte complex and thickened ligamentum flavum. Moderate to severe osseous spinal canal stenosis. Uncovertebral spurring and facet arthropathy with moderate to severe osseous neural foraminal narrowing. C4-C5: Posterior disc osteophyte complex and thickened ligamentum flavum. Mild osseous spinal canal stenosis. Uncovertebral spurring and linio-csjmuda-gjzv-left facet arthropathy without significant osseous neural foraminal [...] Damion Sneed D.O. AP: AP Report ID: [id number] Reading Location: [place] [address] Procedure Note Damion Sneed, DO - 01/20/2025 [...] osseous spinal canal or neural foraminal narrowing. Zvad-zgjzpik-pngu-right facet arthropathy. C3-C4: Retrolisthesis of C3 on C4 with unroofing of the disc.Superimposed posterior disc osteophyte complex and thickened ligamentum flavum.Moderate to severe osseous spinal canal stenosis. Uncovertebral spurring and facet arthropathy with moderate to severe osseous neural foraminal narrowing. C4-C5: Posterior disc osteophyte complex and thickened ligamentum flavum. Mild osseous spinal canal stenosis. Uncovertebral spurring and jsvrx-saahgui-rbrb-left facet arthropathy without significant osseousneural foraminal stenosis. [...] Damion Sneed D.O. AP: AP Report ID: [id number] Reading Location: [id number] Martin Singh MD IMG CT PROCEDURES Debbie l Result * COLONOSCOPY REPORT (06/18/2014) Anatomical Region Laterality Modality Other Narrative 06/18/2014 Ordered by an unspecified provider. Historical Provider GI PROCEDURE ORDERABLES F inal Result from Last 3 Months or Most Recently Relevant to Health Maintenance Insurance [facility] MEDICARE [facility] OPEN ACCESS [facility] [place] Advance Directives For more information, please contact: [phone] * Full Code (Latest Code Status on File) Date Activated Date Inactivated Comments 07/22/2021 6:21 PM 07/24/2021 6:41 PM Care Teams Yardage Caller Relationship Specialty Start Date End Date Violetta Leyva PA PCP - General 10/28/20 Shelly Osborn MD [address] [address] Referring Physician Internal Medicine 07/08/21
--- OUTSIDE RECORDS SUMMARY | 2025-03-13 11:41 | XMS_ITS | Clinical Summary ---
Author Organization [facility] Address [address] [facility] [place] [address] Care Team Providers Care It Solutions Sales Consultant Name Role Phone Violetta Leyva PA-C Primary Care Provider Source Comments [facility],non-owned Affiliates and Associated Physician Practices is amultiple site organization consisting of ambulatory clinics and hospital sitesin [place], [place] and [place]. This disclosure is being madepursuant to the Care Everywhere program and may not contain all information available regarding this patient. Last updated 18.[facility] Allergies Active Allergy Reactions Criticality Noted Date Comments Levofloxacin Rash Medium 10/15/2018 Penicillins Anaphylaxis,Unknown High 03/21/2018 Sulfa Antibiotics Unknown 03/21/2018 Medications * Be aware that medications may not be up to date on this document. Alwaysverify current medications with the patient. albuterol HFA (PROAIR HFA) 108 (90 BASE) MCG/ACT inhalerIndications :Encounter for medication refill Inhale 2 puffs by mouth every 4 hours as needed for Shortness of Breath, Wheezing or Cough 1 Inhaler 10/15/19 19 Active atorvastatin (Lipitor) 20 MG tablet Take 1 (one) tablet by mouth once daily 11/04/19 23 Active cetirizine (ZyrTEC) 10 MG tablet 11/25/19 23 Active Farxiga 10 MG tablet Take 1 (one) tablet by mouth once daily 11/05/19 23 Active DULoxetine (Cymbalta) 30 MG capsule Take 1 (one) capsule by mouth once daily 11/03/19 23 Active lisinopril (Prinivil; Zestril) 5 MG tablet Take 1 (one) tablet by mouth once daily 09/16/20 22 Active hydrocortisone (Hytone) 2.5 % creamIndications:I ntertrigo Apply to under abdomen area twice daily as needed for flares (mix with clotrimazole as instructed by your provider). 30 days supply. 30 g 2 11/30/19 23 Active HYDROcodone-acetam inophen ([place]) 7.5-325 MG tablet Take 1 (one) tablet by mouth every 8 hours as needed 12/03/19 23 Active omeprazole (PriLOSEC) 20 MG capsule Take 1 (one) capsule by mouth once daily 12/01/19 23 Active insulin glargine (Lantus SoloStar) pen 6 (six) Units 03/18/20 23 Active Ozempic, 1 MG/DOSE, 4 MG/3ML pen 2 (two) mg every 7 days 05/11/20 23 Active famotidine (Pepcid) 20 MG tablet 06/22/20 23 Active senna (Senokot) 8.6 MG tablet Take 1 (one) tablet by mouth once daily Active Magnesium Hydroxide (DULCOLAX PO) Take 1 tablet by mouth once daily Active oxyCODONE, immediate release, (Roxicodone) 5 MG tabletIndications: S/P panniculectomy Take 1 (one) tablet by mouth every 6 hours as needed for Pain 25 tablet 08/31/20 23 Active Additional Information Patient not taking.Reported on 09/08/2023 docusate sodium (Colace) 100 MG capsule Take 1 (one) capsule by mouth once daily 14 capsule 08/31/20 23 Active Additional Information Patient not taking.Reported on 10/27/2023 Active Problems Problem Noted Date Diagnosed Date S/P panniculectomy 08/30/2023 Social History Tobacco Use Types Packs/Day Years Used Date Smoking Tobacco: Former Smokeless Tobacco: Never Tobacco Cessation:Counseling Given: Not Answered Alcohol Use Standard Drinks/Week Comments Yes 0 (1 standard drink = 0.6 oz pur e alcohol) occassionally Comments No Sex and Gender Information Value Date Recorded Sex Assigned at Not on file Legal Sex Female 6:57 AM DELI COOK Gender Identity Not on file Sexual Orientation Not on file Last Filed Vital Signs Vital Sign Reading Time Taken Comments Blood Pressure 126/78 03/22/2024 11:51 AM CDT Pulse 90 03/22/2024 11:51 AM CDT Temperature 36.7 C (98.1 F) 03/22/2024 11:51 AM CDT Respiratory Rate 16 10/27/2023 10:08 AM DELI COOK Oxygen Saturation 98% 03/22/2024 11:51 AM CDT Inhaled Oxygen Concentration - - Weight 55.8 kg (123 lb) 03/22/2024 11:51 AM CDT Height 167.6 cm (5' 6) 03/22/2024 11:51 AM CDT Body Mass Index [...] 60-74 years 1-dose series) 2024 COVID-19 VACCINE (1 - 2023-2 5 season) 2024 DEPRESSION SCREENING 10/11/2024 INFLUENZA VACCINE (Season Ended) 2025 HEPATITIS B VACCINE Aged Out No longe [...] patient's age to complete this topic Insurance [facility] Advance Directives * Full Code (Latest Code Status on File) Date Activated Date Inactivated Comments 08/30/2023 1:10 PM 08/31/2023 3:39 PM Care Teams It Solutions Sales Consultant Relationship Specialty Start Date End Date Violetta Leyva PA-C [address] [place] [phone] PCP - General Physician Finish Opener 06/30/23
== END 2025-03-13 11:22 | disposition home or self-care (01) ==
PROVIDERS: PCP Physician Assistant; Visit Provider Physician Assistant
DX: R07.9 Chest pain, unspecified (principal)
CPT/HCPCS: 71046

== ENCOUNTER 2025-04-02 18:23 | Emergency (ER) | payer MEDICARE, SELFPAY ==
--- NOTE | ~2025-04-02 | XR_ITS ---
HISTORY: fall COMPARISON: None TECHNIQUE: 4 views of the left knee were performed FINDINGS: No acute or subacute fracture. Medial and lateral tibiofemoral joint space narrowing is identified. No suprapatellar joint effusion is identified. The infrapatellar joint space is clear. IMPRESSION: Significant degenerative disease, without acute fracture. Reviewed, dictated and finalized at location A.
[2025-04-02 18:27] VITALS: BP 120/84; PULSE 100; RESP 20; TEMP 36.4; O2SAT 97
--- NOTE | 2025-04-02 18:31 | ED_ITS ---
HPI - Extremity Injury (Lower) General Chief Complaint: Extremity Injury, Lower Stated Complaint: fall in [place] knee injury Time Seen by Provider: 04/02/25 21:06 Focused HPI: 60-year-old female presents emergency department for left knee pain and laceration after mechanical fall that occurred prior to arrival. Patient states she slipped and hit her left knee on a brick. She obtained a laceration to the left knee. Denies hitting her head or other injuries acquired. Tdap is up-to-date per patient. GENERAL: Well-appearing, well-nourished, and in no acute distress. HEAD: Normocephalic, atraumatic. CHEST: Clear to auscultation. ?No respiratory distress. EXT: Approximately 3 cm laceration to the anterior left knee with superficial abrasions to the lateral proximal tib-fib. Full active and passive range of motion. No edema or obvious deformity. DP pulse 2 +. HEART: Regular rate and rhythm.? NEURO: ?Alert and oriented x3. Patient screened in triage and initial orders placed.? ?Additional care and disposition to be based upon?diagnostic testing and treatment. Related Data Home Medications ?Medication ?Instructions ?Recorded ?Confirmed ?Last Taken ?Type blood sugar diagnostic (OneTouch 06/05/20 03/15/25 02/16/22 History Verio test strips) blood-glucose meter (OneTouch 06/05/20 03/15/25 02/16/22 History Verio Flex Meter) lancets 33 gauge (OneTouch Delica 06/05/20 03/15/25 02/16/22 History Plus Lancet) pen needle, diabetic 31 gauge x 06/05/20 03/15/25 02/16/22 History 1/4 (UltiCare Pen Needle) albuterol sulfate 90 mcg/actuation 1 inh inhalation QID PRN Shortness 08/17/20 03/15/25 02/16/22 History aerosol inhaler (ProAir HFA) Of Breath hydrocodone 5 mg-acetaminophen 325 1 tablet PO BID 08/17/20 03/15/25 02/16/22 History mg tablet ([place]) dapagliflozin propanediol 10 mg 10 mg PO DAILY 01/19/22 03/15/25 02/16/22 History tablet (Farxiga) duloxetine 30 mg capsule,delayed 30 mg PO DAILY 01/19/22 03/15/25 02/16/22 History release atorvastatin 20 mg tablet 20 mg PO DAILY 12/04/22 03/15/25 Unknown History nateglinide 120 mg tablet 120 mg PO TID 12/04/22 03/15/25 Unknown History Allergies Allergy/AdvReac Type Severity Reaction Status Date / Time Penicillins Allergy Severe Anaphylaxis Verified 04/02/25 18:30 levofloxacin (From Levaquin) Allergy Mild Rash Verified 04/02/25 18:30 Sulfa (Sulfonamide Allergy Mild Rash Verified 04/02/25 18:30 Antibiotics) [facility] Past Medical History Medical History IBS (irritable bowel syndrome) Diverticulitis Anemia Anxiety Diabetes borderline Back pain Fractures rt arm, rt foot, pelvis, coccyx Arthritis Congenital dysplasia of hip UTI (urinary tract infection) GERD (gastroesophageal reflux disease) Colitis Pneumonia Asthma Sinus problem COPD (chronic obstructive pulmonary disease) case management patient Surgical History Surgical History History of dilatation and curettage H/O rhinoplasty Hx of spinal surgery History of hip replacement Hx of section H/O mastectomy H/O prior ablation treatment uterine Hx of cholecystectomy Family History Family History Father Family history of diabetes mellitus in first degree relative Mother Family history of malignant neoplasm of uterus Grandparent Family history of lymphoma Unknown Colon cancer Other Asthma Family history of coronary artery disease Hypertension Social History Social History Smoking status: Former smoker Tobacco type: cigarettes Alcohol intake: current Alcohol use details: rarely Living arrangements: with family Gender identity (if verbalized by the patient): Female Spiritual care concerns: No Course Vital Signs Vital signs: Vital Signs Temperature 97.5 F L 04/02/25 18:27 Pulse Rate 100 04/02/25 18:27 Respiratory Rate 20 04/02/25 18:27 Blood Pressure 120/84 04/02/25 18:27 Pulse Oximetry 97 04/02/25 18:27 Oxygen Delivery Room Air 04/02/25 18:27 Temperature 97.5 F L 04/02/25 18:27 Pulse Rate 92 04/02/25 21:58 Respiratory Rate 15 04/02/25 21:58 Blood Pressure 116/81 04/02/25 21:58 Pulse Oximetry 98 04/02/25 21:58 Oxygen Delivery Room Air 04/02/25 18:27 Discharge Plan Discharge Clinical Impression: Abrasion Patient Disposition: Home Condition: Stable Instructions: Antibiotic Form, Abrasion (ED) Additional Instructions: Return to the emergency department if you experience fever, redness or swelling of your wound, abnormal drainage from your wound, or any other symptoms that are concerning to you. Apply antibiotic ointment daily. Do not soak the wound. Clean with mild soap and water daily. Take oral antibiotics as prescribed Follow-up with your primary care doctor for wound check Patient Language: Albanian Prescriptions: New cephalexin 500 mg capsule 500 mg PO Q6H 7 Days Qty: 28 0RF metronidazole 500 mg tablet 500 mg PO Q6H 7 Days Qty: 28 0RF No Action nateglinide 120 mg tablet 120 mg PO TID atorvastatin 20 mg tablet 20 mg PO DAILY hydrocodone-acetaminophen [[place]] 5-325 mg Tablet 1 tablet PO BID albuterol sulfate [ProAir HFA] 90 mcg/actuation Hfa Aerosol Inhaler 1 inh INHALATION QID PRN (Reason: Shortness Of Breath) Zyrtec 10 mg capsule 10 mg PO DAILY Qty: 30 0RF duloxetine 30 mg capsule,delayed release(DR/EC) 30 mg PO DAILY Farxiga 10 mg tablet 10 mg PO DAILY famotidine [Pepcid] 20 mg tablet 20 mg PO DAILY Qty: 30 12RF (DME) blood-glucose meter [OneTouch Verio Flex meter] Misc MISCELLANEOUS (DME) OneTouch Verio test strips Strip MISCELLANEOUS (DME) pen needle, diabetic [UltiCare Pen Needle] 31 gauge x 1/4 needle MISCELLANEOUS (DME) lancets [OneTouch Delica Plus Lancet] 33 gauge misc MISCELLANEOUS azithromycin 250 mg tablet See Rx Instructions .ROUTE .COMPLEX Qty: 6 0RF Rx Instructions: take 500 mg today (day 1), then 250 mg for 4 days (days 2-5) prednisone 50 mg tablet 50 mg PO DAILY Qty: 7 0RF Follow-up/Referrals: Gordon,LANRE Zavala [Primary Care Provider] -
--- NOTE | 2025-04-02 21:23 | ED.LOWEXIN ---
HPI - Extremity Injury (Lower) General Chief Complaint: Extremity Injury, Lower Stated Complaint: fall in pond, L. knee injury Time Seen by Provider: 04/02/25 21:06 Source: patient Mode of arrival: ambulatory Limitations: no limitations History of Present Illness HPI Narrative: This is a 60 year old female that presents to the ER for laceration to the left knee sustained just prior to arrival. Reports she slipped and cut her knee on a brick in [place]. Reports bleeding and pain to the area. She is up to date on tetanus vaccination. Denies decreased ROM or numbness. Related Data Home Medications ?Medication ?Instructions ?Recorded ?Confirmed ?Last Taken ?Type blood sugar diagnostic (OneTouch 06/05/20 03/15/25 02/16/22 History Verio test strips) blood-glucose meter (OneTouch 06/05/20 03/15/25 02/16/22 History Verio Flex Meter) lancets 33 gauge (OneTouch Delica 06/05/20 03/15/25 02/16/22 History Plus Lancet) pen needle, diabetic 31 gauge x 06/05/20 03/15/25 02/16/22 History 1/4 (UltiCare Pen Needle) albuterol sulfate 90 mcg/actuation 1 inh inhalation QID PRN Shortness 08/17/20 03/15/25 02/16/22 History aerosol inhaler (ProAir HFA) Of Breath hydrocodone 5 mg-acetaminophen 325 1 tablet PO BID 08/17/20 03/15/25 02/16/22 History mg tablet ([place]) dapagliflozin propanediol 10 mg 10 mg PO DAILY 01/19/22 03/15/25 02/16/22 History tablet (Farxiga) duloxetine 30 mg capsule,delayed 30 mg PO DAILY 01/19/22 03/15/25 02/16/22 History release atorvastatin 20 mg tablet 20 mg PO DAILY 12/04/22 03/15/25 Unknown History nateglinide 120 mg tablet 120 mg PO TID 12/04/22 03/15/25 Unknown History Allergies Allergy/AdvReac Type Severity Reaction Status Date / Time Penicillins Allergy Severe Anaphylaxis Verified 04/02/25 18:30 levofloxacin (From Levaquin) Allergy Mild Rash Verified 04/02/25 18:30 Sulfa (Sulfonamide Allergy Mild Rash Verified 04/02/25 18:30 Antibiotics) Review of Systems Review of Systems: All systems reviewed & are unremarkable except as noted in HPI and below PMFSH Past Medical History Medical History IBS (irritable bowel syndrome) Diverticulitis Anemia Anxiety Diabetes borderline Back pain Fractures rt arm, rt foot, pelvis, coccyx Arthritis Congenital dysplasia of hip UTI (urinary tract infection) GERD (gastroesophageal reflux disease) Colitis Pneumonia Asthma Sinus problem COPD (chronic obstructive pulmonary disease) case management patient Surgical History Surgical History History of dilatation and curettage H/O rhinoplasty Hx of spinal surgery History of hip replacement Hx of section H/O mastectomy H/O prior ablation treatment uterine Hx of cholecystectomy Family History Family History Father Family history of diabetes mellitus in first degree relative Mother Family history of malignant neoplasm of uterus Grandparent Family history of lymphoma Unknown Colon cancer Other Asthma Family history of coronary artery disease Hypertension Social History Social History Smoking status: Former smoker Tobacco type: cigarettes Alcohol intake: current Alcohol use details: rarely Living arrangements: with family Gender identity (if verbalized by the patient): Female Spiritual care concerns: No Exam Narrative: GENERAL: Well-appearing, well-nourished, and in no acute distress. HEAD: Normocephalic, atraumatic. EYES: EOMI. EXTREMITIES: Normal range of motion. No edema. Normal DP pulse. Normal sensation. Left knee with 2cm superficial laceration/abrasion SKIN: Warm, dry, no rash. NEURO: No focal deficits. Alert and oriented x3. PSYCH: Normal mood and affect Course Vital Signs Vital signs: Vital Signs Temperature 97.5 F L 04/02/25 18:27 Pulse Rate 100 04/02/25 18:27 Respiratory Rate 20 04/02/25 18:27 Blood Pressure 120/84 04/02/25 18:27 Pulse Oximetry 97 04/02/25 18:27 Oxygen Delivery Room Air 04/02/25 18:27 Temperature 97.5 F L 04/02/25 18:27 Pulse Rate 92 04/02/25 21:58 Respiratory Rate 15 04/02/25 21:58 Blood Pressure 116/81 04/02/25 21:58 Pulse Oximetry 98 04/02/25 21:58 Oxygen Delivery Room Air 04/02/25 18:27 Procedures Laceration Laceration 1: Date: 04/02/25 Time: 21:45 Site: lower extremity Side (If applicable): left Size (cm): 2 Description: linear ====== Skin Level ====== ====== Subcutaneous Layer ====== ====== Muscle Layer ====== ====== Tendon Layer ====== MDM - Extremity Injury (Lower) Imaging Data Radiologist's impression: ITS Impressions Knee X-Ray 04/02/25 19:23 IMPRESSION: Significant degenerative disease, without acute fracture. Critical Care Time Critical Care Time Critical Care Time: No Discharge Plan Discharge Clinical Impression: Abrasion Patient Disposition: Home Condition: Stable Instructions: Antibiotic Form, Abrasion (ED) Additional Instructions: Return to the emergency department if you experience fever, redness or swelling of your wound, abnormal drainage from your wound, or any other symptoms that are concerning to you. Apply antibiotic ointment daily. Do not soak the wound. Clean with mild soap and water daily. Take oral antibiotics as prescribed Follow-up with your primary care doctor for wound check Patient Language: Faroese Prescriptions: New cephalexin 500 mg capsule 500 mg PO Q6H 7 Days Qty: 28 0RF metronidazole 500 mg tablet 500 mg PO Q6H 7 Days Qty: 28 0RF No Action nateglinide 120 mg tablet 120 mg PO TID atorvastatin 20 mg tablet 20 mg PO DAILY hydrocodone-acetaminophen [[place]] 5-325 mg Tablet 1 tablet PO BID albuterol sulfate [ProAir HFA] 90 mcg/actuation Hfa Aerosol Inhaler 1 inh INHALATION QID PRN (Reason: Shortness Of Breath) Zyrtec 10 mg capsule 10 mg PO DAILY Qty: 30 0RF duloxetine 30 mg capsule,delayed release(DR/EC) 30 mg PO DAILY Farxiga 10 mg tablet 10 mg PO DAILY famotidine [Pepcid] 20 mg tablet 20 mg PO DAILY Qty: 30 12RF (DME) blood-glucose meter [OneTouch Verio Flex meter] Misc MISCELLANEOUS (DME) OneTouch Verio test strips Strip MISCELLANEOUS (DME) pen needle, diabetic [UltiCare Pen Needle] 31 gauge x 1/4 needle MISCELLANEOUS (DME) lancets [OneTouch Delica Plus Lancet] 33 gauge misc MISCELLANEOUS azithromycin 250 mg tablet See Rx Instructions .ROUTE .COMPLEX Qty: 6 0RF Rx Instructions: take 500 mg today (day 1), then 250 mg for 4 days (days 2-5) prednisone 50 mg tablet 50 mg PO DAILY Qty: 7 0RF Follow-up/Referrals: Gordon,LANRE Zavala [Primary Care Provider] -
[2025-04-02 21:57] VITALS: BP 116/81; PULSE 92; RESP 15; O2SAT 98
[2025-04-02 21:58] VITALS: BP 116/81; PULSE 92; RESP 15; O2SAT 98
== END 2025-04-02 22:01 | disposition home or self-care (01) ==
PROVIDERS: Emergency Provider Physician Assistant; PCP Physician Assistant
DX: S80.212A Abrasion, left knee, initial encounter (principal); J44.9 Chronic obstructive pulmonary disease, unspecified; R73.03 Prediabetes; M19.90 Unspecified osteoarthritis, unspecified site; K58.9 Irritable bowel syndrome, unspecified; K21.9 Gastro-esophageal reflux disease without esophagitis; F41.9 Anxiety disorder, unspecified; Z87.01 Personal history of pneumonia (recurrent); Z86.2 Personal history of diseases of the blood and blood-forming organs and certain disorders involving the immune mechanism; Z87.891 Personal history of nicotine dependence; Z96.649 Presence of unspecified artificial hip joint; Z90.49 Acquired absence of other specified parts of digestive tract; Z90.10 Acquired absence of unspecified breast and nipple; W01.198A Fall on same level from slipping, tripping and stumbling with subsequent striking against other object, initial encounter
CPT/HCPCS: 12001; 73564; 99283

== ENCOUNTER 2025-04-11 08:03 | Outpatient (CLI) | payer MEDICARE, MEDICAID, SELFPAY ==
--- NOTE | ~2025-04-11 | NM_ITS ---
EXAMINATION: NM julia stress w perfusion DATE: 04/11/2025 13:56 INDICATION: Chest pain TECHNIQUE: Rest images were obtained following intravenous administration of 10.8 mCi Tc99m tetrofosm in (Myoview). The patient was infused intravenously with Lexiscan (Regadenoson). Then, 33 mCi Tc99m t etrofosmin (Myoview) was administered intravenously, and stress images were obtained initially in the supine position with repeat post stress imaging obtained in the prone position. Data was reconstruct ed into short axis and horizontal and vertical long axis SPECT images. Gated SPECT images were also o btained. COMPARISON: None. FINDINGS: There is likely artifactual decreased activity along the inferior and septal grigsby on imagi ng obtained in supine position particularly on the post stress imaging. This normalizes on the prone post stress imaging obtained in the prone position where there are no definite perfusion abnormalitie s to suggest ischemia or infarction. There is normal left ventricular chamber size, wall motion and ejection fraction. Left ventricular ejection fraction measures 61%. IMPRESSION: 1. Normal myocardial perfusion during stress on the prone imaging. 2. Left ventricular ejection fraction measuring 61%. Reviewed, dictated and finalized at location A.
--- OUTSIDE RECORDS SUMMARY | 2025-04-11 08:07 | XMS_ITS | Clinical Summary ---
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 Not on file Not [...] 3:10 PM CDT Height 167.6 cm (5' 6) 03/22/2018 3:10 PM CDT Body Mass Index [...] Screening with HPV 02/03/1994 Mammogram Screening 2004 Pneumococcal Vaccine: 50+ Ye ars (1 of 1 - PCV) 02/03/2014 Zoster Vaccines (1 of 2) 02/03/2014 COVID-19 Vaccine ( - 2023-2 5 season) 2024 RSV Immunization or 60+ Years (1 [...] - COMMERCIAL GENERIC - COMMERCIAL Care Teams High Pressure Operator Relationship Specialty Start Date End Date Breanna Henriquez APNP Family & Internal Medicine [address] [id number] PCP - General ADVANCED PRACTICE WELDER HELPER 02/08/18 Leon Sagastume MD [facility]. [facility] [address] [place] [id number] [place] [employer] Parts Clerk CARDIOVASCULAR DISEASE 03/09/18
--- OUTSIDE RECORDS SUMMARY | 2025-04-11 08:07 | XMS_ITS | Clinical Summary ---
Author Organization [facility] Address [address] [facility] [place] [address] Care Team Providers Care Title One Kindergarten Teacher Name Role Phone Violetta Leyva PA-C Primary Care Provider Source Comments [facility],non-owned Affiliates and Associated Physician Practices is amultiple site organization consisting of ambulatory clinics and hospital sitesin [place], [place], [place] and [place]. This disclosure is being madepursuant to the Care Everywhere program and may not contain all information available regarding this patient. 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 Gender Identity Not on file Sexual Orientation Not on file Last Filed Vital Signs Vital Sign Reading Time Taken Comments Blood Pressure 126/78 03/22/2024 11:51 AM CDT Pulse 90 03/22/2024 11:51 AM CDT Temperature 36.7 C (98.1 F) 03/22/2024 11:51 AM CDT Respiratory Rate 16 10/27/2023 10:08 AM PRINTED CIRCUIT DESIGNER Oxygen Saturation 98% 03/22/2024 11:51 AM CDT [...] FLEX SIG - COLON CA SCREENING 1964 HIV SCREENING 02/03/1979 HEPATITIS C SCREENING 01/30/1982 DTAP/TDAP/TD VACCINES (1 - Tdap) 02/03/1983 PAP SMEAR 02/03/1985 PNEUMOCOCCAL VACCINE 50+ (1 of 1 - [...] patient's age to complete this topic Insurance [facility] Advance Directives * Full Code (Latest Code Status on File) Date Activated Date Inactivated Comments 08/30/2023 1:10 PM 08/31/2023 3:39 PM Care Teams Title One Kindergarten Teacher Relationship Specialty Start Date End Date Violetta Leyva PA-C [address] [place] [phone] PCP - General Physician Digital Associate Media Director 06/30/23
--- OUTSIDE RECORDS SUMMARY | 2025-04-11 08:07 | XMS_ITS | Encounter Summary ---
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 file Not [...] Result * CBC (OUTSIDE LAB) (02/17/2018) Pathologist [facility] WBC 8.0 HGB 14.3 HCT 43.5 PLT 364 02/17/2018 us Doc [facility]-OUTSIDE/ABSTRACTED Final Result * THYROID STIM HORMONE, TSH (02/17/2018) TSH 0.909 02/17/2018 us Doc [facility] LABORATORY Final Result * URIC ACID BLOOD (02/17/2018) Pathologist [facility] URIC ACID 3.6 02/17/2018 us Doc [facility] [...] on filedocumented in this encounter Care Teams Car Installations Supervisor Relationship Specialty Start Date End Date Breanna Henriquez APNP Family & Internal Medicine [address] [address] PCP - General ADVANCED PRACTICE FEEDER DRIVER 02/08/18 Leon Sagastume MD [address] [address] [place] Penology Teacher CARDIOVASCULAR DISEASE 03/09/18 documented as of this encounter
--- OUTSIDE RECORDS SUMMARY | 2025-04-11 08:08 | XMS_ITS | Referral Summary ---
Author Organization [facility] Address [facility] [place] [address] Care Team Providers Care Mrb Engineer Name Role Phone Violetta Leyva Primary Care Provider + Shelly Osborn MD Unavailable [phone] Encounters Date Type Department Care Team Description 03/14/2025 1:30 PM CDT Office Visit [facility] Orthopedics and Sports Medicine [address] [place] [address] [place] [phone] Martin Singh MD Numbness and tingling of lower extremity (Primary Dx); Rotator cuff impingement syndrome of right shoulder 02/05/2025 1:23 PM CDT - 02/05/2025 11:59 PM CDT Hospital Encounter [facility] [address] [place] [phone] Chronic right shoulder pain Discharge Disposition: Discharge to home or self care 02/05/2025 1:30 PM CDT Office Visit [facility] Orthopedics and Sports Medicine [address] [place] [address] [place] [phone] Martin Singh MD Chronic right shoulder pain (Primary Dx) 01/16/2025 1:44 PM CDT - 01/16/2025 11:59 PM CDT Hospital Encounter [facility] Building [address] [address] Left lumbar radiculopathy Discharge Disposition: Discharge to home or self care 01/16/2025 1:30 PM CDT - 01/16/2025 11:59 PM CDT Hospital Encounter [facility] Office Building [address] [phone] Chronic neck pain Discharge Disposition: Discharge to [...] mg/3 mL) pen injector injection 4 Active Hospital, Clinic, or Other Facility Administered Medication Ordered Dose Route Frequency Start Date End Date Status lidocaine (XYLOCAINE) 10 mg/mL (1 %) injection 1 mLIndications:Admi nistration of Local Anesthesia 1 mL One-Time Injection 03/14/2025 03/14/2025 Ended triamcinolone (KENALOG) 40 mg/mL injection 40 mgIndications:Rota tor cuff impingement syndrome of right shoulder 40 mg intra-artic One-Time Injection 03/14/2025 03/14/2025 Ended Active Problems Problem Noted Date Diagnosed Date Essential hypertension 06/10/2023 Adhesive capsulitis of right shoulder 06/09/2023 Closed fracture of third toe of left foot 2021 s/p left total hip arthroplasty at 07/22/2021 Primary osteoarthritis of left hip 05/29/2021 Overview (05/29/2021): Added automatically from request for surgery [id number] 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 [...] on file 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 Gender Identity Not on file Sexual [...] - - Weight 60.3 kg (133 lb) 03/14/2025 1:31 PM CDT Height 167.6 cm (5' 6) 03/14/2025 1:31 PM CDT Body Mass Index 21.47 03/14/2025 1:31 PM CDT Plan of Treatment Not on file Medical Devices Implanted Type Area Sql Server Dba Developer Device Identifier Shelf Expiration Date Model / Serial / Lot Total Hip Left: Hip Implanted-2015 Implanted:11/2015 (Quantity not on file) Right: Hip [employer] [id number] 54mm Limit Hole Color Coded Hip F Offset Hemisphere Shell - [id number] Implanted:Qty: 1 on 07/22/2021 by Martin Singh MD at [facility] Left: Hip [employer] [id number] 04/03/2031 [id number] / / [id number] [employer] [id number] G7 32mm Lumen Hip F Liner Acetabular Longevity Sterile Latex Free - [id number] Implanted:Qty: 1 on 07/22/2021 by Martin Singh MD at [facility] Left: Hip [employer] [id number] 02/17/[id number] / / [id number] [employer] [id number] Echo Bi-Metric 13mm 145mm Noncollar Reduce Proximal Profile Press - [id number] Implanted:Qty: 1 on 07/22/2021 by Martin Singh MD at [facility] Left: Hip [employer] [id number] 03/13/2031 [id number] / / [id number] [employer] [id number] 32mm Modular Hip +3mm Head Femoral Biolox Delta - [id number] Implanted:Qty: 1 on 07/22/2021 by Martin Singh MD at [facility] Left: Hip [employer] [id number] 01/17/2029 [id number] / / [id number] Procedures Procedure Name Priority Date/Time Associated Diagnosis Comments [place] ARTHROCENTESIS ASPIR&/INJ MAJOR JT/BURSA W/O US Routine 03/14/2025 1:30 PM CDT Rotator cuff impingement syndrome of right shoulder XR SHOULDER RIGHT 2 OR MORE VIEWS Schedule Routine, Read Routine (OP Routine) 02/05/2025 1:31 PM CDT Chronic right shoulder pain [place] ARTHROCENTESIS ASPIR&/INJ MAJOR JT/BURSA W/O US Routine [...] Recently Relevant to Health Maintenance Results * [place] ARTHROCENTESIS ASPIR&/INJ MAJOR JT/BURSA W/O US (03/14/2025 1:30 PM CDT) Narrative Martin Singh MD - 03/14/2025 1:30 PM CDT Martin Singh MD 03/18/2025 6:30 AM Large Joint (Hip, Knee, Shoulder) Injection: [...] complications us Martin Singh MD IN CLINIC/BEDSIDE ORDE RABLES Final Result * XR Shoulder Right 2 or More [...] Samir Gilman M.D. RW T: Report ID: [id number] Reading Location: [id number] Procedure Note Samir Gilman MD - 02/06/2025 [...] Samir Gilman M.D. RW T: Report ID: [id number] Reading Location: [id number] us Martin Singh MD IMG XR PROCEDURES Debbie l Result * [place] ARTHROCENTESIS ASPIR&/INJ MAJOR JT/BURSA W/O US (02/05/2025 [...] IN CLINIC/BEDSIDE MAGDALENA DAILEY Final Result * CT Lumbar Spine WO [...] arthropathy. No significant osseous spinal canal stenosis. Ifcn-er-rhmeivxv osseous neural foraminal narrowing portion of the [...] Damion Sneed D.O. AP: AP Report ID: [id number] Reading Location: [id number] Procedure Note Damion Sneed DO - 01/20/2025 EXAM DESCRIPTION: CT LUMBAR [...] facetarthropathy. No significant osseous spinal canal stenosis. Cqif-io-gidcltws osseousneural foraminal narrowing portion of the disc/marginal [...] Damion Sneed D.O. AP: AP Report ID: [id number] Reading Location: [place] [address] Martin Singh MD IMG CT PROCEDURES Debbie [...] osseous spinal canal or neural foraminal narrowing. Krrq-gtrmrum-xyth-right facet arthropathy. C3-C4: Retrolisthesis of C3 on C4 with unroofing of the disc. Superimposed posterior disc osteophyte complex and thickened ligamentum flavum. Moderate to severe osseous spinal canal stenosis. Uncovertebral spurring and facet arthropathy with moderate to severe osseous neural foraminal narrowing. C4-C5: Posterior disc osteophyte complex and thickened ligamentum flavum. Mild osseous spinal canal stenosis. Uncovertebral spurring and ssxfg-jrkoylo-biuk-left facet arthropathy without significant osseous neural foraminal [...] Damion Sneed D.O. AP: AP Report ID: [id number] Reading Location: [id number] Procedure Note Damion Sneed, DO - 01/20/2025 [...] osseous spinal canal or neural foraminal narrowing. Isqx-vlvxznz-ucpd-right facet arthropathy. C3-C4: Retrolisthesis of C3 on C4 with unroofing of the disc.Superimposed posterior disc osteophyte complex and thickened ligamentum flavum.Moderate to severe osseous spinal canal stenosis. Uncovertebral spurring and facet arthropathy with moderate to severe osseous neural foraminal narrowing. C4-C5: Posterior disc osteophyte complex and thickened ligamentum flavum. Mild osseous spinal canal stenosis. Uncovertebral spurring and qziho-vkiozjo-obij-left facet arthropathy without significant osseousneural foraminal stenosis. [...] Damion Sneed D.O. AP: AP Report ID: [id number] Reading Location: [place] [address] us Martin Singh MD IMG CT PROCEDURES Debbie l Result * COLONOSCOPY REPORT (06/18/2014) Anatomical Region Laterality Modality Other Narrative 06/18/2014 Ordered by an unspecified provider. us Historical Provider MD PEÑA PROCEDURE ORDERABLES F inal Result from Last 3 Months or Most Recently Relevant to Health Maintenance Insurance [facility] MEDICARE [facility] OPEN ACCESS [facility] Advance Directives For more information, please contact: [phone] * Full Code (Latest Code Status on File) Date Activated Date Inactivated Comments 07/22/2021 6:21 PM 07/24/2021 6:41 PM Care Teams Mrb Engineer Relationship Specialty Start Date End Date Violetta Leyva PA PCP - General 10/28/20 Shelly Osborn MD [address] [address] Referring Physician Internal Medicine 07/08/21
--- OUTSIDE RECORDS SUMMARY | 2025-04-11 08:08 | XMS_ITS | Clinical Summary ---
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 [address] PCP - General Family Practice 03/11/11
--- OUTSIDE RECORDS SUMMARY | 2025-04-11 08:08 | XMS_ITS | Clinical Summary ---
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 05/26/2021 Low back pain 05/26/2021 Sensation of chest tightness 11/17/2011 Encounters Date Type Department Care Team Description 03/14/2025 1:30 PM CDT Office Visit [facility] Orthopedics and Sports Medicine [address] [place] [address] [place] [phone] Martin Singh MD Numbness and tingling of lower extremity (Primary Dx); Rotator cuff impingement syndrome of right shoulder 02/05/2025 1:30 PM CDT Office Visit [facility] Orthopedics and Sports Medicine [address] [place] [address] [place] [phone] Martin Singh MD Chronic right shoulder pain (Primary Dx) 02/05/2025 1:23 PM CDT - 02/05/2025 11:59 PM CDT Hospital Encounter [facility] Diag Imaging [address] [place] [address] Chronic right shoulder pain Discharge Disposition: Discharge to home or self care 01/16/2025 1:44 PM CDT - 01/16/2025 11:59 PM CDT Hospital Encounter [facility] [address] [place] [phone] Left lumbar radiculopathy Discharge Disposition: Discharge to home or self care 01/16/2025 1:30 PM CDT - 01/16/2025 11:59 PM CDT Hospital Encounter [facility] [address] [place] [phone] Chronic neck pain Discharge Disposition: Discharge to [...] Asthma COPD (chronic obstructive pu lmonary disease) ([facility]) COPD History of pneumonia SEVERAL CHRISTOPHER ES LAST IN THE Migraine Cataract only one eye, no t sure which one Vertigo Diverticulitis of colon Irritable bowel syndrome History of colitis Wears glasses reading glasses GERD (gastroesophageal reflux disease) Osteoarthritis History of fracture spine DDD (degenerative disc disease), lumbar History of anxiety Type 2 diabetes mellitus (HCC) s/p left total hip arthropla sty at [...] on file 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 Gender Identity Not on file Sexual Orientation [...] 03/14/2025 1:31 PM CDT Plan of Treatment Health Maintenance Due Date Last Done Comments Cervical Cancer Screening 1965 Depression Screening 1965 Hepatitis C Screening 1965 Hepatitis B Screening 02/03/1982 Regular Well Visit/Exam 18-64 02/03/1982 Pneumococcal vaccine <65 (1 of 2 - PCV) 02/03/1983 Lung Cancer Screening 02/03/2014 Zoster Vaccine (1 of 2) 02/03/2014 Colon Cancer Screening-Colonoscopy 06/18/20242013 Breast Cancer Screening-Mammogram 09/27/2024 09/27/2023, 01/29/2022, 05/31/2014 Influenza Vaccine (Season Ended) 2025 DTaP/Tdap/Td Vaccine (2 - Td or Tdap) 01/03/2035 Medical Devices Implanted Type Area Plant Engineering Manager Device Identifier Shelf Expiration Date Model / Serial / Lot Total Hip Left: Hip Implanted-2015 Implanted:11/2015 (Quantity not on file) Right: Hip [employer] [id number] G7 54mm Limit Hole Color Coded Hip F Offset Hemisphere Shell - [id number] Implanted:Qty: 1 on 07/22/2021 by Martin Singh MD at [facility] Left: Hip [employer] [id number] 04/03/2031 [id number] / / [id number] [employer] [id number] G7 32mm Lumen Hip F Liner Acetabular Longevity Sterile Latex Free - [id number] Implanted:Qty: 1 on 07/22/2021 by Martin Singh MD at [facility] Left: Hip [employer] [id number] 02/17/2026 [id number] / / [id number] [employer] [id number] Echo Bi-Metric 13mm 145mm Noncollar Reduce Proximal Profile Press - [id number] Implanted:Qty: 1 on 07/22/2021 by Martin Singh MD at [facility] Left: Hip [employer] [id number] 03/13/2031 [id number] / / [id number] [employer] [id number] 32mm Modular Hip +3mm Head Femoral Biolox Delta - [id number] Implanted:Qty: 1 on 07/22/2021 by Martin Singh MD at [facility] Left: Hip [employer] [id number] 01/17/2029 [id number] / / [id number] Procedures Procedure Name Priority Date/Time Associated Diagnosis Comments [place] ARTHROCENTESIS ASPIR&/INJ MAJOR JT/BURSA W/O US [...] Recently Relevant to Health Maintenance Results * [place] ARTHROCENTESIS ASPIR&/INJ MAJOR JT/BURSA W/O US (03/14/2025 [...] IN CLINIC/BEDSIDE MAGDALENA DAILEY Final Result * XR Shoulder Right 2 [...] Samir Gilman M.D. RW T: Report ID: [id number] Reading Location: [id number] Procedure Note Samir Gilman MD - 02/06/2025 [...] Samir Gilman M.D. RW T: Report ID: [id number] Reading Location: [id number] us Martin Singh MD IMG XR PROCEDURES [...] arthropathy. No significant osseous spinal canal stenosis. Fdfn-xo-fhcfhpjw osseous neural foraminal narrowing portion of the [...] Damion Sneed D.O. AP: AP Report ID: [id number] Reading Location: [id number] Procedure Note Damion Sneed, DO - 01/20/2025 [...] facetarthropathy. No significant osseous spinal canal stenosis. Sycd-tv-yocydxln osseousneural foraminal narrowing portion of the disc/marginal [...] Damion Sneed D.O. AP: AP Report ID: [id number] Reading Location: [place] [address] Martin Singh MD IMG CT PROCEDURES Debbie [...] osseous spinal canal or neural foraminal narrowing. Hzrs-lvysvur-dysg-right facet arthropathy. C3-C4: Retrolisthesis of C3 on C4 with unroofing of the disc. Superimposed posterior disc osteophyte complex and thickened ligamentum flavum. Moderate to severe osseous spinal canal stenosis. Uncovertebral spurring and facet arthropathy with moderate to severe osseous neural foraminal narrowing. C4-C5: Posterior disc osteophyte complex and thickened ligamentum flavum. Mild osseous spinal canal stenosis. Uncovertebral spurring and wdhon-tubtnrw-dhcr-left facet arthropathy without significant osseous neural foraminal [...] Damion Sneed D.O. AP: AP Report ID: [id number] Reading Location: [place] [address] Procedure Note Damion Sneed, DO - 01/20/2025 [...] osseous spinal canal or neural foraminal narrowing. Fpmn-xamteae-nctb-right facet arthropathy. C3-C4: Retrolisthesis of C3 on C4 with unroofing of the disc.Superimposed posterior disc osteophyte complex and thickened ligamentum flavum.Moderate to severe osseous spinal canal stenosis. Uncovertebral spurring and facet arthropathy with moderate to severe osseous neural foraminal narrowing. C4-C5: Posterior disc osteophyte complex and thickened ligamentum flavum. Mild osseous spinal canal stenosis. Uncovertebral spurring and mecvs-idfthfe-srvz-left facet arthropathy without significant osseousneural foraminal stenosis. [...] Damion Sneed D.O. AP: AP Report ID: [id number] Reading Location: [place] [address] Martin Singh MD IMG CT PROCEDURES Debbie l Result * COLONOSCOPY REPORT (06/18/2014) Anatomical Region Laterality Modality Other Narrative 06/18/2014 Ordered by an unspecified provider. Historical Provider GI PROCEDURE ORDERABLES F inal Result from Last 3 Months or Most Recently Relevant to Health Maintenance Insurance [facility] OTHER Address: ATTN: CLAIMS DEPT [address] [facility] [place] [address] [facility] MEDICARE FOR[facility]LY [facility] OPEN ACCESS [facility] Advance Directives For more information, please contact: [phone] * Full Code (Latest Code Status on File) Date Activated Date Inactivated Comments 07/22/2021 6:21 PM 07/24/2021 6:41 PM Care Teams Store Clerk Checker Relationship Specialty Start Date End Date Violetta Leyva PA PCP - General 10/28/20 Shelly Osborn MD [address] [address] Referring Physician Internal Medicine 07/08/21
--- OUTSIDE RECORDS SUMMARY | 2025-04-11 08:08 | XMS_ITS | Encounter Summary ---
Author Organization [facility] Address 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 [place], [place] [address] Patient: MARILYN SANCHEZ : 12/02/1960 Procedure Date: 11/02/2008 Accession Date: 11/02/2008 Case No: [id number] Ordering Dr: PARK CROWDER Case types AW, BW, FW, NW and SH are performed by [facility], [place], [place] SURGICAL PATHOLOGY & NON-GYNECOLOGIC CYTOPATHOLOGY REPORT [...] 04:58 pm Microscopic: The slides are labeled [id number], Laura. Sections display focal fibrosis. [facility] 11.03.2008 09:46 am Staging Form: No ELECTRONIC SIGNATURE FOR ANA PARRISH M.D.- 11/03/08 01:31 pm INTERFACE SYSTEM 11/02/2008 1:20 PM CORRECTIONS NURSE Park Crowder MD PATHOLOGY/CYTOLOGY ORDERABLES Fi nal Result INTERFACE SYSTEM Refer to clinic/hospital department documented in this encounter Visit Diagnoses Diagnosis Lump or mass in breast documented in this encounter Care Teams Motor Racer Relationship Specialty Start Date End Date Jerson Alfonso MD [address] [place] [phone] PCP - General Family Practice 03/11/11 documented as of this encounter
--- OUTSIDE RECORDS SUMMARY | 2025-04-11 08:08 | XMS_ITS | Encounter Summary ---
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
--- OUTSIDE RECORDS SUMMARY | 2025-04-11 08:08 | XMS_ITS | Data Portability ---
Author Organization [facility] Dustin CROCKETTcristiane Mendoza Address [address] [place] [address] Care Team Providers Care Dramatic Critic Name Role Phone HANANE MIRANDA Primary Care Provider [phone] Assessment Encounter Date Assessment Date Assessment LastModified by Organization Details LastModified Time 02/14/2024 02/14/2024 stop lisinopril and BP is low. Not available 02/14/2024 12:13:40 Plan of Treatment Reminders Order Date Submit Date Provider Last Modified By Organization Details Last Modified Time Details Appointments None recorded . Lab ferritin , serum or plasma 2024 025 [facility], [address] [place] [address], [facility] [address], [place], [address], 12:13:41 iron + total iron-bin ding capacity (TIBC), serum 2024 025 [facility], [address] [place] [address], [facility] [address], [place], [address], 12:13:39 CBC w/ auto diff 2024 025 [facility], [address] [place] [address], [address], [place], [address], 12:13:42 HbA1c (hemoglo bin A1c), blood 2024 025 In-Office Order, Internal Use Only DO Not Attach Compendium DO Not Attach Compendium, Do Not Delete/merge, [id number] 5 11:43:39 HbA1c (hemoglo bin A1c), blood 2024 025 In-Office Order, Internal Use Only DO Not Attach Compendium DO Not Attach Compendium, Do Not Delete/merge, [id number] 5 11:23:21 microalb umin/cre atinine, mass ratio, urine 2024 025 [facility], [address], [address], [place], [address], 5 11:30:47 CMP, serum or plasma 2024 025 [facility], [address], [address], [place], [address], 5 16:14:11 lipid panel, serum 2024 025 [facility], [address], [place], [address], 5 16:14:10 CMP, serum or plasma 2023 024 [facility], [address], [address], [place], [address], 4 22:07:39 CBC w/ auto diff 2023 024 [facility], [address], [address], [place], [address], 4 22:07:39 lipid panel, serum 2023 024 [facility], [address], [place], [address], 4 22:07:38 HbA1c (hemoglo bin A1c), blood 2023 024 [facility] In-Office Order, Internal Use Only DO Not Attach Compendium DO Not Attach Compendium, Do Not Delete/merge, 4 15:39:53 urinalys is, dipstick 2023 024 [facility] In-Office Order, Internal Use Only DO Not Attach Compendium DO Not Attach Compendium, Do Not Delete/merge, 4 14:31:29 microalb umin/cre atinine, mass ratio, urine 2023 024 [facility], [address], [address], [place], [address], 4 16:20:32 CMP, serum or plasma 2023 024 [facility], [address], [place], [address], 4 20:09:39 lipid panel, serum 2023 024 [facility], [address], [place], [address], 4 20:09:39 HbA1c (hemoglo bin A1c), blood 2023 024 [facility] In-Office Order, Internal Use Only DO Not Attach Compendium DO Not Attach Compendium, Do Not Delete/merge, 4 16:23:[address] referral 2024 025 [facility] Prerna Molina DPM, [address], [place], [address], 5 13:07:49 cardiolo gist referral 2024 025 [email or web address] John Paul Lagos DO, [address], [address], [place], [address], 08:00:[address] referral - need reports from last visits 2024 025 [email or web address] Edinson Merritt MD, [address] [facility] [address], [address], [place], [address], 08:00:26 Procedures None recorded . Surgeries None recorded . Imaging XR, chest, 2 view 2024 025 [facility], [address] [facility] [address], [place], [address], 13:50:02 LDCT, chest, for lung cancer screenin g 2024 025 [email or web address], [address] [facility] [address], [place], [address], 14:29:13 MAMMO, screenin g, bilatera l 2024 025 [email or web address] [facility], [address] [facility] [address], [place], [address], 08:06:19 Medication Orders Farxiga 10 mg tablet 2024 025 [id number], [address], [place], [place], [id number], 11:43:37 Ozempic 1 mg/dose (4 mg/3 mL) subcutan eous pen injector [address] [facility] [address], [address] [place], [address], 14:14:53 Ozempic 0.25 mg or 0.5 mg (2 mg/1.5 mL) subcutan eous pen injector [address] [facility], [address], [place], [place], [id number], 5 11:23:19 Farxiga 10 mg tablet [address] [facility][id number], [address], [place], [place], [id number], 5 11:23:19 cetirizi ne 10 mg tablet 2024 025 [facility] #06455, [address], [place], [place], [id number], 5 11:26:14 Zithroma x Z-Gabriele 250 mg tablet 2023 025 [facility] #94514, [address], [place], [place], [id number], 5 11:07:08 Linzess 290 mcg capsule [address] [facility]79860, [address], [place], [place], [id number], 4 14:07:03 loratadi ne 10 mg tablet 2023 024 [facility] #09845, [address], [place], [place], [id number], 4 14:08:18 Patient TargetsNo targets recorded. 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 Referring Physician: Hanane Miranda, Code Enforcement Supervisor, Encounter Date: 03/13/2025 Results Created Date Observation Date Name Description Value Unit Range Abnormal Flag Note LastModifiedBy Organization Detail LastModifiedTime 11/24/19 24 11/24/2023 LIPID PANEL cholesterol, total 160 mg/dL 100-19 9 Not Available [facility] Department [address] [place] [address], [address], 11/24/2023 20:09:39 11/24/19 24 11/24/2023 LIPID PANEL triglyceride s 98 mg/dL 0-149 Not Available [facility] Department [address] [place] [address], [address], 11/24/2023 20:09:39 11/24/19 24 11/24/2023 LIPID PANEL HDL cholesterol 65 mg/dL 40-999 Not Available [facility] Department [address] [place] [address], [address], 11/24/2023 20:09:39 11/24/19 24 11/24/2023 LIPID PANEL VLDL cholesterol olegario 20 mg/dL 5-40 Not Available [facility] Department [address] [place] [address], [address], 11/24/2023 20:09:39 11/24/19 24 11/24/2023 LIPID PANEL LDL chol calc ([facility]) 89 mg/dL 0-99 Not Available [facility] Department [address] [place] [address], [address], 11/24/2023 20:09:39 11/24/19 24 11/24/2023 COMP. METAB OLIC PANEL (14) glucose 121 mg/dL 70-99 above high normal Not Available [facility] Department [address] [place] [address], [address], 11/24/2023 20:09:39 11/24/19 24 11/24/2023 COMP. METAB OLIC PANEL (14) BUN 12 mg/dL 6-24 Not Available [facility] Department [address] [place], [address], 11/24/2023 20:09:39 11/24/19 24 11/24/2023 COMP. METAB OLIC PANEL (14) creatinine 0.64 mg/dL 0.76-1 .27 below low normal Not Available [facility] Department [address] [place], [address], 11/24/2023 20:09:39 11/24/19 24 11/24/2023 COMP. METAB OLIC PANEL (14) eGFR 102 >=60 Units for eGFR value s are mL/mi n/1.7 3 The eGFR Calcu latio n has not been valid ated for patie nts under the age of 18. If test resul ts are displ ayed for a patie nt under the age of 18, disre gilberto that value . Not Available [facility] Department [address] [place] [address], [address], 11/24/2023 20:09:39 11/24/19 24 11/24/2023 COMP. METAB OLIC PANEL (14) BUN/creatini ne ratio 19 9-23 Not Available [facility] Department [address] [place] [address], [address], 11/24/2023 20:09:39 11/24/19 24 11/24/2023 COMP. METAB OLIC PANEL (14) sodium 141 mmol/ L 134-14 4 Not Available [facility] Department [address] [place], [address], 11/24/2023 20:09:39 11/24/19 24 11/24/2023 COMP. METAB OLIC PANEL (14) potassium 4.7 mmol/ L 3.5-5. 2 Not Available [facility] Department [address] [place], [address], 11/24/2023 20:09:39 11/24/19 24 11/24/2023 COMP. METAB OLIC PANEL (14) chloride 105 mmol/ L 96-106 Not Available [facility] Department [address] [place], [address], 11/24/2023 20:09:39 11/24/19 24 11/24/2023 COMP. METAB OLIC PANEL (14) carbon dioxide, total 19 mmol/ L 20-29 below low normal Not Available [facility] Department [address] [place], [address], 11/24/2023 20:09:39 11/24/19 24 11/24/2023 COMP. METAB OLIC PANEL (14) calcium 9.7 mg/dL 8.7-10 .2 Not Available [facility] Department [address] [place], [address], 11/24/2023 20:09:39 11/24/19 24 11/24/2023 COMP. METAB OLIC PANEL (14) protein, total 6.9 g/dL 6.0-8. 5 Not Available [facility] Department [address] [place], [address], 11/24/2023 20:09:39 11/24/19 24 11/24/2023 COMP. METAB OLIC PANEL (14) albumin 4.5 g/dL 3.8-4. 9 Not Available [facility] Department [address] [place], [address], 11/24/2023 20:09:39 11/24/19 24 11/24/2023 COMP. METAB OLIC PANEL (14) globulin, total 2.4 g/dL 1.5-4. 5 Not Available [facility] Department [address] [place], [address], 11/24/2023 20:09:39 11/24/19 24 11/24/2023 COMP. METAB OLIC PANEL (14) A/G ratio 1.8 1.2-2. 2 Not Available [facility] Department [address] [place], [address], 11/24/2023 20:09:39 11/24/19 24 11/24/2023 COMP. METAB OLIC PANEL (14) bilirubin, total 0.4 mg/dL 0.0-1. 2 Not Available [facility] Department [address] [place], [address], 11/24/2023 20:09:39 11/24/19 24 11/24/2023 COMP. METAB OLIC PANEL (14) alkaline phosphatase 102 IU/L 44-121 Not Available [facility] Department [address] [place] [address], [address], 11/24/2023 20:09:39 11/24/19 24 11/24/2023 COMP. METAB OLIC PANEL (14) AST (SGOT) 17 IU/L 0-40 Not Available [facility] Department [address] [place] [address], [address], 11/24/2023 20:09:39 11/24/19 24 11/24/2023 COMP. METAB OLIC PANEL (14) ALT (SGPT) 11 IU/L 0-32 Not Available [facility] Department [address] [place] [address], [address], 11/24/2023 20:09:39 11/24/19 24 11/24/2023 HbA1c (hemo globi n A1c), blood HbA1c 5.9 Not Available In-Office Order Internal Use Only DO Not Attach Compendium DO Not Attach Compendium, Do Not Delete/merge, [id number] 11/24/2023 14:57:19 05/22/20 24 05/22/2024 LIPID PANEL cholesterol, total 149 mg/dL 100-19 9 Not Available [facility] Department [address] [place] [address], [address], 05/22/2024 22:07:38 05/22/20 24 05/22/2024 LIPID PANEL triglyceride s 94 mg/dL 0-149 Not Available [facility] Department [address] [place], [address], 05/22/2024 22:07:38 05/22/20 24 05/22/2024 LIPID PANEL HDL cholesterol 66 mg/dL 40-999 Not Available [facility] Department [address] [place] [address], [address], 05/22/2024 22:07:38 05/22/20 24 05/22/2024 LIPID PANEL VLDL cholesterol olegario 19 mg/dL 5-40 Not Available [facility] Department [address] [place] [address], [address], 05/22/2024 22:07:38 05/22/20 24 05/22/2024 LIPID PANEL LDL chol calc (nih) 78 mg/dL 0-99 Not Available [facility] Department [address] [place] [address], [address], 05/22/2024 22:07:38 05/22/20 24 05/22/2024 COMP. METAB OLIC PANEL (14) glucose 113 mg/dL 70-99 above high normal Not Available [facility] Department [address] [place] [address], [address], 05/22/2024 22:07:39 05/22/20 24 05/22/2024 COMP. METAB OLIC PANEL (14) BUN 14 mg/dL 8-27 Not Available [facility] Department [address] [place] [address], [address], 05/22/2024 22:07:39 05/22/20 24 05/22/2024 COMP. METAB OLIC PANEL (14) creatinine 0.50 mg/dL 0.76-1 .27 below low normal Not Available [facility] Department [address] [place] [address], [address], 05/22/2024 22:07:39 05/22/20 24 05/22/2024 COMP. METAB OLIC PANEL (14) eGFR 107 >=60 Units for eGFR value s are mL/mi n/1.7 3 The eGFR Calcu latio n has not been valid ated for patie nts under the age of 18. If test resul ts are displ ayed for a patie nt under the age of 18, disre gilberto that value . Not Available [facility] Department [address] [place] [address], [address], 05/22/2024 22:07:39 05/22/20 24 05/22/2024 COMP. METAB OLIC PANEL (14) BUN/creatini ne ratio 29 10-28 above high normal Not Available [facility] Department [address] [place] [address], [address], 05/22/2024 22:07:39 05/22/20 24 05/22/2024 COMP. METAB OLIC PANEL (14) sodium 138 mmol/ L 134-14 4 Not Available [facility] Department [address] [place] [address], [address], 05/22/2024 22:07:39 05/22/20 24 05/22/2024 COMP. METAB OLIC PANEL (14) potassium 3.7 mmol/ L 3.5-5. 2 Not Available [facility] Department [address] [place] [address], [address], 05/22/2024 22:07:39 05/22/20 24 05/22/2024 COMP. METAB OLIC PANEL (14) chloride 100 mmol/ L 96-106 Not Available [facility] Department [address] [place] [address], [address], 05/22/2024 22:07:39 05/22/20 24 05/22/2024 COMP. METAB OLIC PANEL (14) carbon dioxide, total 27 mmol/ L 20-29 Not Available [facility] Department [address] [place] [address], [address], 05/22/2024 22:07:39 05/22/20 24 05/22/2024 COMP. METAB OLIC PANEL (14) calcium 9.6 mg/dL 8.7-10 .3 Not Available [facility] Department [address] [place], [address], 05/22/2024 22:07:39 05/22/20 24 05/22/2024 COMP. METAB OLIC PANEL (14) protein, total 6.9 g/dL 6.0-8. 5 Not Available [facility] Department [address] [place], [address], 05/22/2024 22:07:39 05/22/20 24 05/22/2024 COMP. METAB OLIC PANEL (14) albumin 4.5 g/dL 3.8-4. 9 Not Available [facility] Department [address] [place], [address], 05/22/2024 22:07:39 05/22/20 24 05/22/2024 COMP. METAB OLIC PANEL (14) globulin, total 2.4 g/dL 1.5-4. 5 Not Available [facility] Department [address] [place], [address], 05/22/2024 22:07:39 05/22/20 24 05/22/2024 COMP. METAB OLIC PANEL (14) A/G ratio 2.0 1.2-2. 2 Not Available [facility] Department [address] [place], [address], 05/22/2024 22:07:39 05/22/20 24 05/22/2024 COMP. METAB OLIC PANEL (14) bilirubin, total 0.6 mg/dL 0.0-1. 2 Not Available [facility] Department [address] [place], [address], 05/22/2024 22:07:39 05/22/20 24 05/22/2024 COMP. METAB OLIC PANEL (14) alkaline phosphatase 96 IU/L 44-121 Not Available [facility] Department [address] [place], [address], 05/22/2024 22:07:39 05/22/20 24 05/22/2024 COMP. METAB OLIC PANEL (14) AST (SGOT) 14 IU/L 0-40 Not Available [facility] Department [address] [place], [address], 05/22/2024 22:07:39 05/22/20 24 05/22/2024 COMP. METAB OLIC PANEL (14) ALT (SGPT) 8 IU/L 0-32 Not Available [facility] Department [address] [place], [address], 05/22/2024 22:07:39 05/22/20 24 05/22/2024 CBC WITH DIFFE RENTI AL/PL ATELE T WBC 7.9 x10e3 /uL 3.4-10 .8 Not Available [facility] Department [address] [place], [address], 05/22/2024 22:07:39 05/22/20 24 05/22/2024 CBC WITH DIFFE RENTI AL/PL ATELE T RBC 5.53 x10e6 /uL 3.77-5 .28 above high normal Not Available [facility] Department [address] [place], [address], 05/22/2024 22:07:39 05/22/20 24 05/22/2024 CBC WITH DIFFE RENTI AL/PL ATELE T hemoglobin 15.8 g/dL 11.1-1 5.9 Not Available [facility] Department [address] [place], [address], 05/22/2024 22:07:39 05/22/20 24 05/22/2024 CBC WITH DIFFE RENTI AL/PL ATELE T hematocrit 48.9 % 34.0-4 6.6 above high normal Not Available [facility] Department [address] [place], [address], 05/22/2024 22:07:39 05/22/20 24 05/22/2024 CBC WITH DIFFE RENTI AL/PL ATELE T MCV 88 fL 79-97 Not Available [facility] Department [address] [place], [address], 05/22/2024 22:07:39 05/22/20 24 05/22/2024 CBC WITH DIFFE RENTI AL/PL ATELE T MCH 28.6 pg 26.6-3 3.0 Not Available [facility] Department [address] [place], [address], 05/22/2024 22:07:39 05/22/20 24 05/22/2024 CBC WITH DIFFE RENTI AL/PL ATELE T MCHC 32.3 g/dL 31.5-3 5.7 Not Available [facility] Department [address] [place], [address], 05/22/2024 22:07:39 05/22/20 24 05/22/2024 CBC WITH DIFFE RENTI AL/PL ATELE T RDW 13.6 % 11.5-1 4.5 Not Available [facility] [address] [place], [address], 05/22/2024 22:07:39 05/22/20 24 05/22/2024 CBC WITH DIFFE RENTI AL/PL ATELE T platelets 367 x10e3 /uL 150-45 0 Not Available [facility] Department [address] [place], [address], 05/22/2024 22:07:39 05/22/20 24 05/22/2024 CBC WITH DIFFE RENTI AL/PL ATELE T neutrophils 68 % notest b. Not Available [facility] Department [address] [place], [address], 05/22/2024 22:07:39 05/22/20 24 05/22/2024 CBC WITH DIFFE RENTI AL/PL ATELE T lymphs 24 % notest b. Not Available [facility] Department [address] [place], [address], 05/22/2024 22:07:39 05/22/20 24 05/22/2024 CBC WITH DIFFE RENTI AL/PL ATELE T monocytes 6 % notest b. Not Available [facility] Department [address] [place], [address], 05/22/2024 22:07:39 05/22/20 24 05/22/2024 CBC WITH DIFFE RENTI AL/PL ATELE T eos 1 % notest b. Not Available [facility] Department [address] [place] [address], [address], 05/22/2024 22:07:39 05/22/20 24 05/22/2024 CBC WITH DIFFE RENTI AL/PL ATELE T basos 1 % notest b. Not Available [facility] Department [address] [place] [address], [address], 05/22/2024 22:07:39 05/22/20 24 05/22/2024 CBC WITH DIFFE RENTI AL/PL ATELE T neutrophils (absolute) 5.3 x10e3 /uL 1.4-7. 0 Not Available [facility] Department [address] [place] [address], [address], 05/22/2024 22:07:39 05/22/20 24 05/22/2024 CBC WITH DIFFE RENTI AL/PL ATELE T lymphs (absolute) 1.9 x10e3 /uL 0.7-3. 1 Not Available [facility] Department [address] [place], [address], 05/22/2024 22:07:39 05/22/20 24 05/22/2024 CBC WITH DIFFE RENTI AL/PL ATELE T monocytes(ab solute) 0.5 x10e3 /uL 0.1-0. 9 Not Available [facility] Department [address] [place], [address], 05/22/2024 22:07:39 05/22/20 24 05/22/2024 CBC WITH DIFFE RENTI AL/PL ATELE T eos (absolute) 0.1 x10e3 /uL 0.0-0. 4 Not Available [facility] Department [address] [place], [address], 05/22/2024 22:07:39 05/22/20 24 05/22/2024 CBC WITH DIFFE RENTI AL/PL ATELE T baso (absolute) 0.1 x10e3 /uL 0.0-0. 2 Not Available [facility] Department [address] [place], [address], 05/22/2024 22:07:39 05/22/20 24 05/22/2024 CBC WITH DIFFE RENTI AL/PL ATELE T immature granulocytes 0.1 % notest b. Not Available [facility] Department [address] [place], [address], 05/22/2024 22:07:39 05/22/20 24 05/22/2024 CBC WITH DIFFE RENTI AL/PL ATELE T immature grans (abs) 0.0 x10e3 /uL 0.0-0. 1 Not Available [facility] [address] [place], [address], 05/22/2024 22:07:39 05/22/20 24 05/22/2024 CBC WITH DIFFE RENTI AL/PL ATELE T NRBC 0 % 0-0 Not Available [facility] Department [address] [place], [address], 05/22/2024 22:07:39 05/22/20 24 05/22/2024 urina lysis , dipst ick Leukocytes Negati ve Not Available In-Office Order Internal Use Only DO Not Attach Compendium DO Not Attach Compendium, Do Not Delete/merge, [id number] 05/22/2024 14:17:49 05/22/2005/22/2024 urina lysis , dipst ick Nitrite negati [...] 05/22/2024 urina lysis , dipst ick Specific [place] 1.015 Not Available In-Off ice Order Internal [...] Attach Compendium, Do Not Delete/merge, 05/22/2024 14:17:49 05/22/2005/22/2024 HbA1c (hemo globi n A1c), blood HbA1c 5.7 Not Available In-Office Order Internal Use Only DO Not Attach Compendium DO Not Attach Compendium, Do Not Delete/merge, 05/22/2024 14:17:06 12/20/19 25 12/20/2024 LIPID PANEL cholesterol, total 174 mg/dL 100-19 9 Not Available [facility] ([facility]) [address] [facility], [place], [address], 12/20/2024 16:14:10 12/20/19 25 12/20/2024 LIPID PANEL triglyceride s 168 mg/dL 0-149 above high normal Not Available [facility] ([facility]) [address] [facility], [place], [address], 12/20/2024 16:14:10 12/20/19 25 12/20/2024 LIPID PANEL HDL cholesterol 72 mg/dL >39 Not Available [facility]) [address] [facility], [place], [address], 12/20/2024 16:14:10 12/20/19 25 12/20/2024 LIPID PANEL VLDL cholesterol olegario 28 mg/dL 5-40 Not Available [facility] ([facility]) [address] [place], [address], 12/20/2024 16:14:10 12/20/19 25 12/20/2024 LIPID PANEL LDL chol calc ([facility]) 74 mg/dL 0-99 Not Available [facility] ([facility]) [address] [place], [address], 12/20/2024 16:14:10 12/20/19 25 12/20/2024 COMP. METAB OLIC PANEL (14) glucose 334 mg/dL 70-99 above high normal Not Available [facility] ([facility]) [address] [place], [address], 12/20/2024 16:14:11 12/20/19 25 12/20/2024 COMP. METAB OLIC PANEL (14) BUN 14 mg/dL 8-27 Not Available [facility] ([facility]) [address] [place], [address], 12/20/2024 16:14:11 12/20/19 25 12/20/2024 COMP. METAB OLIC PANEL (14) creatinine 0.59 mg/dL 0.57-1 .00 Not Available [facility] ([facility]) [address] [place], [address], 12/20/2024 16:14:11 12/20/19 25 12/20/2024 COMP. METAB OLIC PANEL (14) eGFR 103 mL/mi n/1.7 3 >59 Not Available [facility] ([facility]) [address] [place], [address], 12/20/2024 16:14:11 12/20/19 25 12/20/2024 COMP. METAB OLIC PANEL (14) BUN/creatini ne ratio 24 12-28 Not Available [facility] ([facility]) [address] [facility], [place], [address], 12/20/2024 16:14:11 12/20/19 25 12/20/2024 COMP. METAB OLIC PANEL (14) sodium 141 mmol/ L 134-14 4 Not Available [facility] ([facility]) [address] [place], [address], 12/20/2024 16:14:11 12/20/19 25 12/20/2024 COMP. METAB OLIC PANEL (14) potassium 5.4 mmol/ L 3.5-5. 2 above high normal Not Available [facility] ([facility]) [address] [facility] [place], [address], 12/20/2024 16:14:11 12/20/19 25 12/20/2024 COMP. METAB OLIC PANEL (14) chloride 102 mmol/ L 96-106 Not Available [facility] ([facility]) [address] [facility] [place], [address], 12/20/2024 16:14:11 12/20/19 25 12/20/2024 COMP. METAB OLIC PANEL (14) carbon dioxide, total 24 mmol/ L 20-29 Not Available [facility] ([facility]) [address] [facility] [place], [address], 12/20/2024 16:14:11 12/20/19 25 12/20/2024 COMP. METAB OLIC PANEL (14) calcium 9.1 mg/dL 8.7-10 .3 Not Available [facility] ([facility]) [address] [facility] [place], [address], 12/20/2024 16:14:11 12/20/19 25 12/20/2024 COMP. METAB OLIC PANEL (14) protein, total 6.3 g/dL 6.0-8. 5 Not Available [facility] ([facility]) [address] [facility] [place], [address], 12/20/2024 16:14:11 12/20/19 25 12/20/2024 COMP. METAB OLIC PANEL (14) albumin 4.0 g/dL 3.8-4. 9 Not Available [facility] ([facility]) [address] [facility] [place], [address], 12/20/2024 16:14:11 12/20/19 25 12/20/2024 COMP. METAB OLIC PANEL (14) globulin, total 2.3 g/dL 1.5-4. 5 Not Available [facility] ([facility]) [address] [facility], [place], [address], 12/20/2024 16:14:11 12/20/19 25 12/20/2024 COMP. METAB OLIC PANEL (14) bilirubin, total <0.2 mg/dL 0.0-1. 2 Not Available [facility] ([facility]) [address] [facility], [place], [address], 12/20/2024 16:14:11 12/20/19 25 12/20/2024 COMP. METAB OLIC PANEL (14) alkaline phosphatase 121 IU/L 44-121 Not Available [facility] ([facility]) [address] [facility], [place], [address], 12/20/2024 16:14:11 12/20/19 25 12/20/2024 COMP. METAB OLIC PANEL (14) AST (SGOT) 15 IU/L 0-40 Not Available [facility] ([facility]) [address] [facility], [place], [address], 12/20/2024 16:14:11 12/20/19 25 12/20/2024 COMP. METAB OLIC PANEL (14) ALT (SGPT) 14 IU/L 0-32 Not Available [facility] ([facility]) [address] [facility], [place], [address], 12/20/2024 16:14:11 12/20/19 25 12/19/2024 HbA1c (hemo globi n A1c), blood HbA1c 7.9 Not Available In-Office Order Internal Use Only DO Not Attach Compendium DO Not Attach Compendium, Do Not Delete/merge, [id number] 12/19/2024 10:52:23 03/13/20 25 03/14/2025 IRON AND TIBC iron bind.cap.(TI BC) 292 ug/dL 250-45 0 Not Available [facility] ([facility]) [address] [place], [address], 03/14/2025 12:13:39 03/13/20 25 03/14/2025 IRON AND TIBC UIBC 236 ug/dL 118-36 9 Not Available [facility] ([facility]) [address] [place], [address], 03/14/2025 12:13:39 03/13/20 25 03/14/2025 IRON AND TIBC iron 56 ug/dL 27-139 Not Available [facility] ([facility]) [address] [place], [address], 03/14/2025 12:13:39 03/13/20 25 03/14/2025 IRON AND TIBC iron saturation 19 % 15-55 Not Available [facility] ([facility]) [address] [place], [address], 03/14/2025 12:13:39 03/13/20 25 03/14/2025 MITCHELL TIN ferritin 69 NG/mL 15-150 Not Available [facility] ([facility]) [address] [place], [address], 03/14/2025 12:13:41 03/13/20 25 03/14/2025 CBC WITH DIFFE RENTI AL/PL ATELE T WBC 8.1 x10e3 /uL 3.4-10 .8 Not Available [facility] ([facility]) [address] [place], [address], 03/14/2025 12:13:42 03/13/20 25 03/14/2025 CBC WITH DIFFE RENTI AL/PL ATELE T RBC 5.52 x10e6 /uL 3.77-5 .28 above high normal Not Available [facility] ([facility]) [address] [place], [address], 03/14/2025 12:13:42 03/13/20 25 03/14/2025 CBC WITH DIFFE RENTI AL/PL ATELE T hemoglobin 15.8 g/dL 11.1-1 5.9 Not Available [facility] ([facility]) [address] [place], [address], 03/14/2025 12:13:42 03/13/20 25 03/14/2025 CBC WITH DIFFE RENTI AL/PL ATELE T hematocrit 50.6 % 34.0-4 6.6 above high normal Not Available [facility] ([facility]) [address] [place], [address], 03/14/2025 12:13:42 03/13/20 25 03/14/2025 CBC WITH DIFFE RENTI AL/PL ATELE T MCV 92 fL 79-97 Not Available [facility] ([facility]) [address] [place], [address], 03/14/2025 12:13:42 03/13/2003/14/2025 CBC WITH DIFFE RENTI AL/PL ATELE T MCH 28.6 pg 26.6-3 3.0 Not Available [facility] ([facility]) [address] [place], [address], 03/14/2025 12:13:42 03/13/20 25 03/14/2025 CBC WITH DIFFE RENTI AL/PL ATELE T MCHC 31.2 g/dL 31.5-3 5.7 below low normal Not Available [facility] ([facility]) [address] [place], [address], 03/14/2025 12:13:42 03/13/20 25 03/14/2025 CBC WITH DIFFE RENTI AL/PL ATELE T RDW 13.0 % 11.7-1 5.4 Not Available [facility] ([facility]) [address] [facility], [place], [address], 03/14/2025 12:13:42 03/13/20 25 03/14/2025 CBC WITH DIFFE RENTI AL/PL ATELE T platelets 385 x10e3 /uL 150-45 0 Not Available [facility] ([facility]) [address] [facility], [place], [address], 03/14/2025 12:13:42 03/13/20 25 03/14/2025 CBC WITH DIFFE RENTI AL/PL ATELE T neutrophils 57 % notest ab. Not Available [facility] ([facility]) [address] [facility], [place], [address], 03/14/2025 12:13:42 03/13/20 25 03/14/2025 CBC WITH DIFFE RENTI AL/PL ATELE T lymphs 34 % notest ab. Not Available [facility] ([facility]) [address] [facility], [place], [address], 03/14/2025 12:13:42 03/13/20 25 03/14/2025 CBC WITH DIFFE RENTI AL/PL ATELE T monocytes 7 % notest ab. Not Available [facility] ([facility]) [address] [facility], [place], [address], 03/14/2025 12:13:42 03/13/20 25 03/14/2025 CBC WITH DIFFE RENTI AL/PL ATELE T eos 1 % notest ab. Not Available [facility] ([facility]) [address] [facility], [place], [address], 03/14/2025 12:13:42 03/13/20 25 03/14/2025 CBC WITH DIFFE RENTI AL/PL ATELE T basos 1 % notest ab. Not Available [facility] ([facility]) [address] [facility], [place], [address], 03/14/2025 12:13:42 03/13/20 25 03/14/2025 CBC WITH DIFFE RENTI AL/PL ATELE T neutrophils (absolute) 4.6 x10e3 /uL 1.4-7. 0 Not Available [facility] ([facility]) [address] [facility], [place], [address], 03/14/2025 12:13:42 03/13/20 25 03/14/2025 CBC WITH DIFFE RENTI AL/PL ATELE T lymphs (absolute) 2.7 x10e3 /uL 0.7-3. 1 Not Available [facility] ([facility]) [address] [facility], [place], [address], 03/14/2025 12:13:42 03/13/20 25 03/14/2025 CBC WITH DIFFE RENTI AL/PL ATELE T monocytes(ab solute) 0.6 x10e3 /uL 0.1-0. 9 Not Available [facility] ([facility]) [address] [place], [address], 03/14/2025 12:13:42 03/13/20 25 03/14/2025 CBC WITH DIFFE RENTI AL/PL ATELE T eos (absolute) 0.1 x10e3 /uL 0.0-0. 4 Not Available [facility] ([facility]) [address] [place], [address], 03/14/2025 12:13:42 03/13/20 25 03/14/2025 CBC WITH DIFFE RENTI AL/PL ATELE T baso (absolute) 0.1 x10e3 /uL 0.0-0. 2 Not Available [facility] ([facility]) [address] [place], [address], 03/14/2025 12:13:42 03/13/20 25 03/14/2025 CBC WITH DIFFE RENTI AL/PL ATELE T immature granulocytes 0 % notest ab. Not Available [facility] ([facility]) [address] [facility], [place], [address], 03/14/2025 12:13:42 03/13/20 25 03/14/2025 CBC WITH DIFFE RENTI AL/PL ATELE T immature grans (abs) 0.0 x10e3 /uL 0.0-0. 1 Not Available [facility] ([facility]) [address] [facility], [place], [address], 03/14/2025 12:13:42 03/13/20 25 03/13/2025 HbA1c (hemo globi n A1c), blood HbA1C 8.1 % Not Available In-Office Order Internal Use Only DO Not Attach Compendium DO Not Attach Compendium, Do Not Delete/merge, [id number] 03/13/2025 11:30:31 02/03/20 24 MRI, cervi olegario spine , w/o contr ast No observ ation record ed. [email or web address] [id number] Not Available 2023 11:30:30 03/13/20 25 03/13/2025 XR, chest , 2 view No observ ation record ed. [address] [facility], [place], [address], 03/15/2025 02:13:07 03/13/20 25 03/13/2025 XR, chest , 2 view No observ ation record ed. [address], [place], [address], 03/14/2025 17:21:25 04/02/20 25 04/02/2025 XR, knee, 3 view No observ ation record ed. [address], [place], [address], 04/04/2025 11:15:18 Result Notes None recorded. Problems Name Problem SNOMED Code Status Onset Date Resolution Date Notes Provider Name and Address Organization Details Recorded Time Chronic obstructive pulmonary disease 54595259 Active 2019 Ang Hanks [place] null, [place] [facility] 0 15:33:10 Diabetes mellitus 93843640 Active 2019 Ang Hanks [place] [facility] 0 15:33:28 Hypertensiv e disorder 84451991 Active 2019 Ang Hanks [place] [facility] 0 15:33:39 Colitis 04435800 Active 2019 Ang H[place] [facility] 0 15:33:48 Irritable bowel syndrome 54647895 Active 2019 Ang H[place] [facility] 0 15:33:53 Diverticuli tis 426189943 Active 2019 HERIBERTO Junior, [place] - [facility] 0 15:33:57 Osteoporosi s 84748511 Active 2019 Ang Hanks [place] [facility] 0 15:34:22 Leg length inequality 49635414 Active 2021 LAN[facility] GRE[facility] Attn: Roberto Carlos crenshaw,[address] [place], [address], [place] - [facility] 2 09:27:58 Hiatal hernia 25398866 Active 2021 [facility] Attn: Roberto Carlos crenshaw,[address] [place], [address], [place] [facility] 2 09:28:22 Osteoarthri tis of left hip joint 0804425234181 08 Active 2021 [facility] Attn: Roberto Carlos g,[address] [place], [address], [place] [facility] 2 09:34:02 Pain of right shoulder joint 6130113445697 9100 Active 2022 [facility] Attn: Roberto Carlos crenshaw,[address] [facility], [place], [address], [place] [facility] 3 15:34:04 Overweight 657910866 Active 2022 [facility] Attn: Roberto Carlos crenshaw,[address] [facility], [place], [address], [place] [facility] 3 09:00:12 History of surgery 781418411 Active 2022 [facility] Attn: Roberto Carlos crenshaw,[address] [facility], [place], [address], [facility] - [facility] 3 09:19:14 Constipatio n 68706881 Active 2023 [facility] Attn: Roberto Carlos crenshaw,[address] [facility], [place], [address], [facility] - [facility] 4 17:11:49 Problem Notes Documentation Provider Name and Address Organization Details Recorded Time Historic Medical Records : This document (1 of 1) was received from [email or web address] on 02/03/2024 through Direct Message along with the following message body content: Patient Name: MARILYN RIOS. Patient : 1965. Patient . Denice Reji garza, [place] - [facility] 02/15/2024 14:46:09 Procedures Surgical History Date Name Laterality Status Provider Name and Address Organization Details Recorded Time 08/18/20 23 panniculectomy completed [facility] Attn: Accounting,[address] [facility], [place], [address], [place] [facility] 09/13/2023 09:19:36 10/11/19 20 Date of Last Mammogram completed Consuelo Real [place] - [facility] 01/13/2022 16:26:08 10/11/19 20 Date of Last Pap Smear completed Consuelo Real [place] [facility] 01/13/2022 16:26:11 delivery completed Ang mendoza [place] [facility] 12/05/2019 15:39:41 delivery completed Ang mendoza [place] [facility] 12/05/2019 15:39:42 delivery completed Ang [place]endoza [place] [facility] 12/05/2019 15:39:42 delivery completed Ang mendoza [place] [facility] 12/05/2019 15:39:43 operation on hip joint completed LANRE GREEN Attn: Accounting,[address] [facility], [place], [address], [facility] - [facility] 01/14/2022 09:34:33 Imaging Results None recorded. Procedure Notes None recorded. Medical Equipment None Reported. Allergies Allergen ID Allergen Name Allergen Category Reaction Reaction Severity Criticality Documentation Date Start Date Code Code System Note Provider Name and Address Organization Details Recorded Time 697217 Product containin g penicilli n (product) medicatio n Not available Not available Not available 12/05/2019 17087 8001 SNOMED Ang Hanks [place] null, [place] - [facility] 0 15:36:48 Medications Name Sig [...] TAKE 1 TABLET BY MOUTH TWICE DAILY active Not Available Not Available No t Available ropinirole 0.25 mg tablet TAKE 1 TABLET BY MOUTH ONCE DAILY AT BEDTIME active Not Available Not Available No t Available benzonatat e 100 mg capsule TAKE [...] a dose pack FOLLOW PACKAGE DIRECTIO NS 04/05 /2022 completed Not Available Not Available Not Available [...] 2024 active Not Available Not Available Not Avantonio jacobs Dexcom G6 Transmitte r device 2022 [...] pen injector INJECT 1MG SUBCUTAN EOUSLY ONCE A WEEK active Not [...] Updated DateTime 4 167.64 cm 22.3 kg/m2 65502.7 5 g 98 /min 100 % 100 % 123 mm[Hg] 87 mm[Hg] Consuelo Real [place] - [facility] 4 14:44:11 Date Recorded Systolic blood pressure Diastolic blood pressure Provider Name and Address Organization Details Last Updated DateTime 12/19/2024 128 mm[Hg] 88 mm[Hg] LANRE GREEN Attn: Accounting,[address] [facility], [place], [address], [facility] 12/19/2024 11:27:52 Date Recorded Body height Body mass index (BMI) Body weight Heart rate Oxygen saturation Oxygen saturation in Arterial blood by Pulse oximetry Provider Name and Address Organization Details Last Updated DateTime 5 167.64 cm 24.5 kg/m2 70251.2 5 g 86 /min 98 % 98 % Conuselo Real MA [facility] 5 10:36:46 Date Recorded Body height Body mass index (BMI) Body weight Respiratory rate Oxygen saturation Oxygen saturation in Arterial blood by Pulse oximetry Heart rate Systolic blood pressure Diastolic blood pressure Provider Name and Address Organization Details Last Updated DateTime 4 167.64 cm 21.1 kg/m2 98010.6 g 16 /min 99 % 99 % 82 /min 116 mm[Hg] 70 mm[Hg] Milly Barron MA [facility] 4 11:52:01 Date Recorded Body height Body mass index (BMI) Body weight Heart rate Oxygen saturation Oxygen saturation in Arterial blood by Pulse oximetry Systolic blood pressure Diastolic blood pressure Provider Name and Address Organization Details Last Updated DateTime 5 167.64 cm 25 kg/m2 28883.8 2 g 83 /min 97 % 97 % 130 mm[Hg] 79 mm[Hg] Consuelo Real MA [facility] 5 11:26:31 Date Recorded Body height Heart rate Oxygen saturation Oxygen saturation in Arterial blood by Pulse oximetry Body mass index (BMI) Body weight Systolic blood pressure Diastolic blood pressure Provider Name and Address Organization Details Last Updated DateTime 4 167.64 cm 93 /min 97 % 97 % 18.9 kg/m2 57167.3 1 g 106 mm[Hg] 71 mm[Hg] Consuelo Real MA [facility] 4 14:01:00 Social History Question Answer Notes LastModified by Organizat ion Details LastModified Time Tobacco Smoking Status Former Smoker Ang Hanks MA null, [facility] 12/05/2019 15:38:20 What Is Your Level [...] Not available 09/2024 14:09:47 Notes:[facility] Medical History Condition Response Coronary Artery Disease N Other N Atrial Fibrillation N High Blood Pressure N Depression N COPD N Blood Clots N Anxiety Disorder N Muscle, Joint, or Bone Problems N Acid Reflux (GERD) N Cancer N Stroke N High Cholesterol N Liver Disease N Headaches N Kidney or Bladder Problems N Thyroid Problems N GI Problems Y Skin Problems N Anemia N Heart Attack (HI) N Diabetes Y Seizures/Epilepsy N Asthma N Allergies N Hepatitis N Heart Failure N Osteoporosis N Gynecological History Statement/Question Response Date of [...] 02/14/2024 11:52:46 Hep A, adult 08/18/2017 completed HREIBERTO Brock [place] - [facility] 02/14/2024 11:52:46 Tdap 01/03/2025 completed Not Available [facility] 03/13/2025 11:21:31 Past Encounters Encounter ID Performer Location Encounter Start Date Encounter Closed Date Diagnosis/Indication Diagnosis SNOMED-CT Code Diagnosis ICD10 Code Diagnosis Note [id number] [facility] Count includes the [facility] [address] [phone] 12/05/2019 15:20:14 12/08/2019 09:07:31 Essential hypertension 10316718 I10 BP 160/80, not WNL. She has [...] goal for BP is <140/90 Diabetes mellitus 771617 09 E11.9 patient last A1C 6.2, well [...] nect visit Spasm of back muscles 20 9988917 M62.830 patient has spasm of back and low back pain. sees pain management for vicodin. She takes half a pill at night to be able to sleep as she is in pain. [facility] 322245411 Z00.01 Patient presents to establish. She sees pain management for back pain/hip pain. She has had right hip replacemen t and recently got hurt at work, [employer]. She sees pain management . Taking half vicodin at night time as pain keeps her up. UTD on colonoscop y and cleared for 10 years. She has pap appointmen t this wednesday. send records. - discussed diet and excercise- cutting out soda- f/u for lab work- she no longer smokes, 9 years. Screening mammography 24 831022 Z12.31 [id number] [facility] Count includes the [facility] [address] [place] [address] 12/13/2019 16:31:16 12/14/2019 12:15:39 Essential hypertension 14441854 I10 BP 132/78, WNL. drug regiment: irbesartan 150 mgchecking labs at next visit as patient is not fasting Advised to check BP regularly with a goal of <140/90, if BP consistent ly >140/90, advised to contact clinic Discussed DASH diet Advised 30 minutes of exercise minimum daily Advised tobacco, alcohol, caffeine all increase BP Advised goal for BP is <140/90 Diabetes mellitus 212791 E11.9 patient last A1C 6.2, well controlled [...] alb//cr at nect visit Pain in pelvis 03552890 R10.2 Patient hvaing suprapubic pain mostly on left side. Her last doctor told her to do US but she lost insurance. - trasvagina l US given Fatigue 32092637 R53.83 patient has low energy, feels tired despite sleeping Chronic back pain 577099 002 G89.29 Patient has had hip surgery and has history of chronic back pain. Was seeing Dr Osborn but lost insurance and needs new referral. [id number] [facility] Count includes the [facility] [address] [place] [address] 01/24/2020 14:59:44 01/31/2020 14:33:56 Essential hypertension 49295565 I10 BP 132/78, WNL. drug regiment: irbesartan 75mg and HCZ 12.5- will continue this to avoid hyperkalem ia again.[facility] labs at next visit as patient is not fasting Advised to check BP regularly with a goal of <140/90, if BP consistent ly >140/90, advised to contact clinic Discussed DASH diet Advised 30 minutes of exercise minimum daily Advised tobacco, alcohol, caffeine all increase BP Advised goal for BP is <140/90 Diabetes mellitus 556960 E11.9 patient last A1C 6.2, well controlled [...] at next visit- alb//cr at nect visit [id number] [facility] Count includes the [facility] [address] [place] [address] 03/27/2020 09:41:06 03/28/2020 13:21:39 Wheezing 71641968 R06.2 Essential hypertension 78447052 I10 BP 132/78, WNL. drug regiment: irbesartan 75mg and HCZ 12.5- will continue this to avoid hyperkalem ia again.[facility] labs at next visit as patient is not fasting Advised to check BP regularly with a goal of <140/90, if BP consistent ly >140/90, advised to contact clinic Discussed DASH diet Advised 30 minutes of exercise minimum daily Advised tobacco, alcohol, caffeine all increase BP Advised goal for BP is <140/90 Diabetes mellitus 974257 09 E11.9 patient last A1C 9.6, NWNL. [...] next visit- alb//cr at nect visit Hyperkalemia 55732776 E8 7.5 recheck in 1 weeks. Advised on low potassium diet. may change BP medication if still hyperkalem ic. Go to ER if develops CP, SOB, PALPITATIO NS. Osteoarthritis of hip 23 7471685 M16.9 patient has hip degenerati on. She has had MRI nad CT within last year. I need copy of results.Yoly astudillo had ortho, Dr Flores but she cannot go back to see him as she lost insurance. SHe was told she needs hip replaced. She is in pain management . [id number] [facility] [address] [place] [address] 06/05/2020 16:36:52 06/07/2020 05:47:05 Diarrhea 79917404 R19.7 patient with pmhx of diverticul osis [...] gone. Avoid chewing gum that contains sorbitol. [id number] LAN[facility] GREEN [facility] [address] [place] [address] 08/22/2020 16:55:57 08/27/2020 15:07:51 Diabetes mellitus 92224410 E11.9 patient A1C improved to 8.6 from [...] visit- alb//cr at next visit Acute sinusitis 41779560 J01.90 Patient with allergy to penicillin was given zpak for sinusitis at [facility] . Patient is feeling somewhat better. Z-gabriele will last 10 days in her system and if not better by end of 10days then we may add another antibiotic . On exam she had tender maxillary sinus L>R. ear clear, afebrile. [id number] [facility] [address] [place] [address] 08/23/2020 14:19:27 08/26/2020 10:31:23 [id number] [facility] [address] [place] [address] 09/20/2020 08:37:54 09/24/2020 15:15:18 Diabetes mellitus 23730586 E11.9 patient A1C improved to 8.6 from [...] at next visit Seasonal a llergic rhinitis 303391823 J30.2 refill [id number] [facility] [address] [place] [address] 02/18/2021 09:06:49 02/18/2021 16:21:10 Choking due to food in larynx 19791039 T17.320A 2 weeks of feeling like food is not digesting and comes up unchewed. She chokes on it. sometimes chokes on fluids. This has happened before and requiring her to have esophagus stretched twice. Last EGD done 2 years ago in [place]. Will sign record release. She wants a [...] foods -such as meats - f/u prn [id number] [facility] [address] [place] [address] 03/26/2021 10:28:50 03/27/2021 11:49:38 Diabetes mellitus 21104428 E11.9 sugars elevated at home. not taking [...] next visit- alb//cr at next visit Nausea 085771408 R11.0 Patient with hx of gerd and IBS presents with nausea and vomiting x 1 day. sugars found to be elevated today. Will monitor through day. She has GI apt coming up.She is staying hydrated [id number] [facility] [address] [place] [address] 03/27/2021 12:39:18 03/28/2021 14:38:27 [id number] [facility] Count includes the [facility] [address] [place] [address] 07/02/2021 16:57:49 07/05/2021 22:27:26 Diabetes mellitus 28810313 E11.9 sugars elevated at home. not taking [...] alb//cr at next visit Pre-surger y evaluation 409177062 Z01.818 Patient undergoing surgery July 22. needs sugars controlled . her cmp done at [place] shows slightly decreased sodium. we are stopping hxz as faxiga acts as diuretic and will monitor her BP. stressed importance of sugar control. Low back pain 981759643 M54.5 Patient with chronic back pain for many years and seeing pin managent. She can no longer tolerate pain and excess abdominal skin from previous weight loss is causing her to more back pain as weight pulls her forward some. Excess ski n of abdominal wall 289285425 R23.8 Patient has an extra 15-20lb of [...] due to excess skin in abdominal area [id number] LAN[facility]EN [facility] [address] [place] [address] 07/11/2021 10:00:49 07/23/2021 06:58:24 [id number] [facility] [address] [place] [address] 08/11/2021 16:05:32 08/13/2021 13:10:20 Diabetes mellitus 82429904 E11.9 BP 132/78, WNL. drug regiment: irbesartan 75mg and HCZ 12.5- will continue this to avoid hyperkalem ia again.[facility] labs at next visit as patient is not fasting Advised to check BP regularly with a goal of <140/90, if BP consistent ly >140/90, advised to contact clinic Discussed DASH diet Advised 30 minutes of exercise minimum daily Advised tobacco, alcohol, caffeine all increase BP Advised goal for BP is <140/90 [id number] LANRE [facility]EN [facility] [address] [place] [address] 01/13/2022 16:04:56 01/15/2022 07:05:49 Hiatal hernia 98266035 K44.9 Patient has been following Dr Merritt. Needs referral to undergo EGD. She takes omeprazole and famotidine . - avoid eating late (she snack at midnight)- weight loss- may eat small meals through the day Diabetes mellitus 235091 09 E11.9 medication s: victoza 1.8 mg qd, farxiga 10mg foot exam: next visitppsv2 3: she was told she is allergicst atin: atorvastat in 20mg, non-compla int Leg length inequality 45 623863 M21.70 Screening for malignant neoplasm of respiratory tract 392400858 Z12.2 patient smoked 1ppd for 38 years. No longer smoking. Overweight 714925638 E66 .3 Osteoarthr itis of left hip joint 8922634968 [address] Martin Singh from [facility] performed left hip replacemen t on 07/2021. Her insurance canceled her PT and needs new referral. she has weakness to b/l legs at the hip. she has leg length discrepanc y. pain management give her hydrocodoe s and started cymbalta. she has not started cymbalta. [id number] LANRE GREEN [facility] [address] [place] [address] 01/21/2022 15:43:21 01/22/2022 11:57:18 Diabetes mellitus 56549148 E11.9 A1C 8.0 01/2022, 8.5 07/2021. not [...] 01/2022eye exam: given order, will schedule Osteoporosis 87002854 M8 1.0 hx of spine fractures. last dexa 23 years ago. hx of b/l hip replacemen t. Screening mammography 24 617659 Z12.31 last mammogram four years ago. she had biopsy on right lateral breast, normal tissue. Hiatal hernia 57303120 K 44.9 Dr merritt scheduled her for colonoscop y and EGD. - avoid eating late (she snack at midnight)- weight loss- may eat small meals through the day Overweight 354763033 E66 .3 Osteoarthr itis of left hip joint [id number] [address] Martin Singh from [facility] performed left hip replacemen t on 07/2021. Her insurance canceled her PT and needs new referral. she has weakness to b/l legs at the hip. she has leg length discrepanc y. PT called today and she will schedule. pain management give her hydrocodoe s and started cymbalta. she has started cymbalta. [id number] LANRE GREEN Count includes the [facility] [address] [place] [address] 03/17/2022 16:07:13 03/18/2022 11:09:37 Gastroesophageal reflux disease 916855008 K21.9 EGD and colonoscop y performed February [address] Merritt. normal. Diabetes mellitus 120425 09 E11.9 A1C 8.0 01/2022, 8.5 07/2021. [...] exam: given order, will schedule Essential hypertension 12916973 I10 BP 138/84, goal is to be <135/85. states it runs low when not in office. drug regiment:s he is not taking medication s at this time Advised to check BP regularly with a goal of <135/85, if BP consistent ly >140/90, advised to contact clinic Discussed DASH diet Advised 30 minutes of exercise minimum daily Advised tobacco, alcohol, caffeine all increase BP [id number] LANRE GREEN [facility] [address] [place] [address] 03/27/2022 16:40:34 03/31/2022 09:56:55 Pharyngitis 539605997 J02.9 sore throat, body aches, fatigue x 2 days. negative covid and strep throat today test today- hydrate- rest- f/u if not improving [id number] LANRE GREEN [facility] [address] [place] [address] 06/17/2022 14:50:54 06/18/2022 09:04:29 Insomnia 410733149 G47.00 take as needed Actinic keratosis 935044 007 L57.0 ak present on exam- derm for body check Hypertriglyceridemia 302 258649 E78.1 refill Postmenopausal state 764 62921 Z78.0 refill Overweight 638056785 E66 .3 [id number] LANRE GREEN Count includes the [facility] [address] [place] [address] 07/01/2022 15:43:05 07/02/2022 12:39:37 Insomnia 167681831 G47.00 Discussed sleep hygiene - no tv, [...] to associate room with anxiety or work [id number] LANRE GREEN [facility] [address] [place] [address] 08/19/2022 15:50:35 08/20/2022 15:39:18 Osteoporosis 13392002 M81.0 hx of spine fractures, toe fx. last dexa 23 years ago. hx of b/l hip replacemen t. Closed fra cture of phalanx of foot 78996614 S92.912A left foot second toe fx, ortho is followingP EX: toe is suzanne taped. skin w/o bruising or swelling - continue following ortho- no current restrictio ns- f/u prn [id number] LANRE GREEN [facility] [address] [place] [address] 09/30/2022 15:51:13 10/06/2022 13:16:14 Diabetes mellitus 36576336 E11.9 A1C 8.5% 8.0 01/2022, 8.5 07/2021. [...] 01/2022eye exam: given order, will schedule Panniculitis 17439534 M7 9.3 nystain does not help every time Excess canseco niculus of abdomen 4747767382 101 E65 patient with frequent infection and OA. at least 15 lbs of excess skin and would benefit from removal due to wrosening back and hip pain. [id number] LANRE GREEN [facility] [address] [place] [address] 11/06/2022 14:08:35 11/12/2022 14:40:48 Diabetes mellitus 58745781 E11.9 A1C 8.5% 8.0 01/2022, 8.5 07/2021. [...] will schedule Excess canseco niculus of abdomen 3877721652 101 E65 patient with frequent infection and OA. at least 15 lbs of excess skin and would benefit from removal due to wrosening back and hip pain. Overweight 235742802 E66 .3 [id number] LANRE GREEN [facility] [address] [place] [address] 01/05/2023 14:53:03 01/05/2023 15:20:43 Diabetes mellitus 32387255 E11.9 A1C 7.7% ( 12/2022) 8.5% 8.0 [...] 01/2022eye exam: given order, will schedule Overweight 611862123 E66 .3 Chronic ob structive pulmonary disease 60049135 J44.9 [id number] LANRE GREEN [facility] [address] [place] [address] 02/05/2023 13:59:24 02/05/2023 15:32:35 Chronic obstructive pulmonary disease 88155766 J44.9 moderate COPD on recent pft. she states she had acute exacerbati on and exam should be repeated. went to ER and told her she had bronchitis . prednisone 50 x 7 days nad z gabriele has been completed. She feels much better today. Diabetes mellitus 922703 09 E11.9 A1C 7.7% ( 12/2022) 8.5% [...] /cr: 01/2022eye exam: given order, will schedule [id number] LANRE GREEN [facility] [address] [place] [address] 03/05/2023 15:09:59 03/05/2023 15:47:17 Diabetes mellitus 81556334 E11.9 A1C 8.8% 02/2023 7.7% ( 12/2022) [...] 01/2022eye exam: given order, will schedule Overweight 327881554 E66 .3 [id number] LANRE GREEN [facility] [address] [place] [address] 04/06/2023 15:19:25 04/06/2023 16:36:07 Diabetes mellitus 49155808 E11.9 A1C 8.3% (03/2023) 8.8% (02/2023) 7.7% [...] 5mgeye exam: given order, will schedule Overweight 320037758 E66 .3 [id number] LANRE GREEN [facility] [address] [place] [address] 05/07/2023 15:42:42 05/07/2023 16:21:48 Diabetes mellitus 46399223 E11.9 A1C 7.6% (04/2023) 8.3% (03/2023) 8.8% [...] 5mgeye exam: given order, will schedule Overweight 327725398 E66 .3 bmi 26.5 Deviated nasal septum 12 5153696 J34.2 left deviated septum Pain of ri ght shoulder joint 4018145501 5921825 M25.511 Torn rotator cuffhas f/u with ortho [id number] LANRE GREEN [facility] [address] [place] [address] 07/08/2023 14:51:18 07/08/2023 15:38:21 Diabetes mellitus 45936088 E11.9 A1C 7.6% (04/2023) 8.3% (03/2023) 8.8% [...] 5mgeye exam: given order, will schedule Overweight 222472163 E66 .3 bmi 25.6 Screening mammography 24 650052 Z12.31 last mammogram four years ago. she had biopsy on right lateral breast, normal tissue. Ex-smoker 3334575 Z87.89 1 [id number] LANRE GREEN Count includes the [facility] [address] [place] [address] 09/09/2023 15:21:23 09/09/2023 16:08:50 Albuminuria 701862010 R80.9 repeat Diabetes mellitus 989722 09 E11.9 A1C 5.9% (08/2023) 7.6% (04/2023) [...] 5mgeye exam: 03/2023, normal History of surgery 72050 5003 Z98.890 page hospital oral at [facility] well today, two drains in place without infectionh as f/u wit surgeon weekly [id number] LANRE GREEN [facility] [address] [place] [address] 11/24/2023 14:37:58 11/24/2023 17:01:04 Diabetes mellitus 25420274 E11.9 A1C 5.9% (11/2023) 5.9% (08/2023) 7.6% (04/2023) 8.3% (03/2023) 8.8% (02/2023) 7.7% ( 12/2022) 8.5% 8.0 01/2022, 8.5 07/2021. medication s:atorvast atin 20mg, ozempic 2mg, farxiga 10mg foot exam: done 02/05/2023, normal overall but slightly diminished left posterior tibial pulse.ppsv 23: she was told she is allergicst atin: atorvastat in 20mg,alb/c r: 12/2022 abnormalAC Ei: lisinopril 5mgeye exam: 03/2023, normal Albuminuria 072609216 R8 0.9 repeat Allergic rhinitis 536326 04 J30.9 Sleep yvette chari disturbance 64627708 G47.9 patient wasthcing TV and eating at nightbeing kept up with R shoulder pain - sleep hygiene discussed- see neurosurge on for shoulder pain assessment - continue managing pain - sees pain management - refuses increasing duloxetine [id number] LANRE GREEN [facility] [address] [place] [address] 02/14/2024 11:44:23 02/16/2024 08:34:04 Constipation 18740645 K59.00 stop movantik as still constipate d and may be causing opioids withdrawal s?takes 2 weeks to have Jeanine try linzess Essential hypertension 03142689 I10 BP 116/70. states it runs low [...] Advised tobacco, alcohol, caffeine all increase BP [id number] Edmund Roy MD [facility] [address] [place] [address] 05/22/2024 13:52:29 05/22/2024 14:31:03 Adult health examination 203714073 Z00.01 Patient presents fo wellness visit. - discussed diet and exercise- cut back on ozempic to gain weight, A1C controlled - lab work- continue pain management for controlled medication Weight loss 40392158 R63 .4 will decrease ozempic to 1mggoal is to gain weight again towards 125-130lbs Sinusitis 82734371 J32.9 > 10 days of facial pain under eyes and between eyebrows and goopy eyes for 3 days. afebrile today but had headache from facial pain. Depression screening 171 815732 Z13.31 negativeon duloxetine 60mg [id number] Edmund Roy MD [facility] [address] [place] [address] 12/19/2024 10:28:19 12/19/2024 11:34:17 Screening mammography 42542884 Z12.31 due for mammogramb iopsy done 2019, benign Diabetes mellitus 600827 09 E11.9 A1C 7.9% (12/2024) 5.9% (11/2023) [...] normal Screening for malignant neoplasm of colon 048633466 Z12.11 family history of colon cacner mother Atypical chest pain 1025 65184 R07.89 Right to middle twice weekly-ach ing /stabbing pain lasting a couple of hours. Happens randomly usually when walkingtak es 2 aspirins every morningobt ain EKGcardiol ogy for work up due to co-morbidi ties Seasonal a llergic rhinitis 705673544 J30.2 refill Chronic ob structive pulmonary disease 08852077 J44.9 only using rescue and stopped her maintenanc euses rescue 1x per week [id number] Edmund Roy MD Count includes the [facility] [address] [place] [address] 03/13/2025 11:20:13 03/13/2025 12:10:44 Diabetes mellitus 86786620 E11.9 A1C 8.1% (03/2025) 7.9% (12/2024) 5.9% (11/2023) 5.9% (08/2023) 7.6% (04/2023) 8.3% (03/2023) 8.8% (02/2023) 7.7% ( 12/2022) 8.5% 8.0 01/2022, 8.5 07/2021. medication s: atorvastat in 20mg, increase ozempic from .5mg to 1mg, take farxiga 10mg daily foot exam: done 05/2024, normal overall but slightly diminished left posterior tibial pulse.ppsv 23: she was told she is allergicst atin: atorvastat in 20mgalb/cr : 11/2023 abnormalAC Ei: lisinopril 5mgeye exam: 03/2023, normal Atypical chest pain 1025 54858 R07.89 Right to middle twice weekly-ach ing /stabbing pain lasting a couple of hours. Happens randomly usually when walkingtak es 2 aspirins every morningobt ain EKGcardiol ogy for work up due to co-morbidi ties Positive s creening for depression on PHQ-9 (Patient Health Questionnaire 9) 2960290827 22855 Z13.31 on duloxetine 60mg Restless legs 63420017 G 25.81 bothers her the most at nightnot sleeping Ex-smoker 9885147 Z87.89 1 due for ldct Chest pain 28286015 R07. 9 Right to middle twice weekly-ach ing /stabbing pain lasting a couple of hours. Happens randomly usually when walkingtak es 2 aspirins every morningobt ain EKGcardiol ogy for work up due to co-morbidi ties Pain of to e of right foot 8002307539 84778 M79.674 two days ago toe popped up after hitting tow 2 weeks ago. Health Concerns Section Related Observation LastModified by Organization Detai ls LastModified Time None Recorded Concern Status LastModified by Organization Details LastModified Time None Recorded Advance Directives Directive None Recorded Payers Insurance Date Sequence Insurance Name Policy Number Policy Llnaes Covered Member ID Llanes Member ID Guarantor Name 12/19/2024 1 [facility] - HCP EMPLOYEE (EPO) [id number] Marilyn Rios [id number] Marilyn Rios 12/19/2024 1 [facility] ON OR AFTER 04/10/21 (MEDICAID REPLACEMENT - HMO) Marilyn Rios [id number] Marilyn Laura 12/19/2024 1 [place] Marilyn Laura [id number] Marilyn Laura 12/19/2024 1 [place] Marilyn Laura [id number] Marilyn Laura 12/19/2024 [place] Marilyn Laura [id number] Marilyn Laura 12/19/2024 1 [place] Marilyn Laura [id number] Marilyn Laura 02/18/2021 SLIDING FEE SCHEDULE - DISCOUNT Marilyn Laura 01/24/2020 1 *SELF PAY* Da rla Laura 12/19/2024 1 [employer] [id number] Marilyn Rios [id number] Marilyn Laura 12/19/2024 2 [facility] PRIOR TO 04/10/2021 (MEDICAID REPLACEMENT - HMO) Marilyn Rios [id number] Marilyn Laura 12/19/2024 [facility] PRIOR TO 04/10/2021 (MEDICAID REPLACEMENT - HMO) Marilyn Rios [id number] Marilyn Rios 04/10/2025 2 [place] WHEN [place] OR MEDICARE REPLACEMENT PRIMARY) Marilyn Rios [id number] Marilyn Rios 03/13/2025 2 [place] [facility] Marilyn Rios [id number] Marilyn Rios 03/11/2025 [place] [facility] Marilyn Rios [id number] Marilyn Rios 03/11/2025 1 [place] Marilyn Rios [id number] Marilyn Rios Notes Date Note Type Note Provider Name [...] trial Loratadine LANRE GREEN Attn: Accounting,[address] [facility], [place], [address], [facility] 12/04/2023 18:48:53 02/14/2024 text/html Marilyn presents f [...] something else. LANRE GREEN Attn: Accounting,[address] [place], [address], [facility] 02/14/2024 17:16:28 05/22/2024 text/html here for shamar s visit c/o of congestion and facial pain for >10 days causing daily headaches. She denies fever or chills. started with goopy eyes a few days ago. denies cp, sob, palpitations LANRE GREEN Attn: Accounting,[address] [facility], [place], [address], [facility] 05/22/2024 14:30:57 12/19/2024 text/html Marilyn IS A [...] per week. LANRE GREEN Attn: Accounting,[address] [facility], [place], [address], [facility] 12/19/2024 11:28:17 03/13/2025 text/html Marilyn IS A 59 YO F [...] R upper chest. She denies sob or palpitations.[facility] referral sent 12/2022. c/o of restless legs every night. wants medication. has not been tested for anemia. denies bloody stools or vaginal bleeding. DM: has been taking all medications as prescribed. still eating sweets. would like to increase dose of ozempic. COPD: not smoking. Does not take maintenance inhaler. only take rescue prn. I take it once a month or sometimes once per week. due for LDCT scan. 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 LANRE GREEN Attn: Accounting,[address] [facility], [place], [address], [place] [facility] 04/09/2025 14:05:50 OBGyn Episode Ob Episode Information Episode Created Date Number of Fetuses Patient Bloodtype Patient rh Status Prepregnancy Weight lbs Domestic Partner Domestic Partner Phone Father Name Friction Welding Machine Operator Status 12/05/19 20 1 CLOSED Fetus Data First Name Last Name Admitted to NICU Weight (g) Sex Living Outcome Pediatric Complications Fetus ID Race Codes Race Delivery Type M [id number] Only Alek Calculation Initial Alek Date Initial [...] Domestic Partner Domestic Partner Phone Father Name Friction Welding Machine Operator Status 12/05/19 20 1 CLOSED Fetus Data First Name Last Name Admitted to NICU Weight (g) Sex Living Outcome Pediatric Complications Fetus ID Race Codes Race Delivery Type F [id number] Only Alek Calculation Initial Alek Date Initial [...] Domestic Partner Domestic Partner Phone Father Name Friction Welding Machine Operator Status 12/05/19 20 1 CLOSED Fetus Data First Name Last Name Admitted to NICU Weight (g) Sex Living Outcome Pediatric Complications Fetus ID Race Codes Race Delivery Type M Full Term [id number] Only Alek Calculation Initial Alek Date Initial [...] Domestic Partner Domestic Partner Phone Father Name Friction Welding Machine Operator Status 12/05/19 20 1 CLOSED Fetus Data First Name Last Name Admitted to NICU Weight (g) Sex Living Outcome Pediatric Complications Fetus ID Race Codes Race Delivery Type M [id number] Only Alek Calculation Initial Alek Date Initial [...]
--- NOTE | 2025-04-11 08:10 | EST_ITS ---
Patient Info Name: Marilyn Sanchez Age: 60 years : 1965 Gender: Female Ht: 66 in Wt: 150 lbs BSA: 1.79 m2 HR: 78 bpm BP: 155 / 98 mmHg Exam Date: 04/11/2025 8:10 AM Patient Status: O Admit Date: 04/11/2025 Exam Type: CA stress julia w NM A regadenoson stress test was performed. Staff Referring Physician: John Paul Lagos DO Attending Provider: John Paul Lagos DO Exercise Technologist: Tiffanie Morse Exercise Physician: John Paul Lagos DO Summary 1. 1. Negative lexiscan stress test for ischemic ST changes by ECG criteria. 2. 2. Baseline hypertension. 3. 3. Nuclear scan to follow and will be reported separately. Please correlate with it. 4. 4. Patient informed of the above results. Protocol: Lexiscan Stress ECG Details Stage: REST Duration (min): 0 min : 41 sec HR (bpm): 79 SBP (mmHg): 155 DBP (mmHg): 98 Stage: REST Duration (min): 5 min : 4 sec HR (bpm): 82 SBP (mmHg): 155 DBP (mmHg): 98 Stage: STAGE 1 Duration (min): 1 min : 0 sec HR (bpm): 114 SBP (mmHg): 192 DBP (mmHg): 97 Stage: RECOVERY Duration (min): 1 min : 0 sec HR (bpm): 109 SBP (mmHg): 192 DBP (mmHg): 97 Stage: RECOVERY Duration (min): 2 min : 0 sec HR (bpm): 114 SBP (mmHg): 192 DBP (mmHg): 97 Stage: RECOVERY Duration (min): 3 min : 0 sec HR (bpm): 125 SBP (mmHg): 208 DBP (mmHg): 100 Stage: RECOVERY Duration (min): 4 min : 0 sec HR (bpm): 110 SBP (mmHg): 199 DBP (mmHg): 107 Stage: RECOVERY Duration (min): 5 min : 0 sec HR (bpm): 103 SBP (mmHg): 199 DBP (mmHg): 103 Stage: RECOVERY Duration (min): 6 min : 0 sec HR (bpm): 95 SBP (mmHg): 189 DBP (mmHg): 97 Stage: RECOVERY Duration (min): 6 min : 3 sec HR (bpm): 94 SBP (mmHg): 189 DBP (mmHg): 97 Rest HR: 82 bpm Peak HR: 128 bpm Rest Sys BP: 155 mmHg Peak Sys BP: 208 mmHg Max Pred HR: 159 bpm % Max Pred HR: 81 % Target HR: 135 bpm Max RPP: 26,624 bpm*mmHg Termination Reason: Completed protocol Cardiac Symptoms: Baseline nausea; nausea and vomiting Total Time: 1 min : 0 sec Rest Smith BP: 98 mmHg Peak Smith BP: 100 mmHg Total Dose: 0.4 mg Aminophylline Dose: 100 mg Resting ECG Sinus rhythm. Stress ECG No ST changes. Aminophylline 100 mg IV x1 given for intolerable symptoms of nausea and vomiting. Arrhythmias None. Report Signatures
== END 2025-04-11 08:04 | disposition home or self-care (01) ==
PROVIDERS: PCP Physician Assistant; Visit Provider Internal Medicine Cardiovascular Disease
DX: R07.9 Chest pain, unspecified (principal)
CPT/HCPCS: 78452; 93017; A9502; J0280; J2785

== ENCOUNTER 2025-04-18 14:16 | Outpatient (CLI) | payer MEDICARE, MEDICAID, SELFPAY ==
--- NOTE | ~2025-04-18 | CT_ITS ---
CT Scan of the Chest without Contrast: Clinical Indication: Lung cancer screening, nicotine dependence Technique: Contiguous sections were acquired throughout the chest without intravenous contrast. Dose reduction technique was used on this scan by utilizing automated exposure control and iterative recon struction technique. The dose-length product (DLP) was 68.81 mGy-cm. COMPARISON: 07/21/2023 Findings: There is no evidence of any significant mediastinal, hilar or axillary lymphadenopathy. Coronary jordon ry calcifications are present. There is no evidence of pleural or pericardial effusion. Stable biapical scarring. Minimal tree-in-bud opacities are present in the right middle lobe and ling shelby. Images through the upper abdomen reveal no abnormalities. Impression: Lung RADS 2: Benign appearance. 12 month follow-up screening CT advised. Reviewed, dictated and finalized at [facility]. Impression: Lung RADS 2: Benign appearance. 12 month follow-up screening CT advised.
--- OUTSIDE RECORDS SUMMARY | 2025-04-18 14:28 | XMS_ITS | Clinical Summary ---
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 NAIL[place] [address] [place] [address] [employer] Educator CARDIOVASCULAR DISEASE 03/09/18
--- OUTSIDE RECORDS SUMMARY | 2025-04-18 14:28 | XMS_ITS | Encounter Summary ---
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 Not on file Not [...] Result * CBC (OUTSIDE LAB) (02/17/2018) Pathologist [facility] WBC 8.0 HGB 14.3 HCT 43.5 PLT 364 02/17/2018 us Doc [facility]-OUTSIDE/ABSTRACTED Final Result * THYROID STIM HORMONE, TSH (02/17/2018) TSH 0.909 02/17/2018 us Doc [facility] LABORATORY Final Result * URIC ACID BLOOD (02/17/2018) Pathologist [facility] URIC ACID 3.6 02/17/2018 us Doc [facility] [...] on filedocumented in this encounter Care Teams Client Support Manager Relationship Specialty Start Date End Date Breanna Henriquez APNP Family & Internal Medicine [address] [address] PCP - General ADVANCED PRACTICE MANAGER QUALITY 02/08/18 Leon Sagastume MD [address] [address] [employer] Actuary CARDIOVASCULAR DISEASE 03/09/18 documented as of this encounter
--- OUTSIDE RECORDS SUMMARY | 2025-04-18 14:28 | XMS_ITS | Clinical Summary ---
Author Organization [facility] Address [address] [place] [address] Care Team Providers Care Topper Press Operator Automatic Name Role Phone Violetta Leyva PA-C Primary Care Provider Source Comments [facility],non-owned Affiliates and Associated Physician Practices is amultiple site organization consisting of ambulatory clinics and hospital sitesin [place], [place], [place] and [place]. This disclosure is being madepursuant to the Care Everywhere program and may not contain all information available regarding this patient. 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 Gender Identity Not on file Sexual Orientation Not on file Last Filed Vital Signs Vital Sign Reading Time Taken Comments Blood Pressure 126/78 03/22/2024 11:51 AM CDT Pulse 90 03/22/2024 11:51 AM CDT Temperature 36.7 C (98.1 F) 03/22/2024 11:51 AM CDT Respiratory Rate 16 10/27/2023 10:08 AM COATING MACHINE OPERATOR Oxygen Saturation 98% 03/22/2024 11:51 AM CDT [...] patient's age to complete this topic Insurance [facility] Advance Directives * Full Code (Latest Code Status on File) Date Activated Date Inactivated Comments 08/30/2023 1:10 PM 08/31/2023 3:39 PM Care Teams Topper Press Operator Automatic Relationship Specialty Start Date End Date Violetta eLyva PA-C [address] [place] [phone] PCP - General Physician Chief Mechanical Engineer 06/30/23
--- OUTSIDE RECORDS SUMMARY | 2025-04-18 14:29 | XMS_ITS | Referral Summary ---
Author Organization [facility] Address [facility] [place] [address] Care Team Providers Care Coding Technician Name Role Phone Violetta Leyva Primary Care Provider + Shelly Osborn MD Unavailable [phone] Encounters Date Type Department Care Team Description 03/14/2025 1:30 PM CDT Office Visit [facility] Orthopedics and Sports Medicine [address] [place] [phone] Martin Singh MD Numbness and tingling of lower extremity (Primary Dx); Rotator cuff impingement syndrome of right shoulder 02/05/2025 1:23 PM CDT - 02/05/2025 11:59 PM CDT Hospital Encounter [facility] [address] [place] [address] Chronic right shoulder pain Discharge Disposition: Discharge to home or self care 02/05/2025 1:30 PM CDT Office Visit 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 Gender Identity Not on file Sexual Orientation [...] on file Medical Devices Implanted Type Area Chief Construction Inspector Device Identifier Shelf Expiration Date Model / Serial / Lot Total Hip Left: Hip Implanted-2015 Implanted:11/2015 (Quantity not on file) Right: Hip [employer] [id number] G7 54mm Limit Hole Color Coded Hip F Offset Hemisphere Shell - [id number] Implanted:Qty: 1 on 07/22/2021 by Martin Singh MD at [facility] Left: Hip [employer] [id number] 04/03/2031 [id number] / / [id number] [employer] [id number] G7 32mm Lumen Hip F Liner Acetabular Longevity Sterile Latex Free - [id number] Implanted:Qty: 1 on 07/22/2021 by Martin Singh MD at [facility] Left: Hip [employer] [id number] 02/17/[id number] / / [id number] [employer] [id number] Echo Bi-Metric 13mm 145mm Noncollar Reduce Proximal Profile Press - [id number] Implanted:Qty: 1 on 07/22/2021 by Martin Singh MD at [facility] Left: Hip [employer] [id number] 03/13/[id number] / / [id number] [employer] [id number] 32mm Modular Hip +3mm Head Femoral Biolox Delta - [id number] Implanted:Qty: 1 on 07/22/2021 by Martin Singh MD at [facility] Left: Hip [employer] [id number] 01/17/2029 [id number] / / [id number] Procedures Procedure Name Priority Date/Time Associated Diagnosis Comments [place] ARTHROCENTESIS ASPIR&/INJ MAJOR JT/BURSA W/O US Routine 03/14/2025 1:30 PM CDT Rotator cuff impingement syndrome of right shoulder XR SHOULDER RIGHT 2 OR MORE VIEWS Schedule Routine, Read Routine (OP Routine) 02/05/2025 1:31 PM CDT Chronic right shoulder pain [place] ARTHROCENTESIS ASPIR&/INJ MAJOR JT/BURSA W/O US Routine 02/05/2025 1:30 PM CDT Chronic right shoulder pain COLONOSCOPY REPORT 06/18/2014 from Last 3 Months or Most Recently Relevant to Health Maintenance Results * [place] ARTHROCENTESIS ASPIR&/INJ MAJOR JT/BURSA W/O US (03/14/2025 [...] us Martin Singh MD IN CLINIC/BEDSIDE [facility] Final Result * XR Shoulder Right 2 [...] Samir Gilman M.D. RW T: Report ID: [id number] Reading Location: [id number] Procedure Note Smair Gilman MD - 02/06/2025 EXAM DESCRIPTION: XR [...] Samir Gilman M.D. RW T: Report ID: [id number] Reading Location: [place] [address] Martin Singh MD IMG XR PROCEDURES Debbie l Result * [place] ARTHROCENTESIS ASPIR&/INJ MAJOR JT/BURSA W/O US (02/05/2025 [...] complications Martin Singh MD IN CLINIC/BEDSIDE [facility] Final Result * COLONOSCOPY REPORT (06/18/2014) Anatomical Region Laterality Modality Other Narrative 06/18/2014 Ordered by an unspecified provider. Historical Provider GI PROCEDURE ORDERABLES F inal Result from Last 3 Months or Most Recently Relevant to Health Maintenance Insurance [facility] MEDICARE [facility] OPEN ACCESS [facility] [place] Advance Directives For more information, please contact: [phone] * Full Code (Latest Code Status on File) Date Activated Date Inactivated Comments 07/22/2021 6:21 PM 07/24/2021 6:41 PM Care Teams Coding Technician Relationship Specialty Start Date End Date Violetta Leyva PA PCP - General 10/28/20 Shelly Osborn MD [address] [address] Referring Physician Internal Medicine 07/08/21
--- OUTSIDE RECORDS SUMMARY | 2025-04-18 14:29 | XMS_ITS | Clinical Summary ---
Author Organization 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 05/26/2021 Low back pain 05/26/2021 Sensation of chest tightness 11/17/2011 Encounters Date Type Department Care Team Description 03/14/2025 1:30 PM CDT Office Visit [facility] Sports Medicine [address] [place] [phone] Martin Singh MD Numbness and tingling of lower extremity (Primary Dx); Rotator cuff impingement syndrome of right shoulder 02/05/2025 1:30 PM CDT Office Visit [facility] Orthopedics and Sports Medicine [address] [place] [address] [place] [phone] Martin Singh MD Chronic right shoulder pain (Primary Dx) 02/05/2025 1:23 PM CDT - 02/05/2025 11:59 PM CDT Hospital Encounter [facility] Di[facility] [address] [place] [address] Chronic right shoulder pain Discharge Disposition: Discharge to home or self care from Last 3 Months Surgical History Surgery Date Site/Laterality Comments SECTION x 4 CHOLECYSTECTOMY 2009's RHINOPLASTY x 2 JOINT REPLACEMENT 10/11/2013 - 10/10/2014 R THR SPINE SURGERY 1998 L3-4-5 ESOPHAGOGASTRODUODENOSCOPY 2019 COLONOSCOPY 2019 JOINT REPLACEMENT 10/11/2018 - 10/10/2019 L THR Medical History Medical History Date Comments Allergic rhinitis Motion sickness PONV (postoperative nausea and vomiting) Covid-19 09/2020 NOT HOSP ITALIZED Asthma COPD (chronic obstructive pu lmonary disease) ([facility]) COPD History of pneumonia SEVERAL CHRISTOPHER ES LAST IN THE Migraine Cataract only one eye, no t sure which one Vertigo Diverticulitis of colon Irritable bowel syndrome History of colitis Wears glasses reading glasses GERD (gastroesophageal reflux disease) Osteoarthritis History of fracture spine DDD (degenerative disc disease), lumbar History of anxiety Type 2 diabetes mellitus ([facility]) s/p left total hip arthropla sty at [...] on file 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 Gender Identity Not on file Sexual [...] Screening-Mammogram 09/27/2024 09/27/2023, 01/29/2022, 05/31/2014 Influenza Vaccine (#1) 2025 DTaP/Tdap/Td Vaccine (2 - Td or Tdap) 01/03/2035 Medical Devices Implanted Type Area Ssds Mk 2 Advanced Operator Device Identifier Shelf Expiration Date Model / Serial / Lot Total Hip Left: Hip Implanted-2015 Implanted:11/2015 (Quantity not on file) Right: Hip [employer] [id number] G7 54mm Limit Hole Color Coded Hip F Offset Hemisphere Shell - [id number] Implanted:Qty: 1 on 07/22/2021 by Martin Singh MD at [facility] Left: Hip [employer] [id number] 04/03/2031 [id number] / / [id number] [employer] [id number] G7 32mm Lumen Hip F Liner Acetabular Longevity Sterile Latex Free - [id number] Implanted:Qty: 1 on 07/22/2021 by Martin Singh MD at [facility] Left: Hip [employer] [id number] 02/17/2026 [id number] / / [id number] [employer] [id number] Echo Bi-Metric 13mm 145mm Noncollar Reduce Proximal Profile Press - [id number] Implanted:Qty: 1 on 07/22/2021 by Martin Singh MD at [facility] Left: Hip [employer] [id number] 03/13/2031 [id number] / / [id number] [employer] [id number] 32mm Modular Hip +3mm Head Femoral Biolox Delta - [id number] Implanted:Qty: 1 on 07/22/2021 by Martin Singh MD at [facility] Left: Hip [employer] [id number] 01/17/2029827269 / / [id number] Procedures Procedure Name Priority Date/Time Associated Diagnosis Comments IN ARTHROCENTESIS ASPIR&/INJ MAJOR JT/BURSA W/O US Routine 03/14/2025 1:30 PM CDT Rotator cuff impingement syndrome of right shoulder XR SHOULDER RIGHT 2 OR MORE VIEWS Schedule Routine, Read Routine (OP Routine) 02/05/2025 1:31 PM CDT Chronic right shoulder pain IN ARTHROCENTESIS ASPIR&/INJ MAJOR JT/BURSA W/O US Routine 02/05/2025 1:30 PM CDT Chronic right shoulder pain COLONOSCOPY REPORT 06/18/2014 from Last 3 Months or Most Recently Relevant to Health Maintenance Results * IN ARTHROCENTESIS ASPIR&/INJ MAJOR JT/BURSA W/O US (03/14/2025 [...] Samir Gilman M.D. RW T: Report ID: [id number] Reading Location: [id number] Procedure Note Samir Gilman MD - 02/06/2025 [...] Samir Gilman M.D. RW T: Report ID: [id number] Reading Location: [id number] Martin Singh MD IMG XR PROCEDURES Debbie l Result * IN ARTHROCENTESIS ASPIR&/INJ MAJOR JT/BURSA W/O US (02/05/2025 1:30 PM CDT) Martin Scherer MD - 02/05/2025 1:30 PM CDT Martin [...] Most Recently Relevant to Health Maintenance Insurance [facility] IDPA MEDICARE [employer] OPEN ACCESS [facility] Advance Directives For more information, please contact: [phone] * Full Code (Latest Code Status on File) Date Activated Date Inactivated Comments 07/22/2021 6:21 PM 07/24/2021 6:41 PM Care Teams Managed Care Specialist Relationship Specialty Start Date End Date Violetta Leyva PA PCP - General 10/28/20 Shelly Osborn MD [address] [address] Referring Physician Internal Medicine 07/08/21
--- OUTSIDE RECORDS SUMMARY | 2025-04-18 14:29 | XMS_ITS | Clinical Summary ---
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 [id number] [facility] Address: [facility] [id number] [place] [address] Care Teams Multi Care Technician Relationship Specialty Start Date End Date Jerson Alfonso MD [address] [place] [address] PCP - General Family Practice 03/11/11
--- OUTSIDE RECORDS SUMMARY | 2025-04-18 14:29 | XMS_ITS | Data Portability ---
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 Not available 02/14/2024 12:13:40 Plan of Treatment Reminders Order Date Submit Date Provider Last Modified By Organization Details Last Modified Time Details Appointments None recorded . Lab ferritin , serum or plasma 2024 025 [place] [facility], [address] [place] [address], [facility] [address], [place], [address], 12:13:41 iron + total iron-bin ding capacity (TIBC), serum 2024 025 [place] [facility], [address] [place] [address], [facility] [address], [place], [address], 12:13:39 CBC w/ auto diff 2024 025 [place] [facility], [address] [place] [address], [address], [place], [address], 12:13:42 HbA1c (hemoglo bin A1c), blood 2024 025 In-Office Order, Internal Use Only DO Not Attach Compendium DO Not Attach Compendium, Do Not Delete/merge, [id number] 5 11:43:39 HbA1c (hemoglo bin A1c), blood 2024 025 In-Office Order, Internal Use Only DO Not Attach Compendium DO Not Attach Compendium, Do Not Delete/merge, [id number] 5 11:23:21 microalb umin/cre atinine, mass ratio, urine 2024 025 [email or web address], [address], [address], [place], [address], 5 11:30:47 CMP, serum or plasma 2024 025 [facility], [address], [address], [place], [address], 5 16:14:11 lipid panel, serum 2024 025 [facility], [address], [place], [address], 5 16:14:10 CMP, serum or plasma 2023 024 [facility], [address], [address], [place], [address], 4 22:07:39 CBC w/ auto diff 2023 024 [facility], [address], [address], [place], [address], 4 22:07:39 lipid panel, serum 2023 024 [facility], [address], [address], [place], [address], 4 22:07:38 HbA1c (hemoglo bin A1c), blood 2023 024 [facility] In-Office Order, Internal Use Only DO Not Attach Compendium DO Not Attach Compendium, Do Not Delete/merge, 4 15:39:53 urinalys is, dipstick 2023 024 [facility] In-Office Order, Internal Use Only DO Not Attach Compendium DO Not Attach Compendium, Do Not Delete/merge, 4 14:31:29 microalb umin/cre atinine, mass ratio, urine 2023 024 [facility], [address], [address], [place], [address], 4 16:20:32 CMP, serum or plasma 2023 024 [facility], [address], [place], [address], 4 20:09:39 lipid panel, serum 2023 024 [facility], [address], [place], [address], 4 20:09:39 HbA1c (hemoglo bin A1c), blood 2023 024 [facility] In-Office Order, Internal Use Only DO Not Attach Compendium DO Not Attach Compendium, Do Not Delete/merge, 4 16:23:[address] referral 2024 025 [email or web address] Prerna Molina DPM, [address], [address], [place], [address], 5 13:07:49 cardiolo gist referral 2024 025 [email or web address] John Paul Lagos DO, [address], [address], [place], [address], 08:00:[address] referral - need reports from last visits 2024 025 [email or web address] Edinson Merritt MD, [address] [facility] [address], [address], [place], [address], 08:00:26 Procedures None recorded . Surgeries None recorded . Imaging XR, chest, 2 view 2024 [facility]25 [facility], [address] [facility] [address], [place], [address], 13:50:02 LDCT, chest, for lung cancer screenin g 2024 025 [email or web address], [address] [facility] [address], [place], [address], 14:29:13 MAMMO, screenin g, bilatera l 2024 025 [email or web address] [facility], [address], [place], [address], 08:06:19 Medication Orders Farxiga 10 mg tablet 2024 025 [id number], [address], [place], [place], [id number], 11:43:37 Ozempic 1 mg/dose (4 mg/3 mL) subcutan eous pen injector 2024 025 [facility] [address], [address] [place], [address], 14:14:53 Ozempic 0.25 mg or 0.5 mg (2 mg/1.5 mL) subcutan eous pen injector 2024 025 [id number], [address], [place], [place], [id number], 5 11:23:19 Farxiga 10 mg tablet [address] [facility][id number], [address], [place], [place], [id number], 5 11:23:19 cetirizi ne 10 mg tablet 2024 025 [facility] #[id number], [address], [place], [place], [id number], 5 11:26:14 Zithroma x Z-Gabriele 250 mg tablet 2023 025 [facility] #[id number], [address], [place], [place], [id number], 5 11:07:08 Linzess 290 mcg capsule [address] [facility][id number], [address], [place], [place], [id number], 4 14:07:03 loratadi ne 10 mg tablet 2023 024 [facility] #[id number], [address], [place], [place], [id number], 4 14:08:18 Patient TargetsNo targets recorded. 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 Referral for Pain of toe of right foot Referring Physician: Hanane Miranda, Firer Watertender, Encounter Date: 03/13/2025 Results Created Date Observation Date Name Description Value Unit Range Abnormal Flag Note LastModifiedBy Organization Detail LastModifiedTime 11/24/19 24 11/24/2023 LIPID PANEL cholesterol, total 160 mg/dL 100-19 9 Not Available [facility] Department [address] [place] [address], [address], 11/24/2023 20:09:39 11/24/19 24 11/24/2023 LIPID PANEL triglyceride s 98 mg/dL 0-149 Not Available [facility] [address] [place] [address], [address], 11/24/2023 20:09:39 11/24/19 24 11/24/2023 LIPID PANEL HDL cholesterol 65 mg/dL 40-999 Not Available [facility] Department [address] [place] [address], [address], 11/24/2023 20:09:39 11/24/19 24 11/24/2023 LIPID PANEL VLDL cholesterol olegario 20 mg/dL 5-40 Not Available [facility] [address] [place] [address], [address], 11/24/2023 20:09:39 11/24/19 24 11/24/2023 LIPID PANEL LDL chol calc ([facility]) 89 mg/dL 0-99 Not Available [facility] Department [address] [place] [address], [address], 11/24/2023 20:09:39 11/24/19 24 11/24/2023 COMP. METAB OLIC PANEL (14) glucose 121 mg/dL 70-99 above high normal Not Available [facility] Department [address] [place] [address], [address], 11/24/2023 20:09:39 11/24/19 24 11/24/2023 COMP. METAB OLIC PANEL (14) BUN 12 mg/dL 6-24 Not Available [facility] Department [address] [place], [address], 11/24/2023 20:09:39 11/24/19 24 11/24/2023 COMP. METAB OLIC PANEL (14) creatinine 0.64 mg/dL 0.76-1 .27 below low normal Not Available [facility] Department [address] [place], [address], 11/24/2023 20:09:39 11/24/19 24 11/24/2023 COMP. METAB OLIC PANEL (14) eGFR 102 >=60 Units for eGFR value s are mL/mi n/1.7 3 The eGFR Calcu latio n has not been valid ated for patie nts under the age of 18. If test resul ts are displ ayed for a patie nt under the age of 18, disre gilberto that value . Not Available [facility] Department [address] [place] [address], [address], 11/24/2023 20:09:39 11/24/19 24 11/24/2023 COMP. METAB OLIC PANEL (14) BUN/creatini ne ratio 19 9-23 Not Available [facility] [address] [place] [address], [address], 11/24/2023 20:09:39 11/24/19 24 11/24/2023 COMP. METAB OLIC PANEL (14) sodium 141 mmol/ L 134-14 4 Not Available [facility] Department [address] [place], [address], 11/24/2023 20:09:39 11/24/19 24 11/24/2023 COMP. METAB OLIC PANEL (14) potassium 4.7 mmol/ L 3.5-5. 2 Not Available [facility] Department [address] [place], [address], 11/24/2023 20:09:39 11/24/19 24 11/24/2023 COMP. METAB OLIC PANEL (14) chloride 105 mmol/ L 96-106 Not Available [facility] Department [address] [place], [address], 11/24/2023 20:09:39 11/24/19 24 11/24/2023 COMP. METAB OLIC PANEL (14) carbon dioxide, total 19 mmol/ L 20-29 below low normal Not Available [facility] Department [address] [place], [address], 11/24/2023 20:09:39 11/24/19 24 11/24/2023 COMP. METAB OLIC PANEL (14) calcium 9.7 mg/dL 8.7-10 .2 Not Available [facility] Department [address] [place], [address], 11/24/2023 20:09:39 11/24/19 24 11/24/2023 COMP. METAB OLIC PANEL (14) protein, total 6.9 g/dL 6.0-8. 5 Not Available [facility] Department [address] [place], [address], 11/24/2023 20:09:39 11/24/19 24 11/24/2023 COMP. METAB OLIC PANEL (14) albumin 4.5 g/dL 3.8-4. 9 Not Available [facility] Department [address] [place], [address], 11/24/2023 20:09:39 11/24/19 24 11/24/2023 COMP. METAB OLIC PANEL (14) globulin, total 2.4 g/dL 1.5-4. 5 Not Available [facility] Department [address] [place], [address], 11/24/2023 20:09:39 11/24/19 24 11/24/2023 COMP. METAB OLIC PANEL (14) A/G ratio 1.8 1.2-2. 2 Not Available [facility] Department [address] [place], [address], 11/24/2023 20:09:39 11/24/19 24 11/24/2023 COMP. METAB OLIC PANEL (14) bilirubin, total 0.4 mg/dL 0.0-1. 2 Not Available [facility] [address] [place], [address], 11/24/2023 20:09:39 11/24/19 24 11/24/2023 COMP. METAB OLIC PANEL (14) alkaline phosphatase 102 IU/L 44-121 Not Available [facility] Department [address] [place] [address], [address], 11/24/2023 20:09:39 11/24/19 24 11/24/2023 COMP. METAB OLIC PANEL (14) AST (SGOT) 17 IU/L 0-40 Not Available [facility] Department [address] [place] [address], [address], 11/24/2023 20:09:39 11/24/19 24 11/24/2023 COMP. METAB OLIC PANEL (14) ALT (SGPT) 11 IU/L 0-32 Not Available [facility] Department [address] [place] [address], [address], 11/24/2023 20:09:39 11/24/19 24 11/24/2023 HbA1c (hemo globi n A1c), blood HbA1c 5.9 Not Available In-Office Order Internal Use Only DO Not Attach Compendium DO Not Attach Compendium, Do Not Delete/merge, [id number] 11/24/2023 14:57:19 05/22/20 24 05/22/2024 LIPID PANEL cholesterol, total 149 mg/dL 100-19 9 Not Available [facility] Department [address] [place] [address], [address], 05/22/2024 22:07:38 05/22/20 24 05/22/2024 LIPID PANEL triglyceride s 94 mg/dL 0-149 Not Available [facility] Department [address] [place], [address], 05/22/2024 22:07:38 05/22/20 24 05/22/2024 LIPID PANEL HDL cholesterol 66 mg/dL 40-999 Not Available [facility] Department [address] [place] [address], [address], 05/22/2024 22:07:38 05/22/20 24 05/22/2024 LIPID PANEL VLDL cholesterol olegario 19 mg/dL 5-40 Not Available [facility] [address] [place] [address], [address], 05/22/2024 22:07:38 05/22/20 24 05/22/2024 LIPID PANEL LDL chol calc (nih) 78 mg/dL 0-99 Not Available [facility] Department [address] [place] [address], [address], 05/22/2024 22:07:38 05/22/20 24 05/22/2024 COMP. METAB OLIC PANEL (14) glucose 113 mg/dL 70-99 above high normal Not Available [facility] Department [address] [place] [address], [address], 05/22/2024 22:07:39 05/22/20 24 05/22/2024 COMP. METAB OLIC PANEL (14) BUN 14 mg/dL 8-27 Not Available [facility] Department [address] [place] [address], [address], 05/22/2024 22:07:39 05/22/20 24 05/22/2024 COMP. METAB OLIC PANEL (14) creatinine 0.50 mg/dL 0.76-1 .27 below low normal Not Available [facility] Department [address] [place] [address], [address], 05/22/2024 22:07:39 05/22/20 24 05/22/2024 COMP. METAB OLIC PANEL (14) eGFR 107 >=60 Units for eGFR value s are mL/mi n/1.7 3 The eGFR Calcu latio n has not been valid ated for patie nts under the age of 18. If test resul ts are displ ayed for a patie nt under the age of 18, disre gilberto that value . Not Available [facility] Department [address] [place] [address], [address], 05/22/2024 22:07:39 05/22/20 24 05/22/2024 COMP. METAB OLIC PANEL (14) BUN/creatini ne ratio 29 10-28 above high normal Not Available [facility] Department [address] [place] [address], [address], 05/22/2024 22:07:39 05/22/20 24 05/22/2024 COMP. METAB OLIC PANEL (14) sodium 138 mmol/ L 134-14 4 Not Available [facility] [address] [place] [address], [address], 05/22/2024 22:07:39 05/22/20 24 05/22/2024 COMP. METAB OLIC PANEL (14) potassium 3.7 mmol/ L 3.5-5. 2 Not Available [facility] [address] [place] [address], [address], 05/22/2024 22:07:39 05/22/20 24 05/22/2024 COMP. METAB OLIC PANEL (14) chloride 100 mmol/ L 96-106 Not Available [facility] [address] [place] [address], [address], 05/22/2024 22:07:39 05/22/20 24 05/22/2024 COMP. METAB OLIC PANEL (14) carbon dioxide, total 27 mmol/ L 20-29 Not Available [facility] [address] [place] [address], [address], 05/22/2024 22:07:39 05/22/20 24 05/22/2024 COMP. METAB OLIC PANEL (14) calcium 9.6 mg/dL 8.7-10 .3 Not Available [facility] Department [address] [place], [address], 05/22/2024 22:07:39 05/22/20 24 05/22/2024 COMP. METAB OLIC PANEL (14) protein, total 6.9 g/dL 6.0-8. 5 Not Available [facility] Department [address] [place], [address], 05/22/2024 22:07:39 05/22/20 24 05/22/2024 COMP. METAB OLIC PANEL (14) albumin 4.5 g/dL 3.8-4. 9 Not Available [facility] [address] [place], [address], 05/22/2024 22:07:39 05/22/20 24 05/22/2024 COMP. METAB OLIC PANEL (14) globulin, total 2.4 g/dL 1.5-4. 5 Not Available [facility] [address] [place], [address], 05/22/2024 22:07:39 05/22/20 24 05/22/2024 COMP. METAB OLIC PANEL (14) A/G ratio 2.0 1.2-2. 2 Not Available [facility] [address] [place], [address], 05/22/2024 22:07:39 05/22/20 24 05/22/2024 COMP. METAB OLIC PANEL (14) bilirubin, total 0.6 mg/dL 0.0-1. 2 Not Available [facility] [address] [place], [address], 05/22/2024 22:07:39 05/22/20 24 05/22/2024 COMP. METAB OLIC PANEL (14) alkaline phosphatase 96 IU/L 44-121 Not Available [facility] Department [address] [place], [address], 05/22/2024 22:07:39 05/22/20 24 05/22/2024 COMP. METAB OLIC PANEL (14) AST (SGOT) 14 IU/L 0-40 Not Available [facility] Department [address] [place], [address], 05/22/2024 22:07:39 05/22/20 24 05/22/2024 COMP. METAB OLIC PANEL (14) ALT (SGPT) 8 IU/L 0-32 Not Available [facility] Department [address] [place], [address], 05/22/2024 22:07:39 05/22/20 24 05/22/2024 CBC WITH DIFFE RENTI AL/PL ATELE T WBC 7.9 x10e3 /uL 3.4-10 .8 Not Available [facility] Department [address] [place], [address], 05/22/2024 22:07:39 05/22/20 24 05/22/2024 CBC WITH DIFFE RENTI AL/PL ATELE T RBC 5.53 x10e6 /uL 3.77-5 .28 above high normal Not Available [facility] [address] [place], [address], 05/22/2024 22:07:39 05/22/20 24 05/22/2024 CBC WITH DIFFE RENTI AL/PL ATELE T hemoglobin 15.8 g/dL 11.1-1 5.9 Not Available [facility] [address] [place], [address], 05/22/2024 22:07:39 05/22/20 24 05/22/2024 CBC WITH DIFFE RENTI AL/PL ATELE T hematocrit 48.9 % 34.0-4 6.6 above high normal Not Available [facility] [address] [place], [address], 05/22/2024 22:07:39 05/22/20 24 05/22/2024 CBC WITH DIFFE RENTI AL/PL ATELE T MCV 88 fL 79-97 Not Available [facility] [address] [place], [address], 05/22/2024 22:07:39 05/22/20 24 05/22/2024 CBC WITH DIFFE RENTI AL/PL ATELE T MCH 28.6 pg 26.6-3 3.0 Not Available [facility] [address] [place], [address], 05/22/2024 22:07:39 05/22/20 24 05/22/2024 CBC WITH DIFFE RENTI AL/PL ATELE T MCHC 32.3 g/dL 31.5-3 5.7 Not Available [facility] [address] [place], [address], 05/22/2024 22:07:39 05/22/20 24 05/22/2024 CBC WITH DIFFE RENTI AL/PL ATELE T RDW 13.6 % 11.5-1 4.5 Not Available [facility] [address] [place], [address], 05/22/2024 22:07:39 05/22/20 24 05/22/2024 CBC WITH DIFFE RENTI AL/PL ATELE T platelets 367 x10e3 /uL 150-45 0 Not Available [facility] [address] [place], [address], 05/22/2024 22:07:39 05/22/20 24 05/22/2024 CBC WITH DIFFE RENTI AL/PL ATELE T neutrophils 68 % notest b. Not Available [facility] [address] [place], [address], 05/22/2024 22:07:39 05/22/20 24 05/22/2024 CBC WITH DIFFE RENTI AL/PL ATELE T lymphs 24 % notest b. Not Available [facility] [address] [place], [address], 05/22/2024 22:07:39 05/22/20 24 05/22/2024 CBC WITH DIFFE RENTI AL/PL ATELE T monocytes 6 % notest b. Not Available [facility] [address] [place], [address], 05/22/2024 22:07:39 05/22/20 24 05/22/2024 CBC WITH DIFFE RENTI AL/PL ATELE T eos 1 % notest b. Not Available [facility] Department [address] [place] [address], [address], 05/22/2024 22:07:39 05/22/20 24 05/22/2024 CBC WITH DIFFE RENTI AL/PL ATELE T basos 1 % notest b. Not Available [facility] [address] [place] [address], [address], 05/22/2024 22:07:39 05/22/20 24 05/22/2024 CBC WITH DIFFE RENTI AL/PL ATELE T neutrophils (absolute) 5.3 x10e3 /uL 1.4-7. 0 Not Available [facility] Department [address] [place] [address], [address], 05/22/2024 22:07:39 05/22/20 24 05/22/2024 CBC WITH DIFFE RENTI AL/PL ATELE T lymphs (absolute) 1.9 x10e3 /uL 0.7-3. 1 Not Available [facility] Department [address] [place], [address], 05/22/2024 22:07:39 05/22/20 24 05/22/2024 CBC WITH DIFFE RENTI AL/PL ATELE T monocytes(ab solute) 0.5 x10e3 /uL 0.1-0. 9 Not Available [facility] Department [address] [place], [address], 05/22/2024 22:07:39 05/22/20 24 05/22/2024 CBC WITH DIFFE RENTI AL/PL ATELE T eos (absolute) 0.1 x10e3 /uL 0.0-0. 4 Not Available [facility] [address] [place], [address], 05/22/2024 22:07:39 05/22/20 24 05/22/2024 CBC WITH DIFFE RENTI AL/PL ATELE T baso (absolute) 0.1 x10e3 /uL 0.0-0. 2 Not Available [facility] Department [address] [place], [address], 05/22/2024 22:07:39 05/22/20 24 05/22/2024 CBC WITH DIFFE RENTI AL/PL ATELE T immature granulocytes 0.1 % notest b. Not Available [facility] Department [address] [place], [address], 05/22/2024 22:07:39 05/22/20 24 05/22/2024 CBC WITH DIFFE RENTI AL/PL ATELE T immature grans (abs) 0.0 x10e3 /uL 0.0-0. 1 Not Available [facility] [address] [place], [address], 05/22/2024 22:07:39 05/22/20 24 05/22/2024 CBC WITH DIFFE RENTI AL/PL ATELE T NRBC 0 % 0-0 Not Available [facility] Department [address] [place], [address], 05/22/2024 22:07:39 05/22/20 24 05/22/2024 urina lysis , dipst ick Leukocytes Negati ve Not Available In-Office Order Internal Use Only DO Not Attach Compendium DO Not Attach Compendium, Do Not Delete/merge, [id number] 05/22/2024 14:17:49 05/22/2005/22/2024 urina lysis , dipst [...] 05/22/2024 urina lysis , dipst ick Specific [place] 1.015 Not Available In-Off ice Order Internal [...] 174 mg/dL 100-19 9 Not Available [facility] ([facility]) [address] [facility], [place], [address], 12/20/2024 16:14:10 12/20/19 25 12/20/2024 LIPID PANEL triglyceride s 168 mg/dL 0-149 above high normal Not Available [facility] ([facility]) [address] [facility], [place], [address], 12/20/2024 16:14:10 12/20/19 25 12/20/2024 LIPID PANEL HDL cholesterol 72 mg/dL >39 Not Available [facility] ([facility]) [address] [facility], [place], [address], 12/20/2024 16:14:10 12/20/19 25 12/20/2024 LIPID PANEL VLDL cholesterol olegario 28 mg/dL 5-40 Not Available [facility] ([facility]) [address] [place], [address], 12/20/2024 16:14:10 12/20/19 25 12/20/2024 LIPID PANEL LDL chol calc ([facility]) 74 mg/dL 0-99 Not Available [facility] ([facility]) [address] [place], [address], 12/20/2024 16:14:10 12/20/19 25 12/20/2024 COMP. METAB OLIC PANEL (14) glucose 334 mg/dL 70-99 above high normal Not Available [facility] ([facility]) [address] [place], [address], 12/20/2024 16:14:11 12/20/19 25 12/20/2024 COMP. METAB OLIC PANEL (14) BUN 14 mg/dL 8-27 Not Available [facility] ([facility]) [address] [place], [address], 12/20/2024 16:14:11 12/20/19 25 12/20/2024 COMP. METAB OLIC PANEL (14) creatinine 0.59 mg/dL 0.57-1 .00 Not Available [facility] ([facility]) [address] [place], [address], 12/20/2024 16:14:11 12/20/19 25 12/20/2024 COMP. METAB OLIC PANEL (14) eGFR 103 mL/mi n/1.7 3 >59 Not Available [facility] ([facility]) [address] [place], [address], 12/20/2024 16:14:11 12/20/19 25 12/20/2024 COMP. METAB OLIC PANEL (14) BUN/creatini ne ratio 24 12-28 Not Available [facility] ([facility]) [address] [facility], [place], [address], 12/20/2024 16:14:11 12/20/19 25 12/20/2024 COMP. METAB OLIC PANEL (14) sodium 141 mmol/ L 134-14 4 Not Available [facility] ([facility]) [address] [place], [address], 12/20/2024 16:14:11 12/20/19 25 12/20/2024 COMP. METAB OLIC PANEL (14) potassium 5.4 mmol/ L 3.5-5. 2 above high normal Not Available [facility] ([facility]) [address] [facility], [address], 12/20/2024 16:14:11 12/20/19 25 12/20/2024 COMP. METAB OLIC PANEL (14) chloride 102 mmol/ L 96-106 Not Available [facility] ([facility]) [address] [facility] [place], [address], 12/20/2024 16:14:11 12/20/19 25 12/20/2024 COMP. METAB OLIC PANEL (14) carbon dioxide, total 24 mmol/ L 20-29 Not Available [facility] ([facility]) [address] [facility] [place], [address], 12/20/2024 16:14:11 12/20/19 25 12/20/2024 COMP. METAB OLIC PANEL (14) calcium 9.1 mg/dL 8.7-10 .3 Not Available [facility] ([facility]) [address] [facility] [place], [address], 12/20/2024 16:14:11 12/20/19 25 12/20/2024 COMP. METAB OLIC PANEL (14) protein, total 6.3 g/dL 6.0-8. 5 Not Available [facility] ([facility]) [address] [facility] [place], [address], 12/20/2024 16:14:11 12/20/19 25 12/20/2024 COMP. METAB OLIC PANEL (14) albumin 4.0 g/dL 3.8-4. 9 Not Available [facility] ([facility]) [address] [facility], [place], [address], 12/20/2024 16:14:11 12/20/19 25 12/20/2024 COMP. METAB OLIC PANEL (14) globulin, total 2.3 g/dL 1.5-4. 5 Not Available [facility] ([facility]) [address] [facility], [place], [address], 12/20/2024 16:14:11 12/20/19 25 12/20/2024 COMP. METAB OLIC PANEL (14) bilirubin, total <0.2 mg/dL 0.0-1. 2 Not Available [facility] ([facility]) [address] [facility], [place], [address], 12/20/2024 16:14:11 12/20/19 25 12/20/2024 COMP. METAB OLIC PANEL (14) alkaline phosphatase 121 IU/L 44-121 Not Available [facility] ([facility]) [address] [facility], [place], [address], 12/20/2024 16:14:11 12/20/19 25 12/20/2024 COMP. METAB OLIC PANEL (14) AST (SGOT) 15 IU/L 0-40 Not Available [facility] ([facility]) [address] [facility], [place], [address], 12/20/2024 16:14:11 12/20/19 25 12/20/2024 COMP. METAB OLIC PANEL (14) ALT (SGPT) 14 IU/L 0-32 Not Available [facility] ([facility]) [address] [facility], [place], [address], 12/20/2024 16:14:11 12/20/19 25 12/19/2024 HbA1c (hemo globi n A1c), blood HbA1c 7.9 Not Available In-Office Order Internal Use Only DO Not Attach Compendium DO Not Attach Compendium, Do Not Delete/merge, [id number] 12/19/2024 10:52:23 03/13/20 25 03/14/2025 IRON AND TIBC iron bind.cap.(TI BC) 292 ug/dL 250-45 0 Not Available [facility] ([facility]) [address] [place], [address], 03/14/2025 12:13:39 03/13/20 25 03/14/2025 IRON AND TIBC UIBC 236 ug/dL 118-36 9 Not Available [facility] ([facility]) [address] [place], [address], 03/14/2025 12:13:39 03/13/20 25 03/14/2025 IRON AND TIBC iron 56 ug/dL 27-139 Not Available [facility] ([facility]) [address] [place], [address], 03/14/2025 12:13:39 03/13/20 25 03/14/2025 IRON AND TIBC iron saturation 19 % 15-55 Not Available [facility] ([facility]) [address] [place], [address], 03/14/2025 12:13:39 03/13/20 25 03/14/2025 MITCHELL TIN ferritin 69 NG/mL 15-150 Not Available [facility] ([facility]) [address] [place], [address], 03/14/2025 12:13:41 03/13/20 25 03/14/2025 CBC WITH DIFFE RENTI AL/PL ATELE T WBC 8.1 x10e3 /uL 3.4-10 .8 Not Available [facility] ([facility]) [address] [place], [address], 03/14/2025 12:13:42 03/13/20 25 03/14/2025 CBC WITH DIFFE RENTI AL/PL ATELE T RBC 5.52 x10e6 /uL 3.77-5 .28 above high normal Not Available [facility] ([facility]) [address] [place], [address], 03/14/2025 12:13:42 03/13/20 25 03/14/2025 CBC WITH DIFFE RENTI AL/PL ATELE T hemoglobin 15.8 g/dL 11.1-1 5.9 Not Available [facility] ([facility]) [address] [place], [address], 03/14/2025 12:13:42 03/13/20 25 03/14/2025 CBC WITH DIFFE RENTI AL/PL ATELE T hematocrit 50.6 % 34.0-4 6.6 above high normal Not Available [facility] ([facility]) [address] [place], [address], 03/14/2025 12:13:42 03/13/20 25 03/14/2025 CBC WITH DIFFE RENTI AL/PL ATELE T MCV 92 fL 79-97 Not Available [facility] ([facility]) [address] [place], [address], 03/14/2025 12:13:42 03/13/2003/14/2025 CBC WITH DIFFE RENTI AL/PL ATELE T MCH 28.6 pg 26.6-3 3.0 Not Available [facility] ([facility]) [address] [place], [address], 03/14/2025 12:13:42 03/13/20 25 03/14/2025 CBC WITH DIFFE RENTI AL/PL ATELE T MCHC 31.2 g/dL 31.5-3 5.7 below low normal Not Available [facility] ([facility]) [address] [place], [address], 03/14/2025 12:13:42 03/13/20 25 03/14/2025 CBC WITH DIFFE RENTI AL/PL ATELE T RDW 13.0 % 11.7-1 5.4 Not Available [facility] ([facility]) [address] [facility], [place], [address], 03/14/2025 12:13:42 03/13/20 25 03/14/2025 CBC WITH DIFFE RENTI AL/PL ATELE T platelets 385 x10e3 /uL 150-45 0 Not Available [facility] ([facility]) [address] [facility], [place], [address], 03/14/2025 12:13:42 03/13/20 25 03/14/2025 CBC WITH DIFFE RENTI AL/PL ATELE T neutrophils 57 % notest ab. Not Available [facility] ([facility]) [address] [facility], [place], [address], 03/14/2025 12:13:42 03/13/20 25 03/14/2025 CBC WITH DIFFE RENTI AL/PL ATELE T lymphs 34 % notest ab. Not Available [facility] ([facility]) [address] [facility], [place], [address], 03/14/2025 12:13:42 03/13/20 25 03/14/2025 CBC WITH DIFFE RENTI AL/PL ATELE T monocytes 7 % notest ab. Not Available [facility] ([facility]) [address] [facility], [place], [address], 03/14/2025 12:13:42 03/13/20 25 03/14/2025 CBC WITH DIFFE RENTI AL/PL ATELE T eos 1 % notest ab. Not Available [facility] ([facility]) [address] [facility], [place], [address], 03/14/2025 12:13:42 03/13/20 25 03/14/2025 CBC WITH DIFFE RENTI AL/PL ATELE T basos 1 % notest ab. Not Available [facility] ([facility]) [address] [facility], [place], [address], 03/14/2025 12:13:42 03/13/20 25 03/14/2025 CBC WITH DIFFE RENTI AL/PL ATELE T neutrophils (absolute) 4.6 x10e3 /uL 1.4-7. 0 Not Available [facility] ([facility]) [address] [facility], [place], [address], 03/14/2025 12:13:42 03/13/20 25 03/14/2025 CBC WITH DIFFE RENTI AL/PL ATELE T lymphs (absolute) 2.7 x10e3 /uL 0.7-3. 1 Not Available [facility] ([facility]) [address] [facility], [place], [address], 03/14/2025 12:13:42 03/13/20 25 03/14/2025 CBC WITH DIFFE RENTI AL/PL ATELE T monocytes(ab solute) 0.6 x10e3 /uL 0.1-0. 9 Not Available [facility] ([facility]) [address] [place], [address], 03/14/2025 12:13:42 03/13/20 25 03/14/2025 CBC WITH DIFFE RENTI AL/PL ATELE T eos (absolute) 0.1 x10e3 /uL 0.0-0. 4 Not Available [facility] ([facility]) [address] [place], [address], 03/14/2025 12:13:42 03/13/20 25 03/14/2025 CBC WITH DIFFE RENTI AL/PL ATELE T baso (absolute) 0.1 x10e3 /uL 0.0-0. 2 Not Available [facility] ([facility]) [address] [place], [address], 03/14/2025 12:13:42 03/13/20 25 03/14/2025 CBC WITH DIFFE RENTI AL/PL ATELE T immature granulocytes 0 % notest ab. Not Available [facility] ([facility]) [address] [facility], [place], [address], 03/14/2025 12:13:42 03/13/20 25 03/14/2025 CBC WITH DIFFE RENTI AL/PL ATELE T immature grans (abs) 0.0 x10e3 /uL 0.0-0. 1 Not Available [facility] ([facility]) [address] [facility], [place], [address], 03/14/2025 12:13:42 03/13/20 25 03/13/2025 HbA1c (hemo globi n A1c), blood HbA1C 8.1 % Not Available In-Office Order Internal Use Only DO Not Attach Compendium DO Not Attach Compendium, Do Not Delete/merge, [id number] 03/13/2025 11:30:31 02/03/20 24 MRI, cervi olegario spine , w/o contr ast No observ ation record ed. [email or web address] Not Available 2023 11:30:30 03/13/20 25 03/13/2025 XR, chest , 2 view No observ ation record ed. [address] [facility], [place], [address], 03/15/2025 02:13:07 03/13/20 25 03/13/2025 XR, chest , 2 view No observ ation record ed. [address], [place], [address], 03/14/2025 17:21:25 04/02/20 25 04/02/2025 XR, knee, 3 view No observ ation record ed. [address], [place], [address], 04/04/2025 11:15:18 04/11/20 25 04/11/2025 pooja can cardi olite stres s test (PROC ) No observ ation record ed. [address] [facility] [address], [place], [address], 04/12/2025 09:25:55 04/11/2004/11/2025 pooja can cardi olite stres s test (PROC ) No observ ation record ed. [address] [facility] [address], [place], [address], 04/12/2025 09:27:04 Result Notes None recorded. Problems Name Problem SNOMED Code Status Onset Date Resolution Date Notes Provider Name and Address Organization Details Recorded Time Chronic obstructive pulmonary disease 89131176 Active 2019 Ang Hanks [place], [place] [facility] 0 15:33:10 Diabetes mellitus 45369767 Active 2019 Ang Hanks [place] [facility] 0 15:33:28 Hypertensiv e disorder 43469554 Active 2019 Ang Hanks [place] [facility] 0 15:33:39 Colitis 49070906 Active 2019 Ang Hanks [place] [facility] 0 15:33:48 Irritable bowel syndrome 28265539 Active 2019 Ang H[place] [facility] 0 15:33:53 Diverticuli tis 133988907 Active 2019 Ang H[place] [facility] 0 15:33:57 Osteoporosi s 02873865 Active 2019 Ang H[place] [facility] 0 15:34:22 Leg length inequality 47987178 Active 2021 LANRE GREEN Attn: Roberto Carlos crenshaw,[address], [place], [address], [place] - [facility] 2 09:27:58 Hiatal hernia 30827848 Active 2021 LANRE GREEN Attn: Accountadam g,[address], [place], [address], [place] - [facility] 2 09:28:22 Osteoarthri tis of left hip joint 7508710710760 08 Active 2021 LANRE GREEN Attn: Accountin g,[address] [facility], [place], [address], [place] [facility] 2 09:34:02 Pain of right shoulder joint 0984884150013 9100 Active 2022 LANRE GREEN Attn: Accountin g,[address] [facility], [place], [address], [place] [facility] 3 15:34:04 Overweight 293313140 Active 2022 LANRE GREEN Attn: Accountin g,[address], [place], [address], [place] [facility] 3 09:00:12 History of surgery 500586112 Active 2022 LANRE GREEN Attn: Accountin g,[address], [place], [address], [place] [facility] 3 09:19:14 Constipatio n 81816762 Active 2023 LANRE GREEN Attn: Accountin g,[address], [place], [address], [place] [facility] 4 17:11:49 Problem Notes Documentation Provider Name and Address Organization Details Recorded Time Historic Medical Records : This document (1 of 1) was received from [email or web address] on 02/03/2024 through Direct Message along with the following message body content: Patient Name: MARILYN RIOS. Patient : 1965. Patient . Denice garza, [place] - [facility] 02/15/2024 14:46:09 Procedures Surgical History Date Name Laterality Status Provider Name and Address Organization Details Recorded Time 08/18/20 23 panniculectomy completed LANRE GREEN Attn: Accounting,[address], [place], [address], [facility] - [facility] 09/13/2023 09:19:36 10/11/19 20 Date of Last Mammogram completed Consuelo Real [place] - [facility] 01/13/2022 16:26:08 10/11/19 20 Date of Last Pap Smear completed Consuelo Real [place] [facility] 01/13/2022 16:26:11 delivery completed Ang mendoza [place] [facility] 12/05/2019 15:39:41 delivery completed [place]endoza [place] [facility] 12/05/2019 15:39:42 delivery completed [place]endo[place] [facility] 12/05/2019 15:39:42 delivery completed [place]endo[place] [facility] 12/05/2019 15:39:43 operation on hip joint completed LANRE GREEN Attn: Accounting,[address], [place], [address], [place] [facility] 01/14/2022 09:34:33 Imaging Results None recorded. Procedure Notes None recorded. Medical Equipment None Reported. Allergies Allergen ID Allergen Name Allergen Category Reaction Reaction Severity Criticality Documentation Date Start Date Code Code System Note Provider Name and Address Organization Details Recorded Time 755654 Product containin g penicilli n (product) medicatio n Not available Not available Not available 12/05/2019 37649 8001 SNOMED Ang Hanks [place] null, [place] [facility] 0 15:36:48 Medications Name Sig Start Date Stop Date Status Note LastModified by Organization Details LastModified Time senna s 8.6-50mg tablets TAKE 1 TABLET BY MOUTH EVERY DAY 02/13 completed Not Available Not Available Not Available Prescripti on - Prior Authorizat ion Request active Not Available Not Available Not Available cyclobenza [...] (4 mg/3 mL) subcutaneo us pen injector active Not Available Not Available Not Available Ozempic 2 mg/dose (8 mg/3 mL) [...] in Arterial blood by Pulse oximetry Systolic And Diastolic Provider Name and Address Organization Details Last Updated DateTime 4 167.64 cm 22.3 kg/m2 02259.7 5 g 98 /min 100 % 100 % 123/87 mm[Hg] Consuelo Real MA [facility] 4 14:44:11 Date Recorded Systolic And Diastolic Provider Name and Address Organization Details Last Updated DateTime 12/19/2024 128/88 mm[Hg] Pankaj GREEN Attn: Accounting,[address] [place], [address], [facility] 12/19/2024 11:27:52 Date Recorded Body height Body mass index (BMI) Body weight Heart rate Oxygen saturation Oxygen saturation in Arterial blood by Pulse oximetry Provider Name and Address Organization Details Last Updated DateTime 5 167.64 cm 24.5 kg/m2 02932.2 5 g 86 /min 98 % 98 % Consuelo Real MA [facility] 5 10:36:46 Date Recorded Body height Body mass index (BMI) Body weight Respiratory rate Oxygen saturation Oxygen saturation in Arterial blood by Pulse oximetry Heart rate Systolic And Diastolic Provider Name and Address Organization Details Last Updated DateTime 4 167.64 cm 21.1 kg/m2 31185.6 g 16 /min 99 % 99 % 82 /min 116/70 mm[Hg] Milly Barron MA [facility] 4 11:52:01 Date Recorded Body height Body mass index (BMI) Body weight Heart rate Oxygen saturation Oxygen saturation in Arterial blood by Pulse oximetry Systolic And Diastolic Provider Name and Address Organization Details Last Updated DateTime 5 167.64 cm 25 kg/m2 59831.8 2 g 83 /min 97 % 97 % 130/79 mm[Hg] Consuelo Real MA [facility] 5 11:26:31 Date Recorded Body height Heart rate Oxygen saturation Oxygen saturation in Arterial blood by Pulse oximetry Body mass index (BMI) Body weight Systolic And Diastolic Provider Name and Address Organization Details Last Updated DateTime 4 167.64 cm 93 /min 97 % 97 % 18.9 kg/m2 56128.3 1 g 106/71 mm[Hg] Consuelo Real [place] - [facility] 4 14:01:00 Social History Question Answer Notes LastModified by Organizat ion Details LastModified Time Tobacco Smoking Status Former Smoker Ang Hanks [place] null, [place] - [facility] 12/05/2019 15:38:20 What Is Your Level Of [...] Not available 09/2024 14:09:47 Notes:[facility] in [facility] Medical History Condition Response Coronary Artery Disease N Other N High Blood Pressure N Atrial Fibrillation N Kidney or Bladder Problems N Thyroid Problems N GI Problems Y Depression N COPD N Blood Clots N Skin Problems N Anemia N Heart Attack (MD) N Anxiety Disorder N Diabetes Y Muscle, Joint, or Bone Problems N Seizures/Epilepsy N Acid Reflux (GERD) N Cancer N Stroke N Asthma N Allergies N High Cholesterol N Hepatitis N Liver Disease N Headaches N Heart Failure N Osteoporosis N Gynecological [...] Recorded Time Hep A, adult 06/05/2013 completed Milly nino [place], [place] [facility] 02/14/2024 11:52:46 Hep A, adult 08/18/2017 completed Milly nino MA [facility], [place] - [facility] 02/14/2024 11:52:46 Tdap 01/03/2025 completed Not Available [facility] 03/13/[facility]25 11:21:31 Past Encounters Encounter ID Performer Location Encounter Start Date Encounter Closed Date Diagnosis/Indication Diagnosis SNOMED-CT Code Diagnosis ICD10 Code Diagnosis Note [id number] LANRE GREEN [facility] [address] [place] [address] 12/05/2019 15:20:14 12/08/2019 09:07:31 Essential hypertension 13280075 I10 BP 160/80, not WNL. She has [...] goal for BP is <140/90 Diabetes mellitus 705547 09 E11.9 patient last A1C 6.2, well [...] nect visit Spasm of back muscles 20 4493997 M62.830 patient has spasm of back and low back pain. sees pain management for vicodin. She takes half a pill at night to be able to sleep as she is in pain. Adult heal th examination 125653259 Z00.01 Patient presents to establish. She sees pain management for back pain/hip pain. She has had right hip replacemen t and recently got hurt at work, [employer]. She sees pain management . Taking half vicodin at night time as pain keeps her up. UTD on colonoscop y and cleared for 10 years. She has pap appointmen t this wednesday. send records. - discussed diet and excercise- cutting out soda- f/u for lab work- she no longer smokes, 9 years. Screening mammography 24 356452 Z12.31 [id number] LANRE GREEN [facility] [address] [place] [address] 12/13/2019 16:31:16 12/14/2019 12:15:39 Essential hypertension 89450598 I10 BP 132/78, WNL. drug regiment: irbesartan 150 mgchecking labs at next visit as patient is not fasting Advised to check BP regularly with a goal of <140/90, if BP consistent ly >140/90, advised to contact clinic Discussed DASH diet Advised 30 minutes of exercise minimum daily Advised tobacco, alcohol, caffeine all increase BP Advised goal for BP is <140/90 Diabetes mellitus 480728 09 E11.9 patient last A1C 6.2, well [...] alb//cr at nect visit Pain in pelvis 96072170 R10.2 Patient hvaing suprapubic pain mostly on left side. Her last doctor told her to do US but she lost insurance. - trasvagina l US given Fatigue 78911579 R53.83 patient has low energy, feels tired despite sleeping Chronic back pain 478708 002 G89.29 Patient has had hip surgery and has history of chronic back pain. Was seeing Dr Osborn but lost insurance and needs new referral. [id number] LANRE GREEN [facility] [address] [place] [address] 01/24/2020 14:59:44 01/31/2020 14:33:56 Essential hypertension 21022938 I10 BP 132/78, WNL. drug regiment: irbesartan 75mg and HCZ 12.5- will continue this to avoid hyperkalem ia again.[facility] labs at next visit as patient is not fasting Advised to check BP regularly with a goal of <140/90, if BP consistent ly >140/90, advised to contact clinic Discussed DASH diet Advised 30 minutes of exercise minimum daily Advised tobacco, alcohol, caffeine all increase BP Advised goal for BP is <140/90 Diabetes mellitus 697446 E11.9 patient last A1C 6.2, well controlled [...] at next visit- alb//cr at nect visit [id number] LANRE GREEN [facility] [address] [place] [address] 03/27/2020 09:41:06 03/28/2020 13:21:39 Wheezing 62022788 R06.2 Essential hypertension 03616808 I10 BP 132/78, WNL. drug regiment: irbesartan 75mg and HCZ 12.5- will continue this to avoid hyperkalem ia again.[facility] labs at next visit as patient is not fasting Advised to check BP regularly with a goal of <140/90, if BP consistent ly >140/90, advised to contact clinic Discussed DASH diet Advised 30 minutes of exercise minimum daily Advised tobacco, alcohol, caffeine all increase BP Advised goal for BP is <140/90 Diabetes mellitus 406205 E11.9 patient last A1C 9.6, NWNL. Patient [...] next visit- alb//cr at nect visit Hyperkalemia 79165351 E8 7.5 recheck in 1 weeks. Advised on low potassium diet. may change BP medication if still hyperkalem ic. Go to ER if develops CP, SOB, PALPITATIO NS. Osteoarthritis of hip 23 1546362 M16.9 patient has hip degenerati on. She has had MRI nad CT within last year. I need copy of results.Sh baudilio had ortho, Dr Flores but she cannot go back to see him as she lost insurance. SHe was told she needs hip replaced. She is in pain management . [id number] LANRE GREEN [facility] [address] [place] [address] 06/05/2020 16:36:52 06/07/2020 05:47:05 Diarrhea 55947558 R19.7 patient with pmhx of diverticul osis [...] gone. Avoid chewing gum that contains sorbitol. [id number] LANRE GREEN [facility] [address] [place] [address] 08/22/2020 16:55:57 08/27/2020 15:07:51 Diabetes mellitus 50489115 E11.9 patient A1C improved to 8.6 from [...] visit- alb//cr at next visit Acute sinusitis 14733256 J01.90 Patient with allergy to penicillin was given zpak for sinusitis at [email or web address] . Patient is feeling somewhat better. Z-gabriele will last 10 days in her system and if not better by end of 10days then we may add another antibiotic . On exam she had tender maxillary sinus L>R. ear clear, afebrile. [id number] LANRE GREEN [facility] [address] [place] [address] 08/23/2020 14:19:27 08/26/2020 10:31:23 [id number] LANRE GREEN [facility] [address] [place] [address] 09/20/2020 08:37:54 09/24/2020 15:15:18 Diabetes mellitus 33197563 E11.9 patient A1C improved to 8.6 from [...] at next visit Seasonal a llergic rhinitis 818526806 J30.2 refill [id number] LANRE GREEN [facility] [address] [place] [address] 02/18/2021 09:06:49 02/18/2021 16:21:10 Choking due to food in larynx 40888133 T17.320A 2 weeks of feeling like food is not digesting and comes up unchewed. She chokes on it. sometimes chokes on fluids. This has happened before and requiring her to have esophagus stretched twice. Last EGD done 2 years ago in [place]. Will sign record release. She wants a [...] foods -such as meats - f/u prn [id number] LANRE GREEN [facility] [address] [place] [address] 03/26/2021 10:28:50 03/27/2021 11:49:38 Diabetes mellitus 49266621 E11.9 sugars elevated at home. not taking [...] next visit- alb//cr at next visit Nausea 690552428 R11.0 Patient with hx of gerd and IBS presents with nausea and vomiting x 1 day. sugars found to be elevated today. Will monitor through day. She has GI apt coming up.She is staying hydrated [id number] LANRE GREEN [facility] [address] [place] [address] 03/27/2021 12:39:18 03/28/2021 14:38:27 [id number] LANRE GREEN [facility] [address] [place] [address] 07/02/2021 16:57:49 07/05/2021 22:27:26 Diabetes mellitus 57984223 E11.9 sugars elevated at home. not taking [...] alb//cr at next visit Pre-surger y evaluation 674175608 Z01.818 Patient undergoing surgery July 22. needs sugars controlled . her cmp done at [facility] shows slightly decreased sodium. we are stopping hxz as faxiga acts as diuretic and will monitor her BP. stressed importance of sugar control. Low back pain 597025779 M54.5 Patient with chronic back pain for many years and seeing pin managent. She can no longer tolerate pain and excess abdominal skin from previous weight loss is causing her to more back pain as weight pulls her forward some. Excess ski n of abdominal wall 623145630 R23.8 Patient has an extra 15-20lb of [...] due to excess skin in abdominal area [id number] LANRE GREEN [facility] [address] [place] [address] 07/11/2021 10:00:49 07/23/2021 06:58:24 [id number] LANRE GREEN [facility] [address] [place] [address] 08/11/2021 16:05:32 08/13/2021 13:10:20 Diabetes mellitus 24913815 E11.9 BP 132/78, WNL. drug regiment: irbesartan 75mg and HCZ 12.5- will continue this to avoid hyperkalem ia again.[facility] labs at next visit as patient is not fasting Advised to check BP regularly with a goal of <140/90, if BP consistent ly >140/90, advised to contact clinic Discussed DASH diet Advised 30 minutes of exercise minimum daily Advised tobacco, alcohol, caffeine all increase BP Advised goal for BP is <140/90 [id number] LANRE GREEN [facility] [address] [place] [address] 01/13/2022 16:04:56 01/15/2022 07:05:49 Hiatal hernia 91710385 K44.9 Patient has been following Dr Merritt. Needs referral to undergo EGD. She takes omeprazole and famotidine . - avoid eating late (she snack at midnight)- weight loss- may eat small meals through the day Diabetes mellitus 547452 09 E11.9 medication s: victoza 1.8 mg qd, farxiga 10mg foot exam: next visitppsv2 3: she was told she is allergicst atin: atorvastat in 20mg, non-compla int Leg length inequality 45 087701 M21.70 Screening for malignant neoplasm of respiratory tract 140993196 Z12.2 patient smoked 1ppd for 38 years. No longer smoking. Overweight 410737452 E66 .3 Osteoarthr itis of left hip joint 0426936720 [address] Martin Singh from [facility] performed left hip replacemen t on 07/2021. Her insurance canceled her PT and needs new referral. she has weakness to b/l legs at the hip. she has leg length discrepanc y. pain management give her hydrocodoe s and started cymbalta. she has not started cymbalta. [id number] LANRE GREEN [facility] [address] [place] [address] 01/21/2022 15:43:21 01/22/2022 11:57:18 Diabetes mellitus 97842858 E11.9 A1C 8.0 01/2022, 8.5 07/2021. not [...] 01/2022eye exam: given order, will schedule Osteoporosis 73040926 M8 1.0 hx of spine fractures. last dexa 23 years ago. hx of b/l hip replacemen t. Screening mammography 24 960958 Z12.31 last mammogram four years ago. she had biopsy on right lateral breast, normal tissue. Hiatal hernia 44829971 K 44.9 Dr merritt scheduled her for colonoscop y and EGD. - avoid eating late (she snack at midnight)- weight loss- may eat small meals through the day Overweight [id number] E66 .3 Osteoarthr itis of left hip joint [id number] [address] Martin Singh from [facility] performed left hip replacemen t on 07/2021. Her insurance canceled her PT and needs new referral. she has weakness to b/l legs at the hip. she has leg length discrepanc y. PT called today and she will schedule. pain management give her hydrocodoe s and started cymbalta. she has started cymbalta. [id number] LANRE GREEN [facility] [address] [place] [address] 03/17/2022 16:07:13 03/18/2022 11:09:37 Gastroesophageal reflux disease 415157900 K21.9 EGD and colonoscop y performed February [address] Merritt. normal. Diabetes mellitus 609149 09 E11.9 A1C 8.0 01/2022, 8.5 07/2021. [...] exam: given order, will schedule Essential hypertension 46997683 I10 BP 138/84, goal is to be <135/85. states it runs low when not in office. drug regiment:s he is not taking medication s at this time Advised to check BP regularly with a goal of <135/85, if BP consistent ly >140/90, advised to contact clinic Discussed DASH diet Advised 30 minutes of exercise minimum daily Advised tobacco, alcohol, caffeine all increase BP [id number] LANRE GREEN [facility] [address] [place] [address] 03/27/2022 16:40:34 03/31/2022 09:56:55 Pharyngitis 673881741 J02.9 sore throat, body aches, fatigue x 2 days. negative covid and strep throat today test today- hydrate- rest- f/u if not improving [id number] LANRE GREEN [facility] [address] [place] [address] 06/17/2022 14:50:54 06/18/2022 09:04:29 Insomnia 823464816 G47.00 take as needed Actinic keratosis 073188 007 L57.0 ak present on exam- derm for body check Hypertriglyceridemia 302 063354 E78.1 refill Postmenopausal state 764 58840 Z78.0 refill Overweight 182278165 E66 .3 [id number] LANRE GREEN [facility] [address] [facility] [place] [address] 07/01/2022 15:43:05 07/02/2022 12:39:37 Insomnia 751869369 G47.00 Discussed sleep hygiene - no tv, [...] to associate room with anxiety or work [id number] LANRE GREEN [facility] [address] [place] [address] 08/19/2022 15:50:35 08/20/2022 15:39:18 Osteoporosis 33408410 M81.0 hx of spine fractures, toe fx. last dexa 23 years ago. hx of b/l hip replacemen t. Closed fra cture of phalanx of foot 47361521 S92.912A left foot second toe fx, ortho is followingP EX: toe is suzanne taped. skin w/o bruising or swelling - continue following ortho- no current restrictio ns- f/u prn [id number] LANRE GREEN [facility] [address] [place] [address] 09/30/2022 15:51:13 10/06/2022 13:16:14 Diabetes mellitus 86965777 E11.9 A1C 8.5% 8.0 01/2022, 8.5 07/2021. [...] 01/2022eye exam: given order, will schedule Panniculitis 58272103 M7 9.3 nystain does not help every time Excess canseco niculus of abdomen 0961324403 101 E65 patient with frequent infection and OA. at least 15 lbs of excess skin and would benefit from removal due to wrosening back and hip pain. [id number] LANRE GREEN [facility] [address] [place] [address] 11/06/2022 14:08:35 11/12/2022 14:40:48 Diabetes mellitus 78281283 E11.9 A1C 8.5% 8.0 01/2022, 8.5 07/2021. [...] will schedule Excess canseco niculus of abdomen 6813808662 101 E65 patient with frequent infection and OA. at least 15 lbs of excess skin and would benefit from removal due to wrosening back and hip pain. Overweight 126478856 E66 .3 [id number] LANRE GREEN [facility] [address] [place] [address] 01/05/2023 14:53:03 01/05/2023 15:20:43 Diabetes mellitus 93438098 E11.9 A1C 7.7% ( 12/2022) 8.5% 8.0 [...] 01/2022eye exam: given order, will schedule Overweight 778486757 E66 .3 Chronic ob structive pulmonary disease 03694590 J44.9 [id number] LANRE GREEN [facility] [address] [place] [address] 02/05/2023 13:59:24 02/05/2023 15:32:35 Chronic obstructive pulmonary disease 33101524 J44.9 moderate COPD on recent pft. she states she had acute exacerbati on and exam should be repeated. went to ER and told her she had bronchitis . prednisone 50 x 7 days nad z gabriele has been completed. She feels much better today. Diabetes mellitus 075828 09 E11.9 A1C 7.7% ( 12/2022) 8.5% [...] /cr: 01/2022eye exam: given order, will schedule [id number] LANRE GREEN [facility] [address] [place] [address] 03/05/2023 15:09:59 03/05/2023 15:47:17 Diabetes mellitus 83764196 E11.9 A1C 8.8% 02/2023 7.7% ( 12/2022) [...] 01/2022eye exam: given order, will schedule Overweight 824249732 E66 .3 [id number] LANRE GREEN [facility] [address] [place] [address] 04/06/2023 15:19:25 04/06/2023 16:36:07 Diabetes mellitus 45638345 E11.9 A1C 8.3% (03/2023) 8.8% (02/2023) 7.7% [...] 5mgeye exam: given order, will schedule Overweight 139617276 E66 .3 [id number] LANRE GREEN [facility] [address] [place] [address] 05/07/2023 15:42:42 05/07/2023 16:21:48 Diabetes mellitus 85545241 E11.9 A1C 7.6% (04/2023) 8.3% (03/2023) 8.8% [...] 5mgeye exam: given order, will schedule Overweight 918806782 E66 .3 bmi 26.5 Deviated nasal septum 12 1506321 J34.2 left deviated septum Pain of ri ght shoulder joint 9060830404 7473780 M25.511 Torn rotator cuffhas f/u with ortho [id number] LANRE GREEN [facility] [address] [place] [address] 07/08/2023 14:51:18 07/08/2023 15:38:21 Diabetes mellitus 70444163 E11.9 A1C 7.6% (04/2023) 8.3% (03/2023) 8.8% [...] 5mgeye exam: given order, will schedule Overweight 245257932 E66 .3 bmi 25.6 Screening mammography 24 018074 Z12.31 last mammogram four years ago. she had biopsy on right lateral breast, normal tissue. Ex-smoker 9318141 Z87.89 1 [id number] LANRE GREEN [facility] [address] [place] [address] 09/09/2023 15:21:23 09/09/2023 16:08:50 Albuminuria 769430581 R80.9 repeat Diabetes mellitus 438101 09 E11.9 A1C 5.9% (08/2023) 7.6% (04/2023) [...] 5mgeye exam: 03/2023, normal History of surgery 67925 5003 Z98.890 [facility] well today, two drains in place without infectionh as f/u wit surgeon weekly [id number] LANRE GREEN [facility] [address] [facility] [place] [address] 11/24/2023 14:37:58 11/24/2023 17:01:04 Diabetes mellitus 56739553 E11.9 A1C 5.9% (11/2023) 5.9% (08/2023) 7.6% (04/2023) 8.3% (03/2023) 8.8% (02/2023) 7.7% ( 12/2022) 8.5% 8.0 01/2022, 8.5 07/2021. medication s:atorvast atin 20mg, ozempic 2mg, farxiga 10mg foot exam: done 02/05/2023, normal overall but slightly diminished left posterior tibial pulse.ppsv 23: she was told she is allergicst atin: atorvastat in 20mg,alb/c r: 12/2022 abnormalAC Ei: lisinopril 5mgeye exam: 03/2023, normal Albuminuria 644680673 R8 0.9 repeat Allergic rhinitis 681301 04 J30.9 Sleep yvette chari disturbance 72510440 G47.9 patient wasthcing TV and eating at nightbeing kept up with R shoulder pain - sleep hygiene discussed- see neurosurge on for shoulder pain assessment - continue managing pain - sees pain management - refuses increasing duloxetine [id number] LANRE GREEN [facility] [address] [place] [address] 02/14/2024 11:44:23 02/16/2024 08:34:04 Constipation 83797233 K59.00 stop movantik as still constipate d and may be causing opioids withdrawal s?takes 2 weeks to have Jeanine try linjackies Essential hypertension 02350156 I10 BP 116/70. states it runs low [...] Advised tobacco, alcohol, caffeine all increase BP [id number] Edmund Roy MD [facility] [address] [place] [address] 05/22/2024 13:52:29 05/22/2024 14:31:03 Adult health examination 611569714 Z00.01 Patient presents fo wellness visit. - discussed diet and exercise- cut back on ozempic to gain weight, A1C controlled - lab work- continue pain management for controlled medication Weight loss 68919061 R63 .4 will decrease ozempic to 1mggoal is to gain weight again towards 125-130lbs Sinusitis 27296043 J32.9 > 10 days of facial pain under eyes and between eyebrows and goopy eyes for 3 days. afebrile today but had headache from facial pain. Depression screening 171 021178 Z13.31 negativeon duloxetine 60mg [id number] Edmund Roy MD [facility] [address] [place] [address] 12/19/2024 10:28:19 12/19/2024 11:34:17 Screening mammography 44948100 Z12.31 due for mammogramb iopsy done 2019, benign Diabetes mellitus 041178 09 E11.9 A1C 7.9% (12/2024) 5.9% (11/2023) [...] normal Screening for malignant neoplasm of colon 393945805 Z12.11 family history of colon cacner mother Atypical chest pain 1025 15243 R07.89 Right to middle twice weekly-ach ing /stabbing pain lasting a couple of hours. Happens randomly usually when walkingtak es 2 aspirins every morningobt ain EKGcardiol ogy for work up due to co-morbidi ties Seasonal a llergic rhinitis 371707616 J30.2 refill Chronic ob structive pulmonary disease 35694810 J44.9 only using rescue and stopped her maintenanc euses rescue 1x per week [id number] Edmund Roy MD [facility] [address] [place] [address] 03/13/2025 11:20:13 03/13/2025 12:10:44 Diabetes mellitus 41097418 E11.9 A1C 8.1% (03/2025) 7.9% (12/2024) 5.9% [...] exam: 03/2023, normal Atypical chest pain 1025 67094 R07.89 Right to middle twice weekly-ach ing /stabbing pain lasting a couple of hours. Happens randomly usually when walkingtak es 2 aspirins every morningobt ain EKGcardiol ogy for work up due to co-morbidi ties Positive s creening for depression on PHQ-9 (Patient Health Questionnaire 9) 2159760617 38871 Z13.31 on duloxetine 60mg Restless legs 96467494 G 25.81 bothers her the most at nightnot sleeping Ex-smoker 9758910 Z87.89 1 due for ldct Chest pain 01965488 R07. 9 Right to middle twice weekly-ach ing /stabbing pain lasting a couple of hours. Happens randomly usually when walkingtak es 2 aspirins every morningobt ain EKGcardiol ogy for work up due to co-morbidi ties Pain of to e of right foot 3180965765 78920 M79.674 two days ago toe popped up after hitting tow 2 weeks ago. Health Concerns Section Related Observation LastModified by Organization Detai ls LastModified Time None Recorded Concern Status LastModified by Organization Details LastModified Time None Recorded Advance Directives Directive None Recorded Payers Insurance Date Sequence Insurance Name Policy Number Policy Llanes Covered Member ID Llanes Member ID Guarantor Name 12/19/2024 1 [facility] - HCP EMPLOYEE (EPO) [id number] Marilyn Rios [id number] Marilyn Rios 12/19/2024 1 [facility] - DOS ON OR AFTER 21 (MEDICAID REPLACEMENT - HMO) Marilyn Rios [id number] Marilyn Rios 12/19/2024 1 [place] Marilyn Rios [id number] Marilyn Rios 12/19/2024 1 [place] Marilyn Rios [id number] Marilyn Rios 12/19/2024 [place] Marilyn Rios [id number] Marilyn Rios 12/19/2024 1 [place] Marilyn Rios [id number] Marilyn Rios 02/18/2021 SLIDING FEE SCHEDULE - DISCOUNT Marilyn Laura 01/24/2020 1 *SELF PAY* Da rla Laura 12/19/2024 1 [employer] [id number] Marilyn Silvaaster [id number] Marilyn Laura 12/19/2024 2 [facility] - DOS PRIOR TO 2021 (MEDICAID REPLACEMENT - HMO) Marilyn Laura [id number] Marilyn Laura 12/19/2024 [facility] - DOS PRIOR TO 2021 (MEDICAID REPLACEMENT - HMO) Marilyn Laura [id number] Marilyn Laura 04/10/2025 2 [place] WHEN [place]ARE OR MEDICARE REPLACEMENT PRIMARY) Marilyn Choi Laura [id number] Marilyn Laura 03/13/2025 2 [place] [facility] Marilyn Choi Laura [id number] Marilyn Laura 03/11/2025 [place] [facility] Marilyn Choi Laura [id number] Marilyn Laura 03/11/2025 1 [place] Marilyn Choi Laura [id number] Marilyn Laura Notes Date Note Type Note Provider Name [...] trial Loratadine LANRE GREEN Attn: Accounting,[address] [facility], [place], [address], [facility] 12/04/2023 18:48:53 02/14/2024 text/html Marilyn presents f [...] something else. LANRE GREEN Attn: Accounting,[address] [facility], [place], [address], [facility] 02/14/2024 17:16:28 05/22/2024 text/html here for wellnes s visit c/o of congestion and facial pain for >10 days causing daily headaches. She denies fever or chills. started with goopy eyes a few days ago. denies cp, sob, palpitations LANRE GREEN Attn: Accounting,[address] [facility], [place], [address], [facility] 05/22/2024 14:30:57 12/19/2024 text/html Marilyn IS A [...] per week. LANRE GREEN Attn: Accounting,[address] [facility], [place], [address], [facility] 12/19/2024 11:28:17 03/13/2025 text/html Marilyn IS A [...] R upper chest. She denies sob or palpitations.cardi ology referral sent 12/2022. c/o of restless [...] LDCT scan. has pain in foot wants distribution agent. LANRE GREEN Attn: Accounting,[address] [place], [address], [facility] 04/09/2025 14:05:50 OBGyn Episode Ob Episode Information Episode Created Date Number of Fetuses Patient Bloodtype Patient rh Status Prepregnancy Weight lbs Domestic Partner Domestic Partner Phone Father Name Program Director [employer] Status 12/05/19 20 1 CLOSED Fetus Data First Name Last Name Admitted to NICU Weight (g) Sex Living Outcome Pediatric Complications Fetus ID Race Codes Race Delivery Type M 01192 Only Alek Calculation Initial Alek Date Initial [...] Domestic Partner Domestic Partner Phone Father Name Program Director [employer] Status 12/05/19 20 1 CLOSED Fetus Data First Name Last Name Admitted to NICU Weight (g) Sex Living Outcome Pediatric Complications Fetus ID Race Codes Race Delivery Type F [id number] Only Alek Calculation Initial Alek Date Initial [...] Domestic Partner Domestic Partner Phone Father Name Program Director [employer] Status 12/05/19 20 1 CLOSED Fetus Data First Name Last Name Admitted to NICU Weight (g) Sex Living Outcome Pediatric Complications Fetus ID Race Codes Race Delivery Type M Full Term 06556 Only Alek Calculation Initial Alek Date Initial [...] Domestic Partner Domestic Partner Phone Father Name Program Director [employer] Status 12/05/19 20 1 CLOSED Fetus Data First Name Last Name Admitted to NICU Weight (g) Sex Living Outcome Pediatric Complications Fetus ID Race Codes Race Delivery Type M 63481 Only Alek Calculation Initial Alek Date Initial [...]
--- OUTSIDE RECORDS SUMMARY | 2025-04-18 14:29 | XMS_ITS | Encounter Summary ---
Author Organization [facility] Address [address] [place] [address] Care Team Providers Care Coal Trimmer Machine Operator Name Role Phone Jerson Alfonso MD Primary Care Provider [phone] Encounter Details Date Type Department Care Team (Latest Contact Info) Description 11/02/2008 Outpatient Historical [facility], [address] Park Crowder MD [address] [place] [address] Lump or Mass in Breast Social History Tobacco Use Types Packs/Day Years Used Date Smoking Tobacco: Never Assessed Comments Unknown Sex and Gender Information Value Date Recorded Sex Assigned at Not on file Legal Sex Female 5:41 AM MACHINE TOOL TECHNOLOGY INSTRUCTOR Gender Identity Not on file Sexual Orientation Not on file documented as of this encounter Plan of Treatment Not on file documented as of this encounter Procedures Procedure Name Priority Date/Time Associated Diagnosis Comments PATHOLOGY Routine 11/02/2008 1:20 PM MACHINE TOOL TECHNOLOGY INSTRUCTOR documented in this encounter Results * PATHOLOGY (11/02/2008 1:20 PM MACHINE TOOL TECHNOLOGY INSTRUCTOR) [place]AL [place] [facility] [address] [place], [place] [address] Patient: MARILYN SANCHEZ : 12/02/1960 Procedure Date: 11/02/2008 Accession Date: 11/02/2008 Case No: [id number] Ordering Dr: PARK CROWDER Case types AW, BW, FW, NW and SH are performed by [facility], [place], [place] SURGICAL PATHOLOGY & NON-GYNECOLOGIC CYTOPATHOLOGY REPORT [...] 04:58 pm Microscopic: The slides are labeled [id number], Laura. Sections display focal fibrosis. [facility] 11.03.2008 09:46 am Staging Form: No ELECTRONIC SIGNATURE FOR ANA PARRISH M.D.- 11/03/08 01:31 pm INTERFACE SYSTEM 11/02/2008 1:20 PM MACHINE TOOL TECHNOLOGY INSTRUCTOR Park Crowder MD PATHOLOGY/CYTOLOGY ORDERABLES Fi nal Result INTERFACE SYSTEM Refer to clinic/hospital department documented in this encounter Visit Diagnoses Diagnosis Lump or mass in breast documented in this encounter Care Teams Coal Trimmer Machine Operator Relationship Specialty Start Date End Date Jerson Alfonso MD [address] [place] [address] PCP - General Family Practice 03/11/11 documented as of this encounter
--- OUTSIDE RECORDS SUMMARY | 2025-04-18 14:29 | XMS_ITS | Encounter Summary ---
Author Organization 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
== END 2025-04-18 14:17 | disposition home or self-care (01) ==
PROVIDERS: PCP Physician Assistant; Visit Provider Physician Assistant
DX: Z12.2 Encounter for screening for malignant neoplasm of respiratory organs (principal); Z87.891 Personal history of nicotine dependence
CPT/HCPCS: 71271

== ENCOUNTER 2025-05-11 01:13 | Day surgery (SDC) | payer MEDICARE, MEDICAID, SELFPAY ==
[2025-05-03 10:35] VITALS: BMI 23.5
--- OUTSIDE RECORDS SUMMARY | 2025-05-11 01:19 | XMS_ITS | Encounter Summary ---
Author Organization [facility] Address [address] [place] [address] Care Team Providers Care Model Builder Name Role Phone Jerson Alfonso MD Primary Care Provider [phone] Encounter Details Date Type Department Care Team (Latest Contact Info) Description 11/02/2008 Outpatient Historical [facility], [address] Park Crowder MD [address] [place] [address] Lump or Mass in Breast Social History Tobacco Use Types Packs/Day Years Used Date Smoking Tobacco: Never Assessed Comments Unknown Sex and Gender Information Value Date Recorded Sex Assigned at Not on file Legal Sex Female 5:41 AM MACHINIST/MACHINE BUILDER Gender Identity Not on file Sexual Orientation Not on file documented as of this encounter Plan of Treatment Not on file documented as of this encounter Procedures Procedure Name Priority Date/Time Associated Diagnosis Comments PATHOLOGY Routine 11/02/2008 1:20 PM MACHINIST/MACHINE BUILDER documented in this encounter Results * PATHOLOGY (11/02/2008 1:20 PM MACHINIST/MACHINE BUILDER) FINAL REPORT [facility] [address] [place], [place] [address] Patient: MARILYN SANCHEZ : 12/02/1960 Procedure Date: 11/02/2008 Accession Date: 11/02/2008 Case No: [id number] Ordering Dr: PARK CROWDER Case types AW, BW, FW, NW and SH are performed by [facility], [place], [place] SURGICAL PATHOLOGY & NON-GYNECOLOGIC CYTOPATHOLOGY REPORT [...] 04:58 pm Microscopic: The slides are labeled [id number], Laura. Sections display focal fibrosis. [facility] 11.03.2008 09:46 am Staging Form: No ELECTRONIC SIGNATURE FOR ANA PARRISH M.D.- 11/03/08 01:31 pm INTERFACE SYSTEM 11/02/2008 1:20 PM MACHINIST/MACHINE BUILDER Park Crowder MD PATHOLOGY/CYTOLOGY ORDERABLES Fi nal Result INTERFACE SYSTEM Refer to clinic/hospital department documented in this encounter Visit Diagnoses Diagnosis Lump or mass in breast documented in this encounter Care Teams Model Builder Relationship Specialty Start Date End Date Jerson Alfonso MD [address] [place] [address] PCP - General Family Practice 03/11/11 documented as of this encounter
--- OUTSIDE RECORDS SUMMARY | 2025-05-11 01:19 | XMS_ITS | Clinical Summary ---
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 [facility] [address] [place] [address] [place] Commissary Officer CARDIOVASCULAR DISEASE 03/09/18
--- OUTSIDE RECORDS SUMMARY | 2025-05-11 01:19 | XMS_ITS | Encounter Summary ---
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 Not on file Not [...] Result * CBC (OUTSIDE LAB) (02/17/2018) Pathologist [facility] [place] WBC 8.0 HGB 14.3 HCT 43.5 PLT 364 02/17/2018 us Doc [facility]-OUTSIDE/ABSTRACTED Final Result * THYROID STIM HORMONE, TSH (02/17/2018) TSH 0.909 02/17/2018 us Doc [facility]ORAT[facility] Final Result * URIC ACID BLOOD (02/17/2018) Pathologist [facility] [place] URIC ACID 3.6 02/17/2018 us Doc [facility] [...] on filedocumented in this encounter Care Teams Mobility Manager Relationship Specialty Start Date End Date Breanna Henriquez APNP Family & Internal Medicine [address] [address] PCP - General [employer] PRACTICE ELECTRONIC TECHNOLOGIST 02/08/18 Leon Sagastume MD [address] [address] [place] Tree Trimmer Helper CARDIOVASCULAR DISEASE 03/09/18 documented as of this encounter
--- OUTSIDE RECORDS SUMMARY | 2025-05-11 01:19 | XMS_ITS | Clinical Summary ---
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 05/26/2021 Low back pain 05/26/2021 Sensation of chest tightness 11/17/2011 Encounters Date Type Department Care Team Description 03/14/2025 1:30 PM CDT Office Visit [facility] Orthopedics and Sports Medicine [address] [place] [address] Martin Singh MD Numbness and tingling of lower extremity (Primary Dx); Rotator cuff impingement syndrome of right shoulder from Last 3 Months Surgical History Surgery [...] Asthma COPD (chronic obstructive pu lmonary disease) (HCC) COPD History of pneumonia SEVERAL CHRISTOPHER ES LAST IN THE 1999'S Migraine Cataract only one eye, no t [...] on file Legal Sex Female 3:23 AM SECURITY SYSTEMS SALES REPRESENTATIVE Gender Identity Not on file Sexual Orientation [...] Tdap) 01/03/2035 Medical Devices Implanted Type Area Job Placement Counselor Device Identifier Shelf Expiration Date Model / Serial / Lot Total Hip Left: Hip Implanted-2015 Implanted:11/2015 (Quantity not on file) Right: Hip [employer] [id number] 54mm Limit Hole Color Coded Hip F Offset Hemisphere Shell - [id number] Implanted:Qty: 1 on 07/22/2021 by Martin Singh MD at [facility] Left: Hip [employer] [id number] 04/03/2031 [id number] / / [id number] [employer] [id number] G7 32mm Lumen Hip F Liner Acetabular Longevity Sterile Latex Free - [id number] Implanted:Qty: 1 on 07/22/2021 by Martin Singh MD at [facility] Left: Hip [employer] [id number] 02/17/2026 [id number] / / [id number] [employer] [id number] Echo Bi-Metric 13mm 145mm Noncollar Reduce Proximal Profile Press - [id number] Implanted:Qty: 1 on 07/22/2021 by Martin Singh MD at [facility] Left: Hip [employer] [id number] 03/13/2031 [id number] / / [id number] [employer] [id number] 32mm Modular Hip +3mm Head Femoral Biolox Delta - [id number] Implanted:Qty: 1 on 07/22/2021 by Martin Singh MD at [facility] Left: Hip [employer] [id number] 01/17/2029 [id number] / / [id number] Procedures Procedure Name Priority Date/Time Associated Diagnosis Comments MS ARTHROCENTESIS ASPIR&/INJ MAJOR JT/BURSA W/O US Routine 03/14/2025 1:30 PM CDT Rotator cuff impingement syndrome of right shoulder COLONOSCOPY REPORT 06/18/2014 from Last 3 Months or Most Recently Relevant to Health Maintenance Results * MS ARTHROCENTESIS ASPIR&/INJ MAJOR JT/BURSA W/O US (03/14/2025 [...] to Health Maintenance Insurance [facility] MEDICARE [facility] OPEN ACCESS [facility] Advance Directives For more information, please contact: [phone] * Full Code (Latest Code Status on File) Date Activated Date Inactivated Comments 07/22/2021 6:21 PM 07/24/2021 6:41 PM Care Teams Burner Machine Operator Relationship Specialty Start Date End Date Violetta Leyva PA PCP - General 10/28/20 Shelly Osborn MD [address] [address] Referring Physician Internal Medicine 07/08/21
--- OUTSIDE RECORDS SUMMARY | 2025-05-11 01:19 | XMS_ITS | Clinical Summary ---
Author Organization [facility] Address [address] [place] [address] Care Team Providers Care Oil Field Pumper Name Role Phone Violetta Leyva PA-C Primary Care Provider Source Comments [facility],non-owned Affiliates and Associated Physician Practices is amultiple site organization consisting of ambulatory clinics and hospital sitesin [place], [place], [place] and [place]. This disclosure is being madepursuant to the Care Everywhere program and may not contain all information available regarding this patient. Last updated 18.[facility] Allergies Active Allergy Reactions Criticality [...] g 2 11/30/19 23 Active HYDROcodone-acetam inophen ([place]) 7.5-325 MG tablet Take 1 (one) tablet [...] on file Legal Sex Female 6:57 AM LIVESTOCK SPECULATOR Gender Identity Not on file Sexual Orientation Not on file Last Filed Vital Signs Vital Sign Reading Time Taken Comments Blood Pressure 126/78 03/22/2024 11:51 AM CDT Pulse 90 03/22/2024 11:51 AM CDT Temperature 36.7 C (98.1 F) 03/22/2024 11:51 AM CDT Respiratory Rate 16 10/27/2023 10:08 AM LIVESTOCK SPECULATOR Oxygen Saturation 98% 03/22/2024 11:51 AM CDT [...] season) 2024 DEPRESSION SCREENING 10/11/2024 INFLUENZA VACCINE (#1) 2025 HEPATITIS B VACCINE Aged Out No [...] patient's age to complete this topic Insurance [facility] Advance Directives * Full Code (Latest Code Status on File) Date Activated Date Inactivated Comments 08/30/2023 1:10 PM 08/31/2023 3:39 PM Care Teams Oil Field Pumper Relationship Specialty Start Date End Date Violetta Leyva PA-C [address] [place] [phone] PCP - General Physician Saw Operator 06/30/23
--- OUTSIDE RECORDS SUMMARY | 2025-05-11 01:19 | XMS_ITS | Clinical Summary ---
Author Organization [facility] Address [address] [place] [address] Phone Care Team Providers Care Roustabout Crew Pusher Name Role Phone Jerson Alfonso MD Primary Care Provider [phone] Social History Tobacco Use Types Packs/Day Years Used Date Smoking Tobacco: Never Assessed Comments Unknown Sex and Gender Information Value Date Recorded Sex Assigned at Not on file Legal Sex Female 5:41 AM MIMEOGRAPH OPERATOR Gender Identity Not on file Sexual [...] Most Recently Relevant to Health Maintenance Insurance [facility] [id number] Care Teams Roustabout Crew Pusher Relationship Specialty Start Date End Date Jerson Alfonso MD [address] [place] [address] PCP - General Family Practice 03/11/11
--- OUTSIDE RECORDS SUMMARY | 2025-05-11 01:19 | XMS_ITS | Encounter Summary ---
Author Organization [facility] Address [address] [place] [address] Care Team Providers Care Rn Forensic Name Role Phone Violetta Leyva Primary Care Provider + Shelly Osborn MD Unavailable [phone] Encounter Details Date Type Department Care Team (Late st Contact Info) Description 11/30/2023 Telephone [facility] [address] [place] [address], [address] [place] [address] Phyllis Suh RN Social History [...] on file Legal Sex Female 3:23 AM SERVICE WRITER ADVISOR Gender Identity Not on file Sexual Orientation Not on file documented as of this encounter Plan of Treatment Not on file documented as of this encounter Visit Diagnoses Not on filedocumented in this encounter Care Teams Rn Forensic Relationship Specialty Start Date End Date Violetta Leyva PA PCP - General 10/28/20 Shelly Osborn MD [address] [address] Referring Physician Internal Medicine 07/08/21 documented as of this encounter
--- OUTSIDE RECORDS SUMMARY | 2025-05-11 01:19 | XMS_ITS | Referral Summary ---
Author Organization [facility] Address [facility] [place] [address] Care Team Providers Care Workforce Development Assistant Name Role Phone Violetta Leyva Primary Care Provider + Shelly Osborn MD Unavailable [phone] Encounters Date Type Department Care Team Description 03/14/2025 1:30 PM CDT Office Visit [facility] Orthopedics and Sports Medicine [address] [place] [address] [address] [place] [address] Martin Singh MD Numbness and tingling of lower extremity (Primary Dx); Rotator cuff impingement syndrome of right shoulder from Last 3 Months Allergies Active Allergy [...] as needed for wheezing Active DULoxetine DR MERINOALTA) 30 mg capsule Take by mouth daily [...] (05/29/2021): Added automatically from request for surgery [id number] 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 [...] on file 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 Gender Identity Not on file Sexual Orientation [...] on file Medical Devices Implanted Type Area Senior Hadoop Developer Device Identifier Shelf Expiration Date Model / Serial / Lot Total Hip Left: Hip Implanted-2015 Implanted:11/2015 (Quantity not on file) Right: Hip [employer] [id number] G7 54mm Limit Hole Color Coded Hip F Offset Hemisphere Shell - [id number] Implanted:Qty: 1 on 07/22/2021 by Martin Singh MD at [facility] Left: Hip [employer] [id number] 04/03/2031 [id number] / / [id number] [employer] [id number] G7 32mm Lumen Hip F Liner Acetabular Longevity Sterile Latex Free - [id number] Implanted:Qty: 1 on 07/22/2021 by Martin Singh MD at [facility] Left: Hip [employer] [id number] 02/17/[id number] / / [id number] [employer] [id number] Echo Bi-Metric 13mm 145mm Noncollar Reduce Proximal Profile Press - [id number] Implanted:Qty: 1 on 07/22/2021 by Martin Singh MD at [facility] Left: Hip [employer] [id number] 03/13/2031 [id number] / / [id number] [employer] [id number] 32mm Modular Hip +3mm Head Femoral Biolox Delta - [id number] Implanted:Qty: 1 on 07/22/2021 by Martin Singh MD at [facility] Left: Hip [employer] [id number] 01/17/2029116 / / [id number] Procedures Procedure Name Priority Date/Time Associated Diagnosis Comments ID ARTHROCENTESIS ASPIR&/INJ MAJOR JT/BURSA W/O US Routine 03/14/2025 1:30 PM CDT Rotator cuff impingement syndrome of right shoulder COLONOSCOPY REPORT 06/18/2014 from Last 3 Months or Most Recently Relevant to Health Maintenance Results * ID ARTHROCENTESIS ASPIR&/INJ MAJOR JT/BURSA W/O US (03/14/2025 [...] procedure well with no immediate complications Martin Snigh MD IN CLINIC/BEDSIDE [facility] Final Result * COLONOSCOPY REPORT (06/18/2014) Anatomical Region Laterality Modality Other Narrative 06/18/2014 Ordered by an unspecified provider. us Historical Provider GI PROCEDURE ORDERABLES F inal Result from Last 3 Months or Most Recently Relevant to Health Maintenance Insurance [facility] MEDICARE [facility] OPEN ACCESS [facility] Advance Directives For more information, please contact: [phone] * Full Code (Latest Code Status on File) Date Activated Date Inactivated Comments 07/22/2021 6:21 PM 07/24/2021 6:41 PM Care Teams Workforce Development Assistant Relationship Specialty Start Date End Date Violetta Leyva PA PCP - General 10/28/20 hSelly Osborn MD [address] [address] Referring Physician Internal Medicine 07/08/21
[2025-05-11 12:15] VITALS: BP 158/83; PULSE 83; RESP 18; TEMP 35.5; O2SAT 98
[2025-05-11] MEDS: LACTATED RINGERS 1,000 ML 150 ML IV CONT (12:30)
--- NOTE | 2025-05-11 12:53 | P.PNAN_ITS ---
Anes - Initial Pre Proc Eval Procedure: Operation Date: 05/11/25 13:00 Proposed Procedures p Esophagogastroduodenoscopy&Screen Colon - Tod Cruz MD Date/Time: 05/11/25 12:53 Surgeon: Tod Cruz MD Pre Op Diagnosis: Encounter for screening for malignant neoplasm of Patient Data Age: 60 Gender: F Height: 1.68 m Weight: 66.4 kg Last Vital Signs Temp 35.5 C L 05/11/25 12:15 Pulse 83 05/11/25 12:15 Resp 18 05/11/25 12:15 BP 158/83 H 05/11/25 12:15 Pulse Ox 98 05/11/25 12:15 O2 Del Method Room Air 05/11/25 12:15 Allergies Allergy/AdvReac Type Severity Reaction Status Date / Time Penicillins Allergy Severe Anaphylaxis Verified 05/11/25 12:12 levofloxacin (From Levaquin) Allergy Mild Rash Verified 05/11/25 12:12 Sulfa (Sulfonamide Allergy Mild Rash Verified 05/11/25 12:12 Antibiotics) Home Medications ?Medication ?Instructions ?Recorded ?Confirmed ?Type blood sugar diagnostic (OneTouch 06/05/20 03/15/25 History Verio test strips) blood-glucose meter (OneTouch 06/05/20 03/15/25 History Verio Flex Meter) lancets 33 gauge (OneTouch Delica 06/05/20 03/15/25 History Plus Lancet) pen needle, diabetic 31 gauge x 06/05/20 03/15/25 History 1/4 (UltiCare Pen Needle) albuterol sulfate 90 mcg/actuation 1 inh inhalation QID PRN Shortness 08/17/20 05/03/25 History aerosol inhaler (ProAir HFA) Of Breath cetirizine 10 mg capsule (Zyrtec) 10 mg PO DAILY #30 caps 08/17/20 05/11/25 Rx hydrocodone 5 mg-acetaminophen 325 2 tablet PO BID 08/17/20 05/11/25 History mg tablet ([place]) famotidine 20 mg tablet (Pepcid) 20 mg PO DAILY #30 tabs 04/24/21 05/11/25 Rx dapagliflozin propanediol 10 mg 10 mg PO DAILY 01/19/22 05/11/25 History tablet (Farxiga) duloxetine 30 mg capsule,delayed 30 mg PO DAILY 01/19/22 05/11/25 History release atorvastatin 20 mg tablet 20 mg PO DAILY 12/04/22 05/11/25 History azithromycin 250 mg tablet See Rx Instructions PO .COMPLEX #6 01/25/23 05/11/25 Rx tabs cephalexin 500 mg capsule 500 mg PO Q6H 1 week #28 caps 04/02/25 05/11/25 Rx metronidazole 500 mg tablet 500 mg PO Q6H 1 week #28 tabs 04/02/25 05/11/25 Rx semaglutide 1 mg/dose (4 mg/3 mL) 1 mg subcut WEEKLY 05/03/25 05/11/25 History subcutaneous pen injector (Ozempic) sodium sul 1.479 gram-potas ch See Rx Instructions PO .COMPLEX 05/03/25 Rx 0.188 gram-magnes sul 0.225 gram #24 tabs tablet (Sutab) Laboratory Tests 05/11/25 12:29 POC Capillary Glucose 113 H mg/dl (65-105) Patient hx anesthesia problems: none Family hx anesthesia problems: none Results Review: All pre-operative results and documents have been reviewed as part of the pre- operative evaluation. [facility] Past Medical History Medical History IBS (irritable bowel syndrome) Diverticulitis Anemia Anxiety Diabetes borderline Back pain Fractures rt arm, rt foot, pelvis, coccyx Arthritis Congenital dysplasia of hip UTI (urinary tract infection) GERD (gastroesophageal reflux disease) Colitis Pneumonia Asthma Sinus problem COPD (chronic obstructive pulmonary disease) case management patient Surgical History Surgical History History of dilatation and curettage H/O rhinoplasty Hx of spinal surgery History of hip replacement Hx of section H/O mastectomy H/O prior ablation treatment uterine Hx of cholecystectomy Family History Family History Father Family history of diabetes mellitus in first degree relative Mother Family history of malignant neoplasm of uterus Grandparent Family history of lymphoma Unknown Colon cancer Other Asthma Family history of coronary artery disease Hypertension Social History Social History Smoking status: Former smoker Tobacco type: cigarettes Alcohol intake: current Alcohol use details: rarely Living arrangements: with family Gender identity (if verbalized by the patient): Female Spiritual care concerns: No Anes - Eval Final PreProcedure Day of Procedure 05/11/25 12:53 Patient weight: normal Heart: regular rate and rhythm Lungs: decreased breath sounds Airway: Mallampati scale class II Neurological: alert and oriented Last oral intake: >/= 8 hours ASA classification: III Emergent: no Anesthetic plan: proceed Anesthesia type and monitoring: general GIVS and standard monitoring Results Review: All pre-operative results and documents have been reviewed as part of the pre- operative evaluation. Informed Consent: The patient's anesthetic plan and its attendant risks and benefits were discussed with the patient/family/POA. Questions were solicited and answers provided to the satisfaction of the patient/family/POA.
--- NOTE | 2025-05-11 12:58 | P.HP_ITS ---
History of Present Illness History of Present Illness Consent: Risks, benefits, and alternatives have been discussed and questions answered. Patient agrees to proceed with procedure. Chief complaint: Encounter for screening for malignant neoplasm of Narrative: Marilyn Jacobson is a 60 year old female here for egd and colonoscopy, last time 2021, mother had colon cancer, also dysphagia and she was dilated empirically in the past Review of Systems Review of Systems: All systems reviewed & are unremarkable except as noted in HPI and below PMFSH Past Medical History Medical History (Updated 05/11/25 @ 13:00 by Tod Cruz MD) Dysphagia IBS (irritable bowel syndrome) Diverticulitis Anemia Anxiety Diabetes borderline Back pain Fractures rt arm, rt foot, pelvis, coccyx Arthritis Congenital dysplasia of hip UTI (urinary tract infection) GERD (gastroesophageal reflux disease) Colitis Pneumonia Asthma Sinus problem COPD (chronic obstructive pulmonary disease) case management patient Surgical History Surgical History History of dilatation and curettage H/O rhinoplasty Hx of spinal surgery History of hip replacement Hx of section H/O mastectomy H/O prior ablation treatment uterine Hx of cholecystectomy Family History Family History Father Family history of diabetes mellitus in first degree relative Mother Family history of malignant neoplasm of uterus Grandparent Family history of lymphoma Unknown Colon cancer Other Asthma Family history of coronary artery disease Hypertension Social History Social History Smoking status: Former smoker Tobacco type: cigarettes Alcohol intake: current Alcohol use details: rarely Living arrangements: with family Gender identity (if verbalized by the patient): Female Spiritual care concerns: No Meds Home Medications and Allergies Home Medications ?Medication ?Instructions ?Recorded ?Confirmed ?Type blood sugar diagnostic (OneTouch 06/05/20 03/15/25 History Verio test strips) blood-glucose meter (OneTouch 06/05/20 03/15/25 History Verio Flex Meter) lancets 33 gauge (OneTouch Delica 06/05/20 03/15/25 History Plus Lancet) pen needle, diabetic 31 gauge x 06/05/20 03/15/25 History 1/4 (UltiCare Pen Needle) albuterol sulfate 90 mcg/actuation 1 inh inhalation QID PRN Shortness 08/17/20 05/03/25 History aerosol inhaler (ProAir HFA) Of Breath cetirizine 10 mg capsule (Zyrtec) 10 mg PO DAILY #30 caps 08/17/20 05/11/25 Rx hydrocodone 5 mg-acetaminophen 325 2 tablet PO BID 08/17/20 05/11/25 History mg tablet ([place]) famotidine 20 mg tablet (Pepcid) 20 mg PO DAILY #30 tabs 04/24/21 05/11/25 Rx dapagliflozin propanediol 10 mg 10 mg PO DAILY 01/19/22 05/11/25 History tablet (Farxiga) duloxetine 30 mg capsule,delayed 30 mg PO DAILY 01/19/22 05/11/25 History release atorvastatin 20 mg tablet 20 mg PO DAILY 12/04/22 05/11/25 History azithromycin 250 mg tablet See Rx Instructions PO .COMPLEX #6 01/25/23 05/11/25 Rx tabs cephalexin 500 mg capsule 500 mg PO Q6H 1 week #28 caps 04/02/25 05/11/25 Rx metronidazole 500 mg tablet 500 mg PO Q6H 1 week #28 tabs 04/02/25 05/11/25 Rx semaglutide 1 mg/dose (4 mg/3 mL) 1 mg subcut WEEKLY 05/03/25 05/11/25 History subcutaneous pen injector (Ozempic) sodium sul 1.479 gram-potas ch See Rx Instructions PO .COMPLEX 05/03/25 Rx 0.188 gram-magnes sul 0.225 gram #24 tabs tablet (Sutab) Allergies Allergy/AdvReac Type Severity Reaction Status Date / Time Penicillins Allergy Severe Anaphylaxis Verified 05/11/25 12:12 levofloxacin (From Levaquin) Allergy Mild Rash Verified 05/11/25 12:12 Sulfa (Sulfonamide Allergy Mild Rash Verified 05/11/25 12:12 Antibiotics) Vital Signs Vital Signs - 24 hr 05/11/25 12:15 Temperature 96 F L Pulse Rate 83 Respiratory Rate 18 Blood Pressure 158/83 H Pulse Oximetry 98 Oxygen Delivery Room Air Exam Const: General: comfortable and no acute distress HENMT: Face/Nose/Sinus: Normal nares present Eyes: General: appearance normal, both eyes and all related structures Neck: Neck: no JVD Resp: Auscultation: clear to auscultation bilaterally Cardio: Rate: regular rate Rhythm: regular rhythm GI: Inspection: non-distended GI Palp: Yes Soft to palpation Skin: General skin exam: normal color Neuro: Speech: normal speech Extrem: General: normal to inspection Psych: Mental Status: mental status grossly normal Assessment and Plan Assessment and plan (1) Family history of colon cancer in mother: Code(s): Z80.0 - Family history of malignant neoplasm of digestive organs Status: Acute Assessment and Plan: colonoscopy (2) Dysphagia: Code(s): R13.10 - Dysphagia, unspecified Status: Acute Assessment and Plan: egd
--- NOTE | 2025-05-11 13:10 | S_PTH ---
PATIENT: Mrailyn Jacobson LOC: [facility] Paredes#:[id number] AGE/SX: 60/F ROOM: RE05/11/[address]: Tod Cruz MD : 1965 BED: DIS: 05/11/2025 SPEC #: [id number] RECD: 05/14/25 08:28 STATUS: MORENA RERen #: [id number] AUSTYN: 05/11/25 13:[address]: Tod Cruz DEPT: [facility] Surgical RECD BY: Mayra Aguiar ENTERED: 05/14/25 08:29 SP TYPE: Surgical OTHR DR: Violetta Leyva, PA Tissues: A - Gastric Biopsy B - Colon Polypectomy Procedures: Hematoxylin and Eosin Stain Gross and Microscopic Level 4
--- NOTE | 2025-05-11 13:13 | SUR.OPER ---
EGD: end 1309, COLON: start 1313
[2025-05-11 13:32] VITALS: BP 99/55; PULSE 78; RESP 21; O2SAT 100
[2025-05-11 13:42] VITALS: BP 109/59; PULSE 74; RESP 17; O2SAT 100
[2025-05-11 13:52] VITALS: BP 130/72; PULSE 77; RESP 22; O2SAT 100
== END 2025-05-11 14:05 | disposition home or self-care (01) ==
PROVIDERS: PCP Physician Assistant; Visit Provider Internal Medicine Gastroenterology
PROC: 0DJ08ZZ Inspection of Upper Intestinal Tract, Via Natural or Artificial Opening Endoscopic (ICD-10-PCS; CPT 45378; principal; 2025-05-11 13:00)
DX: Z12.11 Encounter for screening for malignant neoplasm of colon (principal); D12.2 Benign neoplasm of ascending colon; K21.00 Gastro-esophageal reflux disease with esophagitis, without bleeding; K29.70 Gastritis, unspecified, without bleeding; K58.9 Irritable bowel syndrome, unspecified; D64.9 Anemia, unspecified; F41.9 Anxiety disorder, unspecified; E11.9 Type 2 diabetes mellitus without complications; Q65.89 Other specified congenital deformities of hip; J44.9 Chronic obstructive pulmonary disease, unspecified; M19.90 Unspecified osteoarthritis, unspecified site; Z79.51 Long term (current) use of inhaled steroids; Z79.891 Long term (current) use of opiate analgesic; Z79.84 Long term (current) use of oral hypoglycemic drugs; Z79.85 Long-term (current) use of injectable non-insulin antidiabetic drugs; Z98.890 Other specified postprocedural states; Z98.1 Arthrodesis status; Z90.49 Acquired absence of other specified parts of digestive tract; Z87.891 Personal history of nicotine dependence; Z87.19 Personal history of other diseases of the digestive system; Z80.0 Family history of malignant neoplasm of digestive organs; Z80.49 Family history of malignant neoplasm of other genital organs; Z80.7 Family history of other malignant neoplasms of lymphoid, hematopoietic and related tissues; Z82.49 Family history of ischemic heart disease and other diseases of the circulatory system
CPT/HCPCS: 45340; 43239; 45385; 82948; 88305; J2704; J7120

== ENCOUNTER 2025-09-05 14:01 | Outpatient (CLI) | payer MEDICARE, MEDICAID, SELFPAY ==
--- NOTE | ~2025-09-05 | XR_ITS ---
EXAMINATION: XR finger 2nd LT min 2V, 09/05/2025 14:20 CLINICAL PROGRAM MANAGER HISTORY: INJURY TO 2ND FINGER x 3 weeks ago COMPARISON: No comparisons available. Findings: No acute fracture or malalignment. No significant degenerative changes. Soft tissues unremarkable. Impression: No acute fracture or malalignment. Reviewed, dictated and finalized at location P. ICAL PROGRAM MANAGER Impression: No acute fracture or malalignment.
--- OUTSIDE RECORDS SUMMARY | 2025-09-05 14:10 | XMS_ITS | Clinical Summary ---
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 [address] PCP - General Family Practice 03/11/11
--- OUTSIDE RECORDS SUMMARY | 2025-09-05 14:10 | XMS_ITS | Encounter Summary ---
Author Organization [facility] Address 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 [place], [place] [address] Patient: MARILYN SANCHEZ : 12/02/1960 Procedure Date: 11/02/2008 Accession Date: 11/02/2008 Case No: [id number] Ordering Dr: PARK CROWDER Case types AW, BW, FW, NW and SH are performed by [facility], [place], [place] SURGICAL PATHOLOGY & NON-GYNECOLOGIC CYTOPATHOLOGY REPORT DIAGNOSIS [...] 04:58 pm Microscopic: The slides are labeled [id number], Laura. Sections display focal fibrosis. [facility] 11.03.2008 09:46 am Staging Form: No ELECTRONIC SIGNATURE FOR ANA PARRISH M.D.- 11/03/08 01:31 pm INTERFACE SYSTEM 11/02/2008 1:20 PM SENIOR DIRECTOR Park Crowder MD PATHOLOGY/CYTOLOGY ORDERABLES Fi nal Result INTERFACE SYSTEM Refer to clinic/hospital department documented in this encounter Visit Diagnoses Diagnosis Lump or mass in breast documented in this encounter Care Teams Waste Water Treatment Plant Operator Relationship Specialty Start Date End Date Jerson Alfonso MD [address] [place] [address] PCP - General Family Practice 03/11/11 documented as of this encounter
--- OUTSIDE RECORDS SUMMARY | 2025-09-05 14:10 | XMS_ITS | Clinical Summary ---
Author Organization [facility] Address [address] [place] [address] Care Team Providers Care Jump Roll Operator Name Role Phone Violetta Leyva Primary Care Provider + Shelly Osborn MD Unavailable [phone] Allergies Active Allergy Reactions Criticality Noted Date [...] Active Additional Information Patient not taking.Reported on 06/15/2025 HYDROcodone-julia taminophen (VICODIN) 10-300 mg per tablet Take 1 tablet by mouth every 6 (six) hours as needed 3 Active Ozempic 2 mg/dose (8 mg/3 mL) pen injector injection 4 Active calcium carbonate-vitam in D3 (CALTRATE 600 + D) 1500 mg (600 mg elemental) -400 units per tablet Take 1 tablet by mouth daily Active celecoxib (CeleBREX) 100 mg capsule TAKE 1 CAPSULE BY MOUTH TWICE DAILY WITH FOOD Active cholecalciferol 25 mcg (1,000 unit) tablet Take 1 tablet (1,000 Units total) by mouth daily 8 Active Active Problems Problem Noted Date Diagnosed Date Numbness and tingling of lower extremity 025 Essential hypertension 06/10/2023 Adhesive capsulitis of right shoulder 06/09/2023 Closed fracture of third toe of left foot 2021 s/p left total hip arthroplasty at 07/22/2021 Primary osteoarthritis of left hip 05/29/2021 Overview (05/29/2021): Added automatically from request for surgery [id number] 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 05/26/2021 Low back pain 05/26/2021 Sensation of chest tightness 11/17/2011 Encounters Date Type Department Care Team Description 06/15/2025 11:45 AM CDT Office Visit [facility] [address] [place] [phone] Martin Singh MD Spinal stenosis in cervical region (Primary Dx); Rotator cuff impingement syndrome of [...] Asthma COPD (chronic obstructive pu lmonary disease) COPD History of pneumonia SEVERAL CHRISTOPHER ES LAST IN THE Migraine Cataract only one eye, no t sure which one Vertigo Diverticulitis of colon Irritable bowel syndrome History of colitis Wears glasses reading glasses GERD (gastroesophageal reflux disease) Osteoarthritis History of fracture spine DDD (degenerative disc disease), lumbar History of anxiety Type 2 diabetes mellitus s/p left total hip arthropla sty at [...] on file 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 Gender Identity Not on file Sexual Orientation [...] - - Weight 60.3 kg (133 lb) 06/15/2025 11:54 AM CDT Height 167.6 cm (5' 6) 06/15/2025 11:54 AM CDT Body Mass Index 21.47 06/15/2025 11:54 AM CDT Plan of Treatment Health Maintenance [...] Tdap) 01/03/2035 Medical Devices Implanted Type Area Him Analyst Device Identifier Shelf Expiration Date Model / Serial / Lot Total Hip Left: Hip Implanted-2015 Implanted:11/2015 (Quantity not on file) Right: Hip [employer] [id number] 54mm Limit Hole Color Coded Hip F Offset Hemisphere Shell - [id number] Implanted:Qty: 1 on 07/22/2021 by Martin Singh MD at [facility] Left: Hip [employer] [id number] 04/03/2031 [id number] / / [id number] [employer] [id number] G7 32mm Lumen Hip F Liner Acetabular Longevity Sterile Latex Free - [id number] Implanted:Qty: 1 on 07/22/2021 by Martin Singh MD at [facility] Left: Hip [employer] [id number] 02/17/[id number] / / [id number] [employer] [id number] Echo Bi-Metric 13mm 145mm Noncollar Reduce Proximal Profile Press - [id number] Implanted:Qty: 1 on 07/22/2021 by Martin Singh MD at [facility] Left: Hip [employer] [id number] 03/13/2031 [id number] / / [id number] [employer] [id number] 32mm Modular Hip +3mm Head Femoral Biolox Delta - [id number] Implanted:Qty: 1 on 07/22/2021 by Martin Singh MD at [facility] Left: Hip [employer] [id number] 01/17/2029 [id number] / / [id number] Procedures Procedure Name Priority Date/Time Associated Diagnosis Comments [place] INJECTION SINGLE/SOIL SAMPLER TRIGGER POINT 1/2 MUSCLES Routine 06/15/2025 11:45 AM CDT Spinal stenosis in cervical region COLONOSCOPY REPORT 06/18/2014 from Last 3 Months or Most Recently Relevant to Health Maintenance Results * [place] INJECTION SINGLE/SOIL SAMPLER TRIGGER POINT 1/2 MUSCLES (06/15/2025 11:45 AM CDT) Narrative Martin Singh MD - 06/15/2025 11:45 AM CDT Martin Singh MD 06/17/2025 11:30 AM Trigger Point Injection Performed by: Martin Singh MD Authorized by: Martin Singh MD Location: R upper trapezius Number of muscles: 1 or 2 Medications: 1 mL lidocaine 10 mg/mL (1 %); 40 mg methylPREDNISolone acetate 40 mg/mL Martin Singh MD IN CLINIC[facility]BEDSIDE [facility] Final Result * COLONOSCOPY REPORT (06/18/2014) Anatomical Region Laterality Modality Other Narrative 06/18/2014 Ordered by an unspecified provider. us Historical Provider GI PROCEDURE ORDERABLES F inal Result from Last 3 Months or Most Recently Relevant to Health Maintenance Insurance [facility] MEDICARE [facility] OPEN ACCESS [facility] Advance Directives For more information, please contact: [phone] * Full Code (Latest Code Status on File) Date Activated Date Inactivated Comments 07/22/2021 6:21 PM 07/24/2021 6:41 PM Care Teams Jump Roll Operator Relationship Specialty Start Date End Date Violetta Leyva PA PCP - General 10/28/20 Shelly Osborn MD [address] [address] Referring Physician Internal Medicine 07/08/21
--- OUTSIDE RECORDS SUMMARY | 2025-09-05 14:10 | XMS_ITS | Encounter Summary ---
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
--- OUTSIDE RECORDS SUMMARY | 2025-09-05 14:10 | XMS_ITS | Clinical Summary ---
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 This disclosure is being madepursuant to the Care Everywhere program and may not contain all information available regarding this patient. 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 Oxygen Saturation 98% 03/22/2024 11:51 AM CDT [...] FLEX SIG - COLON CA SCREENING 1964 MEDICARE AWV 12 MONTHS 1964 HIV SCREENING 02/03/1979 HEPATITIS C SCREENING 01/30/1982 DTAP/TDAP/TD VACCINES (1 - Tdap) 02/03/1983 Cervical Cancer Screening 02/03/1985 PAP SMEAR 02/03/1985 PAP with HPV 02/03/1994 PNEUMOCOCCAL VACCINE 50+ (1 of 1 - PCV) 02/03/2014 Respiratory Syncytial Virus (RSV) Vaccine Pt: or over 60 yrs (1 - Risk 50-74 years 1-dose series) 02/03/2014 ZOSTER VACCINE (1 of 2) 02/03/2014 MAMMOGRAM 05/31/2016 05/31/2014 DEPRESSION SCREENING 10/11/2024 COVID-19 VACCINE (1 - 2024-2 6 season) 2025 INFLUENZA VACCINE (#1) 2025 HEPATITIS B VACCINE [...] patient's age to complete this topic Insurance MEDICARE MEDICAID - [place] Advance Directives * Full Code (Latest Code Status on File) Date Activated Date Inactivated Comments 08/30/2023 1:10 PM 08/31/2023 3:39 PM Care Teams Agricultural Produce Washer Relationship Specialty Start Date End Date Violetta Leyva PA-C [address] [place] [phone] PCP - General Physician Video Engineer 06/30/23
== END 2025-09-05 14:02 | disposition home or self-care (01) ==
DX: S69.92XA Unspecified injury of left wrist, hand and finger(s), initial encounter (principal); X58.XXXA Exposure to other specified factors, initial encounter
CPT/HCPCS: 73140